=== PATIENT | male | born 1975 | race Caucasian/White ===

== ENCOUNTER 2019-09-24 12:07 | Emergency (ER) | payer SELFPAY ==
--- NOTE | 2019-09-24 12:16 | ED.GENADULT ---
HPI - General Adult General Chief complaint: Wound/Laceration Stated complaint: Burned/infected rt 4 finger Time Seen by Provider: 09/24/19 12:17 Source: patient and RN notes reviewed Mode of arrival: ambulatory Limitations: no limitations History of Present Illness HPI narrative: 44-year-old male presents with complaints of medial-anterior RT 4th finger (ring) swelling, warmth, tenderness, and redness for the past 3 days. Truong says he cleaned finger with alcohol and stuck it with a sterile needle then cleaned it with peroxide without relief. No known injury. Denies numbness or tingling. No weakness of finger. Denies fever or chills. Denies immobility. Exacerbation is movement and palpation of finger. Relieving factor is rest. Denies break in skin or drainage. Denies abdominal pain, decrease appetite, nausea, or vomiting. Truong denies history of MRSA. Dominant hand is the RIGHT HAND. Denies headaches, weakness, fatigue, myalgia, or facial swelling. Denies chest pain or dyspnea. Denies cough, rhinorrhea, congestion, sore throat, and diarrhea. Tolerating po intake well. Denies recent traveling. Denies concerns for COVID-19 or exposures been home since [id number] order except for essential household needs, working, and returned home. Says he has been off work and had a COVID-19 screening today due to nausea and vomiting last week otherwise no other symptoms. Says vomiting was from something he ate but [employer] required screening. Some parts of this dictation were generated by voice recognition software and may contain typographical and/or grammatical inaccuracies. Related Data Home Medications Medication Instructions Recorded Confirmed amlodipine 09/24/19 simvastatin mg 09/24/19 09/24/19 Allergies Allergy/AdvReac Type Severity Reaction Status Date / Time No Known Allergies Allergy Verified 04/15/19 10:47 Review of Systems Review of Systems: Narrative: CONSTITUTIONAL: Denies fever, chills, sweats. EYES: Denies visual changes, redness, discharge. ENT: Denies rhinorrhea, congestion, sore throat, otalgia. CARDIOVASCULAR: Denies chest pain, palpitations, edema. RESPIRATORY: Denies dyspnea, wheezing, cough GASTROINTESTINAL: Denies abdominal pain, nausea, vomiting, diarrhea. GENITOURINARY: Denies dysuria, hematuria, abnormal discharge SKIN: Denies rash or itching. Complains of RT 4th finger (ring) swelling, warmth, tenderness, and redness. MUSCULOSKELETAL: Denies acute back pain or myalgia. Complains of medial-anterior RT 4th finger (ring) warmth, pain, redness, and swelling. NEUROLOGIC: Denies numbness, or focal weakness. PSYCHIATRIC: Denies anxiety or depression. All other systems reviewed are negative, except as documented in HPI and below. [facility] Past Medical History Medical History (Updated 09/24/19 @ 14:17 by MARA Buckley) Hypercholesteremia Hypertension Surgical History Surgical History (Updated 09/24/19 @ 12:30 by MARA Buckley) History of eye surgery Left History of foot surgery Left Family History Family History (Updated 09/24/19 @ 12:33 by MARA Buckley) Father Hypertension Mother Hypertension Social History Social History (Updated 09/24/19 @ 14:18 by MARA Buckley) Smoking packs per day: 1.5 Smoking cigarettes per day: 30.0 Years smoked: 23 Smoking pack-years: 34.50 Smoking status: Current every day smoker Tobacco type: cigarettes Second hand tobacco smoke exposure: Yes Alcohol intake: current Substance use: never Living arrangements: with family Occupation/Education: occupation Gender identity (if verbalized by the patient): Male Spiritual care concerns: No Comments At time of signature, agree with nurse past medical, surgical, social, and family history. There is no relevant family history pertinent to the presenting complaint. Exam Narrative: Exam Narrative: GENERAL: Thi
[2019-09-24 12:20] VITALS: BP 149/93; PULSE 79; RESP 16; TEMP 36.2; O2SAT 100
== END 2019-09-24 12:42 | disposition home or self-care (01) ==
PROVIDERS: Emergency Provider Nurse Practitioner Family
DX: L03.011 Cellulitis of right finger (principal); I10 Essential (primary) hypertension
CPT/HCPCS: 99213; G0463

== ENCOUNTER 2020-03-14 09:52 | Emergency (ER) | payer OTHER, SELFPAY ==
--- NOTE | ~2020-03-14 | CT_ITS ---
EXAMINATION: CT facial bones w con DATE: 03/14/2020 11:28 INDICATION: Tooth 28 pain. Facial edema and erythema. TECHNIQUE: Computed tomography (CT) of the facial bones and maxillofacial region was performed with 7 5 mL Omnipaque 350 intravenous contrast. Automated exposure control and iterative reconstruction tech nique were employed. The dose-length product was 302.32 mGy-cm. COMPARISON: None. FINDINGS: The palatine tonsils are enlarged. There is soft tissue swelling in the right lower face. T here is mild mucosal thickening in the paranasal sinuses. The mastoid air cells are normal. Tooth 2 i s broken. Tooth 3 demonstrates carious lesions. Tooth 7 demonstrates a carious lesion. Tooth 9 demons trates a carious lesion and periapical lucencies with breech of the buccal and lingual cortex of the alveolar process. Tooth 11 demonstrates a carious lesion. Teeth 13 and 14 demonstrate carious lesions . Tooth 18 demonstrates carious lesions. Tooth 19 is absent. Tooth 20 demonstrates a carious lesion a nd periapical lucency. Tooth 28 demonstrates a carious lesion and periapical lucencies with breech of the buccal cortex of the alveolar process with 3 x 1 mm subperiosteal abscess. Tooth 29 demonstrates a carious lesion. IMPRESSION: 1. Extensive dental disease including small subperiosteal abscess at tooth 28. Reviewed, dictated and finalized at location A.
[2020-03-14 10:05] VITALS: BP 158/113; PULSE 81; RESP 18; TEMP 36.3; O2SAT 100
--- NOTE | 2020-03-14 10:40 | ED.DENTAL ---
HPI - Dental/Oral General Chief complaint: Dental/Oral <Nabila Sofia PA-C - Last Filed: 03/14/20 12:08> Stated complaint: TOOTH PAIN <TAB Castelan Last Filed: 03/14/20 12:08> Time Seen by Provider: 03/14/20 10:13 <Nabila Sofia PA-C - Last Filed: 03/14/20 12:08> Source: patient <TAB Castelan Last Filed: 03/14/20 12:08> Mode of arrival: ambulatory <TAB Castelan Last Filed: 03/14/20 12:08> Limitations: no limitations <TAB Castelan Last Filed: 03/14/20 12:08> History of Present Illness HPI Narrative: This is a 45-year-old male that presents the emergency department for toothache since yesterday. Reports he started to have redness and swelling around the tooth and noted swelling of his face which prompted him to be seen. Denies fever, dysphagia, or dyspnea. <Nabila Sofia PA-C - Last Filed: 03/14/20 12:08> MD Complaint: tooth pain <TAB Castelan Last Filed: 03/14/20 12:08> Location: Tooth # (28) <Nabila Sofia PA-C - Last Filed: 03/14/20 12:08> Related Data Allergies/adverse reactions: Allergies Allergy/AdvReac Type Severity Reaction Status Date / Time No Known Allergies Allergy Verified 03/14/20 10:13 <TAB Castelan Last Filed: 03/14/20 12:08> Review of Systems Review of Systems: Narrative: CONSTITUTIONAL: Denies fever ENT: Reports dentalgia <TAB Castelan Last Filed: 03/14/20 12:08> All systems reviewed & are unremarkable except as noted in HPI and below <TAB Castelan Last Filed: 03/14/20 12:08> PMFSH Past Medical History Medical History: Medical History (Updated 03/14/20 @ 12:07 by Nabila Sofia PA-C) Hypercholesteremia Hypertension <Nabila Sofia PA-C - Last Filed: 03/14/20 12:08> Surgical History Surgical History: Surgical History (Updated 09/24/19 @ 12:30 by MARA Buckley) History of eye surgery Left History of foot surgery Left <Nabila Sofia PA-C - Last Filed: 03/14/20 12:08> Family History Family History: Family History (Updated 09/24/19 @ 12:33 by MARA Buckley) Father Hypertension Mother Hypertension <Nabila Sofia PA-C - Last Filed: 03/14/20 12:08> Social History Social History: Social History (Updated 09/24/19 @ 14:18 by MARA Buckley) Smoking packs per day: 1.5 Smoking cigarettes per day: 30.0 Years smoked: 23 Smoking pack-years: 34.50 Smoking status: Current every day smoker Tobacco type: cigarettes Second hand tobacco smoke exposure: Yes Alcohol intake: current Substance use: never Gender identity (if verbalized by the patient): Male Spiritual care concerns: No <Nabila Sofia PA-C - Last Filed: 03/14/20 12:08> Exam Narrative: Exam Narrative: GENERAL: Well-appearing, well-nourished, and in no acute distress. HEAD: Normocephalic, atraumatic. EYES: EOMI. ENT: Mucous membranes moist. Oropharynx without tonsillar hypertrophy exudate or other lesions. Poor dentition. Tooth #28 tender to palpation with surrounding edema and erythema. No obvious fluctuance. Mild right sided facial swelling, without erythema. Floor of mouth is soft. No trismus NECK: Supple. No adenopathy or masses. CHEST: Clear to auscultation. No respiratory distress. No wheezes rales or rhonchi HEART: Regular rate and rhythm. No murmur heard. Normal peripheral pulses. EXTREMITIES: Normal range of motion. No edema. SKIN: Warm, dry, no rash. NEURO: No focal deficits. Alert and oriented x3. PSYCH: Normal mood and affect <Nabila Sofia PA-C - Last Filed: 03/14/20 12:08> Course Vital Signs Vital signs: Vital Signs Temperature 97.4 F L 03/14/20 10:05 Pulse Rate 81 03/14/20 10:05 Respiratory Rate 18 03/14/20 10:05 Blood Pressure 158/113 H 03/14/20 10:05 Pulse Oximetry 100 03/14/20 10:05 Temperature 97.4
[2020-03-14 10:55] LABS: Basophils Percent Auto 0.2 % (0.2-1.2); Eosinophils Absolute Auto 0.2 K/mm3 (0-0.3); Eosinophils Percent Auto 1.7 % (0-4.4); Hematocrit 48.4 % (42.0-52.0); Hemoglobin 16.2 g/dL (14.0-18.0); Immature Granulocyte Absolute 0.09 K/mm3 (0.00-0.031); Immature Granulocyte Percent A 0.7 % (0-0.5); Lymphocytes Absolute Auto 3.17 K/mm3 (0.9-3.2); Lymphocytes Percent Auto 24.8 % (18.3-44.2); Mean Corpuscular HGB Conc 33.5 g/dl (32-36); Mean Corpuscular Hemoglobin 31.7 pg (26-34); Mean Corpuscular Volume 94.7 fl (80-100); Mean Platelet Volume 9.5 fl (7.4-10.4); Monocytes Absolute Auto 1.2 K/mm3 (0.1-0.6); Monocytes Percent Auto 9.1 % (2.6-8.5); Neutrophils Absolute Auto 8.1 K/mm3 (1.3-6.7); Neutrophils Percent Auto 63.5 % (45.5-73.1); Platelet Count Result 302 k/mm3 (150-375); Red Blood Count 5.11 M/mm3 (4.6-6.20); Red Cell Distribution Width 12.4 % (11.5-14.5); White Blood Count 12.8 K/mm3 (4.5-10.0)
[2020-03-14] MEDS: KETOROLAC 30 MG/ML VIAL (*BKC) IV PUSH (10:56)
[2020-03-14 11:11] LABS: Anion Gap 5 mmol/L (8-16); Blood Urea Nitrogen 17 mg/dL (9-20); CRP 0.6 mg/dL (<1.0); Calcium 9.4 mg/dL (8.4-10.2); Carbon Dioxide 30 mmol/L (22-30); Chloride 103 mmol/L (98-107); Estimated CRCL calculation 123 ml/min; Estimated Glomerular Filt Rate > 60; Glucose 105 mg/dL (75-110); Potassium 4.8 mmol/L (3.4-5.0); Sodium 138 mmol/L (137-145)
[2020-03-14] MEDS: AMPICILLIN SULB 3 GM/NS 100 ML 3 GM/100 ML VIAL IVPB (12:12)
== END 2020-03-14 12:56 | disposition home or self-care (01) ==
PROVIDERS: Physician Assistant; Emergency Provider General Practice
DX: K04.7 Periapical abscess without sinus (principal); E78.00 Pure hypercholesterolemia, unspecified; I10 Essential (primary) hypertension; F17.210 Nicotine dependence, cigarettes, uncomplicated
CPT/HCPCS: 36415; 70487; 80048; 85025; 86140; 96365; 96375; 99284; J0295; J1885; Q9967

== ENCOUNTER 2020-11-30 01:50 | Emergency (ER) | payer SELFPAY ==
[2020-11-30 01:52] VITALS: BP 169/98; PULSE 93; RESP 16; TEMP 36.7; O2SAT 98
--- NOTE | 2020-11-30 03:13 | ED.GENADULT ---
HPI - General Adult General Chief complaint: Eye Problems Stated complaint: L eye problem Time Seen by Provider: 11/30/20 02:59 History of Present Illness HPI narrative: Patient is a 45-year-old gentleman who presents the emergency department with chief complaint of left orbit swelling. The patient reports he was out working in the yard wearing his eye protection and reports that he thinks he may have gotten stung by something and then he noticed that he started having some redness on the left side of his face extending down of his left eyelid. 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 Patient states that it feels irritated and is slightly discomfort whenever he touches the area. Patient denies fever denies chills denies shortness of breath denies chest pain. Related Data Allergies Allergy/AdvReac Type Severity Reaction Status Date / Time No Known Allergies Allergy Verified 11/30/20 02:12 Review of Systems Review of Systems: Narrative: A 10 system review of systems was completed on the patient and is negative except for what is stated in the HPI. Nursing and ancillary documentation was reviewed. [facility] Past Medical History Medical History Hypercholesteremia Hypertension Surgical History Surgical History History of eye surgery Left History of foot surgery Left Family History Family History Father Hypertension Mother Hypertension Social History Social History Smoking packs per day: 1.5 Smoking cigarettes per day: 30.0 Years smoked: 23 Smoking pack-years: 34.50 Smoking status: Current every day smoker Tobacco type: cigarettes Second hand tobacco smoke exposure: Yes Alcohol intake: current Substance use: never Gender identity (if verbalized by the patient): Male Spiritual care concerns: No Exam Narrative: Exam Narrative: GENERAL: Well-appearing, well-nourished, and in no acute distress. HEAD: Normocephalic, atraumatic. EYES: PERRLA and EOMI. ENT: Nares clear, no rhinorrhea or epistaxis. Mucous membranes moist. NECK: Supple. CHEST: Clear to auscultation. No respiratory distress. HEART: Regular rate and rhythm. No murmur heard. Normal peripheral pulses. ABDOMEN: Soft, nontender, nondistended, normal active bowel sounds. EXTREMITIES: Normal range of motion. No edema. SKIN: Warm, dry, no rash. NEURO: No focal deficits. Alert and oriented x3. PSYCH: Normal mood and affect. Course Vital Signs Vital signs: Vital Signs Temperature 36.7 C 11/30/20 01:52 Pulse Rate 93 11/30/20 01:52 Respiratory Rate 16 11/30/20 01:52 Blood Pressure 169/98 H 11/30/20 01:52 Pulse Oximetry 98 11/30/20 01:52 Temperature 36.7 C 11/30/20 01:52 Pulse Rate 93 11/30/20 01:52 Respiratory Rate 16 11/30/20 01:52 Blood Pressure 169/98 H 11/30/20 01:52 Pulse Oximetry 98 11/30/20 01:52 Medical Decision Making Vital Signs Vital Signs: Vital Signs Temperature 36.7 C 11/30/20 01:52 Pulse Rate 93 11/30/20 01:52 Respiratory Rate 16 11/30/20 01:52 Blood Pressure 169/98 H 11/30/20 01:52 Pulse Oximetry 98 11/30/20 01:52 Temperature 36.7 C 11/30/20 01:52 Pulse Rate 93 11/30/20 01:52 Respiratory Rate 16 11/30/20 01:52 Blood Pressure 169/98 H 11/30/20 01:52 Pulse Oximetry 98 11/30/20 01:52 Discharge Plan Discharge Clinical Impression: Periorbital cellulitis Qualifiers: Laterality: left Qualified Code(s): L03.213 - Periorbital cellulitis Insect bite Qualifiers: Encounter type: initial encounter Site of insect bite: head Site of insect bite of head: periocular area Laterality: left Qualified Code(s): S00.262A - Insect bite (nonvenomous) of le
[2020-11-30] MEDS: predniSONE 20 MG TABLET 60 MG PO (03:21)
[2020-11-30] MEDS: CLINDAMYCIN HCL 150 MG CAP 300 MG PO (03:21)
[2020-11-30 03:29] VITALS: BP 152/87; PULSE 85; RESP 18; O2SAT 95
== END 2020-11-30 03:28 | disposition home or self-care (01) ==
PROVIDERS: Emergency Provider Emergency Medicine
DX: L03.213 Periorbital cellulitis (principal); S00.262A Insect bite (nonvenomous) of left eyelid and periocular area, initial encounter; E78.00 Pure hypercholesterolemia, unspecified; I10 Essential (primary) hypertension; F17.210 Nicotine dependence, cigarettes, uncomplicated; W57.XXXA Bitten or stung by nonvenomous insect and other nonvenomous arthropods, initial encounter
CPT/HCPCS: 99283; A9270; J7512

== ENCOUNTER 2021-04-15 15:20 | Emergency (ER) | payer OTHER, SELFPAY ==
[2021-04-15 15:40] VITALS: BP 167/106; PULSE 78; RESP 18; TEMP 36.5; O2SAT 99
--- NOTE | 2021-04-15 15:43 | ED.WOUNDLAC ---
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 He states that he jerked his left shoulder and dropped boxes when dog bit him. He states that his tetanus is not up to date. Patient reports pain to his left shoulder with movement, full ROM of left shoulder is present with strong left arm pulses with no tingling or numbness to his left am or hand. Patient works for [employer]. Location: abdomen Context: other (dog bite) Related Data Allergies Allergy/AdvReac Type Severity Reaction Status Date / Time No Known Allergies Allergy Verified 04/18/21 09:06 Review of Systems Review of Systems: CONSTITUTIONAL: Denies fever, chills, or sweats. EYES: Denies visual changes, redness, or discharge. ENT: Denies rhinorrhea, congestion, sore throat, or otalgia. CARDIOVASCULAR: Denies chest pain, palpitations, or edema. RESPIRATORY: Denies cough or dyspnea. GASTROINTESTINAL: Denies abdominal pain, nausea, vomiting, or diarrhea. GENITOURINARY: Denies dysuria or hematuria. SKIN: Denies rash or itching. Positive for dog bite to abdomen, upper and lower canine puncture luis noted along with abrasions from upper teeth MUSCULOSKELETAL: Denies back pain,positive for left shoulder joint pain, or myalgia. NEUROLOGIC: Denies headache, numbness, or weakness. PSYCHIATRIC: Denies anxiety or depression. All systems reviewed & are unremarkable except as noted in HPI and below PMFSH Past Medical History Medical History (Updated 04/18/21 @ 10:20 by Zenia Dodd NP) Closed left arm fracture Hypercholesteremia Hypertension Kidney stone Surgical History Surgical History History of eye surgery Left History of foot surgery Left Family History Family History Father Hypertension Mother Hypertension Social History Social History Smoking packs per day: 1.5 Smoking cigarettes per day: 30.0 Years smoked: 23 Smoking pack-years: 34.50 Smoking status: Current every day smoker Tobacco type: cigarettes Second hand tobacco smoke exposure: Yes Alcohol intake: current Substance use: never Gender identity (if verbalized by the patient): Male Spiritual care concerns: No Comments At time of signature, agree with nursing past medical, surgical, social and family history. There is no relevant family history pertinent to the presenting complaint Exam Narrative: GENERAL: Well-appearing, well-nourished, and in no acute distress. HEAD: Normocephalic, atraumatic. EYES: PERRLA and EOMI. ENT: Nares clear, no rhinorrhea or epistaxis. Mucous membranes moist. NECK: Supple.no lymphadenopathy CHEST: Clear to auscultation. No respiratory distress. HEART: Regular rate and rhythm. No murmur heard. Normal peripheral pulses. ABDOMEN: Soft, nontender, nondistended, normal active bowel sounds. EXTREMITIES: Normal range of motion. No edema. some tenderness to AC joint area of left shoulder, full ROM noted with strong pulses and sensation intact SKIN: Warm, dry, no rash. positive for dog bite to abdomen with puncture areas from top and bottom canines and abrasions from front teeth. NEURO: No focal deficits. Alert and oriented x3. Course Vital Signs Vital signs: Vital Signs Temperature 36.5 C 04/15/21 15:40 Pulse Rate 78 04/15/21 15:40 Respiratory Rate 18 04/15/21 15:40 Blood Pre
[2021-04-15] MEDS: TETANUS,DIPHTHERIA,AC PERTUSSIS ADULT (0.5 ML) BOOSTRIX IM (16:05)
== END 2021-04-15 16:40 | disposition home or self-care (01) ==
PROVIDERS: Emergency Provider Registered Nurse
DX: S31.139A Puncture wound of abdominal wall without foreign body, unspecified quadrant without penetration into peritoneal cavity, initial encounter (principal); W54.0XXA Bitten by dog, initial encounter; M25.512 Pain in left shoulder; Z23 Encounter for immunization; F17.210 Nicotine dependence, cigarettes, uncomplicated; E78.00 Pure hypercholesterolemia, unspecified; I10 Essential (primary) hypertension
CPT/HCPCS: 90471; 90715; 99203; G0463

== ENCOUNTER 2021-05-26 21:42 | Emergency (ER) | payer SELFPAY ==
--- NOTE | 2021-05-26 21:51 | PC.NURSE ---
Pt to desk saying he wants to just go home and try to sleep it off . Pt encouraged to monitor symptoms and return if symptoms worsen. Pt ambulatory with steady gait in no obvious distress.
== END 2021-05-26 21:43 | disposition left against medical advice (07) ==
LOC: ANHED 21:56
DX: Z53.21 Procedure and treatment not carried out due to patient leaving prior to being seen by health care provider (principal)
CPT/HCPCS: 99199

== ENCOUNTER 2021-06-30 16:21 | Emergency (ER) | payer OTHER, SELFPAY ==
[2021-06-30 16:25] VITALS: BP 183/66; PULSE 95; RESP 20; TEMP 36.6; O2SAT 99
--- NOTE | 2021-06-30 16:54 | ED.FEVER ---
HPI - Fever General Chief Complaint: Fever Stated Complaint: fever Time Seen by Provider: 06/30/21 16:35 Source: patient History of Present Illness HPI Narrative: 46-year-old male presents emerged department for evaluation of intermittent fever. Patient had covid near Xmas but felt that he improved. On sunday had worsening symptoms again. Had a negative covid test on Sunday. Patient describes subjective chills and fever. Patient denies any chest pain or shortness of breath. Related Data Allergies Allergy/AdvReac Type Severity Reaction Status Date / Time No Known Allergies Allergy Verified 04/18/21 09:06 Review of Systems Review of Systems: CONSTITUTIONAL: Subjective fever and chills. EYES: Denies visual changes, redness, or discharge. ENT: Denies rhinorrhea, congestion, sore throat, or otalgia. CARDIOVASCULAR: Denies chest pain, palpitations, or edema. RESPIRATORY: Denies cough or dyspnea. GASTROINTESTINAL: Denies abdominal pain, nausea, vomiting, or diarrhea. GENITOURINARY: Denies dysuria or hematuria. SKIN: Denies rash or itching. MUSCULOSKELETAL: Denies back pain, joint pain, or myalgia. NEUROLOGIC: Denies headache, numbness, or weakness. PSYCHIATRIC: Denies anxiety or depression. [facility] Past Medical History Medical History (Updated 06/30/21 @ 18:16 by Adan Salgado MD) Closed left arm fracture Hypercholesteremia Hypertension Kidney stone Surgical History Surgical History History of eye surgery Left History of foot surgery Left Family History Family History Father Hypertension Mother Hypertension Social History Social History Smoking packs per day: 1.5 Smoking cigarettes per day: 30.0 Years smoked: 23 Smoking pack-years: 34.50 Smoking status: Current every day smoker Tobacco type: cigarettes Second hand tobacco smoke exposure: Yes Alcohol intake: current Substance use: never Gender identity (if verbalized by the patient): Male Spiritual care concerns: No Exam Narrative: APPEARANCE: Well appearing, no pain, no distress, well-nourished. HEAD: normocephalic, atraumatic. EYES: PERRLA/EOMI, conjunctivae clear. NOSE: Normal no drainage NECK: Supple. No adenopathy, no masses. RESPIRATORY: Airway patent, respirations nonlabored. Clear to auscultation bilaterally, no rales, rhonchi, wheezing. CARDIOVASCULAR: Regular rate and rhythm without murmurs rubs or gallops. ABDOMINAL: Soft, nontender, nondistended, normal bowel sounds MUSCULOSKELETAL: Moves all extremities. Strength/ROM intact, No edema, No calf tenderness. NEURO: Alert. Cranial nerves II through XII intact. SKIN: Warm, dry. Normal Color PSYCHIATRIC: Normal affect/mood. Course Course Emergency Course: Patient was updated on the results of his labs. Vital Signs Vital signs: Vital Signs Temperature 97.8 F 06/30/21 16:25 Pulse Rate 95 06/30/21 16:25 Respiratory Rate 20 06/30/21 16:25 Blood Pressure 183/66 H 06/30/21 16:25 Pulse Oximetry 99 06/30/21 16:25 Temperature 97.8 F 06/30/21 16:25 Pulse Rate 79 06/30/21 18:29 Respiratory Rate 18 06/30/21 18:29 Blood Pressure 160/82 H 06/30/21 18:29 Pulse Oximetry 100 06/30/21 18:29 MDM - Fever Differential Diagnosis Differential diagnosis: Likely viral infection Lab Data Attestation: I reviewed the patient's lab results. Labs: Lab Results 06/30/21 Range/Units 17:08 Influenza A (RT-PCR) Negative (Negative) Influenza B (RT-PCR) Negative (Negative) SARS-CoV-2 RNA (RT-PCR) Negative Discharge Plan Discharge Clinical Impression: Viral infection Patient Disposition: Home, Self-Care Condition: Stable Instructions: Antibiotic Form, Viral Syndrome (ED) Additional Instructions: Have close follow-up with your primary c
[2021-06-30 17:00] VITALS: O2SAT 98
[2021-06-30 17:57] VITALS: BP 164/100; PULSE 85; RESP 18; O2SAT 96
[2021-06-30 18:04] LABS: Influenza A QL RT-PCR Negative (Negative); Influenza B QL RT-PCR Negative (Negative); SARS-CoV-2 RNA PCR Negative
[2021-06-30 18:29] VITALS: BP 160/82; PULSE 79; RESP 18; O2SAT 100
== END 2021-06-30 18:29 | disposition home or self-care (01) ==
PROVIDERS: Emergency Provider Emergency Medicine
DX: B34.9 Viral infection, unspecified (principal); Z20.822 Contact with and (suspected) exposure to COVID-19; E78.00 Pure hypercholesterolemia, unspecified; I10 Essential (primary) hypertension; Z87.442 Personal history of urinary calculi; F17.210 Nicotine dependence, cigarettes, uncomplicated
CPT/HCPCS: 87502; 99283; C9803; U0003; U0005

== ENCOUNTER 2021-07-29 10:46 | Emergency (ER) | payer OTHER, SELFPAY ==
--- NOTE | ~2021-07-29 | XR_ITS ---
EXAMINATION: XR chest 2V EXAM DATE: 07/29/2021 11:09 INDICATION: Midline chest pain. TECHNIQUE: Frontal and lateral projections of the chest obtained and reviewed. Comparison is made to prior examination from 02/11/2018. FINDINGS: The lungs are clear. There are no pleural effusions. The cardiomediastinal silhouette is within normal limits. There is no pneumothorax suspected. The bones and soft tissues are unremarkab le. IMPRESSION: No acute cardiopulmonary findings. Reviewed, dictated and finalized at location B. TABLE TRIMMER
--- NOTE | 2021-07-29 10:49 | ECG_ITS ---
Measurements Intervals [place] Rate: 78 P: 5 ME: 132 QRS: 53 QRSD: 94 T: 58 QT: 380 QTc: 435 Interpretive Statements SINUS RHYTHM NO PREVIOUS ECG AVAILABLE FOR COMPARISON Electronically Signed On 07-29-2021 15:51:58 [employer] by Harry Robbins M.D.
[2021-07-29 10:55] VITALS: BP 166/93; PULSE 76; RESP 18; TEMP 36.4; O2SAT 100
[2021-07-29 12:08] VITALS: BP 175/95; PULSE 79; RESP 22; O2SAT 100
[2021-07-29 12:10] LABS: Basophils Percent Auto 0.3 % (0.2-1.2); Eosinophils Absolute Auto 0.2 K/mm3 (0-0.3); Eosinophils Percent Auto 1.3 % (0-4.4); Hematocrit 48.3 % (42.0-52.0); Hemoglobin 16.1 g/dL (14.0-18.0); Immature Granulocyte Absolute 0.06 K/mm3 (0.00-0.031); Immature Granulocyte Percent A 0.5 % (0-0.5); Lymphocytes Absolute Auto 2.52 K/mm3 (0.9-3.2); Mean Corpuscular HGB Conc 33.3 g/dl (32-36); Mean Corpuscular Hemoglobin 30.1 pg (26-34); Mean Corpuscular Volume 90.4 fl (80-100); Mean Platelet Volume 9.1 fl (7.4-10.4); Monocytes Absolute Auto 0.6 K/mm3 (0.1-0.6); Monocytes Percent Auto 4.7 % (2.6-8.5); Neutrophils Absolute Auto 8.7 K/mm3 (1.3-6.7); Neutrophils Percent Auto 72.2 % (45.5-73.1); Platelet Count Result 337 k/mm3 (150-375); Red Blood Count 5.34 M/mm3 (4.6-6.20)
[2021-07-29 12:19] LABS: Prothrombin Time 12.6 Seconds (11.1-14.7)
[2021-07-29 12:20] LABS: Partial Thromboplastin Time 28.8 SECONDS (22.3-36.8)
[2021-07-29 12:21] LABS: Alanine Aminotransferase 23 U/L (4-50); Albumin Level 4.6 g/dL (3.5-5.1); Alkaline Phosphatase 84 U/L (38-126); Anion Gap 9 mmol/L (8-16); Aspartate Amino Transferase 26 U/L (17-59); Bilirubin,Total 0.6 mg/dL (0.2-1.3); Blood Urea Nitrogen 14 mg/dL (9-20); Carbon Dioxide 25 mmol/L (22-30); Chloride 105 mmol/L (98-107); Estimated CRCL calculation 137 ml/min; Estimated Glomerular Filt Rate > 60; Glucose 144 mg/dL (65-110); Lipase 375 U/L (23-300); Potassium 4.5 mmol/L (3.4-5.0); Sodium 139 mmol/L (137-145)
[2021-07-29 12:31] LABS: Troponin I < 0.012 ng/mL (0.000-0.034)
--- NOTE | 2021-07-29 12:32 | ED.CHESTPAIN ---
HPI - Chest Pain General Chief Complaint: Chest Pain Stated Complaint: Chest pain Time Seen by Provider: 07/29/21 12:21 Source: patient History of Present Illness HPI narrative: Patient presents with chest pain. Reports has had intermittent chest pain for the past few weeks started a sharp pain no radiation no clear aggravating or alleviating factors. Reports he had Covid appeared to recover well however had persistent intermittent chest pain and cough he was concerned so he came to the ER for evaluation. Denies any abdominal pain nausea vomiting diarrhea or diaphoresis. Related Data Allergies Allergy/AdvReac Type Severity Reaction Status Date / Time No Known Allergies Allergy Verified 04/18/21 09:06 Review of Systems Review of Systems: CONSTITUTIONAL: Denies fever, chills, or sweats. EYES: Denies visual changes, redness, or discharge. ENT: Denies rhinorrhea, congestion, sore throat, or otalgia. CARDIOVASCULAR: Denies palpitations, or edema. RESPIRATORY: Denies dyspnea. GASTROINTESTINAL: Denies abdominal pain, nausea, vomiting, or diarrhea. GENITOURINARY: Denies dysuria or hematuria. SKIN: Denies rash or itching. MUSCULOSKELETAL: Denies back pain, joint pain, or myalgia. NEUROLOGIC: Denies headache, numbness, dizziness, or weakness. PSYCHIATRIC: Denies anxiety or depression. All systems reviewed & are unremarkable except as noted in HPI and below PMFSH Past Medical History Medical History Closed left arm fracture Hypercholesteremia Hypertension Kidney stone Surgical History Surgical History History of eye surgery Left History of foot surgery Left Family History Family History Father Hypertension Mother Hypertension Social History Social History Smoking packs per day: 1.5 Smoking cigarettes per day: 30.0 Years smoked: 23 Smoking pack-years: 34.50 Smoking status: Current every day smoker Tobacco type: cigarettes Second hand tobacco smoke exposure: Yes Alcohol intake: current Substance use: never Gender identity (if verbalized by the patient): Male Spiritual care concerns: No Exam Narrative: GENERAL: Well-appearing, well-nourished, and in no acute distress. HEAD: Normocephalic, atraumatic. EYES: PERRLA and EOMI. ENT: Nares clear, no rhinorrhea or epistaxis. Mucous membranes moist. NECK: Supple. No masses. No JVD CHEST: Clear to auscultation. No respiratory distress. No wheezes rales or rhonchi HEART: Regular rate and rhythm. No murmur heard. Normal peripheral pulses. ABDOMEN: Soft, nontender, nondistended, normal active bowel sounds. EXTREMITIES: Normal range of motion. No edema. SKIN: Warm, dry, no rash. NEURO: No focal deficits. Alert and oriented x3. PSYCH: Normal mood and affect. Course Reevaluation(s) Reevaluation #1: Patient resting comfortably results and plan reviewed with patient. Patient comfortable outpatient plan. Date: 07/29/21 Time: 13:11 Vital Signs Vital signs: Vital Signs Temperature 36.4 C 07/29/21 10:55 Pulse Rate 76 07/29/21 10:55 Respiratory Rate 18 07/29/21 10:55 Blood Pressure 166/93 H 07/29/21 10:55 Pulse Oximetry 100 07/29/21 10:55 Temperature 37.1 C 07/29/21 13:23 Pulse Rate 78 07/29/21 13:23 Respiratory Rate 19 07/29/21 13:23 Blood Pressure 141/81 H 07/29/21 13:23 Pulse Oximetry 100 07/29/21 13:23 MDM - Chest Pain MDM Narrative Medical decision making narrative: H&P as above, vss, pt looks clinically well, exam reassuring, labs unremarkable to include troponin after several days of symptoms and negative dimer, img unremarkable, additional labs/img considered, symptomatic relief available as needed, on reevaluation pt continues to looks clinically well. Suspect kyrie
[2021-07-29 12:47] LABS: D Dimer < 0.27 ug/mL (<0.48)
[2021-07-29 13:23] VITALS: BP 141/81; PULSE 78; RESP 19; TEMP 37.1; O2SAT 100
== END 2021-07-29 13:26 | disposition home or self-care (01) ==
PROVIDERS: General Practice; Emergency Provider Emergency Medicine
DX: R07.89 Other chest pain (principal); Z86.16 Personal history of COVID-19; E78.00 Pure hypercholesterolemia, unspecified; I10 Essential (primary) hypertension; Z87.442 Personal history of urinary calculi; F17.210 Nicotine dependence, cigarettes, uncomplicated
CPT/HCPCS: 36415; 71046; 80053; 83690; 84484; 85025; 85380; 85610; 85730; 93005; 99284

== ENCOUNTER 2021-08-06 20:25 | Emergency (ER) | payer OTHER, SELFPAY ==
[2021-08-06] VITALS (11 sets, daily range): BP systolic 152–188; BP diastolic 99–109; PULSE 69–89; RESP 13–24; TEMP 36.2–36.4; O2SAT 98–100
--- NOTE | ~2021-08-06 | XR_ITS ---
EXAMINATION: XR chest 1V portable DATE: 08/06/2021 21:00 INDICATION: Chest soreness, shortness of breath, pleurisy TECHNIQUE: frontal view of the chest was obtained. COMPARISON: Chest radiograph dated 07/29/2021 FINDINGS: The lungs remain clear with no focal airspace opacities, pulmonary edema, pleural effusion or pneumot horax. The cardiomediastinal silhouette is normal. Visualized bones and soft tissues are unremarkable . IMPRESSION: 1. No acute cardiopulmonary disease. Reviewed, dictated and finalized at location A. FRAMER MACHINE
--- NOTE | 2021-08-06 20:43 | ECG_ITS ---
Measurements Intervals [place] Rate: 77 P: -6 UT: 159 QRS: 28 QRSD: 106 T: 39 QT: 368 QTc: 418 Interpretive Statements SINUS RHYTHM COMPARED TO ECG 07/29/2021 10:52:19 NO SIGNIFICANT CHANGES Electronically Signed On 08-07-2021 16:38:16 CDT by Gris Ferraro M.D.
[2021-08-06] MEDS: ASPIRIN 81 MG CHEWABLE TABLET 324 MG PO (20:56)
[2021-08-06 21:02] LABS: Basophils Percent Auto 0.2 % (0.2-1.2); Eosinophils Absolute Auto 0.3 K/mm3 (0-0.3); Eosinophils Percent Auto 1.9 % (0-4.4); Hematocrit 44.4 % (42.0-52.0); Immature Granulocyte Absolute 0.05 K/mm3 (0.00-0.031); Immature Granulocyte Percent A 0.3 % (0-0.5); Lymphocytes Percent Auto 27.2 % (18.3-44.2); Mean Corpuscular HGB Conc 33.8 g/dl (32-36); Mean Corpuscular Hemoglobin 30.9 pg (26-34); Mean Corpuscular Volume 91.5 fl (80-100); Mean Platelet Volume 9.1 fl (7.4-10.4); Monocytes Absolute Auto 1.3 K/mm3 (0.1-0.6); Monocytes Percent Auto 8.6 % (2.6-8.5); Neutrophils Absolute Auto 9.1 K/mm3 (1.3-6.7); Neutrophils Percent Auto 61.8 % (45.5-73.1); Platelet Count Result 367 k/mm3 (150-375); Red Blood Count 4.85 M/mm3 (4.6-6.20); Red Cell Distribution Width 12.9 % (11.5-14.5); White Blood Count 14.7 K/mm3 (4.5-10.0)
[2021-08-06 21:11] LABS: Prothrombin Time 12.6 Seconds (11.1-14.7)
[2021-08-06 21:12] LABS: Alanine Aminotransferase 22 U/L (4-50); Albumin Level 4.3 g/dL (3.5-5.1); Alkaline Phosphatase 71 U/L (38-126); Anion Gap 6 mmol/L (8-16); Aspartate Amino Transferase 20 U/L (17-59); Bilirubin,Total 0.3 mg/dL (0.2-1.3); Blood Urea Nitrogen 19 mg/dL (9-20); Calcium 8.8 mg/dL (8.4-10.2); Carbon Dioxide 29 mmol/L (22-30); Chloride 103 mmol/L (98-107); Estimated Glomerular Filt Rate > 60; Glucose 109 mg/dL (65-110); Potassium 4.1 mmol/L (3.4-5.0); Sodium 138 mmol/L (137-145)
--- NOTE | 2021-08-06 21:13 | ED.GENADULT ---
HPI - General Adult General Chief complaint: Shortness of Breath/Dyspnea Stated complaint: sob Time Seen by Provider: 08/06/21 20:32 Source: patient and RN notes reviewed Mode of arrival: ambulatory Limitations: no limitations History of Present Illness HPI narrative: Patient drove himself to the emergency room, complaining of intermittent chest pain, shortness since of the beginning of this month and probably a little bit before. Patient had a diagnosis of Covid infection April 2021, and been complaining of lingering effect of the Covid-like foggy brain, coughing, chest soreness, was seen in our emergency room recently with negative cardiac work-up. Patient keep clearing his throat and concern about the possibility of something going on in his body and he is not aware of it. Patient used to take medication for hypertension 2 years ago lasted for 1 week then quit because he does not like to take. Currently patient does not take any medicine at home, actively smoker, drinks occasionally, denies any drug use or abuse. 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 Related Data Allergies Allergy/AdvReac Type Severity Reaction Status Date / Time No Known Allergies Allergy Verified 04/18/21 09:06 Review of Systems Review of Systems: CONSTITUTIONAL: Denies fever, chills, or sweats. EYES: Denies visual changes, redness, or discharge. ENT: Denies rhinorrhea, congestion, sore throat, or otalgia. CARDIOVASCULAR: Denies chest pain, palpitations, or edema. RESPIRATORY: Denies cough or dyspnea. GASTROINTESTINAL: Denies abdominal pain, nausea, vomiting, or diarrhea. GENITOURINARY: Denies dysuria or hematuria. SKIN: Denies rash or itching. MUSCULOSKELETAL: Denies back pain, joint pain, or myalgia. NEUROLOGIC: Denies headache, numbness, or weakness. PSYCHIATRIC: Denies anxiety or depression. [facility] Past Medical History Medical History Closed left arm fracture Hypercholesteremia Hypertension Kidney stone Surgical History Surgical History History of eye surgery Left History of foot surgery Left Family History Family History Father Hypertension Mother Hypertension Social History Social History Smoking packs per day: 1.5 Smoking cigarettes per day: 30.0 Years smoked: 23 Smoking pack-years: 34.50 Smoking status: Current every day smoker Tobacco type: cigarettes Second hand tobacco smoke exposure: Yes Alcohol intake: current Substance use: never Gender identity (if verbalized by the patient): Male Spiritual care concerns: No Exam Narrative: General appearance: Well-developed, well-nourished Skin: Normal color Head: Normocephalic, nontraumatic Eyes: Clear conjunctiva ENT: Oropharynx normal, ears normal, nose normal Neck: Supple, nontender Chest and respiratory: Airway patent, no respiratory distress, no accessory muscle use Heart: Regular rate/rhythm Abdomen: Soft, nontender, no organomegaly, quiet bowel sounds Vascular: Normal peripheral pulses, normal capillary refill. Musculoskeletal: Normal range of motion, nontender back Neurologic: Alert and oriented ?3, STE[employer]PER[employer] is normal as tested, no gross motor deficit Course Course Emergency Course: Patient not been feeling well with different symptoms since Covid infection April 2021. Long COVID was discussed with the patient by his family physician before. Patient also is noncompliance with blood pressure medication. Patient received Lopressor 5 mg every
[2021-08-06 21:24] LABS: NT Pro B Type Natriuretic Pept 38 pg/mL (5-100); Troponin I < 0.012 ng/mL (0.000-0.034)
[2021-08-06] MEDS: METOPROLOL TARTRATE INJ 5 MG/5 ML VIAL IV PUSH ×3 (21:24→21:36)
== END 2021-08-06 22:08 | disposition home or self-care (01) ==
PROVIDERS: Emergency Provider Emergency Medicine; PCP Family Medicine
DX: R07.89 Other chest pain (principal); I10 Essential (primary) hypertension; T46.5X6A Underdosing of other antihypertensive drugs, initial encounter; Z91.128 Patient's intentional underdosing of medication regimen for other reason; E78.00 Pure hypercholesterolemia, unspecified; Z86.16 Personal history of COVID-19; Z87.442 Personal history of urinary calculi; F17.210 Nicotine dependence, cigarettes, uncomplicated
CPT/HCPCS: 36415; 71045; 80053; 83880; 84484; 85025; 85610; 85730; 93005; 96374; 99284; A9270

== ENCOUNTER 2021-08-18 04:36 | Emergency (ER) | payer OTHER, SELFPAY ==
[2021-08-18 04:41] VITALS: BP 148/88; PULSE 80; RESP 20; TEMP 36.6; O2SAT 99
--- NOTE | 2021-08-18 04:46 | ED.GENADULT ---
HPI - General Adult General Chief complaint: Unspecified Stated complaint: lymph node swelling, neck pain Time Seen by Provider: 08/18/21 04:54 Source: patient Mode of arrival: ambulatory Limitations: no limitations History of Present Illness HPI narrative: Patient is a 46-year-old male complaining of cough and throat clearing started 1 week ago the same time he was started on lisinopril for his blood pressure. Patient also complaining of his left lymph node swelling. Patient denies any lip, tongue or throat swelling. Patient denies any chest pain or shortness of breath. Patient denies any fever or chills. Related Data Allergies Allergy/AdvReac Type Severity Reaction Status Date / Time No Known Allergies Allergy Verified 04/18/21 09:06 Review of Systems Review of Systems: All systems reviewed & are unremarkable except as noted in HPI and below PMFSH Past Medical History Medical History Closed left arm fracture Hypercholesteremia Hypertension Kidney stone Surgical History Surgical History History of eye surgery Left History of foot surgery Left Family History Family History Father Hypertension Mother Hypertension Social History Social History Smoking packs per day: 1.5 Smoking cigarettes per day: 30.0 Years smoked: 23 Smoking pack-years: 34.50 Smoking status: Current every day smoker Tobacco type: cigarettes Second hand tobacco smoke exposure: Yes Alcohol intake: current Substance use: never Gender identity (if verbalized by the patient): Male Spiritual care concerns: No Exam Const: General: cooperative, healthy appearing and comfortable Orientation/consciousness: oriented to person, oriented to place, oriented to time, patient oriented x3 and No confusion Limitations: no limitations HENMT: Head: normal to inspection, normocephalic and atraumatic Ears: hearing grossly normal bilaterally, TM normal on the right and TM normal on the left General nose exam: Normal external nose present, Normal nares present and No nasal discharge present Face and sinus: normal facial exam Mouth: Yes Normal oral and palatal mucosa present, Yes lip normal, Yes tongue normal and Yes oropharynx normal Throat: posterior oropharynx normal, tonsils normal, uvula midline, no peritonsillar masses, uvula not displaced and no uvular edema Other: Negative for neck swelling Eyes: General: appearance normal, both eyes and all related structures Pupils: Equal, round and reactive pupils present EOM: EOMs intact bilaterally Neck: Neck: normal visual inspection, full ROM, no lymphadenopathy and no meningeal signs Chest: Chest palpation & inspection: normal inspection of the chest Resp: Effort & Inspection: normal respiratory effort, able to speak in complete sentences, no respiratory distress and not tachypneic Auscultation: clear to auscultation bilaterally, no crackles, no rales, no rhonchi and no wheezes Cardio: Rate: regular rate Rhythm: regular rhythm GI: Inspection: normal to inspection GI Palp: No abdominal tenderness, Yes Soft to palpation, No Tenderness to palpation present (GI), No Guarding due to palpation present (GI), No Rigid due to palpation and No Rebound tenderness present Auscultation: normal bowel sounds : General: Yes no CVA tenderness Back/Spine/Pelvis: Back: no CVA tenderness Skin: General skin exam: normal color, no rashes or lesions noted, elasticity normal and turgor normal Neuro: General: oriented to person, oriented to place, oriented to time, patient oriented x3, tone normal, moves all extremities, Normal light touch and pain sensation, no meningeal signs, no focal motor deficits, CN's II-XI intact bilaterally and No confusion Crania
== END 2021-08-18 05:42 | disposition home or self-care (01) ==
LOC: ANHED 05:02
PROVIDERS: Emergency Provider Emergency Medicine; PCP Family Medicine
DX: I88.9 Nonspecific lymphadenitis, unspecified (principal); T46.4X5A Adverse effect of angiotensin-converting-enzyme inhibitors, initial encounter; I10 Essential (primary) hypertension; E78.00 Pure hypercholesterolemia, unspecified; Z87.442 Personal history of urinary calculi; F17.210 Nicotine dependence, cigarettes, uncomplicated
CPT/HCPCS: 96372; 99283; J1100

== ENCOUNTER 2021-08-18 14:23 | Emergency (ER) | payer OTHER, SELFPAY ==
[2021-08-18 14:34] VITALS: BP 152/100; PULSE 111; RESP 17; TEMP 36.8; O2SAT 100
--- NOTE | 2021-08-18 14:53 | PC.NURSE ---
pt ambulatory to intake desk and states he is going to [place]. pt ambulatory out of ED.
== END 2021-08-18 14:53 | disposition left against medical advice (07) ==
LOC: ANHED 15:01
PROVIDERS: PCP Family Medicine
DX: R20.0 Anesthesia of skin (principal)
CPT/HCPCS: 99199

== ENCOUNTER 2021-08-21 09:52 | Emergency (ER) | payer OTHER, SELFPAY ==
--- NOTE | ~2021-08-21 | XR_ITS ---
EXAMINATION: XR chest 2V DATE: 08/21/2021 11:08 INDICATION: Left-sided chest pain TECHNIQUE: PA and lateral views of the chest were obtained. COMPARISON: Chest radiograph dated 08/06/2021 FINDINGS: The lungs remain clear with no focal airspace opacities, pulmonary edema, pleural effusion or pneumot horax. The cardiomediastinal silhouette is normal. Mild thoracic spondylosis. Mild anterior wedging o f a midthoracic vertebral body. IMPRESSION: 1. No acute cardiopulmonary disease. Reviewed, dictated and finalized at location A.
--- NOTE | ~2021-08-21 | CT_ITS ---
EXAMINATION: CT brain wo con DATE: 08/21/2021 11:17 INDICATION: Left arm weakness TECHNIQUE: Computed tomography (CT) of the head was performed without intravenous contrast. Sagittal and coronal reconstructions were performed. The mA was adjusted according to patient size. Iterative reconstruction technique was employed. The dose-length product was 605.33 mGy-cm. COMPARISON: None FINDINGS: No acute intracranial hemorrhage, acute infarction or abnormal extra axial fluid collection. Ventricl es are normal and symmetric. No mass/mass effect. There is asymmetry to the optic nerves with the lef t optic nerve appearing significantly thinner than the right. The paranasal sinuses and mastoid air c ells are normal. IMPRESSION: 1. No acute intracranial process. 2. Asymmetry to the optic nerves with relative thinning of the left optic nerve which is of indetermi jorge etiology. Correlate with ophthalmic history. Reviewed, dictated and finalized at location A. IMPRESSION: 1. No acute intracranial process. 2. Asymmetry to the optic nerves with relative thinning of the left optic nerve which is of indeterminate etiology. Correlate with ophthalmic history.
--- NOTE | 2021-08-21 09:54 | ECG_ITS ---
Measurements Intervals [place] Rate: 78 P: 14 TN: 145 QRS: 39 QRSD: 97 T: 60 QT: 355 QTc: 406 Interpretive Statements SINUS RHYTHM NORMAL ECG COMPARED TO ECG 08/06/2021 20:48:33 NO SIGNIFICANT CHANGES Electronically Signed On 08-21-2021 20:43:54 CDT by Harry Robbins M.D.
[2021-08-21 10:06] VITALS: BP 162/83; PULSE 77; RESP 14; TEMP 36.8; O2SAT 100
[2021-08-21 10:33] VITALS: O2SAT 98
--- NOTE | 2021-08-21 10:35 | ED.CHESTPAIN ---
HPI - Chest Pain General Chief Complaint: Chest Pain Stated Complaint: weakness in left arm, chest pain Time Seen by Provider: 08/21/21 10:13 History of Present Illness HPI narrative: 46-year-old male history of hypertension presenting to the emergency department for evaluation of intermittent weakness and left-sided chest pain. Patient states yesterday when he took his blood pressure medications he had approximately 10 seconds of left arm weakness. Patient states this morning when he woke up he also had a few seconds of left arm weakness. Patient states he also had an episode 10 seconds of bilateral lower extremity weakness. Patient's primary complaint was the left-sided chest pain that started 1 hour prior to arrival. Patient states he was doing the dishes at home when he had onset of the left-sided chest pain. Patient denies any radiation of the pain. Patient does have history of high blood pressure but denies any prior personal cardiac history. Patient denies ever having a stress test. 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 Patient denies ever having any chest pain or shortness of breath with exertion at work. Patient states he does have history of poor dentition and was concerned that he may have an infection spreading from his teeth to his heart. Related Data Allergies Allergy/AdvReac Type Severity Reaction Status Date / Time No Known Allergies Allergy Verified 08/21/21 10:24 Review of Systems Review of Systems: CONSTITUTIONAL: Denies fever, chills, or sweats. EYES: Denies visual changes, redness, or discharge. ENT: Denies rhinorrhea, congestion, sore throat, or otalgia. CARDIOVASCULAR: Left-sided chest pain RESPIRATORY: Denies cough or dyspnea. GASTROINTESTINAL: Denies abdominal pain, nausea, vomiting, or diarrhea. GENITOURINARY: Denies dysuria or hematuria. SKIN: Denies rash or itching. MUSCULOSKELETAL: Denies back pain, joint pain, or myalgia. NEUROLOGIC: 2 short episodes of left arm weakness. No current weakness PMFSH Past Medical History Medical History Closed left arm fracture Hypercholesteremia Hypertension Kidney stone Surgical History Surgical History History of eye surgery Left History of foot surgery Left Family History Family History Father Hypertension Mother Hypertension Social History Social History Smoking packs per day: 1.5 Smoking cigarettes per day: 30.0 Years smoked: 23 Smoking pack-years: 34.50 Smoking status: Current every day smoker Tobacco type: cigarettes Second hand tobacco smoke exposure: Yes Alcohol intake: current Substance use: never Gender identity (if verbalized by the patient): Male Spiritual care concerns: No Exam Narrative: APPEARANCE: Well appearing, no pain, no distress, well-nourished. HEAD: normocephalic, atraumatic. EYES: PERRLA/EOMI, conjunctivae clear. NOSE: Normal no drainage NECK: Supple. No adenopathy, no masses. RESPIRATORY: Airway patent, respirations nonlabored. Clear to auscultation bilaterally, no rales, rhonchi, wheezing. CARDIOVASCULAR: Regular rate and rhythm without murmurs rubs or gallops. ABDOMINAL: Soft, nontender, nondistended, normal bowel sounds MUSCULOSKELETAL: Moves all extremities. Strength/ROM intact, No edema, No calf tenderness. NEURO: Alert. Cranial nerves II through XII intact. Good strength and reflexes. Neurologically intact. SKIN: Warm, dry. Normal Color Course Course Emergency Course: Patient does feel improved with treatment. Patient was updated on the CT of head and other imaging and labs. Patient had negative serial troponins. EKG was normal sinus rhythm with no acute ST changes. Patient has a low enough of he
[2021-08-21 10:47] LABS: Basophils Percent Auto 0.2 % (0.2-1.2); Eosinophils Absolute Auto 0.1 K/mm3 (0-0.3); Hematocrit 46.2 % (42.0-52.0); Hemoglobin 15.4 g/dL (14.0-18.0); Immature Granulocyte Absolute 0.08 K/mm3 (0.00-0.031); Immature Granulocyte Percent A 0.6 % (0-0.5); Lymphocytes Absolute Auto 2.68 K/mm3 (0.9-3.2); Lymphocytes Percent Auto 20.6 % (18.3-44.2); Mean Corpuscular HGB Conc 33.3 g/dl (32-36); Mean Corpuscular Hemoglobin 30.7 pg (26-34); Mean Corpuscular Volume 92.2 fl (80-100); Mean Platelet Volume 9.2 fl (7.4-10.4); Monocytes Absolute Auto 1.1 K/mm3 (0.1-0.6); Monocytes Percent Auto 8.7 % (2.6-8.5); Neutrophils Percent Auto 68.9 % (45.5-73.1); Platelet Count Result 343 k/mm3 (150-375); Red Blood Count 5.01 M/mm3 (4.6-6.20); Red Cell Distribution Width 12.9 % (11.5-14.5)
[2021-08-21 10:56] LABS: Alanine Aminotransferase 22 U/L (4-50); Albumin Level 4.2 g/dL (3.5-5.1); Alkaline Phosphatase 58 U/L (38-126); Anion Gap 5 mmol/L (8-16); Aspartate Amino Transferase 21 U/L (17-59); Bilirubin,Total 0.4 mg/dL (0.2-1.3); Blood Urea Nitrogen 19 mg/dL (9-20); Calcium 9.3 mg/dL (8.4-10.2); Carbon Dioxide 28 mmol/L (22-30); Chloride 105 mmol/L (98-107); Estimated CRCL calculation 137 ml/min; Estimated Glomerular Filt Rate > 60; Glucose 93 mg/dL (65-110); Potassium 4.5 mmol/L (3.4-5.0); Sodium 138 mmol/L (137-145)
[2021-08-21 11:08] LABS: Troponin I < 0.012 ng/mL (0.000-0.034)
[2021-08-21 14:26] LABS: Troponin I < 0.012 ng/mL (0.000-0.034)
[2021-08-21 15:21] VITALS: BP 141/94; PULSE 68; RESP 18; O2SAT 100
== END 2021-08-21 15:28 | disposition home or self-care (01) ==
PROVIDERS: Emergency Provider Emergency Medicine; PCP Family Medicine
DX: R07.9 Chest pain, unspecified (principal); E78.00 Pure hypercholesterolemia, unspecified; I10 Essential (primary) hypertension; Z87.442 Personal history of urinary calculi; F17.210 Nicotine dependence, cigarettes, uncomplicated; H54.62 Unqualified visual loss, left eye, normal vision right eye
CPT/HCPCS: 36415; 70450; 71046; 80053; 84484; 85025; 93005; 99284

== ENCOUNTER 2021-08-29 10:21 | Outpatient (CLI) | payer OTHER, SELFPAY ==
[2021-08-29 12:17] LABS: Vitamin D 25 Hydroxy 43.1 ng/mL
== END 2021-08-29 10:22 | disposition home or self-care (01) ==
LOC: ANHLAB 10:24
PROVIDERS: PCP Family Medicine; Visit Provider Nurse Practitioner
DX: R53.83 Other fatigue (principal); E53.8 Deficiency of other specified B group vitamins; E55.9 Vitamin D deficiency, unspecified
CPT/HCPCS: 36415; 82306; 82607; 82746; 84443

== ENCOUNTER 2021-09-12 13:49 | Outpatient (CLI) | payer OTHER, SELFPAY ==
--- NOTE | ~2021-09-12 | US_ITS ---
EXAMINATION: US carotid duplex BI DATE: 09/12/2021 14:18 INDICATION: Dizziness and giddiness. TECHNIQUE: Grayscale, color Doppler, and pulsed Doppler images of the cervical carotid arteries were obtained. The degree of vessel stenosis is placed in one of the following categories: normal, <50%, 5 0-69%, >=70% but less than near-occlusion, near-occlusion, or total occlusion. Note that percent sten osis relative to normal distal artery lumen diameter is indirectly measured from velocity measurement s as described by Minesh, et al. Radiology 2003; 229:340-346. COMPARISON: None. FINDINGS: RIGHT: The right common carotid artery (CCA) peak systolic velocity (PSV) is 135 cm/s. The right internal ca rotid artery (ICA) PSV is 83 cm/s. The right ICA end-diastolic velocity (EDV) is 15 cm/s. The right I CA/CCA PSV ratio is 0.6. Grayscale and color Doppler images yield an estimate of 0% diameter reductio n from plaque in the ICA. There is antegrade flow in the right vertebral artery. LEFT: The left CCA PSV is 100 cm/s. The left ICA PSV is 74 cm/s. The left ICA EDV is 25 cm/s. The left ICA/ CCA PSV ratio is 0.7. Grayscale and color Doppler images yield an estimate of 0% diameter reduction f rom plaque in the ICA. There is antegrade flow in the left vertebral artery. IMPRESSION: 1. Normal internal carotid arteries. Reviewed, dictated and finalized at location B.
== END 2021-09-12 13:50 | disposition home or self-care (01) ==
PROVIDERS: PCP Family Medicine; Visit Provider Nurse Practitioner
DX: R55 Syncope and collapse (principal); E78.5 Hyperlipidemia, unspecified; R07.89 Other chest pain
CPT/HCPCS: 93880

== ENCOUNTER 2021-09-19 09:16 | Outpatient (CLI) | payer OTHER, SELFPAY ==
--- NOTE | 2021-09-19 09:20 | EST_ITS ---
Patient Info Name: Truong Castillo Age: 46 years : 1975 Gender: Male Ht: 70 in Wt: 215 lbs BSA: 2.22 m2 HR: 87 bpm BP: 142 / 85 mmHg Heart Rhythm: Sinus Rhythm Exam Date: 09/19/2021 9:31 AM Exam Location: [facility] Stress Patient Status: Outpatient Admit Date: 09/19/2021 Staff Ordering Physician: Alina Almendarez NP Attending Provider: Seda Trujillo MD Exercise Technologist: Roxanna Wheat CT Exercise Physician: Pramod Layton DO Exam Type: CA stress test treadmill Study Info Indications R07.9 - Chest pain, unspecified A treadmill exercise stress test was performed. Summary 1. 1. Negative Jose Roberto exercise stress test for ischemic ST changes by ECG criteria. 2. 2. Good functional capacity, achieving 12 METs of workload. 3. 3. Baseline hypertension with hypertensive response to exercise. 4. 4. Appropriate HR response to exercise. 5. 5. Appropriate HR recovery at 1 minute post exercise. 6. 6. No imaging with stress testing. 7. 7. Patient informed of the above results. Protocol: Jose [facility] Stress ECG Details Stage: REST Duration (min): 2 min : 40 sec Speed (mph): 0.0 Grade (%): 0 HR (bpm): 83 SBP (mmHg): 142 DBP (mmHg): 85 METS: --- Stage: REST Duration (min): 5 min : 47 sec Speed (mph): 0.0 Grade (%): 0 HR (bpm): 83 SBP (mmHg): 142 DBP (mmHg): 85 METS: --- Stage: STAGE 1 Duration (min): 1 min : 0 sec Speed (mph): 1.7 Grade (%): 10 HR (bpm): 99 SBP (mmHg): 142 DBP (mmHg): 85 METS: --- Stage: STAGE 1 Duration (min): 2 min : 0 sec Speed (mph): 1.7 Grade (%): 10 HR (bpm): 105 SBP (mmHg): 142 DBP (mmHg): 85 METS: --- Stage: STAGE 1 Duration (min): 3 min : 0 sec Speed (mph): 1.7 Grade (%): 10 HR (bpm): 106 SBP (mmHg): 182 DBP (mmHg): 98 METS: --- Stage: STAGE 2 Duration (min): 1 min : 0 sec Speed (mph): 2.5 Grade (%): 12 HR (bpm): 112 SBP (mmHg): 182 DBP (mmHg): 98 METS: --- Stage: STAGE 2 Duration (min): 2 min : 0 sec Speed (mph): 2.5 Grade (%): 12 HR (bpm): 115 SBP (mmHg): 194 DBP (mmHg): 96 METS: --- Stage: STAGE 2 Duration (min): 3 min : 0 sec Speed (mph): 2.5 Grade (%): 12 HR (bpm): 119 SBP (mmHg): 194 DBP (mmHg): 96 METS: --- Stage: STAGE 3 Duration (min): 1 min : 0 sec Speed (mph): 3.4 Grade (%): 14 HR (bpm): 123 SBP (mmHg): 202 DBP (mmHg): 97 METS: --- Stage: STAGE 3 Duration (min): 2 min : 0 sec Speed (mph): 3.4 Grade (%): 14 HR (bpm): 127 SBP (mmHg): 202 DBP (mmHg): 97 METS: --- Stage: STAGE 3 Duration (min): 3 min : 0 sec Speed (mph): 3.4 Grade (%): 14 HR (bpm): 130 SBP (mmHg): 213 DBP (mmHg): 91 METS: --- Stage: STAGE 4 Duration (min): 1 min : 0 sec Speed (mph): 4.2 Grade (%): 16 HR (bpm): 132 SBP (mmHg):
== END 2021-09-19 09:17 | disposition home or self-care (01) ==
LOC: ANHCARD 09:18
PROVIDERS: PCP Family Medicine; Visit Provider Family Medicine
DX: R07.9 Chest pain, unspecified (principal)
CPT/HCPCS: 93017

== ENCOUNTER 2021-10-23 12:32 | Outpatient (CLI) | payer OTHER, SELFPAY ==
--- NOTE | ~2021-10-23 | CT_ITS ---
EXAMINATION: CT abdomen pelvis wo con DATE: 10/23/2021 13:01 INDICATION: Abdominal pain TECHNIQUE: Computed tomography (CT) of the abdomen and pelvis was performed without intravenous contr ast. Automated exposure control and iterative reconstruction technique were employed. Exam dose: 382 .15 mGy-cm total exam DLP. COMPARISON: None. FINDINGS: Minimal discoid atelectasis or scarring at the base of the lingula. The lung bases are claudio r of infiltrate or consolidation. Normal heart size. No pericardial or pleural effusion. The liver, gallbladder, bile ducts, spleen, pancreas, pancreatic duct, and adrenal glands are unremar kable. There is focal scarring in the anterolateral aspect of the mid right kidney. 1.3 cm probable hyperdense exophytic cyst at the superior tip of the left kidney. No space-occupying mass lesion of the kidneys is evident otherwise on this limited noncontrast examination. No urinary t ract calculus or hydroureteronephrosis. The urinary bladder, is unremarkable. Prostate calcifications . There is minimal atherosclerotic calcification but normal caliber of the abdominal aorta. No intraper itoneal or retroperitoneal or pelvic mass lesion or adenopathy or ascites. Normal appendix. No bowel obstruction, bowel wall thickening, pneumatosis or intraperitoneal free air . Included skeletal structures are unremarkable. No suspicious osteolytic or osteoblastic lesions. IMPRESSION: Focal anterolateral mid right renal scar Probable hyperdense 1.3 similar exophytic upper pole left renal cyst Prostate calcifications Normal appendix Reviewed, dictated and finalized at Location A. Reviewed, dictated and finalized at location A.
== END 2021-10-23 12:33 | disposition home or self-care (01) ==
PROVIDERS: PCP Family Medicine; Visit Provider Nurse Practitioner
DX: R10.9 Unspecified abdominal pain (principal); R31.9 Hematuria, unspecified
CPT/HCPCS: 74176

== ENCOUNTER 2021-12-05 13:43 | Outpatient (CLI) | payer OTHER, SELFPAY ==
--- NOTE | ~2021-12-05 | MR_ITS ---
EXAMINATION: MR brain/brain stem wo/w con DATE: 12/05/2021 14:48 INDICATION: Facial numbness. TECHNIQUE: Magnetic resonance imaging (MRI) of the brain and brainstem was performed without and with 19 mL MultiHance intravenous contrast. COMPARISON: Head CT 08/21/2021 FINDINGS: There is a small old infarct in right frontal lobe. There are scattered areas of nonspecifi c increased T2-weighted signal intensity in the cerebral white matter. There is no intracranial hemor rhage, acute ischemic infarct, or abnormal mass lesion. The septum pellucidum is absent. The ventricl es are normal in size. Left optic nerve is small. There is mild mucosal thickening in the paranasal s inuses. The mastoid air cells are normal. IMPRESSION: 1. 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 2. Mild nonspecific cerebral white matter disease, which likely represents chronic small vessel ische nikolai disease. 3. 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 Reviewed, dictated and finalized at location A. IMPRESSION: 1. 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 2. Mild nonspecific cerebral white matter disease, which likely represents manager imaging haresh small vessel ischemic disease. 3. Small left optic nerve and absent septum pellucidum, consistent with septo-o ptic dysplasia.
[2021-12-05 14:18] LABS: Estimated Glomerular Filt Rate > 60
== END 2021-12-05 13:44 | disposition home or self-care (01) ==
PROVIDERS: PCP Family Medicine; Visit Provider Psychiatry & Neurology Neurology
DX: R20.0 Anesthesia of skin (principal); I63.89 Other cerebral infarction; R90.82 White matter disease, unspecified
CPT/HCPCS: 70553; A9577

== ENCOUNTER 2021-12-14 13:27 | Outpatient (CLI) | payer OTHER, SELFPAY ==
--- NOTE | ~2021-12-14 | CT_ITS ---
EXAMINATION: CTA brain DATE: 12/14/2021 14:03 INDICATION: Right-sided headache. Left arm numbness and tingling. TECHNIQUE: Computed tomographic angiography (CTA) of the head was performed without and with 100 mL O mnipaque 300 intravenous contrast. Automated exposure control and iterative reconstruction technique were employed. The dose-length product was 1109.17 mGy-cm. Maximum intensity projection 3D reconstru ctions were created. Volume-rendered 3D reconstructions of the intracranial arteries were created by the technologist on a separate workstation. COMPARISON: Head CT 08/21/2021, brain MRI 12/05/2021 FINDINGS: There is a small old infarct in right frontal lobe. There is no intracranial hemorrhage, ac [place] infarction, or abnormal intracranial mass lesion. The ventricles are normal in size. The septum p ellucidum is absent. There is mild mucosal thickening in the ethmoid sinuses. The mastoid air cells a re normal. Left optic nerve is smaller than the right. The vertebral arteries are codominant. There i s no significant stenosis of basilar artery or the posterior cerebral arteries. The posterior communi cating arteries are normal. There is no significant stenosis of the intracranial internal carotid art eries or anterior or middle cerebral arteries. Anterior communicating artery is normal. There is no a neurysm. IMPRESSION: 1. 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 2. 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 Reviewed, dictated and finalized at location A. IMPRESSION: 1. 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 2. Small left optic nerve and absent septum pellucidum, consistent with septo-o ptic dysplasia.
== END 2021-12-14 13:28 | disposition home or self-care (01) ==
PROVIDERS: PCP Family Medicine; Visit Provider Psychiatry & Neurology Neurology
DX: H53.009 Unspecified amblyopia, unspecified eye (principal); R20.0 Anesthesia of skin; Z86.73 Personal history of transient ischemic attack (TIA), and cerebral infarction without residual deficits
CPT/HCPCS: 70496; Q9967

== ENCOUNTER 2021-12-15 08:39 | Outpatient (CLI) | payer OTHER, SELFPAY ==
--- NOTE | 2021-12-15 11:30 | NEURO_ITS ---
Impression: # Complains of left 5th finger numbness. # Mild left ulnar neuropathy across the elbow. # Subtle evolving right Carpal Tunnel Syndrome. # Normal needle/EMG exam. Nerve Conduction Studies Anti Sensory Summary Table Stim Site NR Peak (ms) P-T Amp (?V) Site1 Site2 Delta-P (ms) Dist (cm) Riccardo (m/s) Left Median Anti Sensory (2-3nd Digit) Wrist 3.6 31.1 Wrist 2-3nd Digit 3.6 14.0 39 Wrist 3.4 38.8 Wrist 2-3nd Digit 3.6 14.0 39 Right Median Anti Sensory (2-3nd Digit) Wrist 3.8 21.7 Wrist 2-3nd Digit 3.8 14.0 37 Wrist 4.1 10.3 Wrist 2-3nd Digit 3.8 14.0 37 Left Radial Anti Sensory (Base 1st Digit) Wrist 1.9 14.4 Wrist Base 1st Digit 1.9 0.0 Right Radial Anti Sensory (Base 1st Digit) Wrist 2.3 27.4 Wrist Base 1st Digit 2.3 0.0 Left Ulnar Anti Sensory (5th Digit) Wrist 2.7 17.4 Wrist 5th Digit 2.7 14.0 52 Right Ulnar Anti Sensory (5th Digit) Wrist 2.6 29.5 Wrist 5th Digit 2.6 14.0 54 Motor Summary Table Stim Site NR Onset (ms) O-P Amp (mV) Site1 Site2 Delta-0 (ms) Dist (cm) Riccardo (m/s) Left Median Motor (Abd Poll Brev) Wrist 3.8 3.0 Elbow Wrist 5.3 31.0 58 Elbow 9.1 7.3 Right Median Motor (Abd Poll Brev) Wrist 3.4 3.5 Elbow Wrist 5.3 29.0 55 Elbow 8.7 3.7 Left Ulnar Motor (Abd Dig Minimi) Wrist 2.9 7.1 A Elbow Wrist 6.1 31.0 51 A Elbow 9.0 4.1 B Elbow Wrist 4.2 23.0 55 B Elbow 7.1 2.7 Right Ulnar Motor (Abd Dig Minimi) Wrist 2.6 6.5 A Elbow Wrist 5.5 31.0 56 A Elbow 8.1 4.7 F Wave Studies NR F-Lat (ms) L-R F-Lat (ms) Left Median (Mrkrs) (Abd Poll Brev) 30.60 0.92 Right Median (Mrkrs) (Abd Poll Brev) 29.69 0.92 Left Ulnar (Mrkrs) (Abd Dig Min) 28.85 1.50 Right Ulnar (Mrkrs) (Abd Dig Min) 30.35 1.50 EMG Side Muscle Nerve Root Ins Act Fibs Amp Dur Recrt Comment Right 1stDorInt Ulnar C8-T1 Nml Nml Nml Nml Nml Right Ext Indicis Radial (Post Int) C7-8 Nml Nml Nml Nml Nml Right Ext Digitorum Radial (Post Int) C7-8 Nml Nml Nml Nml Nml Right BrachioRad Radial C5-6 Nml Nml Nml Nml Nml Right PronatorTeres Median C6-7 Nml Nml Nml Nml Nml Right Abd Poll Brev Median C8-T1 Nml Nml Nml Nml Nml Left 1stDorInt Ulnar C8-T1 Nml Nml Nml Nml Nml Left Ext Indicis Radial (Post Int) C7-8 Nml Nml Nml Nml Nml Left Ext Digitorum Radial (Post Int) C7-8 Nml Nml Nml Nml Nml Left BrachioRad Radial C5-6 Nml Nml Nml Nml Nml Left PronatorTeres Median C6-7 Nml Nml Nml Nml Nml Left Abd Poll Brev Median C8-T1 Nml Nml Nml Nml Nml Right Biceps Musculocut C5-6 Nml Nml Nml Nml Nml Right Triceps Radial C6-7-8 Nml Nml Nml Nml Nml Right Deltoid Axillary C5-6 Nml Nml Nml Nml Nml Left Biceps Musculocut C5-6 Nml Nml Nml Nml Nml Left Triceps Radial C6-7-8 Nml Nml Nml Nml Nml Left Deltoid Axillary C5-6 Nml Nml Nml Nml Nml MTDD
== END 2021-12-15 08:40 | disposition home or self-care (01) ==
LOC: ANHNEURO 08:42
PROVIDERS: PCP Family Medicine; Visit Provider Psychiatry & Neurology Neurology
DX: G56.22 Lesion of ulnar nerve, left upper limb (principal)
CPT/HCPCS: 95886; 95911

== ENCOUNTER 2022-02-08 20:45 | Emergency (ER) | payer OTHER, SELFPAY ==
--- NOTE | ~2022-02-08 | XR_ITS ---
EXAMINATION: XR chest 2V Exam Date/Time: 02/08/2022 21:05 CDT HISTORY: chest pressure/back tingling Comparison: 08/21/2021. RESULT: Lines, tubes, and devices: None. Lungs and pleura: Clear. Cardiomediastinal silhouette: Stable. Other: No acute osseous or upper abdominal finding. IMPRESSION: No acute cardiopulmonary process. Reviewed, dictated and finalized at location K.
[2022-02-08 20:49] VITALS: BP 140/77; PULSE 96; RESP 20; TEMP 36.4; O2SAT 98
--- NOTE | 2022-02-08 20:49 | ECG_ITS ---
Measurements Intervals [place] Rate: 94 P: 4 VA: 149 QRS: 30 QRSD: 101 T: 66 QT: 319 QTc: 400 Interpretive Statements SINUS RHYTHM NORMAL ECG COMPARED TO ECG 08/21/2021 09:59:49 NO SIGNIFICANT CHANGES Electronically Signed On 02-08-2022 21:37:05 CDT by Pramod Layton D.O.
[2022-02-08 21:04] LABS: Basophils Absolute Auto 0.1 K/mm3 (0.0-0.1); Basophils Percent Auto 0.3 % (0.2-1.2); Eosinophils Absolute Auto 0.4 K/mm3 (0-0.3); Eosinophils Percent Auto 2.6 % (0-4.4); Hematocrit 48.4 % (42.0-52.0); Hemoglobin 16.4 g/dL (14.0-18.0); Immature Granulocyte Absolute 0.14 K/mm3 (0.00-0.031); Immature Granulocyte Percent A 0.9 % (0-0.5); Lymphocytes Percent Auto 29.3 % (18.3-44.2); Mean Corpuscular HGB Conc 33.9 g/dl (32-36); Mean Corpuscular Hemoglobin 31.1 pg (26-34); Mean Corpuscular Volume 91.8 fl (80-100); Monocytes Absolute Auto 1.5 K/mm3 (0.1-0.6); Monocytes Percent Auto 9.8 % (2.6-8.5); Neutrophils Absolute Auto 8.6 K/mm3 (1.3-6.7); Neutrophils Percent Auto 57.1 % (45.5-73.1); Platelet Count Result 328 k/mm3 (150-375); Red Blood Count 5.27 M/mm3 (4.6-6.20); Red Cell Distribution Width 13.3 % (11.5-14.5)
[2022-02-08 21:15] LABS: Prothrombin Time 12.4 Seconds (11.1-14.7)
[2022-02-08 21:16] LABS: Alanine Aminotransferase 27 U/L (6-50); Albumin Level 4.5 g/dL (3.5-5.1); Alkaline Phosphatase 75 U/L (38-126); Anion Gap 18 mmol/L (8-16); Aspartate Amino Transferase 21 U/L (17-59); Bilirubin,Total 0.3 mg/dL (0.2-1.3); Blood Urea Nitrogen 14 mg/dL (9-20); Calcium 9.1 mg/dL (8.4-10.2); Carbon Dioxide 22 mmol/L (22-30); Chloride 102 mmol/L (98-107); Estimated CRCL calculation 107 ml/min; Estimated Glomerular Filt Rate > 60; Glucose 114 mg/dL (65-110); Lipase 254 U/L (23-300); Partial Thromboplastin Time 25.8 SECONDS (22.3-36.8); Potassium 3.4 mmol/L (3.4-5.0); Sodium 142 mmol/L (137-145)
[2022-02-08 21:28] LABS: Troponin I 0.013 ng/mL (0.000-0.034)
--- NOTE | 2022-02-08 21:59 | PC.NURSE ---
Pt walked up to intake desk and stated I am not waiting here all night. Its already 10pm and I have to work in the morning.
== END 2022-02-08 21:59 | disposition left against medical advice (07) ==
LOC: ANHED 22:03
PROVIDERS: Emergency Provider Emergency Medicine; PCP Family Medicine
DX: R07.89 Other chest pain (principal)
CPT/HCPCS: 36415; 71046; 80053; 83690; 84484; 85025; 85610; 85730; 93005; 99199

== ENCOUNTER 2022-02-18 15:58 | Emergency (ER) | payer OTHER, SELFPAY ==
[2022-02-18 16:07] VITALS: BP 169/92; PULSE 90; RESP 16; TEMP 36.7; O2SAT 99
--- NOTE | 2022-02-18 16:17 | ECG_ITS ---
Measurements Intervals [place] Rate: 91 P: 7 NM: 154 QRS: 45 QRSD: 100 T: 59 QT: 351 QTc: 432 Interpretive Statements SINUS RHYTHM BASELINE ARTIFACT- I, II, III, AVR, AVF, V5 NORMAL ECG COMPARED TO ECG 02/08/2022 20:51:14 NO SIGNIFICANT CHANGES Electronically Signed On 02-19-2022 8:12:37 CDT by Pramod Layton D.O.
--- NOTE | 2022-02-18 16:25 | ED.GENADULT ---
HPI - General Adult General Chief complaint: Unspecified Stated complaint: Tight chest, shortness of breath, face numbness Time Seen by Provider: 02/18/22 16:25 History of Present Illness HPI narrative: Truong Castillo is a 47-year-old male with a PMH of hypertension and has been worked up for strokelike symptoms who comes to express care complaining of numbness in very part of his neck and back and some tingling in his chest and hands this has been going on for months and he has been seen in the ER and by a neurologist as well as his primary care physician Related Data Allergies Allergy/AdvReac Type Severity Reaction Status Date / Time No Known Allergies Allergy Verified 02/18/22 16:20 Review of Systems Review of Systems: CONSTITUTIONAL: Denies fever, chills, sweats. EYES: Denies visual changes, redness, discharge. ENT: Denies rhinorrhea, congestion, sore throat, otalgia. CARDIOVASCULAR: Denies chest pain, palpitations, edema. RESPIRATORY: Denies dyspnea, wheezing, cough GASTROINTESTINAL: Denies abdominal pain, nausea, vomiting, diarrhea. GENITOURINARY: Denies dysuria, hematuria, abnormal discharge SKIN: Denies rash or itching. NEUROLOGIC: Denies numbness, or focal weakness. PSYCHIATRIC: Denies anxiety or depression. Numbness and tingling in arms and parts of the chest and back PMFSH Past Medical History Medical History Allergies Chest pain, unspecified Closed left arm fracture Hypercholesteremia Hypertension Kidney stone Nicotine dependence Surgical History Surgical History History of eye surgery Left History of foot surgery Left Family History Family History Father Hypertension Alcoholism Heart disease Mother Hypertension Social History Social History Smoking packs per day: 1.5 Smoking cigarettes per day: 30.0 Years smoked: 23 Smoking pack-years: 34.50 Smoking status: Current every day smoker Tobacco type: cigarettes Second hand tobacco smoke exposure: Yes Alcohol intake: current Substance use: never Gender identity (if verbalized by the patient): Male Spiritual care concerns: No Exam Narrative: GENERAL: This is a well-nourished, well-developed patient, in mild distress. HEAD: normocephalic, atraumatic. EYES: Sclera clear/white. Vision is grossly intact. EARS: External ears normal, Hearing grossly intact. NOSE: External nose normal without nasal discharge, nares without redness, no rhinorrhea. THROAT: Mucous membranes moist, NECK: Neck supple, non-tender CARDIOVASCULAR: Regular rate and rhythm without murmurs, gallops, or rubs. RESPIRATORY: Clear to auscultation. Breath sounds equal bilaterally. No wheezes, rales, or rhonchi. GASTROINTESTINAL: Not done SKIN: warm, intact with no suspicious lesions or rash, good texture and turgor. NEURO: awake, alert, and oriented to person, place and time. There were no obvious focal neurologic abnormalities. Steady gait EXTREMITIES: Normal range of motion. Has spasming of his shoulders and complaining of neck pain left and right although states his extremities feel weak is able to lift and have normal range of motion's with his arms BACK: Nontender without deformity Course Course Emergency Course: Patient here for symptoms of numbness on his chest and back EKG done rhythm is normal with a nonspecific T wave abnormality rate was 91 he has no QT prolongation no axis deviation no premature P waves He has appoint with neurology in 7 to 10 days and he was encouraged to keep that up Patient is started on some baclofen to see if it helps with his shoulders and chest symptoms Level of Care: Express Care Visit Vital Signs Vital signs: Vital Signs Temperature 98.0 F 02/18/22 16:07 Pulse Ra
== END 2022-02-18 16:52 | disposition home or self-care (01) ==
PROVIDERS: Emergency Provider Nurse Practitioner; PCP Family Medicine
DX: M25.512 Pain in left shoulder (principal); I10 Essential (primary) hypertension; E78.00 Pure hypercholesterolemia, unspecified; F17.210 Nicotine dependence, cigarettes, uncomplicated
CPT/HCPCS: 93005; 99213; G0463

== ENCOUNTER 2022-02-20 16:35 | Emergency (ER) | payer OTHER, SELFPAY ==
[2022-02-20] VITALS (16 sets, daily range): BP systolic 148–171; BP diastolic 95–117; PULSE 79–95; RESP 13–33; TEMP 36.7; O2SAT 95–100
--- NOTE | ~2022-02-20 | XR_ITS ---
EXAMINATION: XR chest 2V DATE: 02/20/2022 17:16 INDICATION: Chest pain TECHNIQUE: Frontal and lateral views of the chest were obtained. COMPARISON: Chest radiograph dated 02/08/2022 FINDINGS: The lungs remain clear with no focal airspace opacities, pulmonary edema, pleural effusion or pneumot horax. The cardiomediastinal silhouette is normal. Mild to moderate thoracic spondylosis with unchang ed minimal anterior wedging of a couple mid thoracic vertebral bodies. IMPRESSION: 1. No acute cardiopulmonary disease. Reviewed, dictated and finalized at location A.
--- NOTE | 2022-02-20 16:41 | ECG_ITS ---
Measurements Intervals [place] Rate: 89 P: 9 PA: 160 QRS: 47 QRSD: 88 T: 68 QT: 341 QTc: 416 Interpretive Statements SINUS RHYTHM NORMAL ECG COMPARED TO ECG 02/18/2022 16:19:22 NO SIGNIFICANT CHANGES Electronically Signed On 02-20-2022 16:51:39 CDT by Pramod Layton D.O.
[2022-02-20 17:01] LABS: Basophils Percent Auto 0.3 % (0.2-1.2); Eosinophils Absolute Auto 0.2 K/mm3 (0-0.3); Hematocrit 47.2 % (42.0-52.0); Hemoglobin 15.5 g/dL (14.0-18.0); Immature Granulocyte Absolute 0.09 K/mm3 (0.00-0.031); Immature Granulocyte Percent A 0.6 % (0-0.5); Lymphocytes Absolute Auto 2.93 K/mm3 (0.9-3.2); Lymphocytes Percent Auto 18.9 % (18.3-44.2); Mean Corpuscular HGB Conc 32.8 g/dl (32-36); Mean Corpuscular Hemoglobin 30.9 pg (26-34); Mean Corpuscular Volume 94.2 fl (80-100); Mean Platelet Volume 9.1 fl (7.4-10.4); Monocytes Absolute Auto 1.3 K/mm3 (0.1-0.6); Monocytes Percent Auto 8.5 % (2.6-8.5); Neutrophils Percent Auto 70.7 % (45.5-73.1); Platelet Count Result 330 k/mm3 (150-375); Red Blood Count 5.01 M/mm3 (4.6-6.20); Red Cell Distribution Width 13.1 % (11.5-14.5); White Blood Count 15.5 K/mm3 (4.5-10.0)
[2022-02-20 17:10] LABS: Alanine Aminotransferase 32 U/L (6-50); Albumin Level 4.5 g/dL (3.5-5.1); Alkaline Phosphatase 96 U/L (38-126); Anion Gap 9 mmol/L (8-16); Aspartate Amino Transferase 26 U/L (17-59); Bilirubin,Total 0.3 mg/dL (0.2-1.3); Blood Urea Nitrogen 18 mg/dL (9-20); Calcium 9.3 mg/dL (8.4-10.2); Carbon Dioxide 26 mmol/L (22-30); Chloride 107 mmol/L (98-107); Estimated CRCL calculation 110 ml/min; Estimated Glomerular Filt Rate > 60; Glucose 99 mg/dL (65-110); Lipase 288 U/L (23-300); Potassium 4.3 mmol/L (3.4-5.0); Sodium 142 mmol/L (137-145)
[2022-02-20 17:13] LABS: Partial Thromboplastin Time 25.6 SECONDS (22.3-36.8); Prothrombin Time 12.3 Seconds (11.1-14.7)
[2022-02-20 17:22] LABS: Troponin I < 0.012 ng/mL (0.000-0.034)
--- NOTE | 2022-02-20 19:05 | ED.GENADULT ---
HPI - General Adult General Chief complaint: Chest Pain Stated complaint: Chest Heavy/Tight x4 weeks Time Seen by Provider: 02/20/22 18:51 History of Present Illness HPI narrative: 47-year-old male history of hypertension and prior CVA presenting to the emergency department for evaluation of some intermittent chest pain. Patient states over the last few weeks he has had short lasting intermittent chest pain. Patient states this morning after he took his losartan he felt increased chest tightness. Patient states since this morning the symptoms have begun to resolve. Patient denies any new focal numbness or weakness. Patient denies any current chest pain or shortness of breath. Patient states he has also had tingling in his back that feels like a fluttering of the muscles. Patient did have follow-up with neurology for a prior CVA and had negative CT and MRI. Patient also had a stress test approximately 1 month ago. Patient has no prior history of NM and has no current stents. Related Data Allergies Allergy/AdvReac Type Severity Reaction Status Date / Time No Known Allergies Allergy Verified 02/20/22 19:24 Review of Systems Review of Systems: CONSTITUTIONAL: Denies fever, chills, or sweats. EYES: Denies visual changes, redness, or discharge. ENT: Denies rhinorrhea, congestion, sore throat, or otalgia. CARDIOVASCULAR: See HPI RESPIRATORY: Denies cough or dyspnea. GASTROINTESTINAL: Denies abdominal pain, nausea, vomiting, or diarrhea. GENITOURINARY: Denies dysuria or hematuria. SKIN: Denies rash or itching. MUSCULOSKELETAL: Denies back pain, joint pain, or myalgia. NEUROLOGIC: Denies headache, numbness, or weakness. [facility] Past Medical History Medical History Allergies Chest pain, unspecified Closed left arm fracture Hypercholesteremia Hypertension Kidney stone Nicotine dependence Surgical History Surgical History History of eye surgery Left History of foot surgery Left Family History Family History Father Hypertension Alcoholism Heart disease Mother Hypertension Social History Social History Smoking packs per day: 1.5 Smoking cigarettes per day: 30.0 Years smoked: 23 Smoking pack-years: 34.50 Smoking status: Current every day smoker Tobacco type: cigarettes Second hand tobacco smoke exposure: Yes Alcohol intake: current Substance use: never Gender identity (if verbalized by the patient): Male Spiritual care concerns: No Exam Narrative: APPEARANCE: Well appearing, no pain, no distress, well-nourished. HEAD: normocephalic, atraumatic. EYES: PERRLA/EOMI, conjunctivae clear. NOSE: Normal no drainage EARS:TMS clear with good light reflex. THROAT: Pharynx clear, no exudate. NECK: Supple. No adenopathy, no masses. RESPIRATORY: Airway patent, respirations nonlabored. Clear to auscultation bilaterally, no rales, rhonchi, wheezing. CARDIOVASCULAR: Regular rate and rhythm without murmurs rubs or gallops. ABDOMINAL: Soft, nontender, nondistended, normal bowel sounds MUSCULOSKELETAL: Moves all extremities. Strength/ROM intact, No edema, No calf tenderness. NEURO: Alert. Cranial nerves II through XII intact. Grossly intact SKIN: Warm, dry. Normal Color Course Course Emergency Course: Patient had negative serial troponins. Chest x-ray showed no acute cardiopulmonary normality. EKG showed normal sinus rhythm. Patient was symptom-free at time of discharge. All questions and concerns were addressed. Patient was encouraged to have close follow-up with his primary care physician. Vital Signs Vital signs: Vital Signs Temperature 98.0 F 02/20/22 16:53 Pulse Rate 89 02/20/22 16:53 Respiratory Rate 16 02/20/22 16:53 Blood Pressure 171/95
[2022-02-20] MEDS: ASPIRIN 81 MG CHEWABLE TABLET 324 MG PO (19:49)
[2022-02-20] MEDS: NITROGLYCERIN SL 0.4 MG TABLET SUBLINGUAL (19:50)
[2022-02-20 20:16] LABS: Troponin I < 0.012 ng/mL (0.000-0.034)
== END 2022-02-20 20:45 | disposition home or self-care (01) ==
PROVIDERS: Emergency Medicine; Emergency Provider Emergency Medicine; PCP Family Medicine
DX: R07.89 Other chest pain (principal); I10 Essential (primary) hypertension; E78.00 Pure hypercholesterolemia, unspecified; Z87.442 Personal history of urinary calculi; Z86.73 Personal history of transient ischemic attack (TIA), and cerebral infarction without residual deficits; F17.210 Nicotine dependence, cigarettes, uncomplicated
CPT/HCPCS: 36415; 71046; 80053; 83690; 84484; 85025; 85610; 85730; 93005; 99284; A9270

== ENCOUNTER 2022-05-26 09:24 | Outpatient (CLI) | payer OTHER, SELFPAY ==
--- NOTE | ~2022-05-26 | XR_ITS ---
EXAMINATION:XR cervical spine min 6V DATE: 05/26/2022 09:58 INDICATION: Neck pain TECHNIQUE: AP, lateral in neutral, flexion, extension, bilateral oblique, lateral swimmers and odonto id views of the cervical spine are provided. COMPARISON: None FINDINGS: There is straightening of the cervical spine which can be positional or due to muscular spa sm. Alignment is normal. There is no hypermobility with flexion or extension. The odontoid is intact. No fracture is identified. Vertebral body heights and disk spaces are normal. Prevertebral soft tiss ues are normal. There is mild multilevel facet and uncovertebral joint osteoarthritis. IMPRESSION: 1. Mild cervical spondylosis without acute findings. Reviewed, dictated and finalized at location B. NESS CHANGE MANAGER
[2022-05-26 10:01] LABS: Basophils Percent Auto 0.3 % (0.2-1.2); Eosinophils Absolute Auto 0.2 K/mm3 (0-0.3); Eosinophils Percent Auto 1.9 % (0-4.4); Hematocrit 46.3 % (42.0-52.0); Hemoglobin 15.6 g/dL (14.0-18.0); Immature Granulocyte Absolute 0.06 K/mm3 (0.00-0.031); Immature Granulocyte Percent A 0.5 % (0-0.5); Lymphocytes Absolute Auto 2.52 K/mm3 (0.9-3.2); Lymphocytes Percent Auto 20.4 % (18.3-44.2); Mean Corpuscular HGB Conc 33.7 g/dl (32-36); Mean Corpuscular Hemoglobin 30.6 pg (26-34); Mean Corpuscular Volume 90.8 fl (80-100); Mean Platelet Volume 8.9 fl (7.4-10.4); Monocytes Percent Auto 8.4 % (2.6-8.5); Neutrophils Absolute Auto 8.5 K/mm3 (1.3-6.7); Neutrophils Percent Auto 68.5 % (45.5-73.1); Platelet Count Result 380 k/mm3 (150-375); Red Cell Distribution Width 12.5 % (11.5-14.5); White Blood Count 12.4 K/mm3 (4.5-10.0)
[2022-05-26 10:14] LABS: Alanine Aminotransferase 29 U/L (6-50); Albumin Level 4.3 g/dL (3.5-5.1); Alkaline Phosphatase 75 U/L (38-126); Anion Gap 7 mmol/L (8-16); Aspartate Amino Transferase 25 U/L (17-59); Bilirubin,Total 0.5 mg/dL (0.2-1.3); Blood Urea Nitrogen 15 mg/dL (9-20); Calcium 8.9 mg/dL (8.4-10.2); Carbon Dioxide 26 mmol/L (22-30); Chloride 105 mmol/L (98-107); Cholesterol 223 mg/dL (0-200); Estimated Glomerular Filt Rate > 60; Glucose 99 mg/dL (65-110); HDL Direct 37 mg/dL; Potassium 4.4 mmol/L (3.4-5.0); Sodium 138 mmol/L (137-145); Triglycerides 60 mg/dL (<150)
[2022-05-26 10:24] LABS: LDL Cholesterol Direct 153 mg/dL
== END 2022-05-26 09:25 | disposition home or self-care (01) ==
PROVIDERS: PCP Family Medicine; Visit Provider Nurse Practitioner
DX: M47.812 Spondylosis without myelopathy or radiculopathy, cervical region (principal); I10 Essential (primary) hypertension
CPT/HCPCS: 36415; 72052; 80053; 80061; 85025

== ENCOUNTER 2022-07-21 11:00 | Outpatient (RCR) | payer OTHER, SELFPAY ==
--- NOTE | 2022-06-13 11:05 | PTOPEVAL1 ---
Assessment and note entered by Cammie Salmon, PT, DPT Evaluation Information Assessment Status Evaluation Diagnosis neck pain Onset 8 months Subjective Information Pt states his neck is really stiff, mainly in the lower half of his neck. He states he works for [employer] and does a lot of heavy lifting. He states he can remember an exact moment when his pain started about 8 months ago. He states he was driving when he states he could feel the stiffness spreading out throughout the back and R side of his neck, he states that same night he had a sore through only on the R side, he reports numbness in his throat and jaw that spread down into his chest. He reports when his head starts to feel weird, his neck will get stiff, his eyes will get blurry, and his chest gets tight. He states his thinks these issues along with his high BP are related to has Covid vaccine, he states the vaccine helps to decrease his high BP. He states in the last 8 months he has also had intermittent heart palpitation and nausea, he states these and the rest of the symptoms are related to having Covid last year. Reported Pain Level Pain Score 2: Self Report Assessment PT Clinical Summary Truong presents to therapy today for his initial evaluation with a diagnosis of cervicalgia. Today her reports a variety of symptoms, with a variety of trigger, intensities, and frequencies, none of his symptoms other than neck stiffness were reproduced today. He demonstrates minor decreased active and passive cervical ROM in all directions. He demonstrates poor posture and sits with extreme kyphosis unless cued. He demonstrates shoulder ROM and strength that is WNL. Skilled physical therapy services are indicated to improve cervical ROM, body mechanics, postural awareness, and to decrease functional limitations. Plan of Care Interventions Electrical Stimulation,Hot Pack/Cold Pack,Manual Therapy,Neuro Re-education,Patient/Caregiver Educati,Therapeutic Activities,Therapeutic Exercise PT Services Indicated Yes Treatment Frequency and 1x/wk for 5 wks Duration These treatments will address the objective and functional deficits as defined above. The patient will be advanced safely and appropriately in order for the patient to progress towards his/her prior level of function. Additional exer
--- NOTE | 2022-07-21 11:18 | PTOPDC ---
Assessment and note entered by Cammie Salmon, PT, DPT Evaluation Information Assessment Status Discharge Diagnosis neck pain Onset 8 months Subjective Information Pt states he is feeling off today, he states he ate a burrito today and now his head hurts. He states his neck is doing a little bit better, its still but better. Pt reports no neck pain in the last week. He states he no longer has numbness or tingleing in his jaw, neck, and throat. Reported Pain Level Pain Score 0: Self Report Assessment PT Clinical Summary Truong presents to therapy today for his progress report following 5 visits of skilled therapy to treat his neck pain. Today he reports denies pain and any other symptoms. He has improved his cervical ROM and shoulder strength and no longer requires skilled therapy services. He will be discharged with instructions to continue his HEP. Plan of Care PT Services Indicated No Treatment Frequency and to be discharged Duration
== END 2022-07-21 12:52 | disposition home or self-care (01) ==
LOC: ANHGOSHPT 11:00
PROVIDERS: PCP Family Medicine; Visit Provider Nurse Practitioner
DX: M54.2 Cervicalgia (principal)
CPT/HCPCS: 97110; 97140; 97161; 97530

== ENCOUNTER 2022-09-22 20:11 | Emergency (ER) | payer OTHER, SELFPAY | END 2022-09-22 20:23 | disposition left against medical advice (07) | LOC: ANHED 20:21 | PROVIDERS: PCP Family Medicine | DX: Z53.21 Procedure and treatment not carried out due to patient leaving prior to being seen by health care provider (principal) | CPT/HCPCS: 99199 ==

== ENCOUNTER 2022-11-11 21:28 | Emergency (ER) | payer OTHER, SELFPAY ==
[2022-11-11 21:30] VITALS: BP 160/89; PULSE 109; RESP 19; TEMP 36.4; O2SAT 98
--- NOTE | 2022-11-11 22:40 | ED.GENADULT ---
HPI - General Adult General Chief complaint: Dental/Oral Stated complaint: tooth infection Time Seen by Provider: 11/11/22 22:33 Source: patient Mode of arrival: ambulatory Limitations: no limitations History of Present Illness HPI narrative: This is a 47-year-old male who presents to the ED with chief complaint of left-sided dental pain onset today. Patient states he thinks a tooth on the left lower mouth broke because he found it on his bed when he woke up. He started to have pain in that area and some swelling in the jaw. Denies any further site of pain. Denies any fevers, chills, nausea, vomiting, trismus, drooling, sore throat, dysphagia. Related Data Allergies Allergy/AdvReac Type Severity Reaction Status Date / Time No Known Allergies Allergy Verified 11/11/22 21:29 Review of Systems Review of Systems: CONSTITUTIONAL: Denies fever, chills, or sweats. EYES: Denies visual changes, redness, or discharge. ENT: see HPI CARDIOVASCULAR: Denies chest pain, palpitations, or edema. RESPIRATORY: Denies cough or dyspnea. GASTROINTESTINAL: Denies abdominal pain, nausea, vomiting, or diarrhea. GENITOURINARY: Denies dysuria or hematuria. SKIN: Denies rash or itching. MUSCULOSKELETAL: Denies back pain, joint pain, or myalgia. NEUROLOGIC: Denies headache, numbness, dizziness, or weakness. PSYCHIATRIC: Denies anxiety or depression. [facility] Past Medical History Medical History Allergies Amblyopia of eye Chest pain, unspecified Closed left arm fracture Essential (primary) hypertension Hypercholesteremia Hypertension Kidney stone Nicotine dependence Surgical History Surgical History History of eye surgery Left History of foot surgery Left Family History Family History Father Hypertension Alcoholism Heart disease Mother Hypertension Social History Social History Smoking packs per day: 1.5 Smoking cigarettes per day: 30.0 Years smoked: 23 Smoking pack-years: 34.50 Smoking status: Current every day smoker Tobacco type: cigarettes Second hand tobacco smoke exposure: Yes Alcohol intake: current Substance use: never Lack of Transportation: No Lack of Food: Never True Current Housing: I Have Housing Concerned About Future Housing: No Difficulty Paying Gas/Electric Bills: No Difficulty Paying for Meds: No Currently Unemployed: No Education: Trade/Vocational Certificate Difficulty w/ Childcare or Family Care: No Living arrangements: with family Occupation/Education: occupation Gender identity (if verbalized by the patient): Male Spiritual care concerns: No Exam Narrative: GENERAL: Well-appearing, well-nourished, and in no acute distress. HEAD: Normocephalic, atraumatic. EYES: PERRLA and EOMI. ENT: Nares clear, no rhinorrhea or epistaxis. Mucous membranes moist. Oropharynx without tonsillar hypertrophy exudate or other lesions. Poor dentition throughout. No identifiable abscess. Cracked left lower premolar tooth. Floor the mouth intact. No trismus or drooling. NECK: Supple. No adenopathy or masses. CHEST: No respiratory distress. Clear to auscultation. No wheezes rales or rhonchi HEART: Regular rate and rhythm. No murmur heard. Normal peripheral pulses. ABDOMEN: Soft, nontender, nondistended, normal active bowel sounds. MSK: Normal range of motion. No edema. SKIN: Warm, dry, no rash. NEURO: Alert and oriented x3. No focal deficits. PSYCH: Normal mood and affect. Course Vital Signs Vital signs: Vital Signs Temperature 97.6 F 11/11/22 21:30 Pulse Rate 109 H 11/11/22 21:30 Respiratory Rate 19 11/11/22 21:30 Blood Pressure 160/89 H 11/11/22 21:30 Pulse Oximetry 98 11/11/22 21:30 Oxygen D
[2022-11-11] MEDS: AMOXICILLIN/CLAVULANATE K 875-125 MG TAB 1 TABLET PO (22:50)
== END 2022-11-11 23:09 | disposition home or self-care (01) ==
LOC: ANHED 22:47
PROVIDERS: Emergency Provider Physician Assistant; PCP Family Medicine
DX: K04.7 Periapical abscess without sinus (principal); K03.81 Cracked tooth; I10 Essential (primary) hypertension; E78.00 Pure hypercholesterolemia, unspecified; F17.210 Nicotine dependence, cigarettes, uncomplicated; Z87.442 Personal history of urinary calculi
CPT/HCPCS: 99283; A9270

== ENCOUNTER 2022-12-11 11:49 | Emergency (ER) | payer OTHER, SELFPAY ==
[2022-12-11 12:05] VITALS: BP 152/94; PULSE 80; RESP 12; TEMP 36.8; O2SAT 100
--- NOTE | 2022-12-11 12:35 | ED.WOUNDLAC ---
HPI - Wound/Laceration General Chief Complaint: Wound/Laceration Stated Complaint: cut left thumb Time Seen by Provider: 12/11/22 12:26 Source: patient and RN notes reviewed Mode of arrival: ambulatory Limitations: no limitations History of Present Illness HPI narrative: Patient presents today complaining of a laceration to his left thumb that was sustained yesterday at 5:30 p.m. as he was cutting pulled pork at home. He immediately cleaned the cut and dressed it with antibiotic ointment and a Band-Aid. Denies numbness or tingling in the finger. He is up-to-date on his tetanus vaccine. Related Data Allergies Allergy/AdvReac Type Severity Reaction Status Date / Time No Known Allergies Allergy Verified 11/24/22 09:03 Review of Systems Review of Systems: CONSTITUTIONAL: Denies body aches, fever, chills, or sweats. EYES: Denies visual changes, redness, or discharge. ENT: Denies rhinorrhea, congestion, sore throat, or otalgia. CARDIOVASCULAR: Denies chest pain, palpitations, or edema. RESPIRATORY: Denies cough or dyspnea. GASTROINTESTINAL: Denies abdominal pain, nausea, vomiting, or diarrhea. GENITOURINARY: Denies dysuria or hematuria. SKIN: Denies rash, itching. + finger laceration MUSCULOSKELETAL: Denies back pain, joint pain, or myalgia. NEUROLOGIC: Denies headache, numbness, tingling, or weakness. PSYCH: Denies depression or anxiety. [facility] Past Medical History Medical History Allergies Amblyopia of eye Chest pain, unspecified Closed left arm fracture Essential (primary) hypertension Hypercholesteremia Hypertension Kidney stone Nicotine dependence Surgical History Surgical History History of eye surgery Left History of foot surgery Left Family History Family History Father Hypertension Alcoholism Heart disease Mother Hypertension Social History Social History Smoking packs per day: 1.5 Smoking cigarettes per day: 30.0 Years smoked: 23 Smoking pack-years: 34.50 Smoking status: Current every day smoker Tobacco type: cigarettes Second hand tobacco smoke exposure: Yes Alcohol intake: current Substance use: never Lack of Transportation: No Lack of Food: Never True Current Housing: I Have Housing Concerned About Future Housing: No Difficulty Paying Gas/Electric Bills: No Difficulty Paying for Meds: No Currently Unemployed: No Education: Trade/Vocational Certificate Difficulty w/ Childcare or Family Care: No Living arrangements: with family Occupation/Education: occupation Gender identity (if verbalized by the patient): Male Spiritual care concerns: No Comments At time of signature, I have reviewed and agree with nursing past medical, surgical, social and family history unless otherwise noted. Please see nursing chart for further information. There is no relevant family history pertinent to the presenting complaint Exam Narrative: GENERAL: Well-appearing, well-nourished, and in no acute distress. HEAD: Normocephalic, atraumatic. EYES: EOMI. No redness or drainage. Conjunctivae normal. ENT: Mucous membranes pink and moist. NECK: Normal AROM. CHEST: No respiratory distress. EXTREMITIES: Normal range of motion. No edema. SKIN: Warm, dry, no rash. Capillary refill normal. Normal skin turgor. 1 cm laceration to the lateral portion of the thumb, adjacent to the fingernail, partial thickness. No active bleeding. Finger nail is not involved. Distal sensation intact. Capillary refill normal. Full range of motion of the finger. NEURO: No focal deficits. Alert and oriented x3. Gait steady. PSYCH: Normal affect. No signs of depression or anxiety. Course Course Level of Care:
== END 2022-12-11 12:42 | disposition home or self-care (01) ==
PROVIDERS: Emergency Provider Nurse Practitioner; PCP Family Medicine
DX: S61.012A Laceration without foreign body of left thumb without damage to nail, initial encounter (principal); W45.8XXA Other foreign body or object entering through skin, initial encounter; F17.210 Nicotine dependence, cigarettes, uncomplicated; I10 Essential (primary) hypertension; E78.00 Pure hypercholesterolemia, unspecified
CPT/HCPCS: 99212; G0463

== ENCOUNTER 2022-12-16 19:18 | Observation (INO) | payer OTHER, SELFPAY ==
[2022-12-16] VITALS (15 sets, daily range): BP systolic 147–159; BP diastolic 81–103; PULSE 20–99; RESP 16–25; TEMP 36.8; O2SAT 93–98
--- NOTE | ~2022-12-16 | CT_ITS ---
EXAMINATION: CTA chest PE protocol DATE: 12/17/2022 08:47 CDT INDICATION: Right-sided chest pain for 2 days. TECHNIQUE: Computed tomographic angiography (CTA) of the chest was performed with 100 mL Omnipaque-35 0 intravenous contrast. The dose-length product was 892.09 mGy-cm. Maximum intensity projection 3D-re constructions of the aorta and other arteries were constructed by the technologist on a separate work station. COMPARISON: None. FINDINGS: Small right pleural effusion. Study technically adequate without evidence for pulmonary emb olism involving right middle and lower lobe segmental and subsegmental pulmonary arteries. Patchy fransisco undglass opacities of the right middle and lower lobe which may represent atelectasis, pulmonary infa rction and/or pneumonia. Small hiatal hernia. Thickening of the abdomen esophagus which may be due to reflux esophagitis. Subcutaneous low-density mass of the back at the cervical level measuring 2.7 cm , likely sebaceous cysts. No endobronchial lesions. Moderate thoracic spondylosis. IMPRESSION: 1. Pulmonary embolism involving right middle and lower lobe segmental and subsegmental pulmonary [place]. Groundglass opacities of the right middle and lower lobe may represent atelectasis, pulmonary i nfarction and/or pneumonia. Reviewed, dictated and finalized at location A. IMPRESSION: 1. Pulmonary embolism involving right middle and lower lobe segmental and subse gmental pulmonary arteries. Groundglass opacities of the right middle and lower lobe may represent atelectasis, pulmonary infarction and/or pneumonia.
--- NOTE | ~2022-12-16 | XR_ITS ---
EXAMINATION: XR chest 2V Exam Date/Time: 12/16/2022 19:42 CDT HISTORY: chest pain Comparison: 02/20/2022. RESULT: Lines, tubes, and devices: None. Lungs and pleura: Moderate diffuse reticular nodular opacities and cuffing. Cardiomediastinal silhouette: Stable. Other: No acute osseous or upper abdominal finding. IMPRESSION: Pulmonary opacities may represent bronchiolitis, as can be seen with atypical infection, asthma, aspi ration, and small airways disease. Reviewed, dictated and finalized at location K. IMPRESSION: Pulmonary opacities may represent bronchiolitis, as can be seen with atypical i nfection, asthma, aspiration, and small airways disease.
--- NOTE | 2022-12-16 19:20 | ECG_ITS ---
Measurements Intervals [place] Rate: 99 P: 7 [place]: 154 QRS: 22 QRSD: 94 T: 55 QT: 331 QTc: 425 Interpretive Statements SINUS RHYTHM NONSPECIFIC T-WAVE ABNORMALITY- INF/HIGH LAT LEADS BASELINE ARTIFACT- I, II, III, AVR BORDERLINE ECG COMPARED TO ECG 02/20/2022 16:44:00 T-WAVE ABNORMALITY NOW PRESENT Electronically Signed On 12-16-2022 22:00:27 CDT by Pramod Layton D.O.
[2022-12-16 19:38] LABS: Basophils Absolute Auto 0.1 K/mm3 (0.0-0.1); Basophils Percent Auto 0.3 % (0.2-1.2); Eosinophils Absolute Auto 0.3 K/mm3 (0-0.3); Hematocrit 48.3 % (42.0-52.0); Hemoglobin 16.2 g/dL (14.0-18.0); Immature Granulocyte Percent A 0.7 % (0-0.5); Lymphocytes Percent Auto 18.4 % (18.3-44.2); Mean Corpuscular HGB Conc 33.5 g/dl (32-36); Mean Corpuscular Hemoglobin 31.2 pg (26-34); Mean Corpuscular Volume 93.1 fl (80-100); Monocytes Absolute Auto 1.3 K/mm3 (0.1-0.6); Monocytes Percent Auto 8.3 % (2.6-8.5); Neutrophils Absolute Auto 10.7 K/mm3 (1.3-6.7); Neutrophils Percent Auto 70.3 % (45.5-73.1); Platelet Count Result 321 k/mm3 (150-375); Red Blood Count 5.19 M/mm3 (4.6-6.20); Red Cell Distribution Width 12.5 % (11.5-14.5); White Blood Count 15.2 K/mm3 (4.5-10.0)
--- NOTE | 2022-12-16 19:50 | ED.GENADULT ---
HPI - General Adult General Chief complaint: Chest Pain Stated complaint: right sided chest pain Time Seen by Provider: 12/16/22 19:49 History of Present Illness HPI narrative: 47 year old male history of HTN presented with chest pain. Per patient, for the past several days he has been having right sided chest pain, located below his right nipple, focal area. Pain is made worse with deep inspirations, tenderness to palpation, after certain meals. Denied shortness of breath, fevers/chills, cough, nausea/vomiting, abdominal pain, dysuria, diarrhea. Related Data Allergies Allergy/AdvReac Type Severity Reaction Status Date / Time No Known Allergies Allergy Verified 12/16/22 19:19 Review of Systems Review of Systems: See HPI [facility] Past Medical History Medical History Allergies Amblyopia of eye Chest pain, unspecified Closed left arm fracture Essential (primary) hypertension Hypercholesteremia Hypertension Kidney stone Nicotine dependence Surgical History Surgical History History of eye surgery Left History of foot surgery Left Family History Family History Father Hypertension Alcoholism Heart disease Mother Hypertension Social History Social History Smoking packs per day: 1.5 Smoking cigarettes per day: 30.0 Years smoked: 23 Smoking pack-years: 34.50 Smoking status: Current every day smoker Tobacco type: cigarettes Second hand tobacco smoke exposure: Yes Alcohol intake: current Substance use: never Lack of Transportation: No Lack of Food: Never True Current Housing: I Have Housing Concerned About Future Housing: No Difficulty Paying Gas/Electric Bills: No Difficulty Paying for Meds: No Currently Unemployed: No Education: Trade/Vocational Certificate Difficulty w/ Childcare or Family Care: No Living arrangements: with family Occupation/Education: occupation Gender identity (if verbalized by the patient): Male Spiritual care concerns: No Exam Narrative: General: Alert, calm and cooperative, no acute distress, phonating, sitting comfortably during visit HEENT: Pupils equal round and reactive to light, extra ocular movements intact, no conjunctival injection, head atraumatic, neck supple without meningismus Cardiovascular: Tenderness to palpation to area right below right nipple, no masses, no crepitus, no fluctuance, no erythema, Regular rate and rhythm, no visible jugular venous distension Respiratory: Lungs clear to auscultation bilaterally, no wheezing/rales/rhonchi Abdominal: soft, non-tender, non-distended, no guarding, no rebound/peritoneal signs, no costovertebral tenderness to palpation Back: no midline tenderness to palpation, no step offs Extremities: No edema, palpable peripheral pulses, warm, well perfused, no tenderness to bilateral calves Neurological: Alert, moving all extremities symmetrically, ambulating without deficit Course Vital Signs Vital signs: Vital Signs Temperature 98.2 F 12/16/22 19:26 Pulse Rate 20 L 12/16/22 19:26 Respiratory Rate 18 12/16/22 19:26 Blood Pressure 159/81 H 12/16/22 19:26 Pulse Oximetry 97 12/16/22 19:26 Oxygen Delivery Room Air 12/16/22 19:26 Temperature 98.2 F 12/16/22 19:26 Pulse Rate 20 L 12/16/22 19:26 Respiratory Rate 18 12/16/22 19:26 Blood Pressure 159/81 H 12/16/22 19:26 Pulse Oximetry 97 12/16/22 19:26 Oxygen Delivery Room Air 12/16/22 19:26 Medical Decision Making MDM Narrative Medical decision making narrative: 47 year old male history of HTN presented with several days of focal right sided chest pain. Physical exam benign, sitting comfortably in bed, no masses, no fluctuance, no erythema, vitals stable. Differentia
[2022-12-16 19:55] LABS: INR 0.9; Prothrombin Time 12.5 Seconds (11.1-14.7)
[2022-12-16 19:56] LABS: Partial Thromboplastin Time 27.3 SECONDS (22.3-36.8)
[2022-12-16 19:58] LABS: Alanine Aminotransferase 42 U/L (6-50); Albumin Level 4.6 g/dL (3.5-5.1); Alkaline Phosphatase 90 U/L (38-126); Anion Gap 10 mmol/L (8-16); Aspartate Amino Transferase 26 U/L (17-59); Bilirubin,Total 0.5 mg/dL (0.2-1.3); Blood Urea Nitrogen 21 mg/dL (9-20); Calcium 10.1 mg/dL (8.4-10.2); Carbon Dioxide 26 mmol/L (22-30); Chloride 105 mmol/L (98-107); Estimated CRCL calculation 92 ml/min; Estimated Glomerular Filt Rate > 60; Glucose 109 mg/dL (65-110); Lipase 188 U/L (23-300); Potassium 3.8 mmol/L (3.4-5.0); Sodium 141 mmol/L (137-145)
[2022-12-16 20:10] LABS: Troponin I < 0.012 ng/mL (0.000-0.034)
[2022-12-16] MEDS: ASPIRIN 81 MG CHEWABLE TABLET 324 MG PO (20:49)
[2022-12-16] MEDS: MAG HYDROX/AL HYDROX/SIMETH 30 ML UDC PO (20:50)
[2022-12-16 23:41] LABS: Troponin I 0.056 ng/mL (0.000-0.034)
[2022-12-16 23:46] LABS: D Dimer 0.83 ug/mL (<0.48)
[2022-12-17] VITALS (11 sets, daily range): BP systolic 147–162; BP diastolic 96–102; PULSE 73–89; RESP 18–26; TEMP 36.3–36.9; O2SAT 90–97
--- NOTE | 2022-12-17 00:01 | PC.NURSE ---
Patient care report called to AWAIS Mares. All questions answered at this time.
[2022-12-17] MEDS: ENOXAPARIN 120 MG/0.8 ML SYRINGE 105 MG SUB-Q ×2 (00:07→12:03)
[2022-12-17] MEDS: IBUPROFEN 400 MG TABLET 800 MG PO (00:07)
[2022-12-17] MEDS: LACTATED RINGERS 1,000 ML 125 ML IV CONT ×2 (00:07→08:08)
--- NOTE | 2022-12-17 00:59 | ADMGEN ---
This patient, Truong Castillo, was admitted to Medical Room 344-01. Patient/family oriented to hospital policies and general routines including ID bracelet, bed and alarms, visiting hours, pain management, procedures, bathroom and other care routines, personal items, smoking policy, room service/diet, and visiting hours. Information on how to activate the Rapid Response Team has been discussed. Patient/Family are encouraged to report perceived risks to care and to ask questions if they do not understand what they are told or what they should do.
[2022-12-17 01:57] LABS: Troponin I < 0.012 ng/mL (0.000-0.034)
--- NOTE | 2022-12-17 08:02 | PM.IMHP ---
H&P: HPI History of Present Illness Date/Time: 12/17/22 06:00 Chief Complaint: Right chest pain with breathing. Narrative: 47-year-old male with a past medical history of essentia hypertension, prior CVA, chronic tobacco abuse and heavy alcohol use who presented to the ER with right-sided pleuritic chest pain. 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 The pain is worse with deep breathing. It is associated with some mild shortness of breath. He denies any recent calf pain, pain behind his knees, leg swelling or history of blood clots. He does not know his biological mother or father's past medical history. He does smoke 2 packs of cigarettes per day and snores quite loudly. He has never been tested for sleep apnea. He had his CTA performed in the ER which demonstrated a small subsegmental pulmonary embolism in the right lower lobe. He had associated findings of circumferential esophageal thickening. The patient does admit that he has had intermittent GERD symptoms. But he states that these symptoms have only been occurring for a few weeks and have only happened on occasion. He reports he feels a burning sensation up into his neck and posterior oropharynx. He denies any frequent emesis. He denies difficulty swallowing different consistencies of food or liquids. He denies a history of chest pain like this in the past. He does report chronic sinus issues infrequently is clearing his throat at the time of my evaluation. He denies known history of lung disease. Review of Systems Review of Systems: 12 systems were reviewed with pertinent positives and negatives per HPI. Except as documented in the HPI, all other systems were reviewed and are negative.He does report some sensation of paresthesias on his face at various times and of his neck. He also reports intermittent stiffness of his neck. He states that his primary care provider's trying to get him in to see a neurologist for these symptoms. The symptoms are episodic with and seemed all occur at the same time. They are not directly related to his symptoms today he also reports intermittent blurry vision of his right eye that occurs at the same time is his neck symptoms and paresthesias. He is not currently having any of his neurologic symptoms. His paresthesias occur in various areas of his face and neck. 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 He reports he has a large lump on his back that occasionally will express some material. This is been there for years. Is not a acute complaint. [facility] Past Medical History Medical History (Updated 12/17/22 @ 08:35 by Dee Dee Torres DO) Allergic rhinitis Amblyopia of eye Chest pain, unspecified Closed left arm fracture Essential (primary) hypertension Hypercholesteremia Hypertension Kidney stone Nicotine dependence Ulnar neuropathy at elbow of left upper extremity Surgical History Surgical History History of eye surgery Left History of foot surgery Left Family History Family History (Updated 12/17/22 @ 08:20 by Dee Dee Torres DO) Father , Who is the patient's great aunt or distant cousin Hypertension Alcoholism Heart disease Mother Hypertension Mother Unknown family medical history Father Unknown family medical history Sibling Healthy adult Social History Social History (Updated 12/17/22 @ 08:23 by Dee Dee Torres DO) Social History: The patient lives in an apartment. He has a 65-year-old roommate has had a stroke that he helps provide care for. He has 2 large dogs. 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 He is single and has never been . He does not have any children. He has smoked 2 packs per day since he was 18 years old. He drinks alcohol quite heavily. He was d
--- NOTE | 2022-12-17 08:14 | PM.IMPN ---
Progress Note: A&P Assessment and Plan (1) Single subsegmental pulmonary embolism without acute cor pulmonale: Code(s): I26.93 - Single subsegmental pulmonary embolism without acute cor pulmonale Status: Acute (2) Snoring: Code(s): R06.83 - Snoring Status: Acute (3) Obesity (BMI 30.0-34.9): Code(s): E66.9 - Obesity, unspecified Status: Acute (4) Essential (primary) hypertension: Code(s): I10 - Essential (primary) hypertension Status: Acute (5) Nicotine dependence: Qualifiers: Nicotine product type: cigarettes Substance use status: other nicotine-induced disorder Qualified Code(s): F17.218 - Nicotine dependence, cigarettes, with other nicotine-induced disorders Code(s): F17.200 - Nicotine dependence, unspecified, uncomplicated Status: Acute (6) Heavy alcohol use: Code(s): F10.90 - Alcohol use, unspecified, uncomplicated Status: Acute Plan Acute pulmonary embolism Patient has right chest pain, worse with the cough and deep breath CT of chest shows acute PE. Pulmonary embolism involving right middle and lower lobe segmental and subsegmental pulmonary arteries.?Receive Lovenox therapeutic dose No obvious heart strain was reported on CT scan Will switch to Eliquis or Xarelto at discharge, personal care attendant is working on the insurance issue CT scan reveals thickening of the abdomen esophagus which may be due to reflux esophagitis.? GI physician has consulted, plans EGD to evaluate the thickening of the esophagus and risk of bleeding on blood thinner therapy Appreciate gI consultation Nicotine patch has been ordered for patient's tobacco use. Greater than 10 minutes spent in tobacco cessation education. History of alcohol abuse drinking his current amount of alcohol 3-7 beers 2 or 3 times a week for the past 2 months. No signs of alcohol withdrawal will monitor CIWA scores. Patient has essential hypertension. Blood pressures are currently controlled. Will continue home antihypertensives. Obesity and snore in the night benefit from outpatient sleep study. Patient may stay more than 2 midnights in the hospital Subjective Date/time seen: 12/17/22 08:14 Interval history: I saw exam patient today. Patient denied shortness of breath, med has breath chest pain, worse with deep breath and cough. Patient denies dysphagia, choking, palpitation, abdomen pain, nausea vomiting diarrhea dysuria fever chills Exam Narrative: GENERAL: Pleasant, in no acute distress. Well-nourished. Obesity - EYES: EOMI. Anicteric. - HENT: Moist mucous membranes. - LUNGS: Clear to auscultation bilaterally, no wheezing, rhonchi, or rales. - CARDIOVASCULAR: Regular rate and rhythm. No murmur. No JVD. - ABDOMEN: Soft, non-tender and non-distended. No palpable masses. - EXTREMITIES: No edema. Peripheral pulses 2+. Non-tender. - NEUROLOGIC: No focal neurological deficits. CN II-XII grossly intact. - PSYCHIATRIC: Awake, Alert and oriented x 3. Appropriate mood and affect. - SKIN: No rashes or lesions. Warm. - LYMPH: No cervical lymphadenopathy. Objective Data Vital Signs Vital Signs: Vital Signs - 24 hr 12/16/22 19:26 12/16/22 19:52 12/16/22 20:01 Temperature 98.2 F Pulse Rate 20 L 96 99 Respiratory Rate 18 22 H 18 Blood Pressure 159/81 H 151/100 H Pulse Oximetry 97 97 96 Oxygen Delivery Room Air 12/16/22 20:32 12/16/22 20:45 12/16/22 20:46 Temperature Pulse Rate 92 94 90 Respiratory Rate 25 H 18 18 Blood Pressure 148/103 H Pulse Oximetry 95 95 96 Oxygen Delivery 12/16/22 21:00 12/16/22 21:01 12/16/22 21:15 Temperature Pulse Rate 92 92 89 Respiratory Rate 25 H 25 H 20 Blood Pressure 147/101 H Pulse Oximetry 95 95 95 Oxygen Delivery 12/16/22 21:30 12/16/22 21:50 12/16/22 23:24 Temperature Pulse Rate 92 91 82 Respiratory Rate 24 H 20 Blood Pressure Pulse Oximetry 94 98 Oxygen Delivery
[2022-12-17] MEDS: THIAMINE HCL 100 MG TABLET PO (09:29)
[2022-12-17] MEDS: FOLIC ACID 1 MG TABLET PO (09:29)
[2022-12-17] MEDS: hydroCHLOROthiazide 25 MG TABLET PO (09:29)
[2022-12-17] MEDS: VALSARTAN 160 MG TABLET PO (09:29)
[2022-12-17] MEDS: NICOTINE (*PBKC) 21 MG PATCH 1 PATCH TRANSDERM (09:32)
--- NOTE | 2022-12-17 11:42 | WPDGICN ---
Assessment and Plan Assessment and plan (1) Abnormal CT scan, gastrointestinal tract: Code(s): R93.3 - Abnormal findings on diagnostic imaging of other parts of digestive tract Status: Acute Assessment and Plan: FINDINGS: Small right pleural effusion. Study technically adequate without evidence for pulmonary embolism involving right middle and lower lobe segmental and subsegmental pulmonary arteries. Patchy groundglass opacities of the right middle and lower lobe which may represent atelectasis, pulmonary infarction and/or pneumonia. Small hiatal hernia. Thickening of the abdomen esophagus which may be due to reflux esophagitis. Subcutaneous low-density mass of the back at the cervical level measuring 2.7 cm, likely sebaceous cysts. No endobronchial lesions. Moderate thoracic spondylosis. He was concerned about the possibility of him having esophageal cancer as that was apparently brought up to him. I told that I doubt that he has cancer because I would have expected him to have weight loss and have progressive, increasing dysphagia but we will not know for certain until after we perform endoscopy. (2) Single subsegmental pulmonary embolism without acute cor pulmonale: Code(s): I26.93 - Single subsegmental pulmonary embolism without acute cor pulmonale Status: Acute Assessment and Plan: he has received Lovenox will be eventually started on oral anticoagulants. Apparently he will need to get preauthorization for that because he will not be able to pay for [id number]. We need to ensure that he does not have an esophageal lesion or other process that would potentially bleed when he begins taking anticoagulation. (3) Dyspepsia: Code(s): R10.13 - Epigastric pain Status: Acute Assessment and Plan: He states that he often has indigestion after meal pointing to his epigastric area. He has not lost weight. (4) Colon cancer screening: Code(s): Z12.11 - Encounter for screening for malignant neoplasm of colon Status: Acute Assessment and Plan: He is a 47 years old and in need of colon cancer screening. Also, because he will be on an anticoagulant, it is important to ensure that he does not have a possible lesion, polyp etc. that could bleed while he is anticoagulated. Plan EGD and colonoscopy tomorrow. GI Consult Note Consult date/time: 12/17/22 11:42 HPI: Truong Castillo is a 47 year old male with a past medical history of essentia hypertension, prior CVA, chronic tobacco abuse and heavy alcohol use who presented to the ER with right-sided pleuritic chest pain.? 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 The pain is worse with deep breathing.? It is associated with some mild shortness of breath.? He denies any recent calf pain, pain behind his knees, leg swelling or history of blood clots.? He does not know his biological mother or father's past medical history.? ? He had his CTA performed in the ER which demonstrated a small subsegmental pulmonary embolism in the right lower lobe.? He had associated findings of circumferential esophageal thickening.? The patient does admit that he has had intermittent GERD symptoms.? But he states that these symptoms have only been occurring for a few weeks and have only happened on occasion.? He reports he feels a burning sensation up into his neck and posterior oropharynx.? He denies any frequent emesis.? He denies difficulty swallowing different consistencies of food or liquids.? He denies a history of chest pain like this in the past. he denies having had to stop eating because food is caught. He does have heartburn for which he uses famotidine from time to time. He actually has been gaining weight over the past year. His main gastrointestinal complaint is that he has frequent indigestion, meaning a sour stomach after ea
[2022-12-17] MEDS: BISACODYL 5 MG TABLET EC 15 MG PO (12:38)
[2022-12-17] MEDS: polyethylene glycoL 3350 238 GM BOTTLE PO (17:15)
[2022-12-18] VITALS (13 sets, daily range): BP systolic 130–153; BP diastolic 59–95; PULSE 71–90; RESP 16–20; TEMP 36.4–36.6; O2SAT 93–98
[2022-12-18] MEDS: MAGNESIUM CITRATE 300 ML BTL 180 ML PO (05:11)
--- NOTE | 2022-12-18 08:57 | PM.IMPN ---
Progress Note: A&P Assessment and Plan (1) Single subsegmental pulmonary embolism without acute cor pulmonale: Code(s): I26.93 - Single subsegmental pulmonary embolism without acute cor pulmonale Status: Acute (2) Snoring: Code(s): R06.83 - Snoring Status: Acute (3) Obesity (BMI 30.0-34.9): Code(s): E66.9 - Obesity, unspecified Status: Acute (4) Essential (primary) hypertension: Code(s): I10 - Essential (primary) hypertension Status: Acute (5) Nicotine dependence: Qualifiers: Nicotine product type: cigarettes Substance use status: other nicotine-induced disorder Qualified Code(s): F17.218 - Nicotine dependence, cigarettes, with other nicotine-induced disorders Code(s): F17.200 - Nicotine dependence, unspecified, uncomplicated Status: Acute (6) Heavy alcohol use: Code(s): F10.90 - Alcohol use, unspecified, uncomplicated Status: Acute Plan Acute pulmonary embolism Patient has right chest pain, worse with the cough and deep breath CT of chest shows acute PE. Pulmonary embolism involving right middle and lower lobe segmental and subsegmental pulmonary arteries.?Receive Lovenox therapeutic dose No obvious heart strain was reported on CT scan Will switch to Eliquis or Xarelto at discharge, healthcare prof is working on the insurance issue Follow echocardiogram for possible right heart strain CT scan reveals thickening of the abdomen esophagus which may be due to reflux esophagitis.? GI physician has consulted, plans EGD to evaluate the thickening of the esophagus and risk of bleeding on blood thinner therapy Appreciate gI consultation Nicotine patch has been ordered for patient's tobacco use. Greater than 10 minutes spent in tobacco cessation education. History of alcohol abuse drinking his current amount of alcohol 3-7 beers 2 or 3 times a week for the past 2 months. No signs of alcohol withdrawal will monitor CIWA scores. Patient has essential hypertension. Blood pressures are currently controlled. Will continue home antihypertensives. Obesity and snore in the night benefit from outpatient sleep study. Patient may stay more than 2 midnights in the hospital Subjective Date/time seen: 12/18/22 08:57 Interval history: I saw exam patient today. Patient denied shortness of breath, med has breath chest pain, worse with deep breath and cough. Patient denies dysphagia, choking, palpitation, abdomen pain, nausea vomiting diarrhea dysuria fever chills Exam Narrative: GENERAL: Pleasant, in no acute distress. Well-nourished. Obesity - EYES: EOMI. Anicteric. - HENT: Moist mucous membranes. - LUNGS: Clear to auscultation bilaterally, no wheezing, rhonchi, or rales. - CARDIOVASCULAR: Regular rate and rhythm. No murmur. No JVD. - ABDOMEN: Soft, non-tender and non-distended. No palpable masses. - EXTREMITIES: No edema. Peripheral pulses 2+. Non-tender. - NEUROLOGIC: No focal neurological deficits. CN II-XII grossly intact. - PSYCHIATRIC: Awake, Alert and oriented x 3. Appropriate mood and affect. - SKIN: No rashes or lesions. Warm. - LYMPH: No cervical lymphadenopathy. Objective Data Vital Signs Vital Signs: Vital Signs - 24 hr 12/17/22 14:10 12/17/22 15:13 12/17/22 12:00 Temperature 98.4 F Pulse Rate 80 89 Respiratory Rate 18 Blood Pressure 154/98 H Pulse Oximetry 90 95 Oxygen Delivery Room Air 12/17/22 16:00 12/17/22 19:24 12/17/22 20:00 Temperature 97.8 F Pulse Rate 81 86 88 Respiratory Rate 20 Blood Pressure 154/99 H Pulse Oximetry 97 Oxygen Delivery 12/18/22 05:12 12/18/22 00:00 12/18/22 04:00 Temperature 97.5 F L Pulse Rate 71 80 73 Respiratory Rate 20 Blood Pressure 147/89 H Pulse Oximetry 97 Oxygen Delivery 12/18/22 08:30 12/18/22 08:30 Temperature Pulse Rate 72 Respiratory Rate Blood Pressure Pulse Oximetry Oxygen Delivery Room Air
--- NOTE | 2022-12-18 08:58 | ECHO_ITS ---
Patient Info Name: Truong Castillo Age: 47 years : 1975 Gender: Male Ht: 70 in Wt: 234 lbs BSA: 2.32 m2 HR: 95 bpm BP: 147 / 89 mmHg Heart Rhythm: Sinus Rhythm Technical Quality: Fair Exam Date: 12/18/2022 9:37 AM [facility] Room: 344 Patient Status: Outpatient Admit Date: 12/16/2022 Staff Ordering Physician: Sanya Meza MD [employer]: Gely Minaya RDCS Attending Provider: Dee Dee Torres DO Exam Type: CA echo dop color flow w con Study Info Indications - DIZZINESS Complete two-dimensional, color flow and Doppler transthoracic echocardiogram is performed with contrast to opacify the left ventricle and to improve the deliniation of the left ventricle endocardial borders. Contrast/Agitated Saline Contrast/Ag. Saline: Definity Amount: 2.00 ml Administered By: Gely Minaya [facility] Existing IV Access: Yes IV Access Condition: patent with no signs of infiltration Summary 1. Normal left and right ventricular size thickness and systolic contractility. 2. Trivial amount of tricuspid regurgitation, within physiologic normal limits. 3. Essentially unremarkable echocardiogram. Left Ventricle Left ventricular chamber dimension is normal. Left ventricular systolic function is normal, estimated at 60-65%. The left ventricular diastolic function is normal. Right Ventricle Right ventricular chamber dimension is normal. Left Atria Left atrial chamber dimension is normal. Right Atria Right atrial chamber dimension is normal. Aortic Valve The aortic valve is normal. Pulmonic Valve The pulmonic valve is normal. Mitral Valve The mitral valve has normal leaflets. Tricuspid Valve The tricuspid valve leaflets are normal. There is trace tricuspid valve regurgitation. Pericardium/Pleural The pericardium appears normal. Aorta The aortic root size at the sinus of Valsalva is normal. Left Ventricular Outflow Tract Name Value Normal LVOT 2D LVOT Diameter 2.14 cm LVOT Doppler LVOT Peak Gradient 3 mmHg LVOT Mean Gradient 2 mmHg LVOT VTI 18.21 cm LVOT VTI/AV VTI Ratio 0.97 LVOT Stroke Volume 65.50 ml LVOT CO 13.68 l/min LVOT CI 5.88 L/min/m2 Pulmonic Valve Name Value Normal RVOT Doppler RVOT Peak Gradient 1 mmHg PV Doppler PV Peak Gradient 3 mmHg Mitral Valve Name Value Normal MV Doppler
[2022-12-18] MEDS: PERFLUTREN LIPID MICROSPHERES 1.5 ML VIAL DILUTED TO 10 ML TOTAL VOLUME IV PUSH (10:00)
[2022-12-18] MEDS: LACTATED RINGERS 1,000 ML 150 ML IV CONT (10:54)
--- NOTE | 2022-12-18 10:54 | PC.NURSE ---
Patient off of unit to GI lab
--- NOTE | 2022-12-18 11:33 | P.PNAN_ITS ---
Anes - Eval Final PreProcedure Day of Procedure 12/18/22 11:33 Patient weight: obese Heart: regular rate and rhythm Lungs: decreased breath sounds Airway: Mallampati scale class II Neurological: alert and oriented Last oral intake: >/= 8 hours ASA classification: III Emergent: no Anesthetic plan: proceed Anesthesia type and monitoring: general GIVS and standard monitoring Results Review: All pre-operative results and documents have been reviewed as part of the pre- operative evaluation. Informed Consent: The patient's anesthetic plan and its attendant risks and benefits were discussed with the patient/family/POA. Questions were solicited and answers provided to the satisfaction of the patient/family/POA.
--- NOTE | 2022-12-18 12:19 | SUR.OPER ---
EGD started at 1212 and ended at 1215. Colonoscopy began at 1221.
[2022-12-18] MEDS: SIMETHICONE ORAL SUSPENSION 20 MG/0.3 ML 30 ML BOTTLE 0.6 ML PO (12:24)
--- NOTE | 2022-12-18 13:30 | PC.NURSE ---
Patient returned from GI lab
--- NOTE | 2022-12-18 15:40 | PC.NURSE ---
Patient anxious wanting to leave. General Partner called Dr. Meza and updated him on patient concerns and explained the risks to the patient if he were to leave AMA. Patient agreed to stay overnight.
[2022-12-18] MEDS: NICOTINE (*PBKC) 21 MG PATCH 1 PATCH TRANSDERM (16:48)
[2022-12-18] MEDS: PANTOPRAZOLE 40 MG TABLET PO (20:51)
[2022-12-19] VITALS: PULSE 74
[2022-12-19] MEDS: ENOXAPARIN 120 MG/0.8 ML SYRINGE 105 MG SUB-Q (00:02)
[2022-12-19 04:00] VITALS: BP 152/81; PULSE 80
[2022-12-19 04:45] VITALS: BP 152/81; PULSE 87; RESP 18; TEMP 36.7; O2SAT 96
--- NOTE | 2022-12-19 07:26 | WPDGIPROGNO ---
Progress Note: A&P Assessment and Plan (1) Abnormal CT scan, gastrointestinal tract: Code(s): R93.3 - Abnormal findings on diagnostic imaging of other parts of digestive tract Status: Acute Assessment and Plan: FINDINGS: Small right pleural effusion. Study technically adequate without evidence for pulmonary embolism involving right middle and lower lobe segmental and subsegmental pulmonary arteries. Patchy groundglass opacities of the right middle and lower lobe which may represent atelectasis, pulmonary infarction and/or pneumonia. Small hiatal hernia. Thickening of the abdomen esophagus which may be due to reflux esophagitis. Subcutaneous low-density mass of the back at the cervical level measuring 2.7 cm, likely sebaceous cysts. No endobronchial lesions. Moderate thoracic spondylosis. He was concerned about the possibility of him having esophageal cancer as that was apparently brought up to him. I told that I doubt that he has cancer because I would have expected him to have weight loss and have progressive, increasing dysphagia but we will not know for certain until after we perform endoscopy. I discussed with him results of EGD. 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 He has not yet had any significant dysphagia that he is aware of. He was relieved to find that he did not have cancer as was suggested on the CT scan. (2) Single subsegmental pulmonary embolism without acute cor pulmonale: Code(s): I26.93 - Single subsegmental pulmonary embolism without acute cor pulmonale Status: Acute Assessment and Plan: he has received Lovenox will be eventually started on oral anticoagulants. Apparently he will need to get preauthorization for that because he will not be able to pay for [id number]. We need to ensure that he does not have an esophageal lesion or other process that would potentially bleed when he begins taking anticoagulation. Lovenox has been started now that he endoscopy has been completed. (3) Dyspepsia: Code(s): R10.13 - Epigastric pain Status: Acute Assessment and Plan: He states that he often has indigestion after meal pointing to his epigastric area. He has not lost weight. (4) Colon cancer screening: Code(s): Z12.11 - Encounter for screening for malignant neoplasm of colon Status: Acute Assessment and Plan: He is a 47 years old and in need of colon cancer screening. Also, because he will be on an anticoagulant, it is important to ensure that he does not have a possible lesion, polyp etc. that could bleed while he is anticoagulated. (5) Colitis: Code(s): K52.9 - Noninfective gastroenteritis and colitis, unspecified Status: Acute Assessment and Plan: there were focal areas of inflammation and erosions in the colon randomly. Biopsies were obtained. The suspicion is that this may be NSAID colitis. He also has symptoms discussed today that sound like irritable bowel syndrome with diarrhea, sometimes very urgent. I told that drinking beer and coffee can cause such symptoms and he admits that he drinks a lot of beer in the evening. He is committed to quitting. Plan Awaiting results of biopsies. Subjective Date/time seen: 12/19/22 07:26 he has no new complaints. We discussed results and findings of his endoscopies. He had an esophageal web that was dilated by Dr. Stacy. he has esophagitis and he understands that he will need to be on a proton pump inhibitor for couple of weeks. I reassured him that there was no cancer. Explain his colonoscopy showed some erosions which were biopsied. This could be NSAID colitis. The patient then described how he will at times have severe cramping then rectal pain and extreme urgency to have a bowel movement Which is frankl diarrhea. Exam Const: General: cooperative and healthy appearing Orientation/consciousness: patient oriented x3 HENMT:
--- NOTE | 2022-12-19 08:06 | PM.IMPN ---
Progress Note: A&P Assessment and Plan (1) Single subsegmental pulmonary embolism without acute cor pulmonale: Code(s): I26.93 - Single subsegmental pulmonary embolism without acute cor pulmonale Status: Acute (2) Snoring: Code(s): R06.83 - Snoring Status: Acute (3) Obesity (BMI 30.0-34.9): Code(s): E66.9 - Obesity, unspecified Status: Acute (4) Essential (primary) hypertension: Code(s): I10 - Essential (primary) hypertension Status: Acute (5) Nicotine dependence: Qualifiers: Nicotine product type: cigarettes Substance use status: other nicotine-induced disorder Qualified Code(s): F17.218 - Nicotine dependence, cigarettes, with other nicotine-induced disorders Code(s): F17.200 - Nicotine dependence, unspecified, uncomplicated Status: Acute (6) Heavy alcohol use: Code(s): F10.90 - Alcohol use, unspecified, uncomplicated Status: Acute Plan Acute pulmonary embolism Patient has right chest pain, worse with the cough and deep breath CT of chest shows acute PE. 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 GI physician has consulted, plans EGD to evaluate the thickening of the esophagus and risk of bleeding on blood thinner therapy Appreciate gI consultation per GI, pt has an esophageal web in some esophagitis which can be easily treated.? He has not yet had any significant dysphagia that he is aware of.? He was relieved to find that he did not have cancer as was suggested on the CT scan. Nicotine patch has been ordered for patient's tobacco use. Greater than 10 minutes spent in tobacco cessation education. History of alcohol abuse drinking his current amount of alcohol 3-7 beers 2 or 3 times a week for the past 2 months. No signs of alcohol withdrawal will monitor CIWA scores. c/w folic acid and thiamine p.o. Patient has essential hypertension. Blood pressures are currently controlled. Will continue home antihypertensives. Obesity and snore in the night benefit from outpatient sleep study. Patient may stay more than 2 midnights in the hospital Subjective Date/time seen: 12/19/22 08:06 Interval history: I saw exam patient today. Patient denied shortness of breath, chest pain, dysphagia, choking, palpitation, abdomen pain, nausea vomiting diarrhea dysuria fever chills Exam Narrative: GENERAL: Pleasant, in no acute distress. Well-nourished. Obesity - EYES: EOMI. Anicteric. - HENT: Moist mucous membranes. - LUNGS: Clear to auscultation bilaterally, no wheezing, rhonchi, or rales. - CARDIOVASCULAR: Regular rate and rhythm. No murmur. No JVD. - ABDOMEN: Soft, non-tender and non-distended. No palpable masses. - EXTREMITIES: No edema. Peripheral pulses 2+. Non-tender. - NEUROLOGIC: No focal neurological deficits. CN II-XII grossly intact. - PSYCHIATRIC: Awake, Alert and oriented x 3. Appropriate mood and affect. - SKIN: No rashes or lesions. Warm. - LYMPH: No cervical lymphadenopathy. Objective Data Vital Signs Vital Signs: Vital Signs - 24 hr 12/18/22 08:30 12/18/22 08:30 12/18/22 10:51 Temperature 97.8 F Pulse Rate 72 77 Respiratory Rate 20 Blood Pressure 144/84 H Pulse Oximetry 97 Oxygen Delivery Room Air Room Air 12/18/22 12:44 12/18/22 12:54 12/18/22 13:04 Temperature Pulse Rate 86 81 81 Respiratory Rate 16 20 20 Blood Pressure 144/95 H 130/92 H 144/93 H Pulse Oximetry 98 98 98 Oxygen Delivery Room Air Room Air Room Air 12/18/22 14:20 12/18/22 14:00 12/18/22 16:00 Temperature 97.9 F Pulse Rate 72 90 Respiratory Rate
--- NOTE | 2022-12-19 08:10 | PM.DS ---
DS: Admitting Diagnosis Discharge Date Today Admitting diagnosis (1) Single subsegmental pulmonary embolism without acute cor pulmonale: ?Code(s): I26.93 - Single subsegmental pulmonary embolism without acute cor pulmonale ?Status:?Acute (2) Snoring: ?Code(s): R06.83 - Snoring ?Status:?Acute (3) Obesity (BMI 30.0-34.9): ?Code(s): E66.9 - Obesity, unspecified ?Status:?Acute (4) Essential (primary) hypertension: ?Code(s): I10 - Essential (primary) hypertension ?Status:?Acute (5) Nicotine dependence: (1) Single subsegmental pulmonary embolism without acute cor pulmonale: ?Code(s): I26.93 - Single subsegmental pulmonary embolism without acute cor pulmonale ?Status:?Acute (2) Snoring: ?Code(s): R06.83 - Snoring ?Status:?Acute (3) Obesity (BMI 30.0-34.9): ?Code(s): E66.9 - Obesity, unspecified ?Status:?Acute (4) Essential (primary) hypertension: ?Code(s): I10 - Essential (primary) hypertension ?Status:?Acute (5) Nicotine dependence: Admitting Diagnosis (1) Single subsegmental pulmonary embolism without acute cor pulmonale: ?Code(s): I26.93 - Single subsegmental pulmonary embolism without acute cor pulmonale ?Status:?Acute (2) Snoring: ?Code(s): R06.83 - Snoring ?Status:?Acute (3) Obesity (BMI 30.0-34.9): ?Code(s): E66.9 - Obesity, unspecified ?Status:?Acute (4) Essential (primary) hypertension: ?Code(s): I10 - Essential (primary) hypertension ?Status:?Acute (5) Nicotine dependence: ?Qualifiers: ?Nicotine product type:?cigarettes??Substance use status:?other nicotine-induced disorder? Qualified Code(s):?F17.218 - Nicotine dependence, cigarettes, with other nicotine-induced disorders ?Code(s): F17.200 - Nicotine dependence, unspecified, uncomplicated ?Status:?Acute (6) Heavy alcohol use: ?Code(s): F10.90 - Alcohol use, unspecified, uncomplicated ?Status:?Acute DS: Discharge Diagnosis Discharge Diagnosis (1) Single subsegmental pulmonary embolism without acute cor pulmonale: Code(s): I26.93 - Single subsegmental pulmonary embolism without acute cor pulmonale Status: Acute (2) Snoring: Code(s): R06.83 - Snoring Status: Acute (3) Obesity (BMI 30.0-34.9): Code(s): E66.9 - Obesity, unspecified Status: Acute (4) Essential (primary) hypertension: Code(s): I10 - Essential (primary) hypertension Status: Acute (5) Nicotine dependence: Qualifiers: Nicotine product type: cigarettes Substance use status: other nicotine-induced disorder Qualified Code(s): F17.218 - Nicotine dependence, cigarettes, with other nicotine-induced disorders Code(s): F17.200 - Nicotine dependence, unspecified, uncomplicated Status: Acute (6) Heavy alcohol use: Code(s): F10.90 - Alcohol use, unspecified, uncomplicated Status: Acute DS: Summary Hospital Course Reason for hospitalization: Chest pain Hospital Course: Per [id number] male with a past medical history of essentia hypertension, prior CVA, chronic tobacco abuse and heavy alcohol use who presented to the ER with right-sided pleuritic chest pain.? 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 The pain is worse with deep breathing.? It is associated with some mild shortness of breath.? He denies any recent calf pain, pain behind his knees, leg swelling or history of blood clots.? He does not know his biological mother or father's past medical history.? He does smoke 2 packs of cigarettes per day and snores quite loudly.? He has never been tested for sleep apnea.? He had his CTA performed in the ER which demonstrated a small subsegmental pulmonary embolism in the right lower lobe.? He had associated findings of circumferential esophageal thickeni
--- NOTE | 2022-12-19 08:36 | WPDANESPN ---
Anes - Prog Note Post-Op Date/Time: 12/19/22 08:36 Cardiovascular status: normal Respiratory status: normal Airway patency: baseline Mental status: baseline Post-Op hydration status: normal Vital Signs: Last Vital Signs Temp 36.7 C 12/19/22 04:45 Pulse 87 12/19/22 04:45 Resp 18 12/19/22 04:45 BP 152/81 H 12/19/22 04:45 Pulse Ox 96 12/19/22 04:45 O2 Del Method Room Air 12/19/22 08:01 Pain Score (VAS): 0 I/O: Intake & Output 12/18/22 12/19/22 12/19/22 23:59 07:59 15:59 Intake Total 740 800 Balance 740 800 Laboratory Tests 12/16/22 19:32 12/16/22 19:32 Post-procedural complaints: none Patient Feedback: Patient satisfied with anesthetic care.
== END 2022-12-19 11:51 | disposition home or self-care (01) ==
LOC: ANHED 20:42 → ANH3MED 12-17 04:58
PROVIDERS: Emergency Medicine; Internal Medicine Gastroenterology; Admitting Provider Internal Medicine; Emergency Provider Emergency Medicine; PCP Family Medicine; Visit Provider Hospitalist
PROC: 0DJ08ZZ Inspection of Upper Intestinal Tract, Via Natural or Artificial Opening Endoscopic (ICD-10-PCS; CPT 43235; principal; 2022-12-18 13:00)
DX: Q39.4 Esophageal web (principal); D12.2 Benign neoplasm of ascending colon; K63.3 Ulcer of intestine; K52.9 Noninfective gastroenteritis and colitis, unspecified; K64.8 Other hemorrhoids; K21.00 Gastro-esophageal reflux disease with esophagitis, without bleeding; I26.93 Single subsegmental thrombotic pulmonary embolism without acute cor pulmonale; R42 Dizziness and giddiness; J18.9 Pneumonia, unspecified organism; J98.11 Atelectasis; J90 Pleural effusion, not elsewhere classified; I10 Essential (primary) hypertension; R06.83 Snoring; E78.00 Pure hypercholesterolemia, unspecified; E66.9 Obesity, unspecified; Z68.33 Body mass index [BMI] 33.0-33.9, adult; F17.218 Nicotine dependence, cigarettes, with other nicotine-induced disorders; F10.90 Alcohol use, unspecified, uncomplicated; Z79.01 Long term (current) use of anticoagulants; Z79.899 Other long term (current) drug therapy; Z86.73 Personal history of transient ischemic attack (TIA), and cerebral infarction without residual deficits; Z82.49 Family history of ischemic heart disease and other diseases of the circulatory system
CPT/HCPCS: 43450; 45380; 45385; 36415; 71046; 71275; 80053; 83690; 84484; 85025; 85380; 85610; 85730; 86850; 86900; 86901; 88305; 93005; 96361; 96372; 96374; 99285; A9270; C8929; G0378; G0379; J1650; J2704; J7120; Q9957; Q9967

== ENCOUNTER 2022-12-19 23:02 | Emergency (ER) | payer OTHER, SELFPAY ==
[2022-12-19 23:08] VITALS: BP 156/97; PULSE 92; RESP 20; TEMP 37; O2SAT 99
[2022-12-20 00:11] VITALS: BP 160/96; PULSE 84; RESP 17; TEMP 36.7; O2SAT 97
[2022-12-20 00:21] VITALS: BP 144/91; PULSE 78
[2022-12-20 00:22] VITALS: BP 141/95; PULSE 84
[2022-12-20 00:23] VITALS: BP 150/104; PULSE 90
[2022-12-20 00:23] LABS: Basophils Percent Auto 0.2 % (0.2-1.2); Eosinophils Absolute Auto 0.2 K/mm3 (0-0.3); Eosinophils Percent Auto 1.9 % (0-4.4); Hematocrit 44.8 % (42.0-52.0); Hemoglobin 15.1 g/dL (14.0-18.0); Immature Granulocyte Absolute 0.07 K/mm3 (0.00-0.031); Immature Granulocyte Percent A 0.5 % (0-0.5); Lymphocytes Absolute Auto 2.87 K/mm3 (0.9-3.2); Lymphocytes Percent Auto 22.5 % (18.3-44.2); Mean Corpuscular HGB Conc 33.7 g/dl (32-36); Monocytes Percent Auto 7.7 % (2.6-8.5); Neutrophils Absolute Auto 8.6 K/mm3 (1.3-6.7); Neutrophils Percent Auto 67.2 % (45.5-73.1); Platelet Count Result 344 k/mm3 (150-375); Red Blood Count 4.87 M/mm3 (4.6-6.20); Red Cell Distribution Width 12.3 % (11.5-14.5); White Blood Count 12.8 K/mm3 (4.5-10.0)
[2022-12-20 00:34] LABS: INR 1.1; Partial Thromboplastin Time 30.6 SECONDS (22.3-36.8); Prothrombin Time 14.6 Seconds (11.1-14.7)
[2022-12-20 00:40] LABS: Alanine Aminotransferase 39 U/L (6-50); Albumin Level 4.3 g/dL (3.5-5.1); Alkaline Phosphatase 77 U/L (38-126); Anion Gap 10 mmol/L (8-16); Aspartate Amino Transferase 31 U/L (17-59); Bilirubin,Total 0.6 mg/dL (0.2-1.3); Blood Urea Nitrogen 20 mg/dL (9-20); Carbon Dioxide 24 mmol/L (22-30); Chloride 107 mmol/L (98-107); Estimated CRCL calculation 88 ml/min; Estimated Glomerular Filt Rate > 60; Glucose 105 mg/dL (65-110); Potassium 3.8 mmol/L (3.4-5.0); Sodium 141 mmol/L (137-145)
--- NOTE | 2022-12-20 01:49 | ED.GENADULT ---
HPI - General Adult General Chief complaint: GI Bleed Stated complaint: gi bleed Time Seen by Provider: 12/20/22 01:40 History of Present Illness HPI narrative: 47M recent PE on eliquis, had colonoscopy yesterday presented with episode of bloody stool. Per patient, he had a BM today, noted some blood in his stool, so presented to the ED for further evaluation and to see if he should continue his eliquis. He denied fevers/cihlls, abdominal pain, nausea/vomiting, chest pain, shortness of breath. Past Medical History: PE Past Surgical History: Colonoscopy yesterday Medications: eliquis Allergies: no known drug allergies Related Data Allergies Allergy/AdvReac Type Severity Reaction Status Date / Time No Known Allergies Allergy Verified 12/18/22 10:50 Review of Systems Review of Systems: See HPI Constitutional: Comments: See HPI PMFSH Past Medical History Medical History Allergic rhinitis Amblyopia of eye Chest pain, unspecified Closed left arm fracture Essential (primary) hypertension Hypercholesteremia Hypertension Kidney stone Nicotine dependence Ulnar neuropathy at elbow of left upper extremity Surgical History Surgical History History of eye surgery Left History of foot surgery Left Family History Family History Father , Who is the patient's great aunt or distant cousin Hypertension Alcoholism Heart disease Mother Hypertension Mother Unknown family medical history Father Unknown family medical history Sibling Healthy adult Social History Social History Social History: The patient lives in an apartment. He has a 65-year-old roommate has had a stroke that he helps provide care for. He has 2 large dogs. 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 He is single and has never been . He does not have any children. He has smoked 2 packs per day since he was 18 years old. He drinks alcohol quite heavily. He was drinking up to a 12 pack of beer per day. He reports that in September of 2022 he cut back to drinking 3-7 beers every couple of days. He denies illicit substance use. Code status: Full code Surrogate decision maker: Deena Hester (sister) Smoking packs per day: 2 Smoking cigarettes per day: 40.0 Years smoked: 29 Smoking pack-years: 58.00 Smoking status: Current every day smoker Tobacco type: cigarettes Second hand tobacco smoke exposure: Yes Alcohol intake: current Drinks per week: 25 Substance use: never Lack of Transportation: No Lack of Food: Never True Current Housing: I Have Housing Concerned About Future Housing: No Difficulty Paying Gas/Electric Bills: No Difficulty Paying for Meds: No Currently Unemployed: No Education: Trade/Vocational Certificate Difficulty w/ Childcare or Family Care: No Living arrangements: with family Occupation/Education: occupation Gender identity (if verbalized by the patient): Male Spiritual care concerns: No Exam Narrative: General: Alert, calm and cooperative, no acute distress, phonating, sitting comfortably during visit HEENT: Pupils equal round and reactive to light, extra ocular movements intact, no conjunctival injection, head atraumatic, neck supple without meningismus Cardiovascular: Regular rate and rhythm, no visible jugular venous distension Respiratory: Lungs clear to auscultation bilaterally, no wheezing/rales/rhonchi Abdominal: soft, non-tender, non-distended, no guarding, no rebound/peritoneal signs, no costovertebral tenderness to palpation Back: no midline tenderness to palpation, no step offs Extremities: No edema, palpable peripheral pulses, warm, well perfused, no tenderness to bilateral calves Neurological: Alert, mov
[2022-12-20 02:02] VITALS: BP 140/82; PULSE 71; RESP 21; O2SAT 98
[2022-12-20 02:10] VITALS: BP 140/82; PULSE 73; RESP 19; TEMP 36.7; O2SAT 94
== END 2022-12-20 02:11 | disposition home or self-care (01) ==
PROVIDERS: Emergency Provider Emergency Medicine; PCP Family Medicine
DX: K62.5 Hemorrhage of anus and rectum (principal); F17.210 Nicotine dependence, cigarettes, uncomplicated; I10 Essential (primary) hypertension; Z87.442 Personal history of urinary calculi
CPT/HCPCS: 36415; 80053; 85025; 85610; 85730; 86850; 86900; 86901; 99283

== ENCOUNTER 2022-12-23 19:44 | Emergency (ER) | payer OTHER, SELFPAY ==
[2022-12-23 19:59] VITALS: BP 167/79; PULSE 87; RESP 18; TEMP 36.5; O2SAT 100
--- NOTE | 2022-12-23 23:04 | PC.NURSE ---
Patient's name called twice in triage with no answer.
== END 2022-12-23 23:04 | disposition left against medical advice (07) ==
LOC: ANHED 23:15
PROVIDERS: PCP Family Medicine
DX: R42 Dizziness and giddiness (principal)
CPT/HCPCS: 99199

== ENCOUNTER 2022-12-25 08:58 | Outpatient (CLI) | payer OTHER, SELFPAY ==
[2022-12-25 10:15] LABS: Basophils Percent Auto 0.4 % (0.2-1.2); Eosinophils Absolute Auto 0.2 K/mm3 (0-0.3); Eosinophils Percent Auto 1.9 % (0-4.4); Hematocrit 46.2 % (42.0-52.0); Hemoglobin 15.3 g/dL (14.0-18.0); Immature Granulocyte Absolute 0.03 K/mm3 (0.00-0.031); Immature Granulocyte Percent A 0.3 % (0-0.5); Lymphocytes Absolute Auto 2.69 K/mm3 (0.9-3.2); Lymphocytes Percent Auto 23.8 % (18.3-44.2); Mean Corpuscular HGB Conc 33.1 g/dl (32-36); Mean Corpuscular Volume 93.5 fl (80-100); Mean Platelet Volume 9.3 fl (7.4-10.4); Monocytes Absolute Auto 1.1 K/mm3 (0.1-0.6); Monocytes Percent Auto 9.4 % (2.6-8.5); Neutrophils Absolute Auto 7.3 K/mm3 (1.3-6.7); Neutrophils Percent Auto 64.2 % (45.5-73.1); Platelet Count Result 384 k/mm3 (150-375); Red Blood Count 4.94 M/mm3 (4.6-6.20); Red Cell Distribution Width 12.1 % (11.5-14.5); White Blood Count 11.3 K/mm3 (4.5-10.0)
[2022-12-25 10:27] LABS: Alanine Aminotransferase 35 U/L (6-50); Alanine Aminotransferase 37 U/L (6-50); Albumin Level 4.3 g/dL (3.5-5.1); Albumin Level 4.5 g/dL (3.5-5.1); Alkaline Phosphatase 73 U/L (38-126); Alkaline Phosphatase 78 U/L (38-126); Anion Gap 4 mmol/L (8-16); Anion Gap 6 mmol/L (8-16); Aspartate Amino Transferase 28 U/L (17-59); Aspartate Amino Transferase 30 U/L (17-59); Bilirubin,Total 0.5 mg/dL (0.2-1.3); Blood Urea Nitrogen 22 mg/dL (9-20); Blood Urea Nitrogen 23 mg/dL (9-20); Calcium 9.8 mg/dL (8.4-10.2); Calcium 9.9 mg/dL (8.4-10.2); Carbon Dioxide 29 mmol/L (22-30); Carbon Dioxide 30 mmol/L (22-30); Chloride 103 mmol/L (98-107); Chloride 104 mmol/L (98-107); Cholesterol 205 mg/dL (0-200); Estimated Glomerular Filt Rate > 60; Glucose 96 mg/dL (65-110); Glucose 97 mg/dL (65-110); HDL Direct 27 mg/dL; INR 0.9; Potassium 4.3 mmol/L (3.4-5.0); Potassium 4.4 mmol/L (3.4-5.0); Prothrombin Time 12.8 Seconds (11.1-14.7); Sodium 136 mmol/L (137-145); Sodium 140 mmol/L (137-145); Triglycerides 105 mg/dL (<150)
[2022-12-25 10:37] LABS: Hemoglobin A1C 5.5 % (<5.7)
[2022-12-25 10:39] LABS: LDL Cholesterol Direct 145 mg/dL
== END 2022-12-25 08:59 | disposition home or self-care (01) ==
LOC: ANHGOSHLAB 09:00
PROVIDERS: PCP Family Medicine; Visit Provider Nurse Practitioner Family
DX: R42 Dizziness and giddiness (principal); I10 Essential (primary) hypertension; E53.8 Deficiency of other specified B group vitamins; Z13.29 Encounter for screening for other suspected endocrine disorder; Z13.1 Encounter for screening for diabetes mellitus
CPT/HCPCS: 36415; 80053; 80061; 82607; 83036; 84443; 85025; 85610

== ENCOUNTER 2023-01-07 10:54 | Outpatient (CLI) | payer OTHER, SELFPAY ==
--- NOTE | ~2023-01-07 | CT_ITS ---
EXAMINATION: CT brain wo con INDICATION: Dizziness, headache COMPARISON: 12/14/2021, 12/05/2021 TECHNIQUE: Standard unenhanced head CT. The dose-length product (DLP) was 605.33 mGy-cm. The mA was a djusted according to patient size. Iterative reconstruction technique was employed. FINDINGS: There is no intracranial hemorrhage, acute infarction, or abnormal mass lesion. An old smal l infarct is again noted in the right frontal lobe. The ventricles are normal. There is no abnormal m ass effect or midline shift. The banegas-white matter differentiation is normal. The basal cisterns are patent. Again noted are an absence of the septum pellucidum and a small left optic nerve, consistent with septo-optic dysplasia. The paranasal sinuses, mastoids and calvarium are normal. IMPRESSION: 1. No acute intracranial abnormality. 2. Small left optic nerve and absent septum pellucidum, consistent with septo-optic dysplasia as prev iously described. Reviewed, dictated and finalized at location A. IMPRESSION: 1. No acute intracranial abnormality. 2. Small left optic nerve and absent septum pellucidum, consistent with septo-o ptic dysplasia as previously described.
== END 2023-01-07 10:55 | disposition home or self-care (01) ==
PROVIDERS: PCP Family Medicine; Visit Provider Nurse Practitioner Family
DX: R42 Dizziness and giddiness (principal); R51.9 Headache, unspecified
CPT/HCPCS: 70450

== ENCOUNTER 2023-02-17 08:55 | Observation (INO) | payer OTHER, SELFPAY ==
[2023-02-17] VITALS (11 sets, daily range): BP systolic 130–164; BP diastolic 81–95; PULSE 60–85; RESP 16–18; TEMP 36.4–36.7; O2SAT 97–100; BMI 34.8; BMI 31.9
--- NOTE | ~2023-02-17 | CT_ITS ---
EXAMINATION: CTA brain carotid DATE: 02/17/2023 10:57 CDT INDICATION: Neuro symptoms. Weakness. TECHNIQUE: Computed tomographic angiography (CTA) of the head was performed without and with 100 mL O mnipaque-350 intravenous contrast. CTA of the neck was performed with intravenous contrast. The dose- length product was 1827.84 mGy-cm. Maximum intensity projection and volume rendered 3D-reconstruction s were created by the technologist on a separate workstation. COMPARISON: CT brain dated 01/07/2023 and CTA brain dated 12/14/2021. FINDINGS: HEAD CTA: Brain parenchymal volume is normal for age. No acute intracranial hemorrhage, infarction, m ass or mass effect. No ventriculomegaly or midline shift. The septum pellucidum is absent. Small block setter gypsum haresh right frontal lobe infarction. Small left optic nerve. There is mild mucosal thickening of the ma xillary and the ethmoid sinuses. No ventriculomegaly or midline shift. Basilar cisterns are patent. T he vertebral arteries are codominant. No significant stenosis of the basilar posterior cerebral arter ies. No significant stenosis of the internal carotid arteries, anterior or middle posterior cerebral arteries. No acute infarction, hemorrhage, mass or mass effect. NECK CTA: There is no significant atherosclerosis of the carotid arteries. No significant luminal katy rowing. No cervical lymphadenopathy. There is 0% stenosis of the proximal right internal carotid artery relative to normal distal artery l umen diameter (NASCET criteria). There is 0% stenosis of the proximal left internal carotid artery re lative to normal distal artery lumen diameter. Vertebral arteries are unremarkable. IMPRESSION: 1: No acute intracranial abnormality. 2: Chronic focal right frontal lobe infarction. 2: No significant vascular abnormality of the head or neck. Reviewed, dictated and finalized at location A.
--- NOTE | ~2023-02-17 | MR_ITS ---
EXAMINATION: MR brain/brain stem wo con DATE: 02/17/2023 14:41 INDICATION: TIA right deficits TECHNIQUE: Magnetic resonance imaging (MRI) of the brain and brainstem was performed without intraven ous contrast. Sequences included sagittal and axial T1-weighted SE, axial diffusion-weighted FS EPI A SSET, axial T2*-weighted GRE, axial T2-weighted FLAIR Propeller, and axial T2-weighted Propeller. Pos tcontrast axial and coronal T1-weighted SE was obtained. Apparent diffusion coefficient (ADC) maps we re created. COMPARISON: CT brain 01/07/2023; CTA brain carotid 02/17/2023. FINDINGS: No abnormal restricted diffusion to suggest acute ischemic infarct. No MRI evidence of hemorrhage or extra-axial collection. No suspicious foci of susceptibility to suggest prior intraparenchymal hemorr harley. Tiny foci of T2 and FLAIR hyperintensity in the white matter. Small cortical and subcortical ar eas of FLAIR hyperintensity in the posterior right frontal lobe, with less pronounced corresponding T 2 signal and the suggestion of minimal associated volume loss the T2 sequence. No evidence of advance d or lobar predominant parenchymal volume loss. Absent septum pellucidum. The basilar cisterns are pa tent. Flow voids are preserved. Mucosal thickening in the maxillary sinuses. Small left optic nerve. Globes and orbital contents are otherwise within normal limits. IMPRESSION: No diffusion restriction to suggest the presence of acute infarct. Small cortical and subcortical areas of FLAIR signal abnormality with possible minimal volume loss in the right posterior frontal lobe, may represent late subacute or chronic infarct. Sequela of remote encephalomyelitis with minimal cortical gliosis and demyelinating disease could also be considered in the differential. Chronic changes of septo-optic dysplasia. Reviewed, dictated and finalized at location K. IMPRESSION: No diffusion restriction to suggest the presence of acute infarct. Small cortical and subcortical areas of FLAIR signal abnormality with possible minimal volume loss in the right posterior frontal lobe, may represent late sub acute or chronic infarct. Sequela of remote encephalomyelitis with minimal jesús ical gliosis and demyelinating disease could also be considered in the differen tial. Chronic changes of septo-optic dysplasia.
--- NOTE | ~2023-02-17 | XR_ITS ---
XR chest 1V portable 02/17/2023 10:22 Indication: Cough. Heart monitor. Procedure: AP portable chest Comparison: 12/16/2022 Findings: Heart size normal. There is a radiopaque battery device overlying the cardiac contour. No f ocal air space disease, pulmonary edema, pleural effusion or suspected pneumothorax. Impression: 1: No acute cardiopulmonary disease. Reviewed, dictated and finalized at location A. Impression: 1: No acute cardiopulmonary disease.
--- NOTE | 2023-02-17 09:07 | ECG_ITS ---
Measurements Intervals [place] Rate: 79 P: 0 DE: 163 QRS: 27 QRSD: 105 T: 85 QT: 369 QTc: 423 Interpretive Statements SINUS RHYTHM MINIMAL Q WAVES- INFERIOR LEADS ST ELEVATION IN ANTERIOR LEADS- PROBABLY EARLY REPOLARIZATION ABNORMALITY BORDERLINE T WAVE ABNORMALITY- HIGH LATERAL LEADS BORDERLINE ECG COMPARED TO ECG 12/16/2022 19:23:38 NO SIGNIFICANT CHANGES Electronically Signed On 02-17-2023 10:47:48 CDT by Pramod Layton D.O.
--- NOTE | 2023-02-17 09:20 | ED.GENADULT ---
HPI - General Adult General Chief complaint: Neuro Symptoms/Deficit Stated complaint: I had a Stroke Right Side Hot/Numb Time Seen by Provider: 02/17/23 09:06 History of Present Illness HPI narrative: Truong Castillo is a 48 y/o male with PMHx of PE he is on Eliquis, htn who presents with concern for an episode at 0758 this morning of feeling heat/numbness to the right side of his face, right side of his tongue and right arm. He states he was standing up sipping coffee at the time and it lasted about 15-20 seconds. He presents with concern that he might of had a stroke. Denies recent fever/cough/illness/ denies chest pain/ shortness of breath- sating 100% on RA. Denies symptoms at present. Related Data Allergies Allergy/AdvReac Type Severity Reaction Status Date / Time No Known Allergies Allergy Verified 02/17/23 09:02 Review of Systems Review of Systems: CONSTITUTIONAL: Denies fever, chills, or sweats. EYES: Denies visual changes, redness, or discharge. ENT: Denies rhinorrhea, congestion, sore throat, or otalgia. CARDIOVASCULAR: Denies chest pain, palpitations, or edema. RESPIRATORY: Denies cough or dyspnea. GASTROINTESTINAL: Denies abdominal pain, nausea, vomiting, or diarrhea. GENITOURINARY: Denies dysuria or hematuria. SKIN: Denies rash or itching. MUSCULOSKELETAL: Denies back pain, joint pain, or myalgia. NEUROLOGIC: Denies headache,reports of this extreme heat feeling and numbness to the right side of his face/ tongue and right arm that lasted about 15-20 seconds at 0758 today. denies dizziness, or weakness. PSYCHIATRIC: Denies anxiety or depression. [facility] Past Medical History Medical History Allergic rhinitis Amblyopia of eye Chest pain, unspecified Closed left arm fracture Essential (primary) hypertension GERD (gastroesophageal reflux disease) Hypercholesteremia Hypertension Kidney stone Nicotine dependence Ulnar neuropathy at elbow of left upper extremity Surgical History Surgical History History of eye surgery Left History of foot surgery Left Family History Family History Father , Who is the patient's great aunt or distant cousin Hypertension Alcoholism Heart disease Mother Hypertension Mother Unknown family medical history Father Unknown family medical history Sibling Healthy adult Social History Social History Social History: The patient lives in an apartment. He has a 65-year-old roommate has had a stroke that he helps provide care for. He has 2 large dogs. 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 He is single and has never been . He does not have any children. He has smoked 2 packs per day since he was 18 years old. He drinks alcohol quite heavily. He was drinking up to a 12 pack of beer per day. He reports that in September of 2022 he cut back to drinking 3-7 beers every couple of days. He denies illicit substance use. Code status: Full code Surrogate decision maker: Deena Hester (sister) Smoking packs per day: 2 Smoking cigarettes per day: 40.0 Years smoked: 29 Smoking pack-years: 58.00 Smoking status: Current every day smoker Tobacco type: cigarettes Second hand tobacco smoke exposure: Yes Alcohol intake: current Drinks per week: 25 Substance use: never Lack of Transportation: No Lack of Food: Never True Current Housing: I Have Housing Concerned About Future Housing: No Difficulty Paying Gas/Electric Bills: No Difficulty Paying for Meds: No Currently Unemployed: No Education: Trade/Vocational Certificate Difficulty w/ Childcare or Family Care: No Living arrangements: with family Occupation/Education: occupation Gender identity (if verbalized by the patient): Male Spir
[2023-02-17 09:30] LABS: Glucose Point of Care 104 mg/dl (65-105)
[2023-02-17 09:35] LABS: Basophils Percent Auto 0.3 % (0.2-1.2); Eosinophils Absolute Auto 0.3 K/mm3 (0-0.3); Eosinophils Percent Auto 2.2 % (0-4.4); Hematocrit 46.1 % (42.0-52.0); Hemoglobin 15.3 g/dL (14.0-18.0); Immature Granulocyte Absolute 0.09 K/mm3 (0.00-0.031); Immature Granulocyte Percent A 0.8 % (0-0.5); Lymphocytes Absolute Auto 2.69 K/mm3 (0.9-3.2); Lymphocytes Percent Auto 23.2 % (18.3-44.2); Mean Corpuscular HGB Conc 33.2 g/dl (32-36); Mean Corpuscular Hemoglobin 30.5 pg (26-34); Mean Platelet Volume 9.5 fl (7.4-10.4); Neutrophils Absolute Auto 7.5 K/mm3 (1.3-6.7); Neutrophils Percent Auto 64.5 % (45.5-73.1); Platelet Count Result 313 k/mm3 (150-375); Red Blood Count 5.01 M/mm3 (4.6-6.20); Red Cell Distribution Width 12.5 % (11.5-14.5); White Blood Count 11.6 K/mm3 (4.5-10.0)
[2023-02-17 09:45] LABS: Ethanol < 10 mg/dL (<10)
[2023-02-17 09:46] LABS: Prothrombin Time 13.5 Seconds (11.1-14.7)
[2023-02-17 09:48] LABS: Alanine Aminotransferase 34 U/L (6-50); Albumin Level 4.4 g/dL (3.5-5.1); Alkaline Phosphatase 67 U/L (38-126); Anion Gap 9 mmol/L (8-16); Aspartate Amino Transferase 24 U/L (17-59); Bilirubin,Total 0.7 mg/dL (0.2-1.3); Blood Urea Nitrogen 20 mg/dL (9-20); Calcium 9.5 mg/dL (8.4-10.2); Carbon Dioxide 26 mmol/L (22-30); Chloride 104 mmol/L (98-107); Estimated CRCL calculation 113 ml/min; Estimated Glomerular Filt Rate > 60; Glucose 104 mg/dL (65-110); Potassium 3.9 mmol/L (3.4-5.0); Sodium 139 mmol/L (137-145)
[2023-02-17 09:50] LABS: Appearance Urine Clear (Clear); Bacteria Urine None Seen /hpf; Bilirubin Urine Negative (Negative); Blood Urine 1+ (Negative); Color Urine Yellow (Yellow); Glucose Urine UA Negative (Negative); Ketones Urine Negative (Negative); Leukocyte Esterase Ur Negative LEU/UL (Negative); Nitrate Urine Negative (Negative); Non Pathogenic Casts 0-2; Protein Urine Negative (Negative); RBC Urine 0-2 /hpf (0-2); Specific Grav Ur 1.015 (1.001-1.035); Squamous Epithelial Cell Urine None seen /hpf (Few); Urobilinogen Urine 0.2 mg/dL (<2.0); WBC Urine 0-5 /hpf; pH Urine 5.5 (5.0-9.0)
[2023-02-17 09:57] LABS: Add Urine Microscopic? YES
[2023-02-17 09:59] LABS: Troponin I < 0.012 ng/mL (0.000-0.034)
[2023-02-17 10:02] LABS: Amphetamine Screen Urine Negative (Negative); Barbiturate Screen Urine Negative (Negative); Benzodiazepines Screen Urine Negative (Negative); Cannabinoid Screen Urine Negative (Negative); Cocaine Screen Urine Negative (Negative); Methadone Screen Urine Negative (Negative); Opiate Screen Urine Negative (Negative); Phencyclidine Screen Urine Negative (Negative)
--- NOTE | 2023-02-17 13:57 | PM.IMHP ---
H&P: HPI History of Present Illness Date/Time: 02/17/23 13:57 Chief Complaint: right sided numbness for 20 seconds Narrative: This is a 48 year old male patient who comes in with right Sided facial numbness, right side of tongue numbness and right arm numbness also included description of hot flashes to the same areas that lasts about 20 seconds then resolved without return of symptoms. Patient recently been diagnosed with ventricular tachycardia and is wearing an event monitor. Patient has a history of hypertension, pulmonary embolism, high cholesterol and nicotine dependence. Patient unaware of prior Stroke/TIA. CT brain showed area of chronic infarct in right frontal lobe. Patient is on Eliquis due to prior PE. no trauma noted. Symptoms have completely resolved this time. Patient denies any current symptoms or complaints. Review of Systems Review of Systems: All systems reviewed & are unremarkable except as noted in HPI and below PMFSH Past Medical History Medical History Allergic rhinitis Amblyopia of eye Chest pain, unspecified Closed left arm fracture Essential (primary) hypertension GERD (gastroesophageal reflux disease) Hypercholesteremia Hypertension Kidney stone Nicotine dependence Ulnar neuropathy at elbow of left upper extremity Surgical History Surgical History History of eye surgery Left History of foot surgery Left Family History Family History Father , Who is the patient's great aunt or distant cousin Hypertension Alcoholism Heart disease Mother Hypertension Mother Unknown family medical history Father Unknown family medical history Sibling Healthy adult Social History Social History Social History: The patient lives in an apartment. He has a 65-year-old roommate has had a stroke that he helps provide care for. He has 2 large dogs. 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 He is single and has never been . He does not have any children. He has smoked 2 packs per day since he was 18 years old. He drinks alcohol quite heavily. He was drinking up to a 12 pack of beer per day. He reports that in September of 2022 he cut back to drinking 3-7 beers every couple of days. He denies illicit substance use. Code status: Full code Surrogate decision maker: Deena Hester (sister) Smoking packs per day: 2 Smoking cigarettes per day: 40.0 Years smoked: 29 Smoking pack-years: 58.00 Smoking status: Current every day smoker Second hand tobacco smoke exposure: Yes Alcohol intake: current Drinks per week: 25 Substance use: never Lack of Transportation: No Lack of Food: Never True Current Housing: I Have Housing Concerned About Future Housing: No Difficulty Paying Gas/Electric Bills: No Difficulty Paying for Meds: No Currently Unemployed: No Education: Trade/Vocational Certificate Difficulty w/ Childcare or Family Care: No Living arrangements: with family Occupation/Education: occupation Gender identity (if verbalized by the patient): Male Spiritual care concerns: No Meds Home Medications and Allergies Home Medications Medication Instructions Recorded Confirmed Type valsartan 160 1 tablet PO DAILY #90 tabs 11/20/22 02/17/23 Rx mg-hydrochlorothiazide 25 mg tablet apixaban 5 mg tablet (Eliquis) 5 mg PO BID #60 tabs 01/04/23 02/17/23 Rx pantoprazole 40 mg tablet,delayed 40 mg PO Q12HR #90 tabs 02/05/23 02/17/23 Rx release metoprolol succinate 25 mg 25 mg PO DAILY #90 tabs 02/07/23 02/17/23 Rx tablet,extended release 24 hr Allergies Allergy/AdvReac Type Severity Reaction Status Date / Time No Known Allergies Allergy Verified 02/17/23 09:02 Vital S
--- NOTE | 2023-02-17 15:52 | PC.NURSE ---
Patient came to unit from ER wearing Holter Monitor. Patient informed senior grant writer that Dr. Layton is who ordered for patient to wear Holter Monitor.
[2023-02-17] MEDS: PANTOPRAZOLE 40 MG TABLET PO (19:58)
[2023-02-17] MEDS: APIXABAN 5 MG TABLET PO (19:58)
[2023-02-17] MEDS: NICOTINE (*PBKC) 21 MG PATCH 1 PATCH TRANSDERM (20:56)
[2023-02-18] VITALS: PULSE 78
[2023-02-18 04:00] VITALS: PULSE 67
[2023-02-18 05:07] VITALS: BP 142/85; PULSE 64; RESP 18; TEMP 36.6; O2SAT 99
[2023-02-18 06:24] LABS: Cholesterol 224 mg/dL (0-200); HDL Direct 25 mg/dL; Triglycerides 135 mg/dL (<150)
[2023-02-18 06:35] LABS: LDL Cholesterol Direct 149 mg/dL
[2023-02-18 08:00] VITALS: BP 147/94
[2023-02-18 08:01] VITALS: PULSE 78
[2023-02-18] MEDS: APIXABAN 5 MG TABLET PO (08:01)
[2023-02-18] MEDS: hydroCHLOROthiazide 25 MG TABLET PO (08:02)
[2023-02-18 08:03] VITALS: PULSE 72
[2023-02-18] MEDS: PANTOPRAZOLE 40 MG TABLET PO (08:03)
[2023-02-18] MEDS: NICOTINE (*PBKC) 21 MG PATCH 1 PATCH TRANSDERM (08:03)
[2023-02-18] MEDS: METOPROLOL SUCCINATE EXT REL 25 MG TABCR PO (08:03)
[2023-02-18] MEDS: VALSARTAN 160 MG TABLET PO (08:04)
--- NOTE | 2023-02-18 12:16 | PM.IMPN ---
Progress Note: A&P Assessment and Plan (1) Numbness: Code(s): R20.0 - Anesthesia of skin Status: Acute Assessment and Plan: Transient numbness right side of the face right side of the tongue right arm lasted about 20 seconds and was associated with self-described flash in the same location. Patient admitted for TIA workup. Neurology consulted by the emergency department appreciate recommendations. Neuroimaging does not yield evidence stroke as cause of symptoms TIA at best. Patient is on Eliquis. evidence of prior CVA right frontal lobe noted. (2) Essential (primary) hypertension: Code(s): I10 - Essential (primary) hypertension Status: Acute Assessment and Plan: Blood pressure reviewed and stable. Continue home medications (3) Hypercholesteremia: Code(s): E78.00 - Pure hypercholesterolemia, unspecified Status: Acute Assessment and Plan: Will add lipid panel with a.m. labs (4) Nicotine dependence: Qualifiers: Nicotine product type: cigarettes Substance use status: other nicotine-induced disorder Qualified Code(s): F17.218 - Nicotine dependence, cigarettes, with other nicotine-induced disorders Code(s): F17.200 - Nicotine dependence, unspecified, uncomplicated Status: Acute Assessment and Plan: Nicotine patch and gum ordered (5) Heavy alcohol use: Code(s): F10.90 - Alcohol use, unspecified, uncomplicated Status: Acute Assessment and Plan: Patient reports decreased use but still drinks most days. Plan Admit to Med/Tele MRI/CTA no evidence of acute pathology Neurology consult--appreciate recommendations Lipid panel ordered with AM labs Home medications resumed Subjective Date/time seen: 02/18/23 12:16 Interval history: No complaints Exam Narrative: GENERAL: Generally well appearing, alert and oriented, in no apparent distress. He is pleasant and conversant in full sentences. HEENT: Pupils are equally round and briskly reactive to light. Extraocular muscles are intact. Oral mucous membranes are moist without lesions. NECK: The patient has no noted JVD. No adenopathy is appreciated. CHEST/LUNGS: Lungs are clear bilaterally without rhonchi, rales, or wheezes. There is no subcutaneous air appreciated. There is no tenderness to the chest wall. HEART: The patient has a regular rate and rhythm. No murmurs, rubs, or gallops are appreciated. Distal pulses are 2+. No carotid bruits appreciated. ABDOMEN: The patient's abdomen is soft, nontender, and nondistended. Bowel sounds are positive. No organomegaly is appreciated. No masses are appreciated. There are no peritoneal signs. There is no Jaimes's sign. EXTREMITIES: The patient has no peripheral edema. There is no focal long bone tenderness or deformity. SKIN: The patient's skin is warm and dry, without rashes or lesions. PSYCHIATRIC: The patient has normal mental status and has an appropriate affect. NEUROLOGIC: There are no gross deficits to the cranial nerves. Patient ambulates with steady gait. No motor or sensation deficits. Objective Data Vital Signs Vital Signs: Vital Signs - 24 hr 02/17/23 13:28 02/17/23 13:56 02/17/23 15:15 Temperature 97.6 F Pulse Rate 80 68 Respiratory Rate 18 16 Blood Pressure 154/95 H 149/83 H Pulse Oximetry 100 99 Oxygen Delivery Room Air 02/17/23 14:40 02/17/23 16:00 02/17/23 19:58 Temperature 98.1 F Pulse Rate 69 85 85 Respiratory Rate 18 18 Blood Pressure 149/81 H Pulse Oximetry 99 99 Oxygen Delivery Room Air 02/17/23 20:07 02/17/23 20:00 02/18/23 00:00 Temperature 97.9 F Pulse Rate 60 79 78 Respiratory Rate 18 Blood Pressure 132/84 Pulse Oximetry 97 Oxygen Delivery 02/18/23 04:00 02/18/23 05:07 02/18/23 08:03 Temperature 97.8 F Pulse Rate 67 64 72 Respiratory Rate 18 Blood Pressure 142/85 H Pulse Oximetry 99 Oxygen Delivery 02/18/23 08:00 02/18/23
--- NOTE | 2023-02-18 12:29 | WPDNEURCNPN ---
Assessment and Plan Assessment and plan (1) TIA (transient ischemic attack): Code(s): G45.9 - Transient cerebral ischemic attack, unspecified Status: Acute Plan 1. 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 Obvious left upper extremity mild atrophy compared to the right upper extremity. 3. Chronic focal right frontal lobe infarction documented by the CTA 4. Ongoing treatment with apixaban 5 mg b.i.d. will be continued as such in addition to all his other medications. And will need the follow-up in the office in 6 months with instruction at this stage to the patient and assurance. Consult date: 02/18/23 HPI: Truong Castillo is a 48 year old male mAdmitted to the hospital through the emergency room with the complaints of heat and numbness to the right side of his face right side of his tongue and right upper extremity while he was standing and sipping his coffee whole episode lasted for about 15 to 20 seconds. considering the possibility of stroke he came to the hospital. He is not allergic to any medication he does have ongoing history of 1. Amblyopia of left eye 2. Close left upper extremity fracture 3. Hypertension 4. Hypercholesteremia and 5. Nicotine dependent 6. Ulnar neuropathy at the elbow of left upper extremity. He has history of smoking with smoking pack years of 58 and currently smoking as well as her drinking, initial exam in the emergency room revealed no acute findings vital signs were stable except the blood pressure 164/89 routine lab studies were normal with drug screen being negative chest x-ray negative CTA of head and neck was negative EKG was normal with no atrial fibrillation he was admitted to the hospital for further observation. Review of Systems Review of Systems: All systems reviewed & are unremarkable except as noted in HPI and below [facility] Past Medical History Medical History Allergic rhinitis Amblyopia of eye Chest pain, unspecified Closed left arm fracture Essential (primary) hypertension GERD (gastroesophageal reflux disease) Hypercholesteremia Hypertension Kidney stone Nicotine dependence Ulnar neuropathy at elbow of left upper extremity Surgical History Surgical History History of eye surgery Left History of foot surgery Left Family History Family History Father , Who is the patient's great aunt or distant cousin Hypertension Alcoholism Heart disease Mother Hypertension Mother Unknown family medical history Father Unknown family medical history Sibling Healthy adult Social History Social History Social History: The patient lives in an apartment. He has a 65-year-old roommate has had a stroke that he helps provide care for. He has 2 large dogs. 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 He is single and has never been . He does not have any children. He has smoked 2 packs per day since he was 18 years old. He drinks alcohol quite heavily. He was drinking up to a 12 pack of beer per day. He reports that in September of 2022 he cut back to drinking 3-7 beers every couple of days. He denies illicit substance use. Code status: Full code Surrogate decision maker: Deena Hester (sister) Smoking packs per day: 2 Smoking cigarettes per day: 40.0 Years smoked: 29 Smoking pack-years: 58.00 Smoking status: Current every day smoker Second hand tobacco smoke exposure: Yes Alcohol intake: current Drinks per week: 25 Substance use: never Lack of Transportation: No Lack of Food: Never True Current Housing: I Have Housing Concerned About Future Housing: No Difficulty
--- NOTE | 2023-02-18 13:19 | PM.DS ---
DS: Admitting Diagnosis Discharge Date 02/18/23 Admitting Diagnosis tia DS: Discharge Diagnosis Discharge Diagnosis (1) Numbness: Code(s): R20.0 - Anesthesia of skin Status: Acute Assessment and Plan: Transient numbness right side of the face right side of the tongue right arm lasted about 20 seconds and was associated with self-described flash in the same location. Patient admitted for TIA workup. Neurology consulted by the emergency department appreciate recommendations. Neuroimaging does not yield evidence stroke as cause of symptoms TIA at best. Patient is on Eliquis. evidence of prior CVA right frontal lobe noted. (2) Essential (primary) hypertension: Code(s): I10 - Essential (primary) hypertension Status: Acute Assessment and Plan: Blood pressure reviewed and stable. Continue home medications (3) Hypercholesteremia: Code(s): E78.00 - Pure hypercholesterolemia, unspecified Status: Acute Assessment and Plan: Will add lipid panel with a.m. labs (4) Nicotine dependence: Qualifiers: Nicotine product type: cigarettes Substance use status: other nicotine-induced disorder Qualified Code(s): F17.218 - Nicotine dependence, cigarettes, with other nicotine-induced disorders Code(s): F17.200 - Nicotine dependence, unspecified, uncomplicated Status: Acute Assessment and Plan: Nicotine patch and gum ordered (5) Heavy alcohol use: Code(s): F10.90 - Alcohol use, unspecified, uncomplicated Status: Acute Assessment and Plan: Patient reports decreased use but still drinks most days. Plan Admit to Med/Tele MRI/CTA no evidence of acute pathology Neurology consult--appreciate recommendations Lipid panel ordered with AM labs Home medications resumed DS: Summary Hospital Course Hospital Course: admitted for tia like symptoms - ct/mri revealed old chronic stroke, neuro consult - recommended he continue eliquis which will be continued on dc fu neuro Time Spent with Patient Time attestation: Total time spent providing and/or coordinating discharge services: Exam Narrative: GENERAL: Generally well appearing, alert and oriented, in no apparent distress. He is pleasant and conversant in full sentences. HEENT: Pupils are equally round and briskly reactive to light. Extraocular muscles are intact. Oral mucous membranes are moist without lesions. NECK: The patient has no noted JVD. No adenopathy is appreciated. CHEST/LUNGS: Lungs are clear bilaterally without rhonchi, rales, or wheezes. There is no subcutaneous air appreciated. There is no tenderness to the chest wall. HEART: The patient has a regular rate and rhythm. No murmurs, rubs, or gallops are appreciated. Distal pulses are 2+. No carotid bruits appreciated. ABDOMEN: The patient's abdomen is soft, nontender, and nondistended. Bowel sounds are positive. No organomegaly is appreciated. No masses are appreciated. There are no peritoneal signs. There is no Jaimes's sign. EXTREMITIES: The patient has no peripheral edema. There is no focal long bone tenderness or deformity. SKIN: The patient's skin is warm and dry, without rashes or lesions. PSYCHIATRIC: The patient has normal mental status and has an appropriate affect. NEUROLOGIC: There are no gross deficits to the cranial nerves. Patient ambulates with steady gait. No motor or sensation deficits. DS: Data Data Completed and Pending Labs on day of discharge: Labs from last 24 hours 02/18/23 05:53 Triglycerides 135 Cholesterol 224 H LDL Cholesterol Direct 149 HDL Direct 25 Discharge Plan Discharge Attending physician on discharge: Harry Badillo Consulting providers: Eris Barnes Discharging Clinician: Harry Badillo Patient Disposition: Home, Self-Care Activity: as tolerated Diet: as tolerated Patient Instructions: Antibiotic Form, Apixaban (By mouth), Safe Use of Anticoa
== END 2023-02-18 12:25 | disposition home or self-care (01) ==
LOC: ANHED 12:34 → ANH3MEDSUR 12:56 → ANH3MED 13:27
PROVIDERS: Nurse Practitioner; Admitting Provider Chiropractor; Emergency Provider Nurse Practitioner Family; PCP Family Medicine; Visit Provider Chiropractor
DX: G45.9 Transient cerebral ischemic attack, unspecified (principal); R20.0 Anesthesia of skin; I47.20 Ventricular tachycardia, unspecified; I10 Essential (primary) hypertension; E78.00 Pure hypercholesterolemia, unspecified; K21.9 Gastro-esophageal reflux disease without esophagitis; F10.90 Alcohol use, unspecified, uncomplicated; F17.210 Nicotine dependence, cigarettes, uncomplicated; Z79.01 Long term (current) use of anticoagulants; Z86.711 Personal history of pulmonary embolism; R29.700 NIHSS score 0
CPT/HCPCS: 36415; 70496; 70498; 70551; 71045; 80053; 80061; 80307; 81001; 82948; 84484; 85025; 85610; 85730; 93005; 99285; A9270; G0378; G0379; Q9967

== ENCOUNTER 2023-03-19 08:22 | Outpatient (CLI) | payer OTHER, SELFPAY ==
--- NOTE | 2023-04-08 05:25 | WPDHOMESLEEP ---
Sleep Study - Home Unattended Date of Study: 03/19/23 Ordering Provider: Pramod Layton DO Interpreting Provider: Annie Gupta MD Home Sleep Study Type: Watch PAT Height: 1.78 m Weight: 105.687 kg Body Mass Index: 33.4 Neck Circumference (inches): 18 [place]: 6 Reason for Sleep Study Hypersomnolence Sleep History Truong Castillo is a 48-year-old male with history of hypertension, dyslipidemia, tobacco use, pulmonary embolism November 2022 who underwent a home sleep test for evaluation of daytime hypersomnia. He has had chest pains, And his chief clerk referred him. His cardiac issues include hypertension, hyperlipidemia, tobacco smoking and pulmonary embolus. He never awakens from sleep short of breath. He never awakens at night with heartburn, belching or cough. He occasionally snores. He rarely has trouble sleeping when he has a cold. He never wakes up gasping for breath during the night. He never has breathing problems at night. He never sweats excessively at night. He rarely falls asleep during the day. He does not fall asleep involuntarily and never falls asleep while driving. He occasionally notices his heart pounding or beating irregularly during the night. He never experiences loss of muscle tone with strong emotion. He never feels paralyzed on waking or falling asleep. He frequently experiences vivid dreams upon waking or falling asleep. He never feels afraid of going to sleep. He never has nightmares. He constantly recalls his dreams. He occasionally has thoughts racing through his mind. He never feels sad or depressed. He occasionally feels anxiety or worry about things. He rarely notices parts of his body jerk. He rarely kicks during the night. He occasionally feels crawling or aching feelings in his legs. He occasionally feels leg pain at night. He does not grind his teeth during sleep and never has morning jaw pain. He rarely feels bothered by pain during the day and is never awakened by pain during the night. He rarely wakes up feeling stiff in the morning and rarely wakes up feeling sore and achy in the morning. He frequently wakes up with pain in his neck, spine, or joints. Normal bedtime varies, usually falling asleep in under 10 minutes. He typically gets about 7 to 8 hours of sleep per night. His wake-up time is around 5am to 6am on the weekdays and 6am on the weekends. He does not typically wake up during the night. He sometimes takes naps in the afternoon or evening. He takes naps in the afternoon or evening. A short nap lasting 10-15 minutes may be refreshing. He frequently has difficulties with memory concentration. He frequently awakens feeling refreshed. He rarely has excessive daytime sleepiness. Habits: Current tobacco smoker. Drinks caffeine during the day. Uses alcohol. No recreational substances. [facility] Past Medical History Medical History Allergic rhinitis Amblyopia of eye Chest pain, unspecified Closed left arm fracture Essential (primary) hypertension GERD (gastroesophageal reflux disease) Hypercholesteremia Hypertension Kidney stone Nicotine dependence Rib pain on left side Tinnitus Ulnar neuropathy at elbow of left upper extremity Surgical History Surgical History History of eye surgery Left History of foot surgery Left Family History Family History Father , Who is the patient's great aunt or distant cousin Hypertension Alcoholism Heart disease Mother Hypertension Mother Unknown family medical history Father Unknown family medical history Sibling Healthy adult Social History Social History Social History: The patient lives in an apartment. He has a 65-year-old roommate has had a stroke that he helps provide care for. He has 2 lar
[2023-04-09 08:40] VITALS: BMI 33.4
== END 2023-03-20 11:54 | disposition home or self-care (01) ==
LOC: ANHCSM 08:23
PROVIDERS: PCP Family Medicine; Visit Provider Internal Medicine Cardiovascular Disease
DX: G47.10 Hypersomnia, unspecified (principal)
CPT/HCPCS: 95800

== ENCOUNTER 2023-04-04 13:49 | Outpatient (CLI) | payer OTHER, SELFPAY ==
--- NOTE | 2023-04-10 16:17 | WPDHOLTEREM ---
Holter/Event Monitor Holter/Event Monitor Date of procedure: 04/04/23 Holter/Event Procedure: 48 Hr Holter Monitor Indications: Palpitations Conclusion: 1. 48 hour holter monitor on 04/04/23. 2. Underlying rhythm is sinus rhythm. HR range 51-113 bpm; average HR 73 bpm. 3. There are 20 premature supraventricular complexes and 3 supraventricular couplets. No supraventricular tachycardia. 4. There are 47 premature ventricular complexes. No ventricular tachycardia. 5. No sinoatrial or atrioventricular blocks. No significant pauses greater than 2 seconds. 6. Patient reports symptoms of fast heart rate which demonstrate sinus rhythm, HR range 67-81 bpm.
== END 2023-04-04 13:50 | disposition home or self-care (01) ==
LOC: ANHCARD 13:50
PROVIDERS: PCP Family Medicine; Visit Provider Internal Medicine Cardiovascular Disease
DX: R00.2 Palpitations (principal)
CPT/HCPCS: 93225; 93226

== ENCOUNTER 2023-05-21 12:34 | Emergency (ER) | payer OTHER, SELFPAY ==
[2023-05-21 12:42] VITALS: BP 151/78; PULSE 77; RESP 18; TEMP 36.6; O2SAT 98
--- NOTE | 2023-05-21 13:40 | ED.GENADULT ---
HPI - General Adult General Chief complaint: Unspecified Stated complaint: vision problems/wants checked for lyme disease Time Seen by Provider: 05/21/23 12:56 History of Present Illness HPI narrative: Patient is a 48-year-old male who presents ER with concerns of visual changes and headache and neck pain. Ongoing for 1 and half years. He has had an MRI in the last 3 months that showed old infarct and chronic changes the brain from . Additionally he has been to [facility] been evaluated where he has degenerative disc disease in his neck. He is scheduled to follow-up with an police service technician for this floating items ago across his visual field in his right eye. Furthermore he has had some chronic tinnitus that she has seen ENT for and is supposed also have an audiology evaluation. There has been no acute change in his symptoms. He has no fevers or chills or sweats. he does have some mild sinus congestion but no sore throat or cough. Patient has been compliant with home medications. 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) ENT: Denies dizziness, Reports hoarseness ( chronic), Reports nasal congestion and Reports tinnitus Cardiovascular: Cardiovascular: Reports no additional cardiovascular complaints Respiratory: Respiratory: Reports no additional respiratory complaints Neurologic: Denies Abnormal speech present, Denies confusion, Reports headache(s) and Denies focal weakness [facility] Past Medical History Medical History Allergic rhinitis Amblyopia of eye Chest pain, unspecified Closed left arm fracture Essential (primary) hypertension GERD (gastroesophageal reflux disease) Hypercholesteremia Hypertension Kidney stone Nicotine dependence Rib pain on left side Tinnitus Ulnar neuropathy at elbow of left upper extremity Surgical History Surgical History History of eye surgery Left History of foot surgery Left Family History Family History Father , Who is the patient's great aunt or distant cousin Hypertension Alcoholism Heart disease Mother Hypertension Mother Unknown family medical history Father Unknown family medical history Sibling Healthy adult Social History Social History Social History: The patient lives in an apartment. He has a 65-year-old roommate has had a stroke that he helps provide care for. He has 2 large dogs. 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 He is single and has never been . He does not have any children. He has smoked 2 packs per day since he was 18 years old. He drinks alcohol quite heavily. He was drinking up to a 12 pack of beer per day. He reports that in September of 2022 he cut back to drinking 3-7 beers every couple of days. He denies illicit substance use. Code status: Full code Surrogate decision maker: Deena Hester (sister) Caffeine-coffee Smoking packs per day: 1 Smoking cigarettes per day: 20.0 Years smoked: 29 Smoking pack-years: 29.00 Smoking status: Current every day smoker Second hand tobacco smoke exposure: Yes Alcohol intake: current Drinks per week: 3 Substance use: never Substance use type: does not use Lack of Transportation: No Lack of Food: Never True Current Housing: I Have Housing Concerned About Future Housing: No Difficulty Paying Gas/Electric Bills: No Difficulty Paying for Me
[2023-05-21 14:04] LABS: Influenza A QL RT-PCR Negative (Negative); Influenza B QL RT-PCR Negative (Negative); RSV RNA, RT-PCR Negative (Negative); SARS-CoV-2 RNA PCR Negative (Negative)
== END 2023-05-21 14:25 | disposition home or self-care (01) ==
PROVIDERS: Emergency Provider Emergency Medicine; PCP Family Medicine
DX: H43.391 Other vitreous opacities, right eye (principal); I10 Essential (primary) hypertension; F17.210 Nicotine dependence, cigarettes, uncomplicated; Z20.822 Contact with and (suspected) exposure to COVID-19
CPT/HCPCS: 87637; 99283

== ENCOUNTER 2023-05-24 15:44 | Outpatient (CLI) | payer OTHER, SELFPAY ==
[2023-05-24 19:11] LABS: Basophils Absolute Auto 0.1 K/mm3 (0.0-0.1); Basophils Percent Auto 0.5 % (0.2-1.2); Eosinophils Absolute Auto 0.4 K/mm3 (0-0.3); Eosinophils Percent Auto 3.2 % (0-4.4); Hematocrit 49.7 % (42.0-52.0); Hemoglobin 15.8 g/dL (14.0-18.0); Immature Granulocyte Absolute 0.04 K/mm3 (0.00-0.031); Immature Granulocyte Percent A 0.3 % (0-0.5); Mean Corpuscular HGB Conc 31.8 g/dl (32-36); Mean Corpuscular Hemoglobin 29.3 pg (26-34); Mean Platelet Volume 9.3 fl (7.4-10.4); Monocytes Absolute Auto 1.2 K/mm3 (0.1-0.6); Monocytes Percent Auto 9.7 % (2.6-8.5); Neutrophils Percent Auto 55.3 % (45.5-73.1); Platelet Count Result 349 k/mm3 (150-375); White Blood Count 12.6 K/mm3 (4.5-10.0)
[2023-05-24 19:39] LABS: Free T4 Free Thyroxine 1.13 ng/mL (0.78-2.19); Vitamin D 25 Hydroxy 38.3 ng/mL
[2023-05-24 19:47] LABS: Erythrocyte Sedimentation Rate 3 mm/hr (0-20)
[2023-05-24 20:25] LABS: Alanine Aminotransferase 39 U/L (6-50); Albumin Level 4.3 g/dL (3.5-5.1); Alkaline Phosphatase 73 U/L (38-126); Anion Gap 7 mmol/L (8-16); Aspartate Amino Transferase 33 U/L (17-59); Bilirubin,Total 0.6 mg/dL (0.2-1.3); Blood Urea Nitrogen 21 mg/dL (9-20); Calcium 9.7 mg/dL (8.4-10.2); Carbon Dioxide 29 mmol/L (22-30); Chloride 104 mmol/L (98-107); Cholesterol 211 mg/dL (0-200); Estimated Glomerular Filt Rate > 60; Glucose 90 mg/dL (65-110); HDL Direct 25 mg/dL; Potassium 4.1 mmol/L (3.4-5.0); Sodium 140 mmol/L (137-145); Triglycerides 157 mg/dL (<150)
[2023-05-24 20:40] LABS: LDL Cholesterol Direct 146 mg/dL
[2023-05-24 22:43] LABS: Hemoglobin A1C 5.9 % (<5.7)
[2023-05-26 19:12] LABS: Lyme Disease Ab (IgM), Blot Negative (Negative); Lyme Disease Ab(IgG), Blot Negative (Negative)
== END 2023-05-24 15:45 | disposition home or self-care (01) ==
LOC: ANHGOSHLAB 15:45
PROVIDERS: PCP Family Medicine; Visit Provider Nurse Practitioner Family
DX: R73.03 Prediabetes (principal); E78.5 Hyperlipidemia, unspecified; R06.02 Shortness of breath; R00.2 Palpitations; R20.2 Paresthesia of skin; R06.09 Other forms of dyspnea; E53.8 Deficiency of other specified B group vitamins; E55.9 Vitamin D deficiency, unspecified; M25.50 Pain in unspecified joint; Z13.29 Encounter for screening for other suspected endocrine disorder; Z00.00 Encounter for general adult medical examination without abnormal findings
CPT/HCPCS: 36415; 80053; 80061; 82306; 82607; 83036; 84439; 84443; 85025; 85652; 86038; 86039; 86617

== ENCOUNTER 2023-06-04 15:17 | Outpatient (CLI) | payer OTHER, SELFPAY ==
[2023-06-04 15:38] LABS: Basophils Percent Auto 0.2 % (0.2-1.2); Eosinophils Absolute Auto 0.3 K/mm3 (0-0.3); Eosinophils Percent Auto 2.6 % (0-4.4); Hemoglobin 15.7 g/dL (14.0-18.0); Immature Granulocyte Absolute 0.06 K/mm3 (0.00-0.031); Immature Granulocyte Percent A 0.5 % (0-0.5); Lymphocytes Absolute Auto 3.48 K/mm3 (0.9-3.2); Lymphocytes Percent Auto 28.4 % (18.3-44.2); Mean Corpuscular HGB Conc 33.4 g/dl (32-36); Mean Corpuscular Volume 89.9 fl (80-100); Mean Platelet Volume 9.2 fl (7.4-10.4); Monocytes Absolute Auto 0.9 K/mm3 (0.1-0.6); Monocytes Percent Auto 7.3 % (2.6-8.5); Neutrophils Absolute Auto 7.5 K/mm3 (1.3-6.7); Platelet Count Result 353 k/mm3 (150-375); Red Blood Count 5.23 M/mm3 (4.6-6.20); Red Cell Distribution Width 12.5 % (11.5-14.5); White Blood Count 12.3 K/mm3 (4.5-10.0)
[2023-06-04 15:43] LABS: Blood Urea Nitrogen 23 mg/dL (8-26); Carbon Dioxide 28 mmol/L (22-30); Chloride 101 mmol/L (98-109); Estimated Glomerular Filt Rate > 60; Glucose 110 mg/dL (70-105); Ionized Calcium (POC) 1.16 mmol/L (1.11-1.31); Potassium 4.2 mmol/L (3.5-4.9); Sodium 142 mmol/L (138-146)
[2023-06-04 19:45] LABS: Alanine Aminotransferase 32 U/L (6-50); Albumin Level 4.2 g/dL (3.5-5.1); Alkaline Phosphatase 64 U/L (38-126); Anion Gap 10 mmol/L (8-16); Aspartate Amino Transferase 21 U/L (17-59); Bilirubin,Total 0.5 mg/dL (0.2-1.3); Blood Urea Nitrogen 22 mg/dL (9-20); Carbon Dioxide 28 mmol/L (22-30); Chloride 102 mmol/L (98-107); Cholesterol 194 mg/dL (0-200); Estimated Glomerular Filt Rate > 60; Glucose 108 mg/dL (65-110); HDL Direct 26 mg/dL; Potassium 4.2 mmol/L (3.4-5.0); Sodium 140 mmol/L (137-145); Triglycerides 175 mg/dL (<150)
[2023-06-04 19:56] LABS: LDL Cholesterol Direct 150 mg/dL
== END 2023-06-04 15:18 | disposition home or self-care (01) ==
PROVIDERS: Family Medicine; Internal Medicine; PCP Family Medicine; Visit Provider Internal Medicine Hematology & Oncology
DX: I27.82 Chronic pulmonary embolism (principal)
CPT/HCPCS: 36415; 80047; 80053; 80061; 85025

== ENCOUNTER 2023-06-05 07:01 | Outpatient (CLI) | payer OTHER, SELFPAY ==
--- NOTE | ~2023-06-05 | CT_ITS ---
Clinical Indication: Chronic pulmonary embolus CT Scan of the Chest with Contrast: Technique: Contiguous sections were acquired throughout the chest after intravenous administration of 100 cc of Omnipaque 350. Dose reduction technique was used on this scan by utilizing automated expos ure control and iterative reconstruction technique. The dose-length product (DLP) was 799.33 mGy-cm. COMPARISON: 12/16/2022 Findings: There is no evidence of any significant mediastinal, hilar or axillary lymphadenopathy. There is no f illing defect in the pulmonary arterial tree to suggest pulmonary embolus. There is no evidence of ao rtic dissection or aneurysm. There is no evidence of pleural or pericardial effusion. Stable 3 mm right upper lobe pulmonary nodule. There is focal scarring or atelectatic change at the l ingula. Images through the upper abdomen reveal no abnormalities. Stable probable sebaceous cyst at the upper back. Impression: No evidence of pulmonary embolus, aortic dissection, or aortic aneurysm. Stable 3 mm right upper lobe pulmonary nodule, most likely benign. Reviewed, dictated and finalized at [facility]. E HOST Impression: No evidence of pulmonary embolus, aortic dissection, or aortic aneurysm. Stable 3 mm right upper lobe pulmonary nodule, most likely benign.
== END 2023-06-05 07:02 | disposition home or self-care (01) ==
PROVIDERS: PCP Family Medicine; Visit Provider Internal Medicine Hematology & Oncology
DX: R91.1 Solitary pulmonary nodule (principal); I27.82 Chronic pulmonary embolism
CPT/HCPCS: 71275; Q9967

== ENCOUNTER 2023-06-20 08:42 | Outpatient (CLI) | payer OTHER, SELFPAY ==
--- NOTE | ~2023-06-20 | NM_ITS ---
EXAMINATION: NM annita stress w perfusion DATE: 06/20/2023 10:18 INDICATION: Chest pain TECHNIQUE: Rest images were obtained following intravenous administration of 10.6 mCi Tc99m tetrofosm in (Myoview). The patient was infused intravenously with Lexiscan (Regadenoson). Then, 34.4 mCi Tc99m tetrofosmin (Myoview) was administered intravenously, and stress images were obtained. Data was gelacio nstructed into short axis and horizontal and vertical long axis SPECT images. Gated SPECT images were also obtained. COMPARISON: None. FINDINGS: There is no definite reversible or fixed perfusion abnormality to suggest ischemia or infar ction. There is normal left ventricular chamber size, wall motion and ejection fraction. Left ventr icular ejection fraction measures 62%. IMPRESSION: 1. Normal myocardial perfusion at rest and during stress. 2. Left ventricular ejection fraction measuring 62%. Reviewed, dictated and finalized at location A. E GRINDER
--- NOTE | 2023-06-20 08:50 | EST_ITS ---
Patient Info Name: Truong Castillo Age: 48 years : 1975 Gender: Male Ht: 70 in Wt: 244 lbs BSA: 2.38 m2 HR: 63 bpm BP: 133 / 84 mmHg Heart Rhythm: Sinus Rhythm Exam Date: 06/20/2023 9:29 AM Exam Location: Echo Lab Patient Status: Outpatient Admit Date: 06/20/2023 Staff Ordering Physician: Pramod Layton DO Attending Provider: Pramod Layton DO Exercise Technologist: Renu Anna RDCS Exercise Physician: Pramod Layton DO Exam Type: CA stress annita w NM Study Info A regadenoson stress test was performed. Summary 1. 1. Negative lexiscan stress test for ischemic ST changes by ECG criteria. 2. 2. Stable hemodynamics throughout the test. 3. 3. Nuclear scan to follow and will be reported separately. Please correlate with it. 4. 4. Patient informed of the above results. Protocol: Lexiscan Stress ECG Details Stage: REST Duration (min): 0 min : 55 sec HR (bpm): 63 SBP (mmHg): 133 DBP (mmHg): 84 Stage: REST Duration (min): 5 min : 14 sec HR (bpm): 69 SBP (mmHg): 133 DBP (mmHg): 84 Stage: STAGE 1 Duration (min): 1 min : 0 sec HR (bpm): 88 SBP (mmHg): 139 DBP (mmHg): 83 Stage: RECOVERY Duration (min): 1 min : 0 sec HR (bpm): 91 SBP (mmHg): 139 DBP (mmHg): 83 Stage: RECOVERY Duration (min): 2 min : 0 sec HR (bpm): 85 SBP (mmHg): 139 DBP (mmHg): 83 Stage: RECOVERY Duration (min): 3 min : 0 sec HR (bpm): 83 SBP (mmHg): 135 DBP (mmHg): 81 Stage: RECOVERY Duration (min): 4 min : 0 sec HR (bpm): 86 SBP (mmHg): 135 DBP (mmHg): 81 Stage: RECOVERY Duration (min): 5 min : 0 sec HR (bpm): 86 SBP (mmHg): 143 DBP (mmHg): 87 Stage: RECOVERY Duration (min): 5 min : 13 sec HR (bpm): 83 SBP (mmHg): 143 DBP (mmHg): 87 Rest HR: 69 bpm Peak HR: 92 bpm Rest Sys BP: 133 mmHg Peak Sys BP: 143 mmHg Max Pred HR: 174 bpm % Max Pred HR: 53 % Target HR: 148 bpm Max RPP: 13,156 bpm*mmHg Termination Reason: Completed protocol Cardiac Symptoms: Shortness of breath, Dizziness Total Time: 1 min : 0 sec Rest Talbert BP: 84 mmHg Peak Talbert BP: 87 mmHg Total Dose: 0.4 mg Resting ECG Sinus rhythm. Stress ECG No ST changes. Arrhythmias None. Report Signatures
== END 2023-06-20 08:43 | disposition home or self-care (01) ==
LOC: ANHCARD 08:43
PROVIDERS: PCP Family Medicine; Visit Provider Internal Medicine Cardiovascular Disease
DX: R07.9 Chest pain, unspecified (principal)
CPT/HCPCS: 78452; 93017; A9502; J2785

== ENCOUNTER 2023-06-26 07:45 | Outpatient (CLI) | payer OTHER, SELFPAY | END 2023-06-26 07:46 | disposition home or self-care (01) | LOC: ANHAUDIO 07:48 | PROVIDERS: PCP Family Medicine; Visit Provider Otolaryngology | DX: H93.13 Tinnitus, bilateral (principal); H90.3 Sensorineural hearing loss, bilateral; J38.2 Nodules of vocal cords; K21.9 Gastro-esophageal reflux disease without esophagitis | CPT/HCPCS: 92557; 92567 ==

== ENCOUNTER 2023-06-29 12:12 | Emergency (ER) | payer OTHER, SELFPAY ==
--- NOTE | 2023-06-29 12:19 | PC.NURSE ---
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 This RN encouraged pt to stay and see a provider due to symptoms, pt declines, states I have an MRI scheduled here today at 400. I will wait until then. Pt ambulatory to exit in NAD. Steady gait.
== END 2023-06-29 12:19 | disposition left against medical advice (07) ==
LOC: ANHED 12:21
PROVIDERS: PCP Family Medicine
DX: Z53.21 Procedure and treatment not carried out due to patient leaving prior to being seen by health care provider (principal)
CPT/HCPCS: 99199

== ENCOUNTER 2023-06-29 15:38 | Outpatient (CLI) | payer OTHER, SELFPAY ==
--- NOTE | ~2023-06-29 | MR_ITS ---
EXAMINATION: MR brain/brain stem wo con DATE: 06/29/2023 16:41 INDICATION: Anesthesia of skin TECHNIQUE: Magnetic resonance imaging (MRI) of the brain and brainstem was performed without intraven ous contrast. Sequences included sagittal and axial T1-weighted SE, axial diffusion-weighted FS SE, a xial 3D SWAN, axial T2-weighted FLAIR, and axial T2-weighted FSE. Apparent diffusion coefficient (ADC ) maps were created. COMPARISON: 02/17/2023 FINDINGS: There are no areas of restricted diffusion to suggest acute infarction. Stable appearance of increase d T2 signal associated with a small old infarct in the right frontal lobe. No intracranial hemorrhage or abnormal intracranial mass lesion. No significant interval change in a few scattered small foci o f nonspecific increased T2-weighted signal intensity in the cerebral white matter, predominantly invo lving the deep and periventricular white matter. There are no intraparenchymal signal abnormalities s een on the other pulse sequences. The ventricles are symmetric and normal in size with absent septum pellucidum. There are no abnormal extra-axial fluid collections. Flow voids are seen in the cerebral arteries on the T2-weighted sequences consistent with their expected patency. Again seen is and asymm etric, small left optic nerve. Mucosal thickening the paranasal sinuses. Prominent periapical fluid c ollection associated with the left maxillary lateral incisor. IMPRESSION: 1. Unchanged small old infarct in the right frontal lobe. No acute intracranial process. 2. 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 3. A few small foci of scattered nonspecific cerebral white matter T2 hyperintensity, likely sequela of chronic small vessel ischemic disease. Reviewed, dictated and finalized at location A. HES DESIGNER IMPRESSION: 1. Unchanged small old infarct in the right frontal lobe. No acute intracranial process. 2. Small left optic nerve and absent septum pellucidum consistent with septal o ptic dysplasia. 3. A few small foci of scattered nonspecific cerebral white matter T2 hyperinte nsity, likely sequela of chronic small vessel ischemic disease.
== END 2023-06-29 15:39 | disposition home or self-care (01) ==
LOC: ANHIMG 15:39
PROVIDERS: PCP Family Medicine; Visit Provider Nurse Practitioner Family
DX: R20.0 Anesthesia of skin (principal); Z86.73 Personal history of transient ischemic attack (TIA), and cerebral infarction without residual deficits
CPT/HCPCS: 70551

== ENCOUNTER 2023-07-01 22:15 | Emergency (ER) | payer OTHER, SELFPAY ==
--- NOTE | ~2023-07-01 | CT_ITS ---
EXAMINATION: CT brain wo con DATE: 07/02/2023 01:54 INDICATION: Increasing numbness. TECHNIQUE: Computed tomography (CT) of the head was performed without intravenous contrast. The mA wa s adjusted according to patient size. Iterative reconstruction technique was employed. The dose-lengt h product was 681.00 mGy-cm. COMPARISON: Head CT 02/17/2023, brain MRI 06/29/2023 FINDINGS: There is a small old infarct in right frontal lobe. There is no intracranial hemorrhage, ac ekwok infarction, or abnormal intracranial mass lesion. The ventricles are normal in size. The septum p ellucidum is absent. Left optic nerve is small. There is mild mucosal thickening in the paranasal sin uses. The mastoid air cells are normal. IMPRESSION: 1. 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 2. 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 Reviewed, dictated and finalized at location E. DESTRUCTIVE TESTER IMPRESSION: 1. 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 2. Small left optic nerve and absent septum pellucidum, consistent with septo-o ptic dysplasia.
[2023-07-01 22:18] VITALS: BP 157/92; PULSE 58; RESP 18; TEMP 36.1; O2SAT 100
[2023-07-02] VITALS (13 sets, daily range): BP systolic 126–132; BP diastolic 74–75; PULSE 52–64; RESP 14–23; O2SAT 95–99
--- NOTE | 2023-07-02 01:25 | ECG_ITS ---
Measurements Intervals [place] Rate: 53 P: 4 OK: 153 QRS: 28 QRSD: 105 T: 78 QT: 449 QTc: 422 Interpretive Statements SINUS BRADYCARDIA NONSPECIFIC ST & T-WAVE ABNORMALITY BORDERLINE ECG COMPARED TO ECG 02/17/2023 09:20:33 HEART RATE REDUCED NO OTHER DIFFERENCE t Electronically Signed On 07-02-2023 7:44:31 MANAGER OF HOSPITAL by Harry Robbins M.D.
[2023-07-02 01:50] LABS: Basophils Percent Auto 0.2 % (0.2-1.2); Eosinophils Percent Auto 0.3 % (0-4.4); Hematocrit 46.9 % (42.0-52.0); Immature Granulocyte Absolute 0.07 K/mm3 (0.00-0.031); Immature Granulocyte Percent A 0.5 % (0-0.5); Lymphocytes Absolute Auto 5.43 K/mm3 (0.9-3.2); Lymphocytes Percent Auto 36.4 % (18.3-44.2); Mean Corpuscular Hemoglobin 29.2 pg (26-34); Mean Corpuscular Volume 91.4 fl (80-100); Mean Platelet Volume 9.5 fl (7.4-10.4); Monocytes Absolute Auto 1.3 K/mm3 (0.1-0.6); Monocytes Percent Auto 8.8 % (2.6-8.5); Neutrophils Percent Auto 53.8 % (45.5-73.1); Platelet Count Result 340 k/mm3 (150-375); Red Blood Count 5.13 M/mm3 (4.6-6.20); Red Cell Distribution Width 12.7 % (11.5-14.5); White Blood Count 14.9 K/mm3 (4.5-10.0)
[2023-07-02 02:00] LABS: INR 0.9; Partial Thromboplastin Time 24.9 SECONDS (22.3-36.8); Prothrombin Time 12.7 Seconds (11.1-14.7)
[2023-07-02 02:03] LABS: Magnesium 2.2 mg/dL (1.6-2.3)
[2023-07-02 02:04] LABS: Lactic Acid Reflex 0.9 mmol/L (0.7-2.0)
[2023-07-02 02:05] LABS: Alanine Aminotransferase 27 U/L (6-50); Albumin Level 4.2 g/dL (3.5-5.1); Alkaline Phosphatase 54 U/L (38-126); Anion Gap 5 mmol/L (8-16); Aspartate Amino Transferase 20 U/L (17-59); Bilirubin,Total 0.5 mg/dL (0.2-1.3); Blood Urea Nitrogen 23 mg/dL (9-20); Calcium 9.4 mg/dL (8.4-10.2); Carbon Dioxide 28 mmol/L (22-30); Chloride 106 mmol/L (98-107); Estimated CRCL calculation 112 ml/min; Estimated Glomerular Filt Rate > 60; Glucose 98 mg/dL (65-110); Potassium 3.6 mmol/L (3.4-5.0); Sodium 139 mmol/L (137-145)
[2023-07-02 02:14] LABS: Appearance Urine Clear (Clear); Bacteria Urine None Seen /hpf; Bilirubin Urine Negative (Negative); Blood Urine 2+ (Negative); Color Urine Yellow (Yellow); Glucose Urine UA 1+ mg/dL (Negative); Ketones Urine Negative (Negative); Leukocyte Esterase Ur Negative LEU/UL (Negative); Nitrate Urine Negative (Negative); Non Pathogenic Casts 0-2; Protein Urine Negative (Negative); RBC Urine 0-2 /hpf (0-2); Specific Grav Ur 1.023 (1.001-1.035); Squamous Epithelial Cell Urine None seen /hpf (Few); Urobilinogen Urine 0.2 mg/dL (<2.0); WBC Urine 0-5 /hpf; pH Urine 5.5 (5.0-9.0)
[2023-07-02 02:16] LABS: Troponin I < 0.012 ng/mL (0.000-0.034)
[2023-07-02 02:18] LABS: Add Urine Microscopic? YES
--- NOTE | 2023-07-02 02:42 | ED.GENADULT ---
HPI - General Adult General Chief complaint: Unspecified Stated complaint: head and face numbness Time Seen by Provider: 07/02/23 01:05 History of Present Illness HPI narrative: Patient is a 48-year-old gentleman who presents to emergency department with chief complaint of numbness. The patient reports the last 8 months he has been having episodes of numbness over his head and upper torso and extremities. The patient states that he had an MRI done on Sunday and over the last several days has noticed that he feels as though he has a little bit more prevalent on the numbness sensation the patient states he has episodes of hot sensation on his extremities of the patient states that he is concerned that he may have MS or concerned that he may have a abscess in his brain patient denies fever denies any possible exposure to forearm a fresh water torsten the patient was seen in another emergency department in the last 24 hours for similar symptoms and was given a dose of steroids and also a dose of Toradol the patient was also given a Medrol Dosepak patient reports that he is very concerned as he is not scheduled to see Neurology until August Related Data Home Medications Medication Instructions Recorded Confirmed aspirin 81 mg tablet,delayed 81 mg PO DAILY 06/28/23 06/28/23 release (Adult Low Dose Aspirin) Allergies Allergy/AdvReac Type Severity Reaction Status Date / Time Beta-Blockers AdvReac Intermediate Numbness Verified 06/28/23 14:07 (Beta-Adrenergic Bloc Review of Systems Review of Systems: A 10 system review of systems was completed on the patient and is negative except for what is stated in the HPI. Nursing and ancillary documentation was reviewed. [facility] Past Medical History Medical History Allergic rhinitis Amblyopia of eye Chest pain, unspecified Closed left arm fracture Elevated antinuclear antibody (MATILDA) level Essential (primary) hypertension GERD (gastroesophageal reflux disease) History of stroke Hypercholesteremia Hypertension Joint pain Kidney stone Left facial numbness Nicotine dependence Otitis media Rib pain on left side Septo-optic dysplasia of brain SOB (shortness of breath) on exertion Tinnitus Ulnar neuropathy at elbow of left upper extremity Vision abnormalities Surgical History Surgical History History of eye surgery Left History of foot surgery Left Family History Family History Father , Who is the patient's great aunt or distant cousin Hypertension Alcoholism Heart disease Mother Hypertension Mother Unknown family medical history Father Unknown family medical history Sibling Healthy adult Social History Social History Social History: The patient lives in an apartment. He has a 65-year-old roommate has had a stroke that he helps provide care for. He has 2 large dogs. 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 He is single and has never been . He does not have any children. He has smoked 2 packs per day since he was 18 years old. He drinks alcohol quite heavily. He was drinking up to a 12 pack of beer per day. He reports that in September of 2022 he cut back to drinking 3-7 beers every couple of days. He denies illicit substance use. Code status: Full code Surrogate decision maker: Deena Hester (sister) Caffeine-coffee Smoking packs per day: 0.5 Smoking cigarettes per day: 10.0 Years smoked: 29 Smoking pack-years: 14.50 Smoking status: Current every day smoker Tobacco type: cigarettes Second hand tobacco smoke exposure: Yes Alcohol intake: current Drinks per week: 3 Substance use: never Substance use type: does not use Do You Feel Safe in
== END 2023-07-02 04:01 | disposition home or self-care (01) ==
PROVIDERS: Emergency Provider Emergency Medicine; PCP Nurse Practitioner Family
DX: R20.2 Paresthesia of skin (principal); I10 Essential (primary) hypertension; F17.210 Nicotine dependence, cigarettes, uncomplicated; Z79.82 Long term (current) use of aspirin; Z86.73 Personal history of transient ischemic attack (TIA), and cerebral infarction without residual deficits
CPT/HCPCS: 36415; 70450; 80053; 81001; 83605; 83735; 84484; 85025; 85610; 85730; 93005; 99284

== ENCOUNTER 2023-07-09 08:36 | Emergency (ER) | payer OTHER, SELFPAY ==
[2023-07-09] VITALS (19 sets, daily range): BP systolic 118–139; BP diastolic 54–91; PULSE 48–64; RESP 12–22; TEMP 36.4–36.8; O2SAT 97–100
--- NOTE | ~2023-07-09 | CT_ITS ---
EXAMINATION: CT brain wo con DATE: 07/09/2023 10:00 INDICATION: Facial, head, chest numbness TECHNIQUE: Computed tomography (CT) of the head was performed without intravenous contrast. The mA wa s adjusted according to patient size. Iterative reconstruction technique was employed. Exam dose: 68 1.00 mGy-cm total exam DLP. COMPARISON: July 02, 2023 CT brain FINDINGS: Examination is mildly limited by motion artifact. 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 There is supraclinoid left internal carotid artery calcification. There is nonspecific diminished att enuation of the cerebral white matter, likely due to chronic small vessel ischemic change. Small chronic right frontal lobe old infarct. No recent cerebrovascular accident is noted. No midline shift or mass effect. No subdural or epidural hematoma is detected. No fracture or bone destruction of the cranial vault. IMPRESSION: No acute intracranial finding or significant change since July 02, 2023 Reviewed, dictated and finalized at [facility]. Reviewed, dictated and finalized at location B. S TOUGHENING OPERATOR
--- NOTE | ~2023-07-09 | XR_ITS ---
EXAMINATION: XR chest 2V DATE: 07/09/2023 10:01 INDICATION: Chest tightness. Numbness. TECHNIQUE: Frontal and lateral views of the chest were obtained. COMPARISON: Chest view 02/17/2023, chest CT 06/05/2023 FINDINGS: There is no pneumonia, pleural effusion, or pneumothorax. The heart size is normal. IMPRESSION: 1. No acute cardiopulmonary disease. Reviewed, dictated and finalized at location A. IDE TOOL MAKER
--- NOTE | 2023-07-09 08:41 | ECG_ITS ---
Measurements Intervals [place] Rate: 56 P: -6 CA: 135 QRS: 25 QRSD: 104 T: 56 QT: 387 QTc: 375 Interpretive Statements SINUS BRADYCARDIA NONSPECIFIC ST and T-WAVE ABNORMALITY ABNORMAL ECG COMPARED TO ECG 07/02/2023 01:39:28 NO SIGNIFICANT CHANGES Electronically Signed On 07-09-2023 10:12:55 LOSS CONTROL ENGINEER by Michael Oleary M.D.
--- NOTE | 2023-07-09 09:11 | ED.GENADULT ---
HPI - General Adult General Chief complaint: Unspecified Stated complaint: numbness to chest Time Seen by Provider: 07/09/23 09:01 Source: patient and old records reviewed Mode of arrival: ambulatory Limitations: no limitations History of Present Illness HPI narrative: Patient is a 48-year-old male who presents the ED with report of numbness. Patient reports having intermittent numbness to his chest, radiating up his neck into his face/jaw/head. States symptoms have been ongoing and intermittent over the last several months, but seemed to have been worsening over the last 1 week. Patient reported symptoms began around 7:00 a.m. this morning after taking his morning medications. Have since improved on their own. He also reported having chest tightness and became concerned he was having a heart attack. Reported very mild shortness of breath with chest tightness, resolved currently. Denies lower extremity pain or swelling. Denies previous history of heart disease. Patient was seen in our ED on 07/02 for similar symptoms/facial paresthesias. Repeat CT brain at that time did not show any new or acute abnormalities. MRI from 06/29 reviewed and also without acute abnormalities. No evidence of demyelinating condition or MS. Does show old infarct and small vessel disease. Patient is scheduled to f/u with Neurology in July. Related Data Home Medications Medication Instructions Recorded Confirmed aspirin 81 mg tablet,delayed 81 mg PO DAILY 06/28/23 06/28/23 release (Adult Low Dose Aspirin) Allergies Allergy/AdvReac Type Severity Reaction Status Date / Time Beta-Blockers AdvReac Intermediate Numbness Verified 06/28/23 14:07 (Beta-Adrenergic Bloc Review of Systems Review of Systems: CONSTITUTIONAL: Denies fever, chills, or sweats. CARDIOVASCULAR: See HPI. RESPIRATORY: See HPI. GASTROINTESTINAL: Denies abdominal pain, nausea, vomiting. MUSCULOSKELETAL: Denies back pain, extremity pain, myalgia. NEUROLOGIC: See HPI. All systems reviewed & are unremarkable except as noted in HPI and below PMFSH Past Medical History Medical History Allergic rhinitis Amblyopia of eye Chest pain, unspecified Closed left arm fracture Elevated antinuclear antibody (MATILDA) level Essential (primary) hypertension GERD (gastroesophageal reflux disease) History of stroke Hypercholesteremia Hypertension Joint pain Kidney stone Left facial numbness Nicotine dependence Otitis media Rib pain on left side Septo-optic dysplasia of brain SOB (shortness of breath) on exertion Tinnitus Ulnar neuropathy at elbow of left upper extremity Vision abnormalities Surgical History Surgical History History of eye surgery Left History of foot surgery Left Family History Family History Father , Who is the patient's great aunt or distant cousin Hypertension Alcoholism Heart disease Mother Hypertension Mother Unknown family medical history Father Unknown family medical history Sibling Healthy adult Social History Social History Social History: The patient lives in an apartment. He has a 65-year-old roommate has had a stroke that he helps provide care for. He has 2 large dogs. 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 He is single and has never been . He does not have any children. He has smoked 2 packs per day since he was 18 years old. He drinks alcohol quite heavily. He was drinking up to a 12 pack of beer per day. He reports that in September of 2022 he cut back to drinking 3-7 beers every couple of days. He denies illicit substance use. Code status: Full code Surrogate decision maker: Deena Hester (sister) Caffeine-coffee Smoking pac
[2023-07-09 10:34] LABS: Basophils Percent Auto 0.2 % (0.2-1.2); Eosinophils Absolute Auto 0.2 K/mm3 (0-0.3); Eosinophils Percent Auto 1.3 % (0-4.4); Hematocrit 46.5 % (42.0-52.0); Immature Granulocyte Absolute 0.05 K/mm3 (0.00-0.031); Immature Granulocyte Percent A 0.4 % (0-0.5); Lymphocytes Absolute Auto 3.17 K/mm3 (0.9-3.2); Mean Corpuscular HGB Conc 32.3 g/dl (32-36); Mean Corpuscular Hemoglobin 29.1 pg (26-34); Mean Corpuscular Volume 90.3 fl (80-100); Mean Platelet Volume 9.3 fl (7.4-10.4); Monocytes Percent Auto 8.1 % (2.6-8.5); Neutrophils Absolute Auto 7.8 K/mm3 (1.3-6.7); Platelet Count Result 361 k/mm3 (150-375); Red Blood Count 5.15 M/mm3 (4.6-6.20); Red Cell Distribution Width 12.7 % (11.5-14.5); White Blood Count 12.2 K/mm3 (4.5-10.0)
[2023-07-09 10:45] LABS: Alanine Aminotransferase 31 U/L (6-50); Albumin Level 4.3 g/dL (3.5-5.1); Alkaline Phosphatase 64 U/L (38-126); Anion Gap 5 mmol/L (8-16); Aspartate Amino Transferase 22 U/L (17-59); Bilirubin,Total 0.6 mg/dL (0.2-1.3); Blood Urea Nitrogen 21 mg/dL (9-20); Calcium 9.9 mg/dL (8.4-10.2); Carbon Dioxide 28 mmol/L (22-30); Chloride 104 mmol/L (98-107); Estimated CRCL calculation 114 ml/min; Estimated Glomerular Filt Rate > 60; Glucose 101 mg/dL (65-110); Potassium 4.1 mmol/L (3.4-5.0); Sodium 137 mmol/L (137-145)
[2023-07-09 10:46] LABS: Ethanol < 10 mg/dL (<10)
[2023-07-09 10:47] LABS: Prothrombin Time 13.2 Seconds (11.1-14.7)
[2023-07-09 10:49] LABS: Partial Thromboplastin Time 26.2 SECONDS (22.3-36.8)
[2023-07-09 10:57] LABS: Troponin I < 0.012 ng/mL (0.000-0.034)
[2023-07-09 11:08] LABS: Appearance Urine Clear (Clear); Bacteria Urine None Seen /hpf; Bilirubin Urine Negative (Negative); Blood Urine 1+ (Negative); Color Urine Yellow (Yellow); Glucose Urine UA Negative (Negative); Ketones Urine Negative (Negative); Leukocyte Esterase Ur Negative LEU/UL (Negative); Nitrate Urine Negative (Negative); Non Pathogenic Casts 0-2; Protein Urine Negative (Negative); Specific Grav Ur 1.015 (1.001-1.035); Squamous Epithelial Cell Urine None seen /hpf (Few); Urobilinogen Urine 0.2 mg/dL (<2.0); WBC Urine 0-5 /hpf
[2023-07-09 11:11] LABS: Add Urine Microscopic? YES
[2023-07-09 11:27] LABS: Amphetamine Screen Urine Negative (Negative); Barbiturate Screen Urine Negative (Negative); Benzodiazepines Screen Urine Negative (Negative); Cannabinoid Screen Urine Negative (Negative); Cocaine Screen Urine Negative (Negative); Methadone Screen Urine Negative (Negative); Opiate Screen Urine Negative (Negative); Phencyclidine Screen Urine Negative (Negative)
--- NOTE | 2023-07-09 12:45 | PC.NURSE ---
Pt remains anxious his entire stay in ER. Continually asking if he is having a heart attack, if he is going to . States numbness to his face is now pressure. RN reassured pt he is stable and POC of 3 hour Trop. Pt voices understanding
--- NOTE | 2023-07-09 13:22 | ECG_ITS ---
Measurements Intervals [place] Rate: 51 P: -11 [place]: 144 QRS: 26 QRSD: 110 T: 34 QT: 418 QTc: 385 Interpretive Statements SINUS BRADYCARDIA NONSPECIFIC ST & T-WAVE ABNORMALITY ABNORMAL ECG COMPARED TO ECG 07/09/2023 08:47:02 NO SIGNIFICANT CHANGES Electronically Signed On 07-09-2023 15:14:25 RESOURCE ECONOMIST by Harry Robbins M.D.
[2023-07-09 14:05] LABS: Troponin I < 0.012 ng/mL (0.000-0.034)
== END 2023-07-09 15:22 | disposition home or self-care (01) ==
PROVIDERS: Emergency Provider Physician Assistant; PCP Nurse Practitioner Family
DX: R07.89 Other chest pain (principal); R20.2 Paresthesia of skin; I10 Essential (primary) hypertension; E78.00 Pure hypercholesterolemia, unspecified; K21.9 Gastro-esophageal reflux disease without esophagitis; Z87.442 Personal history of urinary calculi; F17.210 Nicotine dependence, cigarettes, uncomplicated; Z79.82 Long term (current) use of aspirin; R94.31 Abnormal electrocardiogram [ECG] [EKG]; R00.1 Bradycardia, unspecified
CPT/HCPCS: 36415; 70450; 71046; 80053; 80307; 81001; 83735; 84484; 85025; 85610; 85730; 93005; 99284

== ENCOUNTER 2023-07-27 07:58 | Outpatient (CLI) | payer OTHER, SELFPAY ==
--- NOTE | ~2023-07-27 | XR_ITS ---
EXAMINATION: XR UGIAC w barium swallow DATE: 07/27/2023 08:46 INDICATION: Chest pain. Gastroesophageal reflux disease. TECHNIQUE: The patient drank thick barium, gas-producing crystals, and thin barium. Fluoroscopy of th e esophagus, stomach, and proximal small bowel was performed. Fluoroscopy exposure time was 0.6 minut es. The total number of images was 277. Total dose-area product was 2.56 Gy-cm^2. COMPARISON: Chest CT 06/05/2023 FINDINGS: There is no mass or stricture of the esophagus. Esophageal motility is normal. There is no hiatal hernia. There was no gastroesophageal reflux with provocative maneuvers. The stomach and proxi mal small bowel show normal folding patterns. IMPRESSION: 1. Normal upper gastrointestinal series and esophagram. Reviewed, dictated and finalized at location A. AL MANAGEMENT REPRESENTATIVE
== END 2023-07-27 07:59 | disposition home or self-care (01) ==
LOC: ANHIMG 07:59
PROVIDERS: PCP Nurse Practitioner Family; Visit Provider Nurse Practitioner Family
DX: K21.9 Gastro-esophageal reflux disease without esophagitis (principal); R07.9 Chest pain, unspecified; R13.19 Other dysphagia; R14.0 Abdominal distension (gaseous)
CPT/HCPCS: 74246

== ENCOUNTER 2023-11-14 08:26 | Outpatient (CLI) | payer OTHER, SELFPAY ==
--- NOTE | ~2023-11-14 | CT_ITS ---
CT cervical spine wo con Ordering provider: Geri Barber DO History: . M54.2 - Cervicalgia . Comparison: None. Technique: CT of the cervical spine was performed without contrast. Sagittal and coronal reformatted images were also obtained and reviewed. Radiation reduction technique utilized. DLP is 588.12 mGy. FINDINGS: VERTEBRAE: No subluxation or acute fracture. The occipital condyles are intact. DISC SPACES: Normal. PARASPINOUS SOFT TISSUES: Normal. IMPRESSION: No acute osseous abnormality cervical spine. Reviewed, dictated and finalized at location A.
== END 2023-11-14 08:27 | disposition home or self-care (01) ==
LOC: ANHIMG 08:29
PROVIDERS: PCP Family Medicine; Visit Provider Family Medicine
DX: M54.2 Cervicalgia (principal)
CPT/HCPCS: 72125

== ENCOUNTER 2023-11-16 10:46 | Outpatient (CLI) | payer OTHER, SELFPAY ==
[2023-11-22 23:03] LABS: Calprotectin, Stool 131 mcg/g
== END 2023-11-16 10:47 | disposition home or self-care (01) ==
LOC: ANHLAB 10:47
PROVIDERS: PCP Family Medicine; Visit Provider Nurse Practitioner Family
DX: R19.8 Other specified symptoms and signs involving the digestive system and abdomen (principal)
CPT/HCPCS: 83993

== ENCOUNTER 2023-12-18 11:38 | Emergency (ER) | payer OTHER, SELFPAY ==
--- NOTE | 2023-12-18 11:50 | ED.GENADULT ---
HPI - General Adult General Chief complaint: Ear Stated complaint: FB R EAR Time Seen by Provider: 12/18/23 11:50 Source: patient, RN notes reviewed and old records reviewed Mode of arrival: ambulatory Limitations: no limitations History of Present Illness HPI narrative: 48-year-old male [facility] stating he believes there is a flea in his right ear. Patient states that his dog currently has a severe flea infestation that he is attempting to treat at home. Patient reports sensation of foreign body in right ear for 3 days, states it feels like something is moving inside of his ear. Patient has attempted to remove foreign object at home with Q-tips without relief. Patient denies recent illness, cough, fever, pertinent medical history, allergies. Patient able to tolerate fluids by mouth. Respirations even and nonlabored. Patient in no acute distress. Related Data Home Medications Medication Instructions Recorded Confirmed aspirin 81 mg tablet,delayed 81 mg PO DAILY 06/28/23 12/18/23 release (Adult Low Dose Aspirin) Allergies Allergy/AdvReac Type Severity Reaction Status Date / Time Beta-Blockers AdvReac Intermediate Numbness Verified 12/18/23 12:13 (Beta-Adrenergic Bloc Review of Systems Review of Systems: All systems reviewed & are unremarkable except as noted in HPI and below Constitutional: Constitutional: Reports no additional constitutional complaints Eyes: Eyes: Reports no additional eye complaints ENT: Reports as per HPI, Reports otalgia ( Right; patient reports sensation of foreign body) and Denies sore throat Cardiovascular: Cardiovascular: Reports no additional cardiovascular complaints, Denies chest pain and Denies dyspnea Respiratory: Respiratory: Reports no additional respiratory complaints, Denies cough and Denies dyspnea Musculoskeletal: Musculoskeletal: Reports no additional musculoskeletal complaints Neurologic: Reports system reviewed and no additional complaints, except as documented Psychiatric: Psychiatric: Reports no additional psychiatric complaints [facility] Past Medical History Medical History Allergic rhinitis Alternating constipation and diarrhea Amblyopia of eye MATILDA positive Chest pain, unspecified Closed left arm fracture Elevated antinuclear antibody (MATILDA) level Essential (primary) hypertension GERD (gastroesophageal reflux disease) History of stroke Hypercholesteremia Hypertension Intertrigo Joint pain Kidney stone Left facial numbness Nicotine dependence Numbness and tingling in both hands Numbness and tingling of both lower extremities Otitis media Rib pain on left side Septo-optic dysplasia of brain SOB (shortness of breath) on exertion Subcutaneous cyst Tinnitus Ulnar neuropathy at elbow of left upper extremity Vision abnormalities Surgical History Surgical History History of eye surgery Left History of foot surgery Left Family History Family History Father , Who is the patient's great aunt or distant cousin Hypertension Alcoholism Heart disease Mother Hypertension Mother Unknown family medical history Father Unknown family medical history Sibling Healthy adult Social History Social History Social History: The patient lives in an apartment. He has a 65-year-old roommate has had a stroke that he helps provide care for. He has 2 large dogs. 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 He is single and has never been . He does not have any children. He has smoked 2 packs per day since he was 18 years old. He drinks alcohol quite heavily. He was drinking up to a 12 pack of beer per day. He reports that in September of 2022 he cut back to drinking 3-7 beers
[2023-12-18 11:56] VITALS: BP 154/93; PULSE 76; RESP 16; TEMP 36.1; O2SAT 98
== END 2023-12-18 12:14 | disposition home or self-care (01) ==
PROVIDERS: Emergency Provider Nurse Practitioner Family; PCP Family Medicine
DX: H61.21 Impacted cerumen, right ear (principal); H66.91 Otitis media, unspecified, right ear; F17.210 Nicotine dependence, cigarettes, uncomplicated; I10 Essential (primary) hypertension; K21.9 Gastro-esophageal reflux disease without esophagitis; E78.00 Pure hypercholesterolemia, unspecified; Z86.73 Personal history of transient ischemic attack (TIA), and cerebral infarction without residual deficits; Z79.82 Long term (current) use of aspirin
CPT/HCPCS: 69210; 99213; G0463

== ENCOUNTER 2023-12-19 11:45 | Outpatient (CLI) | payer OTHER, SELFPAY ==
--- NOTE | 2023-12-24 10:53 | WPDSLEEPSTUD ---
Sleep Study Date of Study: 12/19/23 Ordering Provider: Pramod Layton DO Interpreting Physician: Annie Gupta MD Sleep Study Type: Polysomnogram Height: 1.78 m Weight: 116.12 kg Body Mass Index: 36.7 Neck Circumference (inches): 19 [place]: 6 Reason for Sleep Study * 03/19/24 Home sleep test with [facility] did not show sleep disordered breathing, AHI 3.4, central AHI 0, REM AHI 8.6, lowest saturation 89% Sleep History Truong Castillo is a 48-year-old male who had a prior home sleep test 03/20/2024 without abnormal findings, now returns for in-lab study ordered by his metallic yarn slitting machine operator due to persistent hypersomnia and hypertension. His medical history also includes dyslipidemia, tobacco use, and a pulmonary embolism in November 2022. This sleep history is from his Feb 2023 study. He never awakens from sleep short of breath. He never awakens at night with heartburn, belching or cough. He occasionally snores. He rarely has trouble sleeping when he has a cold. He never wakes up gasping for breath during the night. He never has breathing problems at night. He never sweats excessively at night. He rarely falls asleep during the day. He does not fall asleep involuntarily and never falls asleep while driving. He occasionally notices his heart pounding or beating irregularly during the night. He never experiences loss of muscle tone with strong emotion. He never feels paralyzed on waking or falling asleep. He frequently experiences vivid dreams upon waking or falling asleep. He never feels afraid of going to sleep. He never has nightmares. He constantly recalls his dreams. He occasionally has thoughts racing through his mind. He never feels sad or depressed. He occasionally feels anxiety or worry about things. He rarely notices parts of his body jerk. He rarely kicks during the night. He occasionally feels crawling or aching feelings in his legs. He occasionally feels leg pain at night. He does not grind his teeth during sleep and never has morning jaw pain. He rarely feels bothered by pain during the day and is never awakened by pain during the night. He rarely wakes up feeling stiff in the morning and rarely wakes up feeling sore and achy in the morning. He frequently wakes up with pain in his neck, spine, or joints. Normal bedtime varies, usually falling asleep in under 10 minutes. He typically gets about 7 to 8 hours of sleep per night. His wake-up time is around 5am to 6am on the weekdays and 6am on the weekends. He does not typically wake up during the night. He sometimes takes naps in the afternoon or evening. He takes naps in the afternoon or evening. A short nap lasting 10-15 minutes may be refreshing. He frequently has difficulties with memory concentration. He frequently awakens feeling refreshed. He rarely has excessive daytime sleepiness. Habits: Current tobacco smoker. Drinks caffeine during the day. Uses alcohol. No recreational substances. [facility] Past Medical History Medical History Allergic rhinitis Alternating constipation and diarrhea Amblyopia of eye MATILDA positive Chest pain, unspecified Closed left arm fracture Elevated antinuclear antibody (MATILDA) level Essential (primary) hypertension GERD (gastroesophageal reflux disease) History of stroke Hypercholesteremia Hypertension Intertrigo Joint pain Kidney stone Left facial numbness Nicotine dependence Numbness and tingling in both hands Numbness and tingling of both lower extremities Otitis media Rib pain on left side Septo-optic dysplasia of brain SOB (shortness of breath) on exertion Subcutaneous cyst Tinnitus Ulnar neuropathy at elbow of left upper extremity Vision abnormalities Surgical History Surgical History History of eye surgery Left History of foot surgery Left Family History Family History Fat
[2024-01-10 20:14] VITALS: BMI 36.7
== END 2023-12-20 04:20 | disposition home or self-care (01) ==
PROVIDERS: PCP Family Medicine; Visit Provider Internal Medicine Cardiovascular Disease
DX: G47.33 Obstructive sleep apnea (adult) (pediatric) (principal); G47.10 Hypersomnia, unspecified; I10 Essential (primary) hypertension
CPT/HCPCS: 95811

== ENCOUNTER 2024-01-14 10:49 | Outpatient (CLI) | payer OTHER, SELFPAY ==
[2024-01-14 14:35] LABS: Basophils Percent Auto 0.3 % (0.2-1.2); Eosinophils Absolute Auto 0.4 K/mm3 (0-0.3); Eosinophils Percent Auto 3.4 % (0-4.4); Hematocrit 49.1 % (42.0-52.0); Hemoglobin 16.1 g/dL (14.0-18.0); Immature Granulocyte Absolute 0.07 K/mm3 (0.00-0.031); Immature Granulocyte Percent A 0.6 % (0-0.5); Lymphocytes Absolute Auto 2.96 K/mm3 (0.9-3.2); Lymphocytes Percent Auto 23.9 % (18.3-44.2); Mean Corpuscular HGB Conc 32.8 g/dl (32-36); Mean Corpuscular Hemoglobin 30.6 pg (26-34); Mean Corpuscular Volume 93.3 fl (80-100); Mean Platelet Volume 9.8 fl (7.4-10.4); Monocytes Absolute Auto 0.7 K/mm3 (0.1-0.6); Monocytes Percent Auto 5.3 % (2.6-8.5); Neutrophils Absolute Auto 8.2 K/mm3 (1.3-6.7); Neutrophils Percent Auto 66.5 % (45.5-73.1); Platelet Count Result 376 k/mm3 (150-375); Red Blood Count 5.26 M/mm3 (4.6-6.20); Red Cell Distribution Width 13.2 % (11.5-14.5); White Blood Count 12.4 K/mm3 (4.5-10.0)
[2024-01-14 16:49] LABS: Alanine Aminotransferase 38 U/L (6-50); Albumin Level 4.1 g/dL (3.5-5.1); Alkaline Phosphatase 76 U/L (38-126); Anion Gap 7 mmol/L (4-12); Aspartate Amino Transferase 37 U/L (17-59); Bilirubin,Total 0.3 mg/dL (0.2-1.3); Blood Urea Nitrogen 19 mg/dL (9-20); Calcium 9.2 mg/dL (8.4-10.2); Carbon Dioxide 27 mmol/L (22-30); Chloride 104 mmol/L (98-107); Cholesterol 215 mg/dL (0-200); Estimated Glomerular Filt Rate > 60; Glucose 124 mg/dL (65-110); HDL Direct 28 mg/dL; Sodium 138 mmol/L (137-145); Triglycerides 251 mg/dL (<150)
[2024-01-14 17:00] LABS: LDL Cholesterol Direct 150 mg/dL
[2024-01-14 17:43] LABS: Prostate Specific Antigen 1.1 ng/mL (< OR = 4.0)
== END 2024-01-14 10:50 | disposition home or self-care (01) ==
LOC: ANHGOSHLAB 10:51
PROVIDERS: PCP Family Medicine; Visit Provider Nurse Practitioner Family
DX: E78.5 Hyperlipidemia, unspecified (principal); I10 Essential (primary) hypertension; Z12.5 Encounter for screening for malignant neoplasm of prostate; E03.9 Hypothyroidism, unspecified
CPT/HCPCS: 36415; 80053; 80061; 84153; 84443; 85025; G0103

== ENCOUNTER 2024-02-02 15:19 | Emergency (ER) | payer OTHER, SELFPAY ==
--- NOTE | 2024-02-02 15:23 | ED.EYEPROB ---
HPI - Eye Problem General Chief complaint: Eye Problems Stated complaint: EYE REDNESS Time Seen by Provider: 02/02/24 15:37 Source: patient, RN notes reviewed and old records reviewed Mode of arrival: ambulatory Limitations: no limitations History of Present Illness HPI Narrative: 49-year-old male presents to the [facility] with left eye redness with drainage. 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 Symptoms started when he woke up today. Onset (ago): hour(s) Related Data Home Medications Medication Instructions Recorded Confirmed aspirin 81 mg tablet,delayed 81 mg PO DAILY 06/28/23 01/14/24 release (Adult Low Dose Aspirin) Allergies Allergy/AdvReac Type Severity Reaction Status Date / Time Beta-Blockers AdvReac Intermediate Numbness Verified 01/14/24 10:23 (Beta-Adrenergic Bloc Review of Systems Review of Systems: All systems reviewed & are unremarkable except as noted in HPI and below Constitutional: Constitutional: Reports no additional constitutional complaints Eyes: Eyes: Reports as per HPI, Reports irritation and Reports itchy eyes ENT: Reports system reviewed and no additional complaints, except as documented Cardiovascular: Cardiovascular: Reports no additional cardiovascular complaints, Denies chest pain and Denies dyspnea Respiratory: Respiratory: Reports no additional respiratory complaints, Denies chest congestion, Denies cough and Denies dyspnea Musculoskeletal: Musculoskeletal: Reports no additional musculoskeletal complaints Integumentary/Breasts: Skin/Breast: Reports system reviewed and no additional complaints, except as docu Neurologic: Reports system reviewed and no additional complaints, except as documented Psychiatric: Psychiatric: Reports no additional psychiatric complaints Allergic/Immunologic: Allergic/Immunologic: Reports no additional allergic/immunologic complaints [facility] Past Medical History Medical History (Updated 02/02/24 @ 20:46 by Deidra Rae APRN) Allergic rhinitis Alternating constipation and diarrhea Amblyopia of eye MATILDA positive Chest pain, unspecified Closed left arm fracture Elevated antinuclear antibody (MATILDA) level Essential (primary) hypertension GERD (gastroesophageal reflux disease) History of stroke Hypercholesteremia Hypertension Intertrigo Joint pain Kidney stone Left facial numbness Nicotine dependence Numbness and tingling in both hands Numbness and tingling of both lower extremities Otitis media Rib pain on left side Septo-optic dysplasia of brain SOB (shortness of breath) on exertion Subcutaneous cyst Tinnitus Ulnar neuropathy at elbow of left upper extremity Vision abnormalities Surgical History Surgical History History of eye surgery Left History of foot surgery Left Family History Family History Father , Who is the patient's great aunt or distant cousin Hypertension Alcoholism Heart disease Mother Hypertension Mother Unknown family medical history Father Unknown family medical history Sibling Healthy adult Social History Social History Social History: The patient lives in an apartment. He has a 65-year-old roommate has had a stroke that he helps provide care for. He has 2 large dogs. 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 He is single and has never been . He does not have any children. He has smoked 2 packs per day since he was 18 years old. He drinks alcohol quite heavily. He was drinking up to a 12 pack of beer per day. He reports that in September of 2022 he cut back to drinking 3-7 beers every couple of days. He denies illicit substance use. Code status: Full code Surrogate decision maker: Deena Hester (sister) Caffeine-coffee Smoking packs per day: 1 Smok
[2024-02-02 15:32] VITALS: BP 139/98; PULSE 70; RESP 16; TEMP 36.6; O2SAT 99
== END 2024-02-02 15:52 | disposition home or self-care (01) ==
PROVIDERS: Emergency Provider Nurse Practitioner; PCP Family Medicine
DX: H10.9 Unspecified conjunctivitis (principal); F17.210 Nicotine dependence, cigarettes, uncomplicated; I10 Essential (primary) hypertension; K21.9 Gastro-esophageal reflux disease without esophagitis; E78.00 Pure hypercholesterolemia, unspecified; Z86.73 Personal history of transient ischemic attack (TIA), and cerebral infarction without residual deficits; Z79.82 Long term (current) use of aspirin
CPT/HCPCS: 99213; G0463

== ENCOUNTER 2024-03-20 18:24 | Emergency (ER) | payer OTHER, SELFPAY ==
[2024-03-20] VITALS (7 sets, daily range): BP systolic 116–145; BP diastolic 64–90; PULSE 74–84; RESP 12–20; TEMP 36.6; O2SAT 95–99
--- NOTE | ~2024-03-20 | XR_ITS ---
CHEST RADIOGRAPH, PA AND LATERAL CLINICAL HISTORY: cp . COMPARISON: 07/09/2023 TECHNIQUE: PA and lateral views of the chest. FINDINGS The cardiomediastinal silhouette is unremarkable. The lungs are clear. Visualized osseous structures and soft tissues are unremarkable. IMPRESSION: No focal infiltrate or effusion. Reviewed, dictated and finalized at location A.
--- NOTE | 2024-03-20 18:26 | ECG_ITS ---
Test Date: 2024-03-20 18:31:42 Measurements Intervals [place] Rate: 81 P: -1 [place]: 144 QRS: 33 QRSD: 92 T: 85 QT: 351 QTc: 408 Interpretive Statements SINUS RHYTHM NONSPECIFIC ST & T-WAVE ABNORMALITY No previous ECG available for comparison Electronically Signed On 03-21-2024 15:26:11 CDT by Hamilton Lanier M.D.
[2024-03-20 18:56] LABS: Basophils Percent Auto 0.2 % (0.2-1.2); Eosinophils Absolute Auto 0.2 K/mm3 (0-0.3); Hematocrit 46.9 % (42.0-52.0); Hemoglobin 15.9 g/dL (14.0-18.0); Immature Granulocyte Absolute 0.04 K/mm3 (0.00-0.031); Immature Granulocyte Percent A 0.3 % (0-0.5); Lymphocytes Absolute Auto 3.13 K/mm3 (0.9-3.2); Lymphocytes Percent Auto 26.7 % (18.3-44.2); Mean Corpuscular HGB Conc 33.9 g/dl (32-36); Mean Corpuscular Volume 91.4 fl (80-100); Mean Platelet Volume 9.4 fl (7.4-10.4); Monocytes Absolute Auto 0.6 K/mm3 (0.1-0.6); Monocytes Percent Auto 5.4 % (2.6-8.5); Neutrophils Absolute Auto 7.7 K/mm3 (1.3-6.7); Neutrophils Percent Auto 65.4 % (45.5-73.1); Platelet Count Result 340 k/mm3 (150-375); Red Blood Count 5.13 M/mm3 (4.6-6.20); Red Cell Distribution Width 12.9 % (11.5-14.5); White Blood Count 11.7 K/mm3 (4.5-10.0)
[2024-03-20 19:07] LABS: Alanine Aminotransferase 33 U/L (6-50); Albumin Level 4.2 g/dL (3.5-5.1); Alkaline Phosphatase 70 U/L (38-126); Anion Gap 9 mmol/L (4-12); Aspartate Amino Transferase 26 U/L (17-59); Bilirubin,Total 0.4 mg/dL (0.2-1.3); Blood Urea Nitrogen 15 mg/dL (9-20); Calcium 9.9 mg/dL (8.4-10.2); Carbon Dioxide 26 mmol/L (22-30); Chloride 103 mmol/L (98-107); Estimated CRCL calculation 94 ml/min; Estimated Glomerular Filt Rate > 60; Glucose 114 mg/dL (65-110); Lipase 244 U/L (23-300); Potassium 3.6 mmol/L (3.4-5.0); Sodium 138 mmol/L (137-145)
[2024-03-20 19:17] LABS: INR 0.9; Prothrombin Time 12.4 Seconds (11.1-14.7)
[2024-03-20 19:18] LABS: Troponin I < 0.012 ng/mL (0.000-0.034)
[2024-03-20 19:40] LABS: Influenza A QL RT-PCR Negative (Negative); Influenza B QL RT-PCR Negative (Negative); RSV RNA, RT-PCR Negative (Negative); SARS-CoV-2 RNA PCR Negative (Negative)
--- NOTE | 2024-03-20 20:29 | ED.CHESTPAIN ---
HPI - Chest Pain General Chief Complaint: Chest Pain Stated Complaint: cp, immune sys heating up tingling in lips Time Seen by Provider: 03/20/24 19:32 Source: patient Mode of arrival: ambulatory Limitations: no limitations History of Present Illness HPI narrative: This is a 49-year-old male, with history of GERD, hypertension and stroke, who presents emergency department complaining of mild chest tightness lip tingling and a sensation his neck and right arm and hand ?heating up?. The patient states he was smoking cheese at the time. He states he took his albuterol inhaler with improvement. He has no other complaints at this time. Related Data Home Medications Medication Instructions Recorded Confirmed aspirin 81 mg tablet,delayed 81 mg PO DAILY 06/28/23 03/13/24 release (Adult Low Dose Aspirin) nebivolol 10 mg tablet (Bystolic) 10 mg PO DAILY 03/13/24 03/13/24 pantoprazole 40 mg tablet,delayed mg PO 03/13/24 03/13/24 release Allergies Allergy/AdvReac Type Severity Reaction Status Date / Time Beta-Blockers AdvReac Intermediate Numbness Verified 03/20/24 18:25 (Beta-Adrenergic Bloc Review of Systems Review of Systems: All systems reviewed & are unremarkable except as noted in HPI and below PMFSH Past Medical History Medical History Allergic rhinitis Alternating constipation and diarrhea Amblyopia of eye MATILDA positive Chest pain, unspecified Closed left arm fracture Elevated antinuclear antibody (MATILDA) level Essential (primary) hypertension GERD (gastroesophageal reflux disease) History of stroke Hypercholesteremia Hypertension Intertrigo Joint pain Kidney stone Left facial numbness Nicotine dependence Numbness and tingling in both hands Numbness and tingling of both lower extremities Otitis media Rib pain on left side Septo-optic dysplasia of brain SOB (shortness of breath) on exertion Subcutaneous cyst Tinnitus Ulnar neuropathy at elbow of left upper extremity Vision abnormalities Surgical History Surgical History History of eye surgery Left History of foot surgery Left Family History Family History Father , Who is the patient's great aunt or distant cousin Hypertension Alcoholism Heart disease Mother Hypertension Mother Unknown family medical history Father Unknown family medical history Sibling Healthy adult Social History Social History Social History: The patient lives in an apartment. He has a 65-year-old roommate has had a stroke that he helps provide care for. He has 2 large dogs. 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 He is single and has never been . He does not have any children. He has smoked 2 packs per day since he was 18 years old. He drinks alcohol quite heavily. He was drinking up to a 12 pack of beer per day. He reports that in September of 2022 he cut back to drinking 3-7 beers every couple of days. He denies illicit substance use. Code status: Full code Surrogate decision maker: Deena Hester (sister) Caffeine-coffee Smoking packs per day: 1 Smoking cigarettes per day: 20.0 Years smoked: 29 Smoking pack-years: 29.00 Smoking status: Current every day smoker Tobacco type: cigarettes Second hand tobacco smoke exposure: Yes Alcohol intake: current Drinks per week: 3 Substance use: never Substance use type: does not use Do You Feel Safe in your Home?: Yes Lack of Transportation: No Lack of Food: Never True Current Housing: I Have Housing Concerned About Future Housing: No Difficulty Paying Gas/Electric Bills: No Difficulty Paying for Meds: No Currently Unemployed: No Education: Trade/Vocational Certificate Difficulty w/ Childcare or Family Care: No Living arrangements: with roommate(s) Occupation/Education: occupation Additional occupation/education comments: [employer]. Gender identity (if verbalized by the patient): Male Spiritual care concerns: No Exam Narrative: GENERAL: Well-developed, well-nourished, and in no acute distress. HEAD: Normocephalic, atraumatic. EYES: PERRLA and EOMI. CHEST: Clear to auscultation. No respiratory distress. No wheezes rales or rhonchi HEART: Regular rate and rhythm. No murmur heard. Normal peripheral pulses. ABDOMEN: Soft, nontender, nondistended, normal active bowel sounds. EXTREMITIES: Normal range of motion. No edema. SKIN: Warm, dry, no rash. NEURO: Alert and oriented x3. No focal deficit. Moving all 4 limbs spontaneously PSYCH: Normal mood and affect. Course Course Emergency Course: 20:44 - CBC demonstrates elevated white blood cell count of 11.7 but is otherwise unremarkable. Chemistries unremarkable with an initial negative troponin. The patient tested negative for influenza, COVID and RSV. Chest x-ray unremarkable. EKG not concerning for ischemia. Chart review shows the patient has had 2- stress test, the most recent one in May of this year. Heart score 3. Considering his previous negative stress tests my suspicion for ACS is decreased. The patient smells of wood smoke. He states he has been present near by a smoker throughout the day today. I suspect some of his and may be related to carbon monoxide exposure. I had a shared decision-making conversation with the patient regarding observation verses repeat troponin and carbon monoxide testing. The patient opts for the latter. 21:46 - I was informed by nursing staff that the patient which to leave against medical advice. This was shortly after the patient refused an ABG due to fear of needles. 22:00 - Repeat troponin negative. Vital Signs Vital signs: Vital Signs Temperature 98 F 03/20/24 18:26 Pulse Rate 84 03/20/24 18:26 Respiratory Rate 16 03/20/24 18:26 Blood Pressure 145/80 H 03/20/24 18:26 Pulse Oximetry 98 03/20/24 18:26 Temperature 98 F 03/20/24 18:26 Pulse Rate 83 03/20/24 21:01 Respiratory Rate 20 03/20/24 21:01 Blood Pressure 133/90 03/20/24 21:01 Pulse Oximetry 95 03/20/24 21:01 Oxygen Delivery Room Air 03/20/24 19:36 MDM - Chest Pain MDM Narrative Medical decision making narrative: Plan: Labs, EKG, troponin, reassess Differential Diagnosis Differential diagnosis: Likely other (ACS, costochondritis, COPD, asthma, carbon monoxide exposure, metabolic abnormality, other) Lab Data 03/20/24 18:44 03/20/24 18:44 Labs: Lab Results 03/20/24 03/20/24 03/20/24 Range/Units 18:44 19:01 21:26 WBC 11.7 H (4.5-10.0) K/mm3 RBC 5.13 (4.6-6.20) M/mm3 Hgb 15.9 (14.0-18.0) g/dL Hct 46.9 (42.0-52.0) % MCV 91.4 (80-100) fl MCH 31.0 (26-34) pg MCHC 33.9 (32-36) g/dl RDW 12.9 (11.5-14.5) % Plt Count 340 (150-375) k/mm3 MPV 9.4 (7.4-10.4) fl Immature Gran % (Auto) 0.3 (0-0.5) % Neut % (Auto) 65.4 (45.5-73.1) % Lymph % (Auto) 26.7 (18.3-44.2) % [place] % (Auto) 5.4 (2.6-8.5) % Eos % (Auto) 2.0 (0-4.4) % Baso % (Auto) 0.2 (0.2-1.2) % Lymph # (Auto) 3.13 (0.9-3.2) K/mm3 [place] # (Auto) 0.6 (0.1-0.6) K/mm3 Eos # (Auto) 0.2 (0-0.3) K/mm3 Baso # (Auto) 0.0 (0.0-0.1) K/mm3 Abs Immat Gran (auto) 0.04 H (0.00-0.031) K/mm3 Absolute Neuts (auto) 7.7 H (1.3-6.7) K/mm3 Absolute Nucleated RBC 0.000 (0.0-0.012) K/mm3 Nucleated RBC % 0.0 (0.0-0.2) % PT 12.4 (11.1-14.7) Seconds INR 0.9 APTT 26.0 (22.3-36.8) Seconds Sodium 138 (137-145) mmol/L Potassium 3.6 (3.4-5.0) mmol/L Chloride 103 (98-107) mmol/L Carbon Dioxide 26 (22-30) mmol/L Anion Gap 9 (4-12) mmol/L BUN 15 (9-20) mg/dL Creatinine 1.10 (0.7-1.3) mg/dL Estim Creat Clear Calc 94 ml/min Estimated GFR > 60 (59 - ) Glucose 114 H (65-110) mg/dL Calcium 9.9 (8.4-10.2) mg/dL Total Bilirubin 0.4 (0.2-1.3) mg/dL AST 26 (17-59) U/L ALT 33 (6-50) U/L Alkaline Phosphatase 70 (38-126) U/L Troponin I < 0.012 < 0.012 (0.000-0.034) ng/mL Total Protein 8.0 (6.3-8.2) g/dL Albumin 4.2 (3.5-5.1) g/dL Lipase 244 (23-300) U/L Influenza A (RT-PCR) Negative (Negative) Influenza B (RT-PCR) Negative (Negative) RSV (RT-PCR) Negative (Negative) SARS-CoV-2 RNA (RT-PCR) Negative (Negative) Discharge Plan Discharge Clinical Impression: Chest pain, unspecified Qualifiers: Chest pain type: unspecified Qualified Code(s): R07.9 - Chest pain, unspecified Patient Disposition: Left Against Medical Advice Condition: Stable Instructions: Chest Pain (ED) Additional Instructions: You were seen in the emergency department. Your labs are not concerning for injury to the heart. A chest x-ray was not concerning infection. You tested negative for COVID and influenza. If you develop new or worsening chest pain, loss of consciousness, shortness of breath, or if you have other emergent concerns for life, limb, or eyesight, return to the emergency department. Patient Language: Belarusian Prescriptions: No Action aspirin [Adult Low Dose Aspirin] 81 mg tablet,delayed release (DR/EC) 81 mg PO DAILY nebivolol [Bystolic] 10 mg tablet 10 mg PO DAILY pantoprazole 40 mg tablet,delayed release (DR/EC) PO albuterol sulfate 90 mcg/actuation HFA aerosol inhaler 2 puff inhalation Q4H PRN (Reason: shortness of breath or wheezing) Qty: 8.5 0RF valsartan-hydrochlorothiazide 160-25 mg tablet See Rx Instructions .ROUTE .COMPLEX Qty: 90 1RF Dose Instruction: TAKE 1 TABLET BY MOUTH DAILY Rx Instructions: TAKE 1 TABLET BY MOUTH DAILY Follow-up/Referrals: José Pena DO [Primary Care Provider] - 2 Weeks Time of Disposition: 21:46
--- NOTE | 2024-03-20 21:21 | ECG_ITS ---
Test Date: 2024-03-20 21:28:41 Measurements Intervals [place] Rate: 78 P: 5 DE: 172 QRS: 19 QRSD: 93 T: 87 QT: 347 QTc: 395 Interpretive Statements SINUS RHYTHM NONSPECIFIC ST & T-WAVE ABNORMALITY Compared to ECG 03/20/2024 18:31:42 NO SIGNIFICANT CHANGES Electronically Signed On 03-21-2024 15:31:00 CDT by Hamilton Lanier M.D.
--- NOTE | 2024-03-20 21:48 | PCRCNOTE ---
Patient refused Arterial blood Gas stick. Patient was very nervous of needles and refused to have ABG completed. Dr. Torrez and nurse aware.
[2024-03-20 21:53] LABS: Troponin I < 0.012 ng/mL (0.000-0.034)
== END 2024-03-20 21:43 | disposition left against medical advice (07) ==
PROVIDERS: Family Medicine; Emergency Provider Preventive Medicine Aerospace Medicine; PCP Internal Medicine
DX: R07.89 Other chest pain (principal); Z20.822 Contact with and (suspected) exposure to COVID-19; I10 Essential (primary) hypertension; E78.00 Pure hypercholesterolemia, unspecified; K21.9 Gastro-esophageal reflux disease without esophagitis; F17.210 Nicotine dependence, cigarettes, uncomplicated; Z86.73 Personal history of transient ischemic attack (TIA), and cerebral infarction without residual deficits; Z87.442 Personal history of urinary calculi; Z79.82 Long term (current) use of aspirin; R94.31 Abnormal electrocardiogram [ECG] [EKG]
CPT/HCPCS: 36415; 71046; 80053; 83690; 84484; 85025; 85610; 85730; 87637; 93005; 99284

== ENCOUNTER 2024-04-07 12:31 | Outpatient (CLI) | payer OTHER, SELFPAY | END 2024-04-07 12:32 | disposition home or self-care (01) | LOC: ANHPFT 12:34 | PROVIDERS: PCP Internal Medicine; Visit Provider Nurse Practitioner Family | DX: R06.09 Other forms of dyspnea (principal) | CPT/HCPCS: 94060; 94726; 94729 ==

== ENCOUNTER 2024-05-05 01:06 | Day surgery (SDC) | payer OTHER, SELFPAY ==
[2024-04-14 13:00] VITALS: BMI 37.3
[2024-05-05 06:52] VITALS: BP 143/87; PULSE 72; TEMP 35.9; O2SAT 98
[2024-05-05] MEDS: LACTATED RINGERS 1,000 ML 150 ML IV CONT (07:07)
--- NOTE | 2024-05-05 07:45 | WPDANESEPPF ---
Anes - Initial Pre Proc Eval Procedure: Operation Date: 05/05/24 08:00 Proposed Procedures p Esophagogastroduodenoscopy & Colonoscopy - Davin Calvert MD Date/Time: 05/05/24 07:45 Surgeon: Davin Calvert MD Pre Op Diagnosis: Colitis/GERD Patient Data Age: 49 Gender: M Height: 1.78 m Weight: 114.8 kg Last Vital Signs Temp 96.7 F L 05/05/24 06:52 Pulse 72 05/05/24 06:52 BP 143/87 H 05/05/24 06:52 Pulse Ox 98 05/05/24 06:52 O2 Del Method Room Air 05/05/24 06:52 Allergies Allergy/AdvReac Type Severity Reaction Status Date / Time Beta-Blockers AdvReac Intermediate Numbness Verified 05/05/24 06:50 (Beta-Adrenergic Bloc Home Medications Medication Instructions Recorded Confirmed Type aspirin 81 mg tablet,delayed 81 mg PO DAILY 06/28/23 05/05/24 History release (Adult Low Dose Aspirin) valsartan 160 See Rx Instructions .Route 11/19/23 05/05/24 Rx mg-hydrochlorothiazide 25 mg tablet .COMPLEX #90 tabs pantoprazole 40 mg tablet,delayed 40 mg PO DAILY 03/13/24 05/05/24 History release nebivolol 10 mg tablet See Rx Instructions .Route 03/24/24 05/05/24 Rx .COMPLEX #90 tabs albuterol sulfate 90 mcg/actuation 2 puff inhalation Q4H PRN 04/18/24 05/05/24 Rx aerosol inhaler shortness of breath or wheezing #8.5 grams Patient hx anesthesia problems: none Family hx anesthesia problems: none Results Review: All pre-operative results and documents have been reviewed as part of the pre-operative evaluation. [facility] Past Medical History Medical History (Updated 03/31/24 @ 07:38 by Zayra Ferris APN-C) Allergic rhinitis Alternating constipation and diarrhea Amblyopia of eye MATILDA positive Chest pain, unspecified Closed left arm fracture Elevated antinuclear antibody (MATILDA) level Essential (primary) hypertension GERD (gastroesophageal reflux disease) History of stroke Hoarseness of voice Hypercholesteremia Hypertension Intertrigo Joint pain Kidney stone Left facial numbness Loose stools Nicotine dependence Numbness and tingling in both hands Numbness and tingling of both lower extremities Otitis media Rectal pain Rib pain on left side Septo-optic dysplasia of brain SOB (shortness of breath) on exertion Subcutaneous cyst Tinnitus Ulnar neuropathy at elbow of left upper extremity Vision abnormalities Surgical History Surgical History History of eye surgery Left History of foot surgery Left Family History Family History Father , Who is the patient's great aunt or distant cousin Hypertension Alcoholism Heart disease Mother Hypertension Mother Unknown family medical history Father Unknown family medical history Sibling Healthy adult Social History Social History Social History: The patient lives in an apartment. He has a 65-year-old roommate has had a stroke that he helps provide care for. He has 2 large dogs. 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 He is single and has never been . He does not have any children. He has smoked 2 packs per day since he was 18 years old. He drinks alcohol quite heavily. He was drinking up to a 12 pack of beer per day. He reports that in September of 2022 he cut back to drinking 3-7 beers every couple of days. He denies illicit substance use. Code status: Full code Surrogate decision maker: Deena Hester (sister) Caffeine-coffee Smoking packs per day: 1.5 Smoking cigarettes per day: 30.0 Years smoked: 29 Smoking pack-years: 43.50 Smoking status: Current every day smoker Tobacco type: cigarettes Second hand tobacco smoke exposure: Yes Alcohol intake: current Drinks per week: 6 Substance use: never Substance use type: does not use Do You Feel Safe in your Home?: Yes Lack of Transportation: No Lack of Food: Never True Current Housing: I Have Housing Concerned About Future Housing: No Difficulty Paying Gas/Electric Bills: No Difficulty Paying for Meds: No Currently Unemployed: No Education: Trade/Vocational Certificate Difficulty w/ Childcare or Family Care: No Living arrangements: alone Occupation/Education: occupation Additional occupation/education comments: [employer]. Gender identity (if verbalized by the patient): Male Spiritual care concerns: No Anes - Eval Final PreProcedure Day of Procedure 05/05/24 07:45 Patient weight: obese Heart: regular rate and rhythm Lungs: clear to auscultation Airway: Mallampati scale class III Neurological: alert and oriented Last oral intake: >/= 8 hours ASA classification: III Emergent: no Anesthetic plan: proceed Anesthesia type and monitoring: general GIVS and standard monitoring Results Review: All pre-operative results and documents have been reviewed as part of the pre-operative evaluation. Informed Consent: The patient's anesthetic plan and its attendant risks and benefits were discussed with the patient/family/POA. Questions were solicited and answers provided to the satisfaction of the patient/family/POA.
--- NOTE | 2024-05-05 07:57 | PM.IMHP ---
H&P: HPI History of Present Illness Date/Time: 05/05/24 07:57 Chief Complaint: GERD/ dysphagia- history of colonic erosions Narrative: the patient has been experiencing intermittent dysphagia to solids. 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 He continues to take pantoprazole but complains of intermittent dysphagia and a constant need for belching. In addition, he has irregular bowel movements with a tendency to have diarrhea, and was found to have a slightly elevated calprotectin (131) . Of note, his colonoscopy performed in November 2022 showed scattered erosions throughout the colon that were thought to be caused by NSAID ingestion. Review of Systems Review of Systems: All systems reviewed & are unremarkable except as noted in HPI and below PMFSH Past Medical History Medical History (Updated 05/05/24 @ 08:00 by Davin Calvert MD) Allergic rhinitis Alternating constipation and diarrhea Amblyopia of eye MATILDA positive Chest pain, unspecified Closed left arm fracture Elevated antinuclear antibody (MATILDA) level Essential (primary) hypertension GERD (gastroesophageal reflux disease) History of stroke Hoarseness of voice Hypercholesteremia Hypertension Intertrigo Joint pain Kidney stone Left facial numbness Loose stools Nicotine dependence Numbness and tingling in both hands Numbness and tingling of both lower extremities Otitis media Rectal pain Rib pain on left side Septo-optic dysplasia of brain SOB (shortness of breath) on exertion Subcutaneous cyst Tinnitus Ulnar neuropathy at elbow of left upper extremity Vision abnormalities Surgical History Surgical History History of eye surgery Left History of foot surgery Left Family History Family History Father , Who is the patient's great aunt or distant cousin Hypertension Alcoholism Heart disease Mother Hypertension Mother Unknown family medical history Father Unknown family medical history Sibling Healthy adult Social History Social History Social History: The patient lives in an apartment. He has a 65-year-old roommate has had a stroke that he helps provide care for. He has 2 large dogs. 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 He is single and has never been . He does not have any children. He has smoked 2 packs per day since he was 18 years old. He drinks alcohol quite heavily. He was drinking up to a 12 pack of beer per day. He reports that in September of 2022 he cut back to drinking 3-7 beers every couple of days. He denies illicit substance use. Code status: Full code Surrogate decision maker: Deena Hester (sister) Caffeine-coffee Smoking packs per day: 1.5 Smoking cigarettes per day: 30.0 Years smoked: 29 Smoking pack-years: 43.50 Smoking status: Current every day smoker Tobacco type: cigarettes Second hand tobacco smoke exposure: Yes Alcohol intake: current Drinks per week: 6 Substance use: never Substance use type: does not use Do You Feel Safe in your Home?: Yes Lack of Transportation: No Lack of Food: Never True Current Housing: I Have Housing Concerned About Future Housing: No Difficulty Paying Gas/Electric Bills: No Difficulty Paying for Meds: No Currently Unemployed: No Education: Trade/Vocational Certificate Difficulty w/ Childcare or Family Care: No Living arrangements: alone Occupation/Education: occupation Additional occupation/education comments: [employer]. Gender identity (if verbalized by the patient): Male Spiritual care concerns: No Meds Home Medications and Allergies Home Medications Medication Instructions Recorded Confirmed Type aspirin 81 mg tablet,delayed 81 mg PO DAILY 06/28/23 05/05/24 History release (Adult Low Dose Aspirin) valsartan 160 See Rx Instructions .Route 11/19/23 05/05/24 Rx mg-hydrochlorothiazide 25 mg tablet .COMPLEX #90 tabs pantoprazole 40 mg tablet,delayed 40 mg PO DAILY 03/13/24 05/05/24 History release nebivolol 10 mg tablet See Rx Instructions .Route 03/24/24 05/05/24 Rx .COMPLEX #90 tabs albuterol sulfate 90 mcg/actuation 2 puff inhalation Q4H PRN 04/18/24 05/05/24 Rx aerosol inhaler shortness of breath or wheezing #8.5 grams Allergies Allergy/AdvReac Type Severity Reaction Status Date / Time Beta-Blockers AdvReac Intermediate Numbness Verified 05/05/24 06:50 (Beta-Adrenergic Bloc Vital Signs Vital Signs - 24 hr 05/05/24 06:52 Temperature 96.7 F L Pulse Rate 72 Blood Pressure 143/87 H Pulse Oximetry 98 Oxygen Delivery Room Air Exam Const: General: cooperative and healthy appearing Resp: Effort & Inspection: normal respiratory effort and able to speak in complete sentences Auscultation: clear to auscultation bilaterally Cardio: Rate: regular rate Rhythm: regular rhythm GI: Inspection: normal to inspection GI Palp: No No hepatosplenomegaly present Auscultation: normal bowel sounds Rectal Exam: deferred Skin: General skin exam: normal color Psych: Appearance: grossly normal Mental Status: mental status grossly normal Assessment and Plan Assessment and plan (1) Loose stools: Code(s): R19.5 - Other fecal abnormalities Status: Acute (2) GERD (gastroesophageal reflux disease): Qualifiers: Esophagitis presence: esophagitis presence not specified Qualified Code(s): K21.9 - Gastro-esophageal reflux disease without esophagitis Code(s): K21.9 - Gastro-esophageal reflux disease without esophagitis Status: Acute Assessment and Plan: The patient is deemed a good candidate for EGD and colonoscopy. Consents signed. Will proceed. (3) Dysphagia: Code(s): R13.10 - Dysphagia, unspecified Status: Acute
--- NOTE | 2024-05-05 08:30 | SUR.OPER ---
EGD ended 821 and colonoscopy started 828
[2024-05-05] MEDS: SIMETHICONE ORAL SUSPENSION 20 MG/0.3 ML 30 ML BOTTLE 0.6 ML IRRIGATION (08:35)
[2024-05-05 08:51] VITALS: BP 128/84; PULSE 76; RESP 20; O2SAT 96
[2024-05-05 09:01] VITALS: BP 139/85; PULSE 71; RESP 15; O2SAT 98
[2024-05-05 09:11] VITALS: BP 145/104; PULSE 66; RESP 23; O2SAT 100
== END 2024-05-05 09:25 | disposition home or self-care (01) ==
PROVIDERS: PCP Internal Medicine; Referring Provider Nurse Practitioner Family; Visit Provider Internal Medicine Gastroenterology
PROC: 0DJ08ZZ Inspection of Upper Intestinal Tract, Via Natural or Artificial Opening Endoscopic (ICD-10-PCS; CPT 43235; principal; 2024-05-05 08:00)
DX: K21.9 Gastro-esophageal reflux disease without esophagitis (principal); K29.51 Unspecified chronic gastritis with bleeding; K52.9 Noninfective gastroenteritis and colitis, unspecified; I10 Essential (primary) hypertension; E78.00 Pure hypercholesterolemia, unspecified; Q04.4 Septo-optic dysplasia of brain; F17.210 Nicotine dependence, cigarettes, uncomplicated; E66.9 Obesity, unspecified; Z68.36 Body mass index [BMI] 36.0-36.9, adult; Z79.82 Long term (current) use of aspirin; Z79.51 Long term (current) use of inhaled steroids; Z98.890 Other specified postprocedural states; Z87.442 Personal history of urinary calculi; Z87.19 Personal history of other diseases of the digestive system; Z86.73 Personal history of transient ischemic attack (TIA), and cerebral infarction without residual deficits; Z82.49 Family history of ischemic heart disease and other diseases of the circulatory system
CPT/HCPCS: 45380; 43239; 88305; J2003; J2704; J7120

== ENCOUNTER 2024-05-09 12:27 | Outpatient (CLI) | payer OTHER, SELFPAY ==
--- OUTSIDE RECORDS SUMMARY | 2024-05-09 13:05 | XMS_ITS | CONTINUITY OF CARE DOCUMENT ---
Author Name bandar portillo Address Unknown Organization [facility] Address [address] [place] [address] Phone [phone] Care Team Providers Care Lehr Cutter Name Role Phone Nathanael Johnson MD Unavailable [phone] SERENA ARTEAGA DO Unavailable [phone] SERENA ARTEAGA DO Unavailable [phone] INSURANCE PROVIDERS Payer name Policy type / Coverage type [place] [employer] green party ID [employer] Medicaid [id number]
[2024-05-09 13:37] LABS: Hepatitis B Surface Antigen Negative (Negative)
[2024-05-09 13:55] LABS: Hepatitis B Surface Anti Res Negative
[2024-05-12 14:19] LABS: Hepatitis B Core Ab Total NON-REACTIVE (NON-REACTIVE)
[2024-05-13 14:04] LABS: NIL 0.06 IU/mL; Quantiferon TB Plus, 1T NEGATIVE (NEGATIVE); TB1-NIL 0.01 IU/mL; TB2-NIL 0.01 IU/mL
[2024-05-14 20:13] LABS: Varicella IgG Antibody 7.11 S/CO
[2024-05-14 20:52] LABS: Varicella IgM Antibody 0.19
[2024-05-16 17:58] LABS: TPMT Activity 19
== END 2024-05-09 12:28 | disposition home or self-care (01) ==
LOC: ANHLAB 12:29
PROVIDERS: PCP Internal Medicine; Visit Provider Nurse Practitioner Family
DX: K50.90 Crohn's disease, unspecified, without complications (principal); Z79.899 Other long term (current) drug therapy; Z11.59 Encounter for screening for other viral diseases; Z12.11 Encounter for screening for malignant neoplasm of colon
CPT/HCPCS: 36415; 82657; 86480; 86704; 86706; 86787; 87340

== ENCOUNTER 2024-05-27 12:59 | Outpatient (CLI) | payer OTHER, SELFPAY ==
--- NOTE | ~2024-05-27 | MR_ITS ---
MRI of the brain Clinical History: Septo-optic dysplasia Technique: Axial and sagittal T1-weighted images were acquired. These were followed by axial T2-weigh josemanuel, diffusion weighted, gradient, and FLAIR images. Following intravenous administration of 20 cc Mu ltiHance gadolinium, T1-weighted fat-sat imaging was performed in the axial and coronal planes. COMPARISON: 06/29/2023 Findings: There is no acute infarct, intracranial hemorrhage, or mass lesion. Stable focal subcortica l white matter lesions on FLAIR imaging, predominantly in the right frontal lobe. Ventricles and subarachnoid spaces are unchanged. Absent septum pellucidum again noted. Suggestion of small left optic nerve, unchanged. Paranasal sinuses and mastoid air cells are clear. Major intracra nial flow voids are intact. Sagittal midline structures are otherwise intact. No abnormal postcontrast enhancement identified. IMPRESSION: Stable findings compatible with septo-optic dysplasia. Reviewed, dictated and finalized at [facility]. ARYNGOLOGY PHYSICIAN
== END 2024-05-27 13:00 | disposition home or self-care (01) ==
PROVIDERS: PCP Internal Medicine; Visit Provider Internal Medicine
DX: Q04.4 Septo-optic dysplasia of brain (principal); R51.9 Headache, unspecified
CPT/HCPCS: 70553; A9577

== ENCOUNTER 2024-06-09 17:42 | Emergency (ER) | payer OTHER, SELFPAY ==
--- NOTE | ~2024-06-09 | XR_ITS ---
CHEST RADIOGRAPH, PA AND LATERAL CLINICAL HISTORY: cough, congestion . COMPARISON: 03/20/2024 TECHNIQUE: PA and lateral views of the chest. FINDINGS The cardiomediastinal silhouette is unremarkable. The lungs are clear. Visualized osseous structures and soft tissues are unremarkable. IMPRESSION: No focal infiltrate or effusion. Reviewed, dictated and finalized at location A. TOR SUPERVISOR
[2024-06-09 18:05] VITALS: BP 140/84; PULSE 77; RESP 18; TEMP 36.9; O2SAT 100
--- NOTE | 2024-06-09 18:25 | ED_ITS ---
HPI - URI/Sore Throat General Chief Complaint: Upper Respiratory Infection <Deena Elena PA-C - Last Filed: 06/09/24 18:33> Stated Complaint: I just want tested for COVID <Deena Elena PA-C - Last Filed: 06/09/24 18:33> Time Seen by Provider: 06/09/24 18:25 <Deena Elena PA-C - Last Filed: 06/09/24 18:33> Focused HPI: Patient is a 49-year-old male who presents the ED with URI symptoms. Patient reports having cough, congestion, sinus pressure/drainage, chills over the last few days. Is concerned he may have COVID. Wanting to be tested for COVID. Reported to triage nurse that he lost his sense of smell today. Denies known fevers. Denies chest pain or shortness of breath. Denies nausea, vomiting. GENERAL: Well-appearing, obese with BMI of 35.4, and in no acute distress. HEAD: Normocephalic, atraumatic. CHEST: Clear to auscultation. ?No respiratory distress. No focal lung sounds. HEART: Regular rate and rhythm.? NEURO: ?Alert and oriented x3. Patient screened in triage and initial orders placed.? ?Additional care and disposition to be based upon?diagnostic testing and treatment. <Deena Elena PA-C - Last Filed: 06/09/24 18:33> Focused HPI: Patient is a 49-year-old male who presents the ED with URI symptoms. Patient reports having cough, congestion, sinus pressure/drainage, chills over the last few days. Is concerned he may have COVID. Wanting to be tested for COVID. Reported to triage nurse that he lost his sense of smell today. Denies known fevers. Denies chest pain or shortness of breath. Denies nausea, vomiting. GENERAL: Well-appearing, obese with BMI of 35.4, and in no acute distress. HEAD: Normocephalic, atraumatic. CHEST: Clear to auscultation. ?No respiratory distress. No focal lung sounds. HEART: Regular rate and rhythm.? NEURO: ?Alert and oriented x3. Patient screened in triage and initial orders placed.? ?Additional care and disposition to be based upon?diagnostic testing and treatment. Agree with triage assessment. Patient states that symptoms started approximately 48 hours ago. <Irina Kiser MD - Last Filed: 06/09/24 19:56> Source: patient <Deena Elena PA-C - Last Filed: 06/09/24 18:33> Mode of arrival: ambulatory <Deena Elena PA-C - Last Filed: 06/09/24 18:33> Limitations: no limitations <TAB Nava Last Filed: 06/09/24 18:33> Related Data Home Medications: Home Medications ?Medication ?Instructions ?Recorded ?Confirmed ?Last Taken ?Type aspirin 81 mg tablet,delayed 81 mg PO DAILY 06/28/23 05/14/24 05/04/24 07:30 History release (Adult Low Dose Aspirin) pantoprazole 40 mg tablet,delayed 40 mg PO DAILY 03/13/24 05/14/24 05/04/24 07:30 History release <Deena Elena PA-C - Last Filed: 06/09/24 18:33> Allergies/Adverse Reactions: Allergies Allergy/AdvReac Type Severity Reaction Status Date / Time Beta-Blockers AdvReac Intermediate Numbness Verified 06/09/24 18:08 (Beta-Adrenergic Bloc <Deena Elena PA-C - Last Filed: 06/09/24 18:33> Review of Systems Review of Systems: All systems are reviewed and are negative unless stated otherwise in the HPI. <Irina Kiser MD - Last Filed: 06/09/24 19:56> PMFSH Past Medical History Medical History: Medical History High risk medication use Need for hepatitis B screening test Crohn's disease Hoarseness of voice Loose stools Rectal pain Alternating constipation and diarrhea Intertrigo MATILDA positive Subcutaneous cyst Numbness and tingling of both lower extremities Numbness and tingling in both hands Otitis media History of stroke Left facial numbness Septo-optic dysplasia of brain Elevated antinuclear antibody (MATILDA) level Vision abnormalities Joint pain SOB (shortness of breath) on exertion Rib pain on left side Tinnitus GERD (gastroesophageal reflux disease) Allergic rhinitis Essential (primary) hypertension Amblyopia of eye Ulnar neuropathy at elbow of left upper extremity Nicotine dependence Chest pain, unspecified Closed left arm fracture Kidney stone Hypercholesteremia Hypertension <Deena Elena PA-C - Last Filed: 06/09/24 18:33> Surgical History Surgical History: Surgical History History of eye surgery Left History of foot surgery Left <Deena Elena PA-C - Last Filed: 06/09/24 18:33> Family History Family History: Family History Father , Who is the patient's great aunt or distant cousin Hypertension Alcoholism Heart disease Mother Hypertension Mother Unknown family medical history Father Unknown family medical history Sibling Healthy adult <Deena Elena PA-C - Last Filed: 06/09/24 18:33> Social History Social History: Social History Social History: The patient lives in an apartment. He has a 65-year-old roommate has had a stroke that he helps provide care for. He has 2 large dogs. 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 He is single and has never been . He does not have any children. He has smoked 2 packs per day since he was 18 years old. He drinks alcohol quite heavily. He was drinking up to a 12 pack of beer per day. He reports that in September of 2022 he cut back to drinking 3-7 beers every couple of days. He denies illicit substance use. Code status: Full code Surrogate decision maker: Deena Hester (sister) Caffeine-coffee Smoking packs per day: 2 Smoking cigarettes per day: 40.0 Years smoked: 29 Smoking pack-years: 58.00 Smoking status: Current every day smoker Tobacco type: cigarettes Second hand tobacco smoke exposure: Yes Alcohol intake: current Drinks per week: 6 Substance use: never Substance use type: does not use Do You Feel Safe in your Home?: Yes Lack of Transportation: No Lack of Food: Never True Current Housing: I Have Housing Concerned About Future Housing: No Difficulty Paying Gas/Electric Bills: No Difficulty Paying for Meds: No Currently Unemployed: No Education: Trade/Vocational Certificate Difficulty w/ Childcare or Family Care: Decline to Answer Living arrangements: alone Occupation/Education: occupation Additional occupation/education comments: [employer]. Gender identity (if verbalized by the patient): Male Spiritual care concerns: No <Deena Elena PA-C - Last Filed: 06/09/24 18:33> Exam Narrative: General: Alert, awake, afebrile, in no acute distress. HEENT: PERRL, no rhinorrhea, no post nasal drip, oropharynx clear. Neck: Trachea midline, no JVD, no lymphadenopathy. Cardiovascular: Regular rate and rhythm, no murmurs, rubs or gallops, no peripheral edema. Respiratory: Clear to auscultation bilaterally, no tachypnea, no wheezing, no rhonchi, no rubs, no respiratory distress. Abdomen: Soft, nontender, nondistended, no rebound, no guarding, no peritoneal signs. Musculoskeletal: No joint swelling or deformity, normal muscle tone. Skin: No rashes or petechia, no signs of infection. Psychiatric: Alert and oriented, normal behavior and judgment for situation. Neurological: Alert and oriented to person, place, and time. Follows all commands. No focal deficits, speech is clear and fluent. <Irina Kiser MD - Last Filed: 06/09/24 19:56> Course Vital Signs Vital signs: Vital Signs Temperature 98.5 F 06/09/24 18:05 Pulse Rate 77 06/09/24 18:05 Respiratory Rate 18 06/09/24 18:05 Blood Pressure 140/84 06/09/24 18:05 Pulse Oximetry 100 06/09/24 18:05 Oxygen Delivery Room Air 06/09/24 18:05 Temperature 98.2 F 06/09/24 19:24 Pulse Rate 77 06/09/24 19:24 Respiratory Rate 18 06/09/24 19:24 Blood Pressure 143/102 H 06/09/24 19:24 Pulse Oximetry 100 06/09/24 19:27 Oxygen Delivery Room Air 06/09/24 19:27 <Deena Elena PA-C - Last Filed: 06/09/24 18:33> Vital Signs Temperature 98.5 F 06/09/24 18:05 Pulse Rate 77 06/09/24 18:05 Respiratory Rate 18 06/09/24 18:05 Blood Pressure 140/84 06/09/24 18:05 Pulse Oximetry 100 06/09/24 18:05 Oxygen Delivery Room Air 06/09/24 18:05 Temperature 98.2 F 06/09/24 19:24 Pulse Rate 77 06/09/24 19:24 Respiratory Rate 18 06/09/24 19:24 Blood Pressure 143/102 H 06/09/24 19:24 Pulse Oximetry 100 06/09/24 19:27 Oxygen Delivery Room Air 06/09/24 19:27 <Irina Kiser MD - Last Filed: 06/09/24 19:56> MDM - URI/Sore Throat MDM Narrative Medical decision making narrative: MSE by SONIYA in triage. <Deena Elena PA-C - Last Filed: 06/09/24 18:33> MSE by SONIYA in triage. The patient was evaluated by myself in the emergency department. History is obtained from patient who is an independent historian and physical exam was performed. External medical records were reviewed at this time. Viral swabs were obtained and did return back positive for COVID. Imaging studies obtained included CXR which was independently interpreted by me revealing no acute cardiopulmonary process, which is pending final radiology interpretation. Differential diagnosis considerations include acute viral syndrome, pneumonia, dehydration, electrolyte derangements, pharyngitis. Comorbidities impacting this visit include none. I have evaluated and discussed social determinants of health with the patient that could potentially impact subsequent diagnosis and treatment plans. On repeat assessment of the patient, reevaluation revealed that the patient is doing well and is in no acute distress. Patient symptoms have remained stable since he arrived to our emergency department. Repeat vital signs were all reviewed and noted to be stable. Differential diagnosis and treatment plan were discussed with the patient at bedside. Patient agrees with discussion and after shared medical decision making agrees with discharge. All questions were answered to the patient's satisfaction. Patient will follow up with his PCP in 3-5 days. He was provided with a script for Paxil and per his request. Patient was provided with strict return precautions and instructed to return to the emergency department if any new or worsening symptoms develop. The patient was discharged in stable condition. <Irina Kiser MD - Last Filed: 06/09/24 19:56> Lab Data Labs: Lab Results 06/09/24 Range/Units 18:10 Influenza A (RT-PCR) Negative (Negative) Influenza B (RT-PCR) Negative (Negative) RSV (RT-PCR) Negative (Negative) SARS-CoV-2 RNA (RT-PCR) Positive A (Negative) <Deena Elena PA-C - Last Filed: 06/09/24 18:33> Lab Results 06/09/24 Range/Units 18:10 Influenza A (RT-PCR) Negative (Negative) Influenza B (RT-PCR) Negative (Negative) RSV (RT-PCR) Negative (Negative) SARS-CoV-2 RNA (RT-PCR) Positive A (Negative) <Irina Kiser MD - Last Filed: 06/09/24 19:56> Discharge Plan Discharge Clinical Impression: COVID, Upper respiratory infection <Deena Elena PA-C - Last Filed: 06/09/24 18:33> Patient Disposition: Home, Self-Care <Deena Elena PA-C - Last Filed: 06/09/24 18:33> Condition: Improved <TAB Nava Last Filed: 06/09/24 18:33> Instructions: Antibiotic Form, Viral Syndrome (ED), COVID-19 (Coronavirus Disease 2019) (ED) <TAB Nava Last Filed: 06/09/24 18:33> Additional Instructions: Please follow-up with your family doctor within the next 3-5 days. Return to the emergency department for new or worsening symptoms develop. <TAB Nava Last Filed: 06/09/24 18:33> Patient Language: Pashto <TAB Nava Last Filed: 06/09/24 18:33> Prescriptions: New Paxlovid 300 mg (150 mg x 2)-100 mg tablets,dose pack See Rx Instructions .ROUTE .COMPLEX Qty: 30 0RF Rx Instructions: take TWO 150 mg tablets of nirmatrelvir with ONE 100 mg tablet of ritonavir twice daily for 5 days No Action aspirin [Adult Low Dose Aspirin] 81 mg tablet,delayed release (DR/EC) 81 mg PO DAILY pantoprazole 40 mg tablet,delayed release (DR/EC) 40 mg PO DAILY nebivolol 10 mg tablet See Rx Instructions .ROUTE .COMPLEX Qty: 90 2RF Dose Instruction: TAKE 1 TABLET BY MOUTH DAILY Rx Instructions: TAKE 1 TABLET BY MOUTH DAILY albuterol sulfate 90 mcg/actuation HFA aerosol inhaler 2 puff inhalation Q4H PRN (Reason: shortness of breath or wheezing) Qty: 8.5 3RF valsartan-hydrochlorothiazide 160-25 mg tablet See Rx Instructions .ROUTE .COMPLEX Qty: 90 1RF Dose Instruction: TAKE 1 TABLET BY MOUTH DAILY Rx Instructions: TAKE 1 TABLET BY MOUTH DAILY <Deena Elena PA-C - Last Filed: 06/09/24 18:33> Follow-up/Referrals: José Pena, [Primary Care Provider] - 3 Days <Deena Elena PA-C - Last Filed: 06/09/24 18:33> Time of Disposition: 19:50 <Deena Elena PA-C - Last Filed: 06/09/24 18:33> 19:50 <Irina Kiser MD - Last Filed: 06/09/24 19:56>
[2024-06-09 18:52] LABS: Influenza A QL RT-PCR Negative (Negative); Influenza B QL RT-PCR Negative (Negative); RSV RNA, RT-PCR Negative (Negative); SARS-CoV-2 RNA PCR Positive (Negative)
[2024-06-09 19:24] VITALS: BP 143/102; PULSE 77; RESP 18; TEMP 36.8; O2SAT 100
[2024-06-09 19:27] VITALS: O2SAT 100
[2024-06-09 20:03] VITALS: BP 137/84; PULSE 75; RESP 16; O2SAT 100
== END 2024-06-09 20:04 | disposition home or self-care (01) ==
LOC: ANHED 19:51
PROVIDERS: Physician Assistant; Emergency Provider Emergency Medicine; PCP Internal Medicine
DX: U07.1 COVID-19 (principal); J06.9 Acute upper respiratory infection, unspecified; K50.90 Crohn's disease, unspecified, without complications; K21.9 Gastro-esophageal reflux disease without esophagitis; I10 Essential (primary) hypertension; E78.00 Pure hypercholesterolemia, unspecified; F17.210 Nicotine dependence, cigarettes, uncomplicated
CPT/HCPCS: 71046; 87637; 99283

== ENCOUNTER 2024-06-24 07:04 | Outpatient (CLI) | payer OTHER, SELFPAY ==
--- OUTSIDE RECORDS SUMMARY | 2024-06-24 07:06 | XMS_ITS | Encounter Summary ---
Author Organization [facility] Address [address] [place] [address] Care Team Providers Care Repair Clerk Name Role Phone Unknown, Provider Primary Care Provider Unavaila ble Reason for Referral * Consultation (Routine) - Closed Specialty Diagnoses / Procedures Referred By Contac t Referred To Contact Neurology Diagnoses Headache Septo-optic dysplasia of brain (HCC) José Pena DO [address] [address] [place] [facility] [address] [place] [address] Referral ID Status Reason Start Date Expiration Date V isits Requested Visits Authorized [id number] Closed Specialty Services Required 04/03/2024 04/03/2025 1 1 IT UNDERWRITER Encounter Details Date Type Department Care Team (Latest Contact Info) Description 04/03/2024 Transcribe Orders [facility] - Centralized Scheduling [address] [place] [address] José Pena DO [address] [address] Nonintractable headache, unspecified chronicity pattern, unspecified headache type ; Septo-optic dysplasia of brain (HCC) Social History Tobacco Use Types Packs/Day Years Used Date Smoking Tobacco: Never Assessed Sex and Gender Information Value Date Recorded Sex Assigned at Not on file Gender Identity Not on file Sexual Orientation Not on file documented as of this encounter Plan of Treatment Upcoming Encounters Date Type Department Care Team (Late st Contact Info) Description 08/18/2024 11:30 AM CDT Office Visit [facility] - Neurology [address] [facility] [place] [address] Evan Lanier, DESKTOP SUPPORT CONSULTANT-RETAIL LEADER [address] [place] [address] [place] [address] Scheduled Referrals Name Type Priority Associated Diagnoses Orde r Schedule AMB REFERRAL TO NEUROLOGY Outpatient Referral Routine Nonintractable headache, unspecified chronicity pattern, unspecified headache type Septo-optic dysplasia of brain (HCC) 1 Occurrences starting 04/03/2024 until 04/03/2025 documented as of this encounter Visit Diagnoses Diagnosis Nonintractable headache, unspecified chronicity pattern, unspecified headache type- Primary 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
--- OUTSIDE RECORDS SUMMARY | 2024-06-24 07:06 | XMS_ITS | Clinical Summary ---
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 Gender Identity Not on file Sexual Orientation Not on file Plan of Treatment Health Maintenance Due Date Last Done Comments Hepatitis C Virus (HCV) Screening 1977 Hepatitis B Immunization (1 of 3 - 19+ 3-dose series) 01/28/1996 Colonoscopy 2022 Colorectal Cancer Screening 2022 Influenza Immunization (#1) 2024 SARS-COV-2 Immunization ( season) 2024 Respiratory Syncytial Virus (RSV) Immunization (Adult) (1 - 1-dose 75+ series) 01/28/2052 DTaP/Tdap/Td Immunization Discontinued 04/15/2021 TdaP Immunization Completed 04/15/2021 Meningococcal Immunization (ACWY) Aged Out No longer eligible based on patient's age to complete this topic Pneumococcal Immunization Combined Aged Out No longer eligible b ased on patient's age to complete this topic Rotavirus Immunization Aged Out No lo nger eligible based on patient's age to complete this topic
--- OUTSIDE RECORDS SUMMARY | 2024-06-24 07:06 | XMS_ITS | Clinical Summary ---
Author Organization [facility] Address [address] [place] [address] Care Team Providers Care Handle Assembler Name Role Phone Trupti Crow CAMP NURSE Unavailable [phone] Jacki Trujillo MD Primary Care Provider Allergies Active Allergy Reactions Criticality Noted Date Comments Other Other (See comments) Low 09/03/2023 States is allergic to calcium blockers-numbness in tongue and numbness in throat and inflammation points all over body. [facility] was [facility] breath Medications valsartan-hydro chlorothiazide (DIOVAN-HCT) 160-25 mg per tablet Take 1 tablet by mouth daily [address] (PROTONIX) 40 mg EC tablet Take 1 tablet (40 mg total) by mouth every 12 (twelve) hours 3 Active albuterol HFA (PROVENTIL HFA,VENTOLIN HFA,PROAIR HFA) 90 mcg/actuation inhaler INHALE 2 PUFFS BY MOUTH EVERY 4 HOURS NEEDED FOR SHORTNESS OF BREATH OR WHEEZING 4 Active aspirin 81 mg enteric coated tablet Take 1 tablet (81 mg total) by mouth daily Active nebivoloL (BYSTOLIC) 10 mg tablet Take 1 tablet (10 mg total) by mouth daily 4 Active amitriptyline (ELAVIL) 10 mg tabletIndicatio ns:Migraine Prevention,Neur opathic Pain Take 1 tablet (10 mg total) by mouth nightly 30 tablet 5 4 Active Active Problems Problem Noted Date Diagnosed Date 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 He has chronic neuropathy consistent of headaches, hotness and numbness in his arms/face/tongue, tinnitus, neck pain, and blurry vision OD. His symptoms aside from blurry vision are thought to be cervical radiculopathy. His most recent MRI (06/2023) showed stable small old infarct in the right frontal lobe, small optic nerve, and chronic small vessel ischemia. He describes his visual symptoms as a constant ghosting, finding it difficult to focus on objects due to a foggy background. He reports that his symptoms have worsened over the past 4-5 days. According to the patient, it is not halo-like, nor is it causing diplopia or static in appearance. His glasses do not provide relief, although he admits to not wearing them frequently. His ocular examination in the right eye is overall unremarkable. He has good visual acuity and normal fundus exam. His macular OCT and visual field was unrevealing for anything significant. He was advised to increase the wear time of his glasses, considering his hyperopia/presbyopia. There is no clear etiology to explain his symptoms; visual snow could be a possibility. Surgical History Surgery Date Site/Laterality Comments EYE SURGERY Eye Surgery - (Added by TW Conv) ORAL SURGERY Oral Surgery - (Added by TW Conv) FOOT SURGERY Foot Surgery - (Added by TW Conv) Medical History Medical History Date Comments Allergy status to unspecifie d drugs, medicaments and biological substances status History of seasonal allergie s - (Added by TW Conv) Personal history of healed t raumatic fracture History of fracture - (Added by TW Conv) Personal history of other me ntal and behavioral disorders History of depression - (Add ed by TW Conv) Personal history of other di seases of the circulatory system History of hypertension - (A dded by AMADOU Conv) Family History Medical History Relation Name Comments Cancer Mother Family history of malignant neoplasm - (Added by AMADOU Conv) Relation Name Status Comments Mother Social History Tobacco Use Types Packs/Day Years Used Date Smoking Tobacco: Every Day Cigarettes Smokeless Tobacco: Never Tobacco Cessation:Ready to Q uit: No; Counseling Given: Yes AUDIT-C Answer Date Recorded Q1: How often do you have a drink containing alc ohol? 2-4 times a month 09/03/2023 Average Number of Drinks Not on file 024 Frequency of Binge Drinking Not on file 12/2023 Hunger Vital Sign Answer Date Recorded Within the past 12 months, y ou worried that your food would run out before you got the money to buy more. Never true 09/03/19 24 Within the past 12 months, t he food you bought just didn't last and you didn't have money to get more. Never true 09/03/2023 Personal Safety Answer Date Recorded Getting School Help Needed Not on file 02/22 Sex and Gender Information Value Date Recorded Sex Assigned at Not on file Legal Sex Male 9:12 AM CDT Gender Identity Not on file Sexual Orientation Not on file Obstetrics History Last Filed Vital Signs Vital Sign Reading Time Taken Comments Blood Pressure 127/72 09/03/2023 9:01 AM CDT Pulse 73 09/03/2023 9:01 AM CDT Temperature 36.7 ??C (98 ??F) 09/03/2023 9:01 AM CDT Respiratory Rate 16 09/03/2023 9:01 AM CDT Oxygen Saturation 99% 02/21/2023 1:35 PM CDT Inhaled Oxygen Concentration - - Weight 112.5 kg (248 lb) 09/03/2023 9:01 AM CDT Height 179.1 cm (5' 10.5 ) 09/03/2023 9:01 AM CD T Body Mass Index 35.08 09/03/2023 9:01 AM CDT Plan of Treatment Health Maintenance Due Date Last Done Comments Colon Cancer Screening-Colonoscopy 1977 Depression Screening 1977 Hepatitis C Screening 1977 Pneumococcal vaccine <65 (1 of 2 - PCV) 1983 Hepatitis B Screening 1995 Regular Well Visit/Exam 18-64 1995 Influenza Vaccine (#1) 2024 DTaP/Tdap/Td Vaccine (2 - Td or Tdap) 04/15/2031 Insurance [facility] Care Teams Handle Assembler Relationship Specialty Start Date End Date Jacki Trujillo MD [address] [facility] [address] [place] [address] PCP - General Family Practice 09/28/22 Trupti Crow NP Nurse Practitioner Orthopedic Surgery 09/28/22
--- OUTSIDE RECORDS SUMMARY | 2024-06-24 07:06 | XMS_ITS | Referral Summary ---
Author Organization [facility] Address [address] [place] [address] Care Team Providers Care Shell Trim Operator Name Role Phone Trupti Crow CONTACT LENS EDGE BUFFER Unavailable [phone] Jacki Trujillo MD Primary Care Provider Allergies Active Allergy Reactions Criticality Noted Date Comments Other Other (See comments) Low 09/03/2023 States is allergic to calcium blockers-numbness in tongue and numbness in throat and inflammation points all over body. [facility] was able to breath Medications valsartan-hydro chlorothiazide [...] 07/04/2023 Assessment & Plan (07/04/2023 3:22 PM INFORMATION SYSTEMS OPERATOR): Congenital (NLP with sensory XT since ) Confirmed with outside MRI (06/2023) records Monocular precautions Subjective visual disturbances 07/04/2023 Assessment & Plan (07/04/2023 4:32 PM INFORMATION SYSTEMS OPERATOR): Truong Castillo is a 48 yo male [...] symptoms; visual snow could be a possibility. Social History Tobacco Use Types Packs/Day Years [...] on file Sexual Orientation Not on file Last Filed Vital Signs Vital Sign Reading [...] 09/03/2023 9:01 AM CDT Plan of Treatment Not on file Insurance [facility] Care Teams Shell Trim Operator Relationship Specialty Start Date End Date Jacki Trujillo MD [address] [facility] [address] [place], [place] [id number] PCP - General Family Practice 09/28/22 Trupti Crow NP Nurse Practitioner Orthopedic Surgery 09/28/22
--- OUTSIDE RECORDS SUMMARY | 2024-06-24 07:06 | XMS_ITS | CONTINUITY OF CARE DOCUMENT ---
Author Name bandar portillo Address Unknown Organization [facility] Address [address] [facility] [address] [place] [address] Phone [phone] Care Team Providers Care Pile Driving Technician Name Role Phone Nathanael Johnson MD Unavailable [phone] SERENA ARTEAGA DO Unavailable SERENA ARTEAGA DO Unavailable [phone] INSURANCE PROVIDERS Payer name Policy type / Coverage type [place] red green party ID [employer] Medicaid [id number]
--- OUTSIDE RECORDS SUMMARY | 2024-06-24 07:06 | XMS_ITS | Referral Summary ---
Author Organization [facility] Address [address] [facility] [place] [address] Care Team Providers Care Wine Fermenter Name Role Phone Unknown, Provider Primary Care Provider Unavaila ble Source Comments [facility],non-owned Affiliates and Associated Physician Practices is amultiple site organization consisting of ambulatory clinics and hospital sitesin [place], [place], [place] and [place]. This disclosure is being madepursuant to the Care Everywhere program and may not contain all information available regarding this patient. Last updated 18.[facility] Encounters Date Type Department Care Team Description 04/21/2024 Telephone [facility] - Neurology [address] [place] [phone] Evan Lanier, PAYROLL MASTER-WHEEL CLEANER Medication Prior Auth Request (Emgality) 04/21/2024 Travel 04/21/2024 11:00 AM HOSPITAL ACCOUNT LIAISON Office Visit [facility] - Neurology [address] [place] [phone] Evan Lanier, PAYROLL MASTER-WHEEL CLEANER Migraine without aura and without status migrainosus, not intractable (Primary Dx); LEILA (obstructive sleep apnea) 04/04/2024 Travel 04/03/2024 Transcribe Orders [facility] - Centralized Scheduling [address] [place] [address] José Pena, Nonintractable headache, unspecified chronicity pattern, unspecified headache type ; Septo-optic dysplasia of brain (HCC) from Last 3 Months Allergies No known active allergies Medications * Be aware that medications may not be up to date on this document. Alwaysverify current medications with the patient. Medication Sig Dispensed Refills Start Date End Date Status albuterol HFA (Proventil; Ventolin; Proair) 108 (90 Base) MCG/ACT inhaler 1 (one) puff 04/18/2024 Active valsartan-hydroCHLO ROthiazide (Diovan HCT) 160-25 MG tablet Take by mouth once daily Active nebivolol (Bystolic) 10 MG tablet Take 1 (one) tablet by mouth once daily Active pantoprazole EC (Protonix) 40 MG tablet Take 1 (one) tablet by mouth once daily Active aspirin (Aspirin) 81 MG chew tablet Take 1 (one) tablet by mouth once daily Active Galcanezumab-gnlm (Emgality) 120 MG/ML auto-injector penIndications:Migr elsi without aura and without status migrainosus, not intractable Inject 1 mL subcutaneously every 30 days 1 mL 5 04/21/2024 Active Social History Tobacco Use Types Packs/Day Years Used Date Smoking Tobacco: Every Day Cigarettes Tobacco Cessation:Ready to Q uit: Not Asked; Counseling Given: Not Answered Alcohol Use Standard Drinks/Week Comments Yes 2 (1 standard drink = 0.6 oz pur e alcohol) Sex and Gender Information Value Date Recorded Sex Assigned at Not on file Gender Identity Not on file Sexual Orientation Not on file Last Filed Vital Signs Vital Sign Reading Time Taken Comments Blood Pressure 119/79 04/21/2024 10:52 AM HOSPITAL ACCOUNT LIAISON Pulse 75 04/21/2024 10:52 AM HOSPITAL ACCOUNT LIAISON Temperature - - Respiratory Rate - - Oxygen Saturation - - Inhaled Oxygen Concentration - - Weight 103.9 kg (229 lb) 04/21/2024 10:52 AM HOSPITAL ACCOUNT LIAISON Height - - Body Mass Index - - Plan of Treatment Upcoming Encounters Date Type Department Care Team (Late st Contact Info) Description 08/18/2024 11:30 AM CDT Office Visit [facility] - Neurology [address] [place] [address], [place] [address] Evan Lanier, PAYROLL MASTER-WHEEL CLEANER [address] [place] [address] [place] [address] Care Teams Wine Fermenter Relationship Specialty Start Date End Date Unknown, Provider PCP - General 04/21/24
--- OUTSIDE RECORDS SUMMARY | 2024-06-24 07:06 | XMS_ITS | Patient Health Summary ---
Author Organization [facility] Address [address] [place] [address] Care Team Providers Care Commercial Driver'S License Driver Name Role Phone Unknown, Provider Primary Care Provider Unavaila ble Note from [facility],non-owned Affiliates and Associated Physician Practices is amultiple site organization consisting of ambulatory clinics and hospital sitesin [place], [place], [place] and [place]. This disclosure is being madepursuant to the Care Everywhere program and may not contain all information available regarding this patient. Last updated 18.[facility] Allergies No known active allergies Medications * Be aware that medications may not be up to date on this document. Alwaysverify current medications with the patient. * albuterol HFA (Proventil; Ventolin; Proair) 108 (90 Base) MCG/ACT inhaler (Started 04/18/2024) 1 (one) puff * valsartan-hydroCHLOROthiazide (Diovan HCT) 160-25 MG tablet Take by mouth once daily * nebivolol (Bystolic) 10 MG tablet Take 1 (one) tablet by mouth once daily * pantoprazole EC (Protonix) 40 MG tablet Take 1 (one) tablet by mouth once daily * aspirin (Aspirin) 81 MG chew tablet Take 1 (one) tablet by mouth once daily * Galcanezumab-gnlm (Emgality) 120 MG/ML auto-injector pen(Started 04/21/2024) Inject 1 mL subcutaneously every 30 days 5 refills by 04/21/2025 Social History Tobacco Use Types Packs/Day Years [...] Comments Blood Pressure 119/79 04/21/2024 10:52 AM LEATHER FINISHER Pulse 75 04/21/2024 10:52 AM LEATHER FINISHER Temperature - - Respiratory Rate - - Oxygen Saturation - - Inhaled Oxygen Concentration - - Weight 103.9 kg (229 lb) 04/21/2024 10:52 AM LEATHER FINISHER Height - - Body Mass Index - - Care Teams Commercial Driver'S License Driver Relationship Specialty Start Date End Date Unknown, Provider PCP - General 04/21/24
--- OUTSIDE RECORDS SUMMARY | 2024-06-24 07:06 | XMS_ITS | Clinical Summary ---
Author Organization [facility] Address [address] [place] [address] Care Team Providers Care Ceramic Restorer Name Role Phone Unknown, Provider Primary Care Provider Unavaila ble Source Comments [facility],non-owned Affiliates and Associated Physician Practices is amultiple site organization consisting of ambulatory clinics and hospital sitesin [place], [place], [place] and [place]. This disclosure is being madepursuant to the Care Everywhere program and may not contain all information available regarding this patient. Last updated 18.[facility] Allergies No known active allergies Medications * [...] 30 days 1 mL 5 04/21/2024 Active Encounters Date Type Department Care Team Description 04/21/2024 11:00 AM DEVELOPMENTAL SPECIALIST Office Visit [facility] - Neurology [address] [place] [address] [place] [phone] Evan Lanier, COORDINATOR OF HEALTH SERVICES-STABLE CLEANER Migraine without aura and without status migrainosus, not intractable (Primary Dx); LEILA (obstructive sleep apnea) 04/21/2024 Telephone [facility] - Neurology [address] [place] [phone] Evan Lanier APRN-CNP Medication Prior Auth Request (Emgality) 04/21/2024 Travel 04/04/2024 Travel 04/03/2024 Transcribe Orders [facility] - Centralized Scheduling [address] [place] [address] José Pena DO Nonintractable headache, unspecified chronicity pattern, unspecified headache type ; Septo-optic dysplasia of brain (HCC) from Last 3 Months Social History Tobacco Use Types Packs/Day Years [...] Comments Blood Pressure 119/79 04/21/2024 10:52 AM DEVELOPMENTAL SPECIALIST Pulse 75 04/21/2024 10:52 AM DEVELOPMENTAL SPECIALIST Temperature - - Respiratory Rate - - Oxygen Saturation - - Inhaled Oxygen Concentration - - Weight 103.9 kg (229 lb) 04/21/2024 10:52 AM DEVELOPMENTAL SPECIALIST Height - - Body Mass Index - - Plan of Treatment Upcoming Encounters Date Type Department Care Team (Late st Contact Info) Description 08/18/2024 11:30 AM CDT Office Visit [facility] - Neurology [address] [place] [phone] Evan Lanier APRN-STABLE CLEANER [address] [place] [address] [place] [address] Health Maintenance Due Date Last Done Comments COLOGUARD (AGES 45-75) - COL ON CA SCREENING 1977 COLON MONITORING 1977 COLONOSCOPY - COLON CA SCREENING 1977 CT COLONOGRAPHY - COLON CA SCREENING 1977 Colorectal Cancer Screening 1977 FIT - COLON CA SCREENING 1977 FLEX SIG - COLON CA SCREENING 1977 LIPID TESTING 1977 HIV SCREENING 01/28/1992 HEPATITIS C SCREENING 01/23/1995 DTAP/TDAP/TD VACCINES (1 - Tdap) 01/28/1996 HEPATITIS B VACCINE (1 of 3 - 19+ 3-dose series) 01/28/1996 PNEUMOCOCCAL VACCINE (1 of 2 - PCV) 01/28/1996 COVID-19 VACCINE (1 - 2023-2 5 season) 2024 INFLUENZA VACCINE (#1) 2024 DEPRESSION SCREENING 05/28/2024 ZOSTER VACCINE (1 of 2) 2027 HIB VACCINE Aged Out No longer eligi ble based on patient's age to complete this topic HPV VACCINE Aged Out No longer eligi ble based on patient's age to complete this topic MENINGOCOCCAL (Group B) VACCINE Aged Out No longer eligible based on patient's age to complete this topic MENINGOCOCCAL VACCINE Aged Out No bam rancho eligible based on patient's age to complete this topic Care Teams Ceramic Restorer Relationship Specialty Start Date End Date Unknown, Provider PCP - General 04/21/24
[2024-06-24 08:03] LABS: Alanine Aminotransferase 27 U/L (6-50); Alkaline Phosphatase 67 U/L (38-126); Anion Gap 6 mmol/L (4-12); Aspartate Amino Transferase 19 U/L (17-59); Bilirubin,Total 0.7 mg/dL (0.2-1.3); Blood Urea Nitrogen 21 mg/dL (9-20); Calcium 9.5 mg/dL (8.4-10.2); Carbon Dioxide 27 mmol/L (22-30); Chloride 105 mmol/L (98-107); Cholesterol 203 mg/dL (0-200); Estimated Glomerular Filt Rate > 60; Glucose 108 mg/dL (65-110); HDL Direct 31 mg/dL; Potassium 4.2 mmol/L (3.4-5.0); Sodium 138 mmol/L (137-145); Triglycerides 142 mg/dL (<150)
[2024-06-24 08:15] LABS: LDL Cholesterol Direct 144 mg/dL
== END 2024-06-24 07:05 | disposition home or self-care (01) ==
PROVIDERS: PCP Internal Medicine; Visit Provider Internal Medicine Cardiovascular Disease
DX: E78.00 Pure hypercholesterolemia, unspecified (principal)
CPT/HCPCS: 36415; 80053; 80061

== ENCOUNTER 2024-07-20 11:32 | Emergency (ER) | payer OTHER, SELFPAY ==
--- NOTE | ~2024-07-20 | XR_ITS ---
CHEST RADIOGRAPH CLINICAL HISTORY: cough . COMPARISON: 06/09/2024 TECHNIQUE: Single portable view of the chest. FINDINGS The cardiomediastinal silhouette is unremarkable. The lungs are clear. Visualized osseous structures and soft tissues are unremarkable. IMPRESSION: No focal infiltrate or effusion. Reviewed, dictated and finalized at location A. RNAL COMBUSTION ENGINE ASSEMBLER
--- OUTSIDE RECORDS SUMMARY | 2024-07-20 11:33 | XMS_ITS | Clinical Summary ---
Author Organization [facility] Address [address] [place] [address] Care Team Providers Care Lab Aide Name Role Phone Trupti Crow GAME AND FISH PROTECTOR Unavailable [phone] Jacki Trujillo MD Primary Care Provider Allergies Active Allergy Reactions Criticality Noted Date Comments Other Other (See comments) Low 09/03/2023 States is allergic to calcium blockers-numbness in tongue and numbness in throat and inflammation points all over body. [facility] was able to breath Medications valsartan-hydro chlorothiazide [...] 07/04/2023 Assessment & Plan (07/04/2023 3:22 PM PELT INSPECTOR): Congenital (NLP with sensory XT since ) Confirmed with outside MRI (06/2023) records Monocular precautions Subjective visual disturbances 07/04/2023 Assessment & Plan (07/04/2023 4:32 PM PELT INSPECTOR): Truong Castillo is a 48 yo male [...] 73 09/03/2023 9:01 AM CDT Temperature 36.7 C (98 F) 09/03/2023 9:01 AM CDT Respiratory Rate 16 [...] Depression Screening 1977 Hepatitis C Screening 1977 Hepatitis B Screening 1995 Regular Well Visit/Exam 18-64 1995 Pneumococcal vaccine <65 (1 of 2 - PCV) 01/28/1996 Influenza Vaccine (#1) 2024 DTaP/Tdap/Td Vaccine (2 - Td or Tdap) 04/15/2031 Insurance [facility] Member Subscriber Plan / Payer (Ef fective 2020-Present) Name:Truong Castillo Relation to Subscriber:Self Name:Truong Castillo Payer ID:[id number] (NAIC) Group ID:Not on file Type:MEDICAID RISK OTHER Address: ATTN: CLAIMS DEPT [address] [place] [id number] [facility] Care Teams Lab Aide Relationship Specialty Start Date End Date Jacki Trujillo MD [address] [place] [address] PCP - General Family Practice 09/28/22 Trupti Crow NP Nurse Practitioner Orthopedic Surgery 09/28/22
--- OUTSIDE RECORDS SUMMARY | 2024-07-20 11:33 | XMS_ITS | Clinical Summary ---
Author Organization [facility] Address [address] [place] [address] Care Team Providers Care Electrical Systems Drafter Name Role Phone Jacki Trujillo MD Primary Care Provider Allergies No known active allergies Medications valsartan-hydroC HLOROthiazide (DIOVAN HCT) 160-25 mg tablet Take 1 Tablet by mouth daily. 08/18/2022 Active rivaroxaban (Xarelto) 20 mg Tablet Take 1 Tablet (20 mg) by mouth daily. 30 Tablet 4 06/04/2023 Active Active Problems No known active problems Encounters Date Type Department Care Team Description 06/24/2024 External Device Data [facility] ABSTRACTION Provider, Abstract 06/24/2024 External Device Data [facility] ABSTRACTION Provider, Abstract 06/18/2024 External Device Data [facility] ABSTRACTION Provider, Abstract 06/10/2024 External Device Data [facility] ABSTRACTION Provider, Abstract 05/13/2024 External Device Data [facility] ABSTRACTION Provider, Abstract 04/29/2024 External Device Data [facility] ABSTRACTION Provider, Abstract from Last 3 Months Family History Medical History Relation Name Comments Unknown Father Unknown Mother Relation Name Status Comments Father Mother Alive Sister Alive Social History Tobacco Use Types Packs/Day Years Used Date Smoking Tobacco: Every Day Cigarettes Tobacco Cessation:Ready to Q uit: Not Asked; Counseling Given: Not Answered Alcohol Use Standard Drinks/Week Comments Yes 0 (1 standard drink = 0.6 oz pur e alcohol) Socially Feeling Safe Answer Date Recorded Are you in a relationship wi th someone who hurts you emotionally and/or physically? No 11/28/2023 Sex and Gender Information Value Date Recorded Sex Assigned at Not on file Legal Sex Male 12:13 PM CDT Gender Identity Not on file Sexual Orientation Not on file Last Filed Vital Signs Vital Sign Reading Time Taken Comments Blood Pressure 133/88 11/28/2023 2:00 PM CDT Pulse 58 11/28/2023 2:00 PM CDT Temperature 36.7 C (98.1 F) 11/28/2023 11:59 AM CDT Respiratory Rate 20 11/28/2023 2:00 PM CDT Oxygen Saturation 96% 11/28/2023 2:00 PM CDT Inhaled Oxygen Concentration - - Weight 104.3 kg (230 lb) 11/28/2023 10:17 AM CDT Height 177.8 cm (5' 10 ) 11/28/2023 10:17 AM CDT Body Mass Index 33 11/28/2023 10:17 AM CDT Plan of Treatment Health Maintenance Due Date Last Done Comments Pre-Diabetes and Diabetes Screening 1977 PNEUMOCOCCAL VACCINE 0-64 YEARS (1 of 2 - PCV) 983 DTAP/TDAP/TD VACCINES (1 - Tdap) 01/28/1996 HEPATITIS B VACCINES (1 of 3 - 19+ 3-dose series) 06/1995 COLORECTAL SCREENING 2022 Colorectal Cancer Screening 2022 FIT-DNA Q 3 years 2022 FIT/FOBT Q 1 year 2022 Flex Sig/CT Colonography Q 5 years 2022 INFLUENZA VACCINE (#1) 2023 Insurance [facility] PLAN MEDICAID Care Teams Electrical Systems Drafter Relationship Specialty Start Date End Date Jacki Trujillo MD [address] [place] [address] PCP - General Family Practice 12/29/22
--- OUTSIDE RECORDS SUMMARY | 2024-07-20 11:33 | XMS_ITS | CONTINUITY OF CARE DOCUMENT ---
Author Name bandar portillo Address Unknown Organization [facility] Address [address] [facility] [address] [place] [address] Phone [phone] Care Team Providers Care Drafter Heating And Ventilating Name Role Phone Nathanael Johnson MD Unavailable [phone] SERENA ARTEAGA DO Unavailable SERENA ARTEAGA DO Unavailable [phone] INSURANCE PROVIDERS Payer name Policy type / Coverage type [place] red constitution party ID [employer] Medicaid [id number]
--- OUTSIDE RECORDS SUMMARY | 2024-07-20 11:33 | XMS_ITS | Clinical Summary ---
Author Organization [facility] Care Team Providers Care Acid Tank Cleaner Name Role Phone Unavailable Primary Care Provider Unavailabl e Social History Tobacco Use Types Packs/Day Years Used Date Smoking Tobacco: Never Assessed Sex and Gender Information Value Date Recorded Sex Assigned at Not on file Legal Sex Male 11:32 AM GROUNDS MAINTENANCE WORKER Gender Identity Not on file Sexual Orientation [...]
--- OUTSIDE RECORDS SUMMARY | 2024-07-20 11:34 | XMS_ITS | Encounter Summary ---
Author Organization [facility] Address [address] [facility] [place] [address] Care Team Providers Care Strategic Development Manager Name Role Phone Unknown, Provider Primary Care Provider Unavaila ble Reason for Referral * Consultation (Routine) - Closed Specialty Diagnoses / Procedures Referred By Contac t Referred To Contact Neurology Diagnoses Headache Septo-optic dysplasia of brain (HCC) José Pena DO [address] [address] [facility] [address] [place] [address] Referral ID Status Reason Start Date Expiration Date V isits Requested Visits Authorized [id number] Closed Specialty Services Required 04/03/2024 04/03/2025 1 1 Y LEVEL WEB DEVELOPER Encounter Details Date Type Department Care Team (Latest Contact Info) Description 04/03/2024 Transcribe Orders [facility] - Centralized Scheduling [address] [place] [address] José Pena DO [address] [address] Nonintractable headache, unspecified chronicity pattern, unspecified headache [...] Visit [facility] - Neurology [address] [facility], [place] [address] Evan Lanier, AIRWAYS CONTROL SPECIALIST-MARKING MACHINE OPERATOR [address] [place] [address] [place] [address] Scheduled Referrals Name Type Priority Associated Diagnoses [...] brain documented in this encounter Care Teams Strategic Development Manager Relationship Specialty Start Date End Date Unknown, Provider PCP - General 04/21/24 documented as of this encounter
--- OUTSIDE RECORDS SUMMARY | 2024-07-20 11:34 | XMS_ITS | Referral Summary ---
Author Organization [facility] Address [address] [facility] [place] [address] Care Team Providers Care Director Metabolism Name Role Phone Unknown, Provider Primary Care Provider Unavaila ble Source Comments [facility],non-owned Affiliates and Associated Physician Practices is amultiple site organization consisting of ambulatory clinics and hospital sitesin [place], [place], [place] and [place]. This disclosure is being madepursuant to the Care Everywhere program and may not contain all information available regarding this patient. Last updated 18.[facility] Encounters Date Type Department Care Team Description 07/08/2024 Telephone [facility] - Neurology [address] [place] [phone] Evan Lanier, NUISANCE WILDLIFE SPECIALIST-CREDIT ADJUSTER Medication Prior Auth Request (Emgality renewal) 04/21/2024 Telephone [facility] - Neurology [address] [place] [phone] Evan Lanier NUISANCE WILDLIFE SPECIALIST-CREDIT ADJUSTER Medication Prior Auth Request (Emgality) 04/21/2024 Travel 04/21/2024 11:[address] Office Visit [facility] - Neurology [address] [place] [phone] Evan Lanier, NUISANCE WILDLIFE SPECIALIST-CREDIT ADJUSTER Migraine without aura and without status migrainosus, not intractable (Primary Dx); LEILA (obstructive sleep apnea) from Last 3 Months Allergies No known [...] Comments Blood Pressure 119/79 04/21/2024 10:[address] Pulse 75 04/21/2024 10:[address]GE Temperature - - Respiratory Rate - - Oxygen Saturation - - Inhaled Oxygen Concentration - - Weight 103.9 kg (229 lb) 04/21/2024 10:[address] JUDGE Height - - Body Mass Index - - Plan of Treatment Upcoming Encounters Date Type Department Care Team (Late st Contact Info) Description 08/18/2024 11:30 AM CDT Office Visit [facility] - Neurology [address] [place] [address], [facility] [place] [address] Evan Lanier, NUISANCE WILDLIFE SPECIALIST-CREDIT ADJUSTER [address] [place] [address] [place] [address] Care Teams Director Metabolism Relationship Specialty Start Date End Date Unknown, Provider PCP - General 04/21/24
--- OUTSIDE RECORDS SUMMARY | 2024-07-20 11:34 | XMS_ITS | Clinical Summary ---
Author Organization [facility] Address [address] [facility] [place] [address] Care Team Providers Care Senior Electronics Design Engineer Name Role Phone Unknown, Provider Primary Care Provider Unavaila ble Source Comments [facility],non-owned Affiliates and Associated Physician Practices is amultiple site organization consisting of ambulatory clinics and hospital sitesin [place], [place], [place] and [place]. This disclosure is being madepursuant to the Care Everywhere program and may not contain all information available regarding this patient. Last updated 18.[facility]listen Allergies No known active allergies Medications * [...] 07/08/2024 Telephone [facility] - Neurology [address] [place] [address], [place] [phone] Evan Lanier, TRAVEL SALES CONSULTANT-BED AND BREAKFAST OPERATOR Medication Prior Auth Request (Emgality renewal) 04/21/2024 11:00 AM LINE SERVICE ATTENDANT [facility] [address] [place] [phone] Evan Lanier APRN-CNP Migraine without aura and without status migrainosus, not intractable (Primary Dx); LEILA (obstructive sleep apnea) 04/21/2024 Telephone [facility] - Neurology [address] [place] [phone] Evan Lanier APRN-CNP Medication Prior Auth Request (Emgality) 04/21/2024 Travel from Last 3 Months Social History Tobacco [...] Comments Blood Pressure 119/79 04/21/2024 10:52 AM LINE SERVICE ATTENDANT Pulse 75 04/21/2024 10:52 AM LINE SERVICE ATTENDANT Temperature - - Respiratory Rate - - Oxygen Saturation - - Inhaled Oxygen Concentration - - Weight 103.9 kg (229 lb) 04/21/2024 10:52 AM LINE SERVICE ATTENDANT Height - - Body Mass Index - - Plan of Treatment Upcoming Encounters Date Type Department Care Team (Late st Contact Info) Description 08/18/2024 11:30 AM CDT Office Visit [facility] - Neurology [address] [place] [phone] Evan Lanier APRN-CNP [address] [place] [address] [place] [address] Health Maintenance Due Date Last [...] age to complete this topic Care Teams Senior Electronics Design Engineer Relationship Specialty Start Date End Date Unknown, Provider PCP - General 04/21/24
--- OUTSIDE RECORDS SUMMARY | 2024-07-20 11:34 | XMS_ITS | Referral Summary ---
Author Organization [facility] Address [address] [place] [address] Care Team Providers Care Operator Supply Name Role Phone Trupti Crow HOUSEHOLD PERSONAL ASSISTANT Unavailable [phone] Jacki Trujillo MD Primary Care Provider Allergies Active Allergy Reactions Criticality Noted Date Comments Other Other (See comments) Low 09/03/2023 States is allergic to calcium blockers-numbness in tongue and numbness in throat and inflammation points all over body. [facility] was able to breath Medications [...] 07/04/2023 Assessment & Plan (07/04/2023 3:22 PM OPTICAL LABORATORY TECHNICIAN): Congenital (NLP with sensory XT since ) Confirmed with outside MRI (06/2023) records Monocular precautions Subjective visual disturbances 07/04/2023 Assessment & Plan (07/04/2023 4:32 PM OPTICAL LABORATORY TECHNICIAN): Truong Castillo is a 48 yo male [...] Plan of Treatment Not on file Insurance [facility] Care Teams Operator Supply Relationship Specialty Start Date End Date Jacki Trujillo MD [address] [facility] [address] [place] [address] PCP - General Family Practice 09/28/22 Trupti Crow NP Nurse Practitioner Orthopedic Surgery 09/28/22
--- OUTSIDE RECORDS SUMMARY | 2024-07-20 11:34 | XMS_ITS | Patient Health Summary ---
Author Organization [facility] Address [address] [place] [address] Care Team Providers Care Engineering Faculty Member Name Role Phone Unknown, Provider Primary Care Provider Unavaila ble Note from [facility],non-owned Affiliates and Associated Physician Practices is amultiple site organization consisting of ambulatory clinics and hospital sitesin [place], [place], [place] and [place]. This disclosure is being madepursuant to the Care Everywhere program and may not contain all information available regarding this patient. Last updated 18.[facility] Allergies No known active allergies Medications * [...] Comments Blood Pressure 119/79 04/21/2024 10:52 AM MACHINE CUTTER Pulse 75 04/21/2024 10:52 AM MACHINE CUTTER Temperature - - Respiratory Rate - - Oxygen Saturation - - Inhaled Oxygen Concentration - - Weight 103.9 kg (229 lb) 04/21/2024 10:52 AM MACHINE CUTTER Height - - Body Mass Index - - Care Teams Engineering Faculty Member Relationship Specialty Start Date End Date Unknown, Provider PCP - General 04/21/24
[2024-07-20 12:04] VITALS: BP 147/91; PULSE 75; RESP 20; TEMP 36.6; O2SAT 96
--- OUTSIDE RECORDS SUMMARY | 2024-07-20 12:39 | XMS_ITS | Clinical Summary ---
Author Organization [facility] Care Team Providers Care Conveyor Mechanic Name Role Phone Unavailable Primary Care Provider Unavailabl e Social History Tobacco Use Types Packs/Day Years Used Date Smoking Tobacco: Never Assessed Sex and Gender Information Value Date Recorded Sex Assigned at Not on file Legal Sex Male 11:32 AM DIRECTOR TRANSPORTATION Gender Identity Not on file Sexual Orientation [...]
--- OUTSIDE RECORDS SUMMARY | 2024-07-20 12:39 | XMS_ITS | Encounter Summary ---
Author Organization [facility] Address [address] [place] [address] Care Team Providers Care Graphic User Interface Designer Name Role Phone Unknown, Provider Primary Care Provider Unavaila ble Reason for Referral * Consultation (Routine) - Closed Specialty Diagnoses / Procedures Referred By Contac t Referred To Contact Neurology Diagnoses Headache Septo-optic dysplasia of brain (HCC) José Pena DO [address] [address] [place] [facility] [address] [place] [address] Referral ID Status Reason Start Date Expiration Date V isits Requested Visits Authorized [id number] Closed Specialty Services Required 04/03/2024 04/03/2025 1 1 TITATIVE ANALYST MARKETING Encounter Details Date Type Department Care Team (Latest Contact Info) Description 04/03/2024 Transcribe Orders [facility] - Centralized Scheduling [address] [place] [address] José Pena DO [address] [address] Nonintractable headache, unspecified chronicity pattern, unspecified headache [...] Visit [facility] - Neurology [address] [facility], [place] [address] Evan Lanier, COMMERCIAL PEST CONTROL REPRESENTATIVE-GLOVE WRAPPER [address] [place] [address] [place] [address] Scheduled Referrals Name Type Priority Associated Diagnoses [...] brain documented in this encounter Care Teams Graphic User Interface Designer Relationship Specialty Start Date End Date Unknown, Provider PCP - General 04/21/24 documented as of this encounter
--- OUTSIDE RECORDS SUMMARY | 2024-07-20 12:39 | XMS_ITS | Referral Summary ---
Author Organization [facility] Address [address] [facility] [place] [address] Care Team Providers Care Seed Cleaner Name Role Phone Unknown, Provider Primary Care Provider Unavaila ble Source Comments [facility],non-owned Affiliates and Associated Physician Practices is amultiple site organization consisting of ambulatory clinics and hospital sitesin [place], [place], [place] and [place]. This disclosure is being madepursuant to the Care Everywhere program and may not contain all information available regarding this patient. Last updated 18.[facility] Encounters Date Type Department Care Team Description 07/08/2024 Telephone [facility] - Neurology [address] [place] [phone] Evan Lanier, STEWARD/STEWARDESS SECOND-FORENSIC PSYCHIATRIST Medication Prior Auth Request (Emgality renewal) 04/21/2024 Telephone [facility] - Neurology [address] [place] [phone] Evan Lanier STEWARD/STEWARDESS SECOND-FORENSIC PSYCHIATRIST Medication Prior Auth Request (Emgality) 04/21/2024 Travel 04/21/2024 11:00 AM STERILE PROCESSING TECHNICIAN Office Visit [facility] - Neurology [address] [place] [phone] Evan Lanier, STEWARD/STEWARDESS SECOND-FORENSIC PSYCHIATRIST Migraine without aura and without status migrainosus, [...] Comments Blood Pressure 119/79 04/21/2024 10:52 AM STERILE PROCESSING TECHNICIAN Pulse 75 04/21/2024 10:52 AM STERILE PROCESSING TECHNICIAN Temperature - - Respiratory Rate - - Oxygen Saturation - - Inhaled Oxygen Concentration - - Weight 103.9 kg (229 lb) 04/21/2024 10:52 AM STERILE PROCESSING TECHNICIAN Height - - Body Mass Index - - Plan of Treatment Upcoming Encounters Date Type Department Care Team (Late st Contact Info) Description 08/18/2024 11:30 AM CDT Office Visit [facility] - Neurology [address] [place] [address], [facility] [address] Evan Lanier, STEWARD/STEWARDESS SECOND-FORENSIC PSYCHIATRIST [address] [place] [address] [place] [address] Care Teams Seed Cleaner Relationship Specialty Start Date End Date Unknown, Provider PCP - General 04/21/24
--- OUTSIDE RECORDS SUMMARY | 2024-07-20 12:39 | XMS_ITS | Clinical Summary ---
Author Organization [facility] Address [address] [facility] [place] [address] Care Team Providers Care Burglar Alarm Installer Name Role Phone Unknown, Provider Primary Care Provider Unavaila ble Source Comments [facility],non-owned Affiliates and Associated Physician Practices is amultiple site organization consisting of ambulatory clinics and hospital sitesin [place], [place], [place] and [place]. This disclosure is being madepursuant to the Care Everywhere program and may not contain all information available regarding this patient. Last updated 18.[facility]ara Allergies No known active allergies Medications * [...] 07/08/2024 Telephone [facility] - Neurology [address] [place] [address], [place] [phone] Evan Lanier, CUSTOM FURRIER-TIE SAWYER Medication Prior Auth Request (Emgality renewal) 04/21/2024 11:00 AM SERVER SECURITY ADMINISTRATOR [facility] [address] [place] [phone] Evan Lanier APRN-CNP Migraine without aura and without status migrainosus, not intractable (Primary Dx); LEILA (obstructive sleep apnea) 04/21/2024 Telephone [facility] - Neurology [address] [place] [phone] Evan Lanier APRN-CNP Medication Prior Auth Request [...] Comments Blood Pressure 119/79 04/21/2024 10:52 AM SERVER SECURITY ADMINISTRATOR Pulse 75 04/21/2024 10:52 AM SERVER SECURITY ADMINISTRATOR Temperature - - Respiratory Rate - - Oxygen Saturation - - Inhaled Oxygen Concentration - - Weight 103.9 kg (229 lb) 04/21/2024 10:52 AM SERVER SECURITY ADMINISTRATOR Height - - Body Mass Index - - Plan of Treatment Upcoming Encounters Date Type Department Care Team (Late st Contact Info) Description 08/18/2024 11:30 AM CDT Office Visit [facility] - Neurology [address] [place] [phone] Evan Lanier APRN-CNP [address] [place] [address] [place] [address] Health Maintenance Due Date Last [...] age to complete this topic Care Teams Burglar Alarm Installer Relationship Specialty Start Date End Date Unknown, Provider PCP - General 04/21/24
--- OUTSIDE RECORDS SUMMARY | 2024-07-20 12:39 | XMS_ITS | Patient Health Summary ---
Author Organization [facility] Address [address] [place] [address] Care Team Providers Care Industrial Training Specialist Name Role Phone Unknown, Provider Primary Care Provider Unavaila ble Note from [facility],non-owned Affiliates and Associated Physician Practices is amultiple site organization consisting of ambulatory clinics and hospital sitesin [place], [place], [place] and [place]. This disclosure is being madepursuant to the Care Everywhere program and may not contain all information available regarding this patient. Last updated 18.[facility] Allergies No known active allergies Medications * [...] Comments Blood Pressure 119/79 04/21/2024 10:52 AM CASE PICKER Pulse 75 04/21/2024 10:52 AM CASE PICKER Temperature - - Respiratory Rate - - Oxygen Saturation - - Inhaled Oxygen Concentration - - Weight 103.9 kg (229 lb) 04/21/2024 10:52 AM CASE PICKER Height - - Body Mass Index - - Care Teams Industrial Training Specialist Relationship Specialty Start Date End Date Unknown, Provider PCP - General 04/21/24
--- OUTSIDE RECORDS SUMMARY | 2024-07-20 12:39 | XMS_ITS | Clinical Summary ---
Author Organization [facility] Address [address] [place] [address] Care Team Providers Care Draw Hand Name Role Phone Jacki Trujillo MD Primary [...] years 2022 INFLUENZA VACCINE (#1) 2023 Insurance [facility] MEDICAID Care Teams Draw Hand Relationship Specialty Start Date End Date Jacki Trujillo MD [address] [place] [address] PCP - General Family Practice 12/29/22
--- OUTSIDE RECORDS SUMMARY | 2024-07-20 12:39 | XMS_ITS | Clinical Summary ---
Author Organization [facility] Address [address] [place] [address] Care Team Providers Care Surfacer Name Role Phone Trupti Crow REMEDIAL READING TEACHER Unavailable [phone] Jacki Trujillo MD Primary Care Provider Allergies Active Allergy Reactions Criticality Noted Date Comments Other Other (See comments) Low 09/03/2023 States is allergic to calcium blockers-numbness in tongue and numbness in throat and inflammation points all over body. [facility] was able to breath Medications valsartan-hydro [...] 07/04/2023 Assessment & Plan (07/04/2023 3:22 PM FILENET P8 DEVELOPER): Congenital (NLP with sensory XT since ) Confirmed with outside MRI (06/2023) records Monocular precautions Subjective visual disturbances 07/04/2023 Assessment & Plan (07/04/2023 4:32 PM FILENET P8 DEVELOPER): Truong Castillo is a 48 yo male [...] (2 - Td or Tdap) 04/15/2031 Insurance [facility] Member Subscriber Plan / Payer (Ef fective 2020-Present) Name:Truong Castillo Relation to Subscriber:Self Name:Truong Castillo Payer ID:[id number] (NAIC) Group ID:Not on file Type:MEDICAID RISK OTHER Address: ATTN: CLAIMS DEPT [address] [place] [phone] [facility] Care Teams Surfacer Relationship Specialty Start Date End Date Jacki Trujillo MD [address] [facility] [address] [place] [address] PCP - General Family Practice 09/28/22 Trupti Crow NP Nurse Practitioner Orthopedic Surgery 09/28/22
--- OUTSIDE RECORDS SUMMARY | 2024-07-20 12:39 | XMS_ITS | Referral Summary ---
Author Organization [facility] Address [address] [place] [address] Care Team Providers Care Mail Order Biller Name Role Phone rTupti Crow QA AUTOMATION ARCHITECT Unavailable [phone] Jacki Trujillo MD Primary Care Provider Allergies Active Allergy Reactions Criticality Noted Date Comments Other Other (See comments) Low 09/03/2023 States is allergic to calcium blockers-numbness in tongue and numbness in throat and inflammation points all over body. [facility] was able to breath Medications valsartan-hydro [...] 07/04/2023 Assessment & Plan (07/04/2023 3:22 PM CARPENTER SHIP): Congenital (NLP with sensory XT since ) Confirmed with outside MRI (06/2023) records Monocular precautions Subjective visual disturbances 07/04/2023 Assessment & Plan (07/04/2023 4:32 PM CARPENTER SHIP): Truong Castillo is a 48 yo male [...] Plan of Treatment Not on file Insurance [facility] Care Teams Mail Order Biller Relationship Specialty Start Date End Date Jacki Trujillo MD [address] [facility] [place] [address] [place] [address] PCP - General Family Practice 09/28/22 Trupti Crow NP Nurse Practitioner Orthopedic Surgery 09/28/22
--- OUTSIDE RECORDS SUMMARY | 2024-07-20 12:39 | XMS_ITS | CONTINUITY OF CARE DOCUMENT ---
Author Name bandar portillo Address Unknown Organization [facility] Address [address] [place] [address] Phone [phone] Care Team Providers Care Client Leader Name Role Phone Nathanael Johnson MD Unavailable [phone] SERENA ARTEAGA DO Unavailable [phone] SERENA ARTEAGA DO Unavailable [phone] INSURANCE PROVIDERS Payer name Policy type / Coverage type [place] red democrat ID [employer] Medicaid [id number]
[2024-07-20 12:59] LABS: Influenza A QL RT-PCR Negative (Negative); Influenza B QL RT-PCR Negative (Negative); RSV RNA, RT-PCR Negative (Negative); SARS-CoV-2 RNA PCR Negative (Negative)
[2024-07-20 13:53] VITALS: BP 132/76; PULSE 70; RESP 20; O2SAT 96
--- NOTE | 2024-07-20 15:59 | ED_ITS ---
HPI - General Adult General Chief complaint: Upper Respiratory Infection Stated complaint: i'm sick again Time Seen by Provider: 07/20/24 12:24 History of Present Illness HPI narrative: 49-year-old male presents emergency department for evaluation for nasal congestion and sinus pressure. Patient did have COVID approximately 1 month ago and reports he had 3 weeks of feeling improved. Patient reports approximately 2 days ago he had onset of nasal congestion. Patient denies any current cough or shortness of breath. Related Data Home Medications ?Medication ?Instructions ?Recorded ?Confirmed ?Last Taken ?Type aspirin 81 mg tablet,delayed 81 mg PO DAILY 06/28/23 07/20/24 05/04/24 07:30 History release (Adult Low Dose Aspirin) pantoprazole 40 mg tablet,delayed 40 mg PO DAILY 03/13/24 07/17/24 05/04/24 07:30 History release Allergies Allergy/AdvReac Type Severity Reaction Status Date / Time Beta-Blockers AdvReac Intermediate Numbness Verified 07/20/24 12:08 (Beta-Adrenergic Bloc Review of Systems Review of Systems: All systems reviewed & are unremarkable except as noted in HPI and below PMFSH Past Medical History Medical History High risk medication use Need for hepatitis B screening test Crohn's disease Hoarseness of voice Loose stools Rectal pain Alternating constipation and diarrhea Intertrigo MATILDA positive Subcutaneous cyst Numbness and tingling of both lower extremities Numbness and tingling in both hands Otitis media History of stroke Left facial numbness Septo-optic dysplasia of brain Elevated antinuclear antibody (MATILDA) level Vision abnormalities Joint pain SOB (shortness of breath) on exertion Rib pain on left side Tinnitus GERD (gastroesophageal reflux disease) Allergic rhinitis Essential (primary) hypertension Amblyopia of eye Ulnar neuropathy at elbow of left upper extremity Nicotine dependence Chest pain, unspecified Closed left arm fracture Kidney stone Hypercholesteremia Hypertension Surgical History Surgical History History of eye surgery Left History of foot surgery Left Family History Family History Father , Who is the patient's great aunt or distant cousin Hypertension Alcoholism Heart disease Mother Hypertension Mother Unknown family medical history Father Unknown family medical history Sibling Healthy adult Social History Social History Social History: The patient lives in an apartment. He has a 65-year-old roommate has had a stroke that he helps provide care for. He has 2 large dogs. 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 He is single and has never been . He does not have any children. He has smoked 2 packs per day since he was 18 years old. He drinks alcohol quite heavily. He was drinking up to a 12 pack of beer per day. He reports that in September of 2022 he cut back to drinking 3-7 beers every couple of days. He denies illicit substance use. Code status: Full code Surrogate decision maker: Deena Hester (sister) Caffeine-coffee Smoking packs per day: 2 Smoking cigarettes per day: 40.0 Years smoked: 29 Smoking pack-years: 58.00 Smoking status: Current every day smoker Tobacco type: cigarettes Second hand tobacco smoke exposure: Yes Alcohol intake: current Drinks per week: 6 Substance use: never Substance use type: does not use Do You Feel Safe in your Home?: Yes Lack of Transportation: No Lack of Food: Never True Current Housing: I Have Housing Concerned About Future Housing: No Difficulty Paying Gas/Electric Bills: No Difficulty Paying for Meds: No Currently Unemployed: No Education: Trade/Vocational Certificate Difficulty w/ Childcare or Family Care: Decline to Answer Living arrangements: alone Occupation/Education: occupation Additional occupation/education comments: [employer], [employer]. Gender identity (if verbalized by the patient): Male Spiritual care concerns: No Exam Narrative: APPEARANCE: Well appearing, no pain, no distress, well-nourished. HEAD: normocephalic, atraumatic. EYES: PERRLA/EOMI, conjunctivae clear. NOSE: Normal no drainage EARS:TMS clear with good light reflex. THROAT: Pharynx clear, no exudate. NECK: Supple. No adenopathy, no masses. RESPIRATORY: Airway patent, respirations nonlabored. Clear to auscultation bilaterally, no rales, rhonchi, wheezing. CARDIOVASCULAR: Regular rate and rhythm without murmurs rubs or gallops. ABDOMINAL: Soft, nontender, nondistended, normal bowel sounds MUSCULOSKELETAL: Moves all extremities. Strength/ROM intact, No edema, No calf tenderness. NEURO: Alert. Cranial nerves II through XII intact. Good gait. Good coordination SKIN: Warm, dry. Normal Color Course Vital Signs Vital signs: Vital Signs Temperature 97.9 F 07/20/24 12:04 Pulse Rate 75 07/20/24 12:04 Respiratory Rate 20 07/20/24 12:04 Blood Pressure 147/91 H 07/20/24 12:04 Pulse Oximetry 96 07/20/24 12:04 Oxygen Delivery Room Air 07/20/24 12:04 Temperature 98.3 F 07/20/24 16:49 Pulse Rate 85 07/20/24 16:49 Respiratory Rate 20 07/20/24 16:49 Blood Pressure 140/76 07/20/24 16:49 Pulse Oximetry 97 07/20/24 16:49 Oxygen Delivery Room Air 07/20/24 12:16 Medical Decision Making MDM Narrative Medical decision making narrative: 49-year-old male presents to the emergency department for evaluation for sinus congestion. Patient's x-ray was negative for acute pneumonia. Patient does have an albuterol inhaler at home Differential Diagnosis Differential Diagnosis: COVID, RSV, influenza, pneumonia Vital Signs Vital Signs: Vital Signs Temperature 97.9 F 07/20/24 12:04 Pulse Rate 75 07/20/24 12:04 Respiratory Rate 20 07/20/24 12:04 Blood Pressure 147/91 H 07/20/24 12:04 Pulse Oximetry 96 07/20/24 12:04 Oxygen Delivery Room Air 07/20/24 12:04 Temperature 98.3 F 07/20/24 16:49 Pulse Rate 85 07/20/24 16:49 Respiratory Rate 20 07/20/24 16:49 Blood Pressure 140/76 07/20/24 16:49 Pulse Oximetry 97 07/20/24 16:49 Oxygen Delivery Room Air 07/20/24 12:16 Lab Data Labs: Lab Results 07/20/24 Range/Units 12:14 Influenza A (RT-PCR) Negative (Negative) Influenza B (RT-PCR) Negative (Negative) RSV (RT-PCR) Negative (Negative) SARS-CoV-2 RNA (RT-PCR) Negative (Negative) Imaging Data Radiologist's impression: Impressions Chest X-Ray 07/20/24 16:24 IMPRESSION: No focal infiltrate or effusion. Discharge Plan Discharge Clinical Impression: URI (upper respiratory infection) Patient Disposition: Home, Self-Care Condition: Stable Instructions: Antibiotic Form, Upper Respiratory Infection (ED) Additional Instructions: Albuterol inhaler for cough or shortness of breath. [id number] medications for symptom control. Have close follow-up with your primary care physician. Patient Language: Georgian Prescriptions: No Action aspirin [Adult Low Dose Aspirin] 81 mg tablet,delayed release (DR/EC) 81 mg PO DAILY pantoprazole 40 mg tablet,delayed release (DR/EC) 40 mg PO DAILY nebivolol 10 mg tablet See Rx Instructions .ROUTE .COMPLEX Qty: 90 2RF Dose Instruction: TAKE 1 TABLET BY MOUTH DAILY Rx Instructions: TAKE 1 TABLET BY MOUTH DAILY albuterol sulfate 90 mcg/actuation HFA aerosol inhaler 2 puff inhalation Q4H PRN (Reason: shortness of breath or wheezing) Qty: 8.5 3RF valsartan-hydrochlorothiazide 160-25 mg tablet See Rx Instructions .ROUTE .COMPLEX Qty: 90 1RF Dose Instruction: TAKE 1 TABLET BY MOUTH DAILY Rx Instructions: TAKE 1 TABLET BY MOUTH DAILY Follow-up/Referrals: oJsé Pena DO [Primary Care Provider] -
[2024-07-20 16:49] VITALS: BP 140/76; PULSE 85; RESP 20; TEMP 36.8; O2SAT 97
== END 2024-07-20 16:51 | disposition home or self-care (01) ==
PROVIDERS: Emergency Provider Emergency Medicine; PCP Internal Medicine
DX: J06.9 Acute upper respiratory infection, unspecified (principal); Z79.82 Long term (current) use of aspirin; K50.90 Crohn's disease, unspecified, without complications; K21.9 Gastro-esophageal reflux disease without esophagitis; I10 Essential (primary) hypertension; E78.00 Pure hypercholesterolemia, unspecified; F17.210 Nicotine dependence, cigarettes, uncomplicated; Z20.822 Contact with and (suspected) exposure to COVID-19
CPT/HCPCS: 71045; 87637; 99283

== ENCOUNTER 2024-09-25 11:02 | Outpatient (CLI) | payer OTHER, SELFPAY ==
[2024-09-25 11:34] LABS: Basophils Percent Auto 0.2 % (0.2-1.2); Eosinophils Absolute Auto 0.1 K/mm3 (0-0.3); Eosinophils Percent Auto 0.7 % (0-4.4); Hematocrit 49.1 % (42.0-52.0); Hemoglobin 15.7 g/dL (14.0-18.0); Immature Granulocyte Absolute 0.13 K/mm3 (0.00-0.031); Immature Granulocyte Percent A 0.8 % (0-0.5); Lymphocytes Absolute Auto 3.05 K/mm3 (0.9-3.2); Lymphocytes Percent Auto 18.8 % (18.3-44.2); Mean Corpuscular Hemoglobin 29.5 pg (26-34); Mean Corpuscular Volume 92.1 fl (80-100); Mean Platelet Volume 9.4 fl (7.4-10.4); Monocytes Absolute Auto 0.5 K/mm3 (0.1-0.6); Monocytes Percent Auto 3.2 % (2.6-8.5); Neutrophils Absolute Auto 12.3 K/mm3 (1.3-6.7); Neutrophils Percent Auto 76.3 % (45.5-73.1); Platelet Count Result 318 k/mm3 (150-375); Red Blood Count 5.33 M/mm3 (4.6-6.20); Red Cell Distribution Width 13.8 % (11.5-14.5); White Blood Count 16.2 K/mm3 (4.5-10.0)
--- OUTSIDE RECORDS SUMMARY | 2024-09-25 12:02 | XMS_ITS | Referral Summary ---
Author Organization [facility] Address [facility] [place] [address] Care Team Providers Care Radiologist Chief Of Breast Imaging Name Role Phone Trupti Crow PETROLEUM TERMINAL PLANT OPERATOR Unavailable [phone] Jacki Trujillo MD Primary Care Provider Encounters Date Type Department Care Team Description 09/15/2024 4:00 PM CDT Office Visit [facility] ([facility]) - [facility] ENT [address] [facility] 2nd Floor, [address] [place] [address] Ander Winters MD Vocal cord nodule (Primary Dx); Tinnitus, unspecified laterality; Other specified health status 09/15/2024 3:15 PM CDT Procedure visit [facility] Otolaryngology [address] [facility] 2nd Floor [address] [place] [address] Sylwia Jackson Au.D. Tinnitus, unspecified laterality (Primary Dx) from Last 3 Months Allergies Active Allergy Reactions Criticality Noted Date Comments Other Other (See comments) Low 09/03/2023 States is allergic to calcium blockers-numbness in tongue and numbness in throat and inflammation points all over body. States was able to breath Medications valsartan-hydro chlorothiazide [...] 30 tablet 5 4 Active Active Problems Patient Care Coordination No te Formatting of this note migh t be different from the original. 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 Monthly or less 09/15/2024 Q2: How many drinks containi ng alcohol do you have on a typical day when you are drinking? 3 or 4 09/15/2024 Q3: How often do you have si x or more drinks on one occasion? Less than monthly 09/15/2024 Hunger Vital Sign Answer Date Recorded Within [...] Getting School Help Needed Not on file 01/06 Sex and Gender Information Value Date Recorded [...] CDT Inhaled Oxygen Concentration - - Weight 109.8 kg (242 lb) 09/15/2024 3:55 PM CDT Height 179.1 cm (5' 10.5 ) 09/03/2023 9:01 AM CD T Body Mass Index 34.23 09/03/2023 9:01 AM CDT Plan of Treatment Not on file Procedures Procedure Name Priority Date/Time Associated Diagnosis Comments AUDBASE RESULTS 09/15/2024 2:54 PM CDT from Last 3 Months Results * AudBase Results (09/15/2024 2:54 PM CDT) us Provider Scanning AUDIOLOGY SERVICES ORDERABLES Final Result from Last 3 Months Insurance [facility] Care Teams Radiologist Chief Of Breast Imaging Relationship Specialty Start Date End Date Jacki Trujillo MD [address] [facility] [address] [place] [address] PCP - General Family Practice 09/28/22 Trupti Crow NP Nurse Practitioner Orthopedic Surgery 09/28/22
--- OUTSIDE RECORDS SUMMARY | 2024-09-25 12:02 | XMS_ITS | Clinical Summary ---
Author Organization [facility] Address [address] [place] [address] Care Team Providers Care Family Nurse Name Role Phone Trupti Crow NP Unavailable [phone] Jacki Trujillo MD Primary Care Provider Allergies Active Allergy Reactions Criticality Noted Date Comments Other Other (See comments) Low 09/03/2023 States is allergic to calcium blockers-numbness in tongue and numbness in throat and inflammation points all over body. [facility] was able to breath Medications [...] 07/04/2023 Assessment & Plan (07/04/2023 3:22 PM ENVIRONMENTAL MONITORING SPECIALIST): Congenital (NLP with sensory XT since ) Confirmed with outside MRI (06/2023) records Monocular precautions Subjective visual disturbances 07/04/2023 Assessment & Plan (07/04/2023 4:32 PM ENVIRONMENTAL MONITORING SPECIALIST): Truong Castillo is a 48 yo male [...] symptoms; visual snow could be a possibility. Encounters Date Type Department Care Team Description 09/15/2024 4:00 PM CDT Office Visit [facility]) [facility] ENT [address] [facility] 2nd Floor, [address] [place] [address] Ander Winters MD Vocal cord nodule (Primary Dx); Tinnitus, unspecified laterality; Other specified health status 09/15/2024 3:15 PM CDT Procedure visit [facility] Otolaryngology [address] [facility] 2nd Floor [address] [place] [address] Sylwia Jackson Au.D. Tinnitus, unspecified laterality (Primary Dx) from Last 3 Months Surgical History Surgery Date Site/Laterality Comments EYE [...] History of hypertension - (A dded by TW Conv) Dental disease GERD (gastroesophageal reflux disease) High blood pressure Sleep apnea Stroke (HCC) Family History Medical History Relation Name Comments Cancer Mother Family history of malignant neoplasm - (Added by TW Conv) Relation Name Status Comments Mother Social [...] of 2 - PCV) 01/28/1996 Influenza Vaccine (Season Ended) 2025 DTaP/Tdap/Td Vaccine (2 - Td or Tdap) 04/15/2031 Procedures Procedure Name Priority Date/Time Associated Diagnosis Comments AUDBASE RESULTS 09/15/2024 2:54 PM CDT from Last 3 Months Results * AudBase Results (09/15/2024 2:54 PM CDT) Provider Scanning AUDIOLOGY SERVICES ORDERABLES Final Result from Last 3 Months Insurance [facility] Member Subscriber Plan / Payer (Ef fective 2023-Present) Name:Truong Castillo Relation to Subscriber:Self Name:Truong Castillo Payer ID:[id number] (NAIC) Group ID:Not on file Type:MEDICAID RISK OTHER Address: ATTN: CLAIMS DEPT [address] [facility] [place] [phone] Care Teams Family Nurse Relationship Specialty Start Date End Date Jacki Trujillo MD [address] [facility] [address] [place] [address] PCP - General Family Practice 09/28/22 Trupti Crow NP Nurse Practitioner Orthopedic Surgery 09/28/22
--- OUTSIDE RECORDS SUMMARY | 2024-09-25 12:02 | XMS_ITS | Clinical Summary ---
Author Organization [facility] Address [address] [facility] [place] [address] Care Team Providers Care Operations Specialists Name Role Phone Unknown, Provider Primary Care Provider Unavaila ble Source Comments [facility],non-owned Affiliates and Associated Physician Practices is amultiple site organization consisting of ambulatory clinics and hospital sitesin [place], [place], [place] and [place]. This disclosure is being madepursuant to the Care Everywhere program and may not contain all information available regarding this patient. Last updated 18.[facility] Allergies No known active allergies Medications * Be aware that medications may not be up to date on this document. Alwaysverify current medications with the patient. albuterol HFA (Proventil; Ventolin; Proair) 108 (90 Base) MCG/ACT inhaler 1 (one) puff 04/18/20 Active valsartan-hydro CHLOROthiazide (Diovan HCT) 160-25 MG tablet Take by mouth once daily Active nebivolol (Bystolic) 10 MG tablet Take 1 (one) tablet by mouth once daily Active pantoprazole EC (Protonix) 40 MG tablet Take 1 (one) tablet by mouth once daily Active aspirin (Aspirin) 81 MG chew tablet Take 1 (one) tablet by mouth once daily Active Galcanezumab-gn lm (Emgality) 120 MG/ML auto-injector penIndications: Migraine without aura and without status migrainosus, not intractable Inject 1 mL subcutaneously every 30 days 1 mL 5 04/21/20 Active Additional Information Patient not taking.Reported on 08/18/2024 Encounters Date Type Department Care Team Description 08/18/2024 11:30 AM CDT Office Visit [facility] - Neurology [address] [facility], [facility] [place] [phone] Evan Lanier APRN-CNP Migraine without aura and without status migrainosus, not intractable (Primary Dx); LEILA (obstructive sleep apnea) 08/18/2024 Travel 07/08/2024 Telephone [facility] - Neurology [address] [place] [phone] Evan Lanier APRN-CNP Medication Prior Auth Request (Emgality renewal) from Last 3 Months Social History Tobacco Use Types Packs/Day Years Used Date Smoking Tobacco: Every Day Cigarettes Tobacco Cessation:Ready to Q uit: Not Asked; Counseling Given: Not Answered Alcohol Use Standard Drinks/Week Comments Yes 2 (1 standard drink = 0.6 oz pur e alcohol) Sex and Gender Information Value Date Recorded Sex Assigned at Not on file 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 Gender Identity Not on file Sexual Orientation Not on file Last Filed Vital Signs Vital Sign Reading Time Taken Comments Blood Pressure 143/84 08/18/2024 11:25 AM CDT Pulse 61 08/18/2024 11:25 AM CDT Temperature - - Respiratory Rate - - Oxygen Saturation 98% 08/18/2024 11:20 AM CDT Inhaled Oxygen Concentration - - Weight 115.2 kg (254 lb) 08/18/2024 11:20 AM CDT Height - - Body Mass Index - - Plan of Treatment Upcoming Encounters Date Type Department Care Team (Late st Contact Info) Description 02/18/2025 10:30 AM CDT Office Visit [facility] - Neurology [address] [place] [phone] Evan Lanier APRN-CNP [address] [place] [address] [place] [phone] Health Maintenance Due Date Last Done Comments [...] VACCINE (1 - 2023-2 5 season) 2024 DEPRESSION SCREENING 05/28/2024 INFLUENZA VACCINE (Season Ended) 2025 ZOSTER VACCINE (1 of 2) 2027 HIB VACCINE Aged Out No longer eligi ble based on patient's age to complete this topic HPV VACCINE Aged Out No longer eligi ble based on patient's age to complete this topic MENINGOCOCCAL (Group B) VACC INE SHARED DECISION-MAKING Aged Out No longer eligibl e based on patient's age to complete this topic MENINGOCOCCAL GROUPS A/C/Y/W VACCINE Aged Out No longer eligible b ased on patient's age to complete this topic Insurance [facility] SELF PAY NO INSURANCE Member Subscriber Plan / Payer (Ef fective for All Dates) Name:Malathi Desai Member ID:Not on file Relation to Subscriber:Not on file Name:MALATHI DESAI Subscriber ID:Not on file (Home) Address: [address] [place] [address] Payer ID:Not on file Group ID:Not on file Type:Self Pay Address: [place], [place] Care Teams Operations Specialists Relationship Specialty Start Date End Date Unknown, Provider PCP - General 04/21/24
--- OUTSIDE RECORDS SUMMARY | 2024-09-25 12:02 | XMS_ITS | CONTINUITY OF CARE DOCUMENT ---
Author Name bandar portillo Address Unknown Organization [facility] Address [address] [place] [address] Phone [phone] Care Team Providers Care Attendance Clerk Name Role Phone Nathanael Johnson MD Unavailable [phone] SERENA ARTEAGA DO Unavailable SERENA ARTEAGA DO Unavailable [phone] INSURANCE PROVIDERS Payer name Policy type / Coverage type [place] red democrat ID [employer] Medicaid [id number]
--- OUTSIDE RECORDS SUMMARY | 2024-09-25 12:02 | XMS_ITS | Clinical Summary ---
Author Organization [facility] Address [address] [place] [address] Care Team Providers Care Wild Animal Caretaker Name Role Phone Jacki Trujillo MD Primary Care Provider Allergies No known active allergies Medications valsartan-hydroC HLOROthiazide (DIOVAN HCT) 160-25 mg tablet Take 1 Tablet by mouth daily. 08/18/2022 Active rivaroxaban (Xarelto) 20 mg Tablet Take 1 Tablet (20 mg) by mouth daily. 30 Tablet 4 06/04/2023 Active Active Problems No known active problems Encounters Date Type Department Care Team Description 09/09/2024 External Device Data [facility] ABSTRACTION Provider, Abstract 08/13/2024 External Device Data [facility] ABSTRACTION Provider, Abstract 08/05/2024 External Device Data [facility] ABSTRACTION Provider, Abstract 08/04/2024 External Device Data [facility] ABSTRACTION Provider, Abstract 08/02/2024 External Device Data [facility] ABSTRACTION Provider, Abstract 08/01/2024 External Device Data [facility] ABSTRACTION Provider, Abstract 07/30/2024 External Device Data [facility] ABSTRACTION Provider, Abstract 07/29/2024 External Device Data [facility] ABSTRACTION Provider, Abstract [...] Done Comments Pre-Diabetes and Diabetes Screening 1977 DTAP/TDAP/TD VACCINES (1 - Tdap) 01/28/1996 HEPATITIS B VACCINES (1 of 3 - 19+ 3-dose series) 06/1995 COLORECTAL SCREENING 2022 Colorectal Cancer Screening 2022 FIT-DNA Q 3 years 2022 FIT/FOBT Q 1 year 2022 Flex Sig/CT Colonography Q 5 years 2022 INFLUENZA VACCINE (#1) 2023 Insurance [facility] MEDICAID Care Teams Wild Animal Caretaker Relationship Specialty Start Date End Date Jacki Trujillo MD [address] [place] [address] PCP - General Family Practice 12/29/22
--- OUTSIDE RECORDS SUMMARY | 2024-09-25 12:02 | XMS_ITS | Clinical Summary ---
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
--- OUTSIDE RECORDS SUMMARY | 2024-09-25 12:02 | XMS_ITS | Encounter Summary ---
Author Organization [facility] Address [address] [facility] [place] [address] Care Team Providers Care Crowd Controller Name Role Phone Unknown, Provider Primary Care Provider Unavaila ble Reason for Referral * Consultation (Routine) - Closed Specialty Diagnoses / Procedures Referred By Contac t Referred To Contact Neurology Diagnoses Headache Septo-optic dysplasia of brain (HCC) José Pena DO [address] [address] Phone: tel: fax: [facility] - Neurology [address] [place] [address] Phone: tel: fax: Referral ID Status Reason Start Date Expiration Date V isits Requested Visits Authorized [id number] Closed Specialty Services Required 04/03/2024 04/03/2025 1 1 GER STORAGE Encounter Details Date Type Department Care Team (Latest Contact Info) Description 04/03/2024 Transcribe Orders [facility] - Centralized Scheduling [facility] [place] [address] José Pena DO [address] [address] Nonintractable headache, unspecified chronicity pattern, unspecified headache type ; Septo-optic dysplasia of brain Social History Tobacco Use Types Packs/Day Years Used Date Smoking Tobacco: Never Assessed Sex and Gender Information Value Date Recorded Sex Assigned at Not on file 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 [place] [address] Evan Lanier, CUSHION SPRING ASSEMBLER-AIR POLLUTION ANALYST [address] [place] [address] Scheduled Referrals Name Type Priority Associated Diagnoses Orde r Schedule AMB REFERRAL TO NEUROLOGY Outpatient Referral Routine Nonintractable headache, unspecified chronicity pattern, unspecified headache type Septo-optic dysplasia of brain 1 Occurrences starting 04/03/2024 until 04/03/2025 documented as of this encounter Visit Diagnoses Diagnosis Nonintractable headache, unspecified chronicity pattern, unspecified headache type- Primary 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
== END 2024-09-25 11:03 | disposition home or self-care (01) ==
LOC: ANHLAB 11:05
PROVIDERS: PCP Internal Medicine; Visit Provider Nurse Practitioner
DX: K21.9 Gastro-esophageal reflux disease without esophagitis (principal)
CPT/HCPCS: 36415; 85025

== ENCOUNTER 2024-10-13 13:40 | Outpatient (CLI) | payer OTHER, SELFPAY ==
--- NOTE | ~2024-10-13 | XR_ITS ---
CHEST RADIOGRAPH, PA AND LATERAL CLINICAL HISTORY: R06.09 - Other forms of dyspnea . COMPARISON: 06/09/2024 TECHNIQUE: PA and lateral views of the chest. FINDINGS The cardiomediastinal silhouette is unremarkable. The lungs are clear. Visualized osseous structures and soft tissues are unremarkable. IMPRESSION: No focal infiltrate or effusion. Reviewed, dictated and finalized at location A.
--- OUTSIDE RECORDS SUMMARY | 2024-10-13 13:47 | XMS_ITS | Clinical Summary ---
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
--- OUTSIDE RECORDS SUMMARY | 2024-10-13 13:47 | XMS_ITS | Encounter Summary ---
Author Organization [facility] Address [address] [facility] [place] [address] Care Team Providers Care Operations Representative Name Role Phone Unknown, Provider Primary Care Provider Unavaila ble Reason for Referral * Consultation (Routine) - Closed Specialty Diagnoses / Procedures Referred By Contac t Referred To Contact Neurology Diagnoses Headache Septo-optic dysplasia of brain (HCC) José Pena DO [address] [address] Phone: tel: fax: [facility] - Neurology [address] [place] [address] Phone: tel: fax: Referral ID Status Reason Start Date Expiration Date V isits Requested Visits Authorized [id number] Closed Specialty Services Required 04/03/2024 04/03/2025 1 1 RIAL LOADER Encounter Details Date Type Department Care Team (Latest Contact Info) Description 04/03/2024 Transcribe Orders [facility] - Centralized Scheduling [facility] [place] [address] José Pena DO [address] [address] Nonintractable headache, unspecified chronicity pattern, unspecified headache type ; Septo-optic dysplasia of brain Social History Tobacco Use Types Packs/Day Years Used Date Smoking Tobacco: Never Assessed Sex and Gender Information Value Date Recorded Sex Assigned at Not on file 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 Gender Identity Not on file Sexual Orientation Not on file documented as of this encounter Plan of Treatment Upcoming Encounters Date Type Department Care Team (Late st Contact Info) Description 02/18/2025 10:30 AM CDT Office Visit [facility] - Neurology [address] [facility] [place] [address] Evan Lanier, CAMPUS CHAPLAIN-FLASH OVEN OPERATOR [address] [place] [address] Scheduled Referrals Name Type Priority Associated Diagnoses [...] brain documented in this encounter Care Teams Operations Representative Relationship Specialty Start Date End Date Unknown, Provider PCP - General 04/21/24 documented as of this encounter
--- OUTSIDE RECORDS SUMMARY | 2024-10-13 13:47 | XMS_ITS | Clinical Summary ---
Author Organization [facility] Address [address] [place] [address] Care Team Providers Care Human Geography Instructor Name Role Phone Trupti Crow NP Unavailable Jacki Trujillo MD Primary Care Provider Allergies Active Allergy Reactions Criticality Noted Date Comments Other Other (See comments) Low 09/03/2023 States is allergic to calcium blockers-numbness in tongue and numbness in throat and inflammation points all over body. [facility] was able to breath Medications valsartan-hydro [...] 07/04/2023 Assessment & Plan (07/04/2023 3:22 PM FURNACE INSTALLER HELPER): Congenital (NLP with sensory XT since ) Confirmed with outside MRI (06/2023) records Monocular precautions Subjective visual disturbances 07/04/2023 Assessment & Plan (07/04/2023 4:32 PM FURNACE INSTALLER HELPER): Truong Castillo is a 48 yo male [...] Description 09/15/2024 4:00 PM CDT Office Visit [facility]) [facility] ENT [address] [facility] 2nd Floor, [address] [place] [address] Ander Winters MD Vocal cord nodule (Primary Dx); Tinnitus, unspecified laterality; Other specified health status 09/15/2024 3:15 PM CDT Procedure visit [facility] Otolaryngology [address] [facility] 2nd Floor [address] [place] [address] Sylwia Jackson Au.D. Tinnitus, unspecified laterality (Primary [...] Final Result from Last 3 Months Insurance [facility] Member Subscriber Plan / Payer (Ef fective 2023-Present) Name:Truong Castillo Relation to Subscriber:Self Name:Truong Castillo Payer ID:[id number] (NAIC) Group ID:Not on file Type:MEDICAID RISK OTHER Address: ATTN: CLAIMS DEPT [address] [facility] [place] [phone] Care Teams Human Geography Instructor Relationship Specialty Start Date End Date Jacki Trujillo MD [address] [facility] [address] [place] [address] PCP - General Family Practice 09/28/22 Trupti Crow NP Nurse Practitioner Orthopedic Surgery 09/28/22
--- OUTSIDE RECORDS SUMMARY | 2024-10-13 13:47 | XMS_ITS | CONTINUITY OF CARE DOCUMENT ---
Author Name bandar portillo Address Unknown Organization [facility] Address [address] [facility] [address] [place] [address] Phone [phone] Care Team Providers Care Cleaning Associate Name Role Phone Nathanael Johnson MD Unavailable [phone] SERENA ARTEAGA DO Unavailable [phone] SERENA ARTEAGA DO Unavailable [phone] INSURANCE PROVIDERS Payer name Policy type / Coverage type [place] red constitution party ID [employer] Medicaid [id number]
--- OUTSIDE RECORDS SUMMARY | 2024-10-13 13:47 | XMS_ITS | Clinical Summary ---
Author Organization [facility] Address [address] [place] [address] Care Team Providers Care Pin Machine Tender Name Role Phone Jacki Trujillo MD Primary Care Provider Allergies No known active allergies Medications valsartan-hydroC HLOROthiazide (DIOVAN HCT) 160-25 mg tablet Take 1 Tablet by mouth daily. 08/18/2022 Active rivaroxaban (Xarelto) 20 mg Tablet Take 1 Tablet (20 mg) by mouth daily. 30 Tablet 4 06/04/2023 Active Active Problems No known active problems Encounters Date Type Department Care Team Description 09/30/2024 External Device Data [facility] ABSTRACTION Provider, Abstract 09/30/2024 External Device Data [facility] ABSTRACTION Provider, Abstract 09/09/2024 External Device Data [facility] ABSTRACTION Provider, [...] years 2022 INFLUENZA VACCINE (#1) 2023 Insurance [facility] PLAN MEDICAID [facility] MEDICAID Care Teams Pin Machine Tender Relationship Specialty Start Date End Date Jacki Trujillo MD [address] [place] [address] PCP - General Family Practice 12/29/22
--- OUTSIDE RECORDS SUMMARY | 2024-10-13 13:47 | XMS_ITS | Clinical Summary ---
Author Organization [facility] Address [address] [facility] [place] [address] Care Team Providers Care Radiology Therapist Name Role Phone Unknown, Provider Primary Care Provider Unavaila ble Source Comments [facility] [employer],non-owned Affiliates and Associated Physician Practices is amultiple site organization consisting of ambulatory clinics and hospital sitesin [place], [place], [place] and [place]. This disclosure is being madepursuant to the Care Everywhere program and may not contain all information available regarding this patient. 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 Gender Identity Not on file Sexual Orientation [...] Office Visit [facility] - Neurology [address] [place] [address], [facility] [place] [address] Evan Lanier, CHANELLE [address] [place] [address] [place] [address] Health Maintenance Due Date Last Done Comments [...] patient's age to complete this topic Insurance [facility] SELF PAY NO INSURANCE Member Subscriber Plan / Payer (Ef fective for All Dates) Name:Malathi Desai Member ID:Not on file Relation to Subscriber:Not on file Name:MALATHI DESAI Subscriber ID:Not on file (Home) Address: [address] [place] [address] Payer ID:Not on file Group ID:Not on file Type:Self Pay Address: [place], [place] Care Teams Radiology Therapist Relationship Specialty Start Date End Date Unknown, Provider PCP - General 04/21/24
--- OUTSIDE RECORDS SUMMARY | 2024-10-13 13:47 | XMS_ITS | Referral Summary ---
Author Organization [facility] Address [facility] [place] [address] Care Team Providers Care County Agricultural Agent Name Role Phone Trupti Crow MEDICAL OFFICE RECEPTIONIST Unavailable [phone] Jacki Trujillo MD Primary Care Provider Encounters Date Type Department Care Team Description 09/15/2024 4:00 PM CDT Office Visit [facility] ([facility]) - [facility] ENT [address] [facility] 2nd Floor, [address] [place] [address] Ander Winters MD Vocal cord nodule (Primary Dx); Tinnitus, unspecified laterality; Other specified health status 09/15/2024 3:15 PM CDT Procedure visit [facility] Otolaryngology [address] [facility] 2nd Floor [address] [place] [address] Sylwia Jackson Au.D. Tinnitus, unspecified laterality (Primary [...] 07/04/2023 Assessment & Plan (07/04/2023 3:22 PM ESCALATOR INSTALLER): Congenital (NLP with sensory XT since ) Confirmed with outside MRI (06/2023) records Monocular precautions Subjective visual disturbances 07/04/2023 Assessment & Plan (07/04/2023 4:32 PM ESCALATOR INSTALLER): Truong Castillo is a 48 yo male [...] Final Result from Last 3 Months Insurance [facility] Care Teams County Agricultural Agent Relationship Specialty Start Date End Date Jacki Trujillo MD [address] [facility] [address] [place] [address] PCP - General Family Practice 09/28/22 Trupti Crow NP Nurse Practitioner Orthopedic Surgery 09/28/22
[2024-10-13 14:16] LABS: Basophils Percent Auto 0.1 % (0.2-1.2); Hematocrit 48.7 % (42.0-52.0); Hemoglobin 15.4 g/dL (14.0-18.0); Immature Granulocyte Absolute 0.08 K/mm3 (0.00-0.031); Immature Granulocyte Percent A 0.5 % (0-0.5); Lymphocytes Absolute Auto 2.42 K/mm3 (0.9-3.2); Lymphocytes Percent Auto 14.8 % (18.3-44.2); Mean Corpuscular HGB Conc 31.6 g/dl (32-36); Mean Corpuscular Volume 94.9 fl (80-100); Mean Platelet Volume 9.4 fl (7.4-10.4); Monocytes Absolute Auto 0.7 K/mm3 (0.1-0.6); Monocytes Percent Auto 4.2 % (2.6-8.5); Neutrophils Absolute Auto 13.2 K/mm3 (1.3-6.7); Neutrophils Percent Auto 80.4 % (45.5-73.1); Platelet Count Result 337 k/mm3 (150-375); Red Blood Count 5.13 M/mm3 (4.6-6.20); Red Cell Distribution Width 14.4 % (11.5-14.5); White Blood Count 16.4 K/mm3 (4.5-10.0)
== END 2024-10-13 13:41 | disposition home or self-care (01) ==
LOC: ANHIMG 13:42
PROVIDERS: PCP Internal Medicine; Visit Provider Nurse Practitioner
DX: R06.09 Other forms of dyspnea (principal); D72.829 Elevated white blood cell count, unspecified
CPT/HCPCS: 36415; 71046; 85025

== ENCOUNTER 2024-10-15 13:58 | Emergency (ER) | payer OTHER, SELFPAY ==
[2024-10-15 14:00] VITALS: BP 148/84; PULSE 79; RESP 16; TEMP 36.8; O2SAT 100
--- OUTSIDE RECORDS SUMMARY | 2024-10-15 14:13 | XMS_ITS | Clinical Summary ---
Author Organization [facility] Address [address] [place] [address] Care Team Providers Care Piano Teacher Name Role Phone Jacki Trujillo MD Primary [...] years 2022 INFLUENZA VACCINE (#1) 2023 Insurance [facility] PLAN MEDICAID [facility] MEDICAID Care Teams Piano Teacher Relationship Specialty Start Date End Date Jacki Trujillo MD [address] [place] [address] PCP - General Family Practice 12/29/22
--- OUTSIDE RECORDS SUMMARY | 2024-10-15 14:13 | XMS_ITS | Clinical Summary ---
Author Organization [facility] Address [address] [facility] [place] [address] Care Team Providers Care Oceanographer Assistant Name Role Phone Unknown, Provider Primary Care Provider Unavaila ble Source Comments [facility] [employer],non-owned Affiliates and Associated Physician Practices is amultiple site organization consisting of ambulatory clinics and hospital sitesin [place], [place], [place] and [place]. This disclosure is being madepursuant to the Care Everywhere program and may not contain all information available regarding this patient. 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 Gender Identity Not on file Sexual Orientation [...] Office Visit [facility] - Neurology [address] [place] [address], [facility] [place] [address] Evan Lanier, CHANELLE [address] [place] [address] [place] [address] Health Maintenance Due Date Last Done Comments [...] patient's age to complete this topic Insurance [place] SELF PAY NO INSURANCE Member Subscriber Plan / Payer (Ef fective for All Dates) Name:Malathi Desai Member ID:Not on file Relation to Subscriber:Not on file Name:MALATHI DESAI Subscriber ID:Not on file (Home) Address: [address] [place] [id number] Payer ID:Not on file Group ID:Not on file Type:Self Pay Address: [place], [place] Care Teams Oceanographer Assistant Relationship Specialty Start Date End Date Unknown, Provider PCP - General 04/21/24
--- OUTSIDE RECORDS SUMMARY | 2024-10-15 14:13 | XMS_ITS | Referral Summary ---
Author Organization [facility] Address [facility] [place] [address] Care Team Providers Care Manager Care Name Role Phone Trupti Crow SHUTTLE VENEERING SUPERVISOR Unavailable [phone] Jacki Trujillo MD Primary Care Provider Encounters Date Type Department Care Team Description 09/15/2024 4:00 PM CDT Office Visit [facility] ([facility]) [facility] ENT [address] [facility] 2nd Floor, [address] [place] [address] Ander Winters MD Vocal cord nodule (Primary Dx); Tinnitus, unspecified laterality; Other specified health status 09/15/2024 3:15 PM CDT Procedure visit [facility] Otolaryngology [address] [facility] 2nd Floor [address] [place] [address] Sylwia Jackson Au.D. Tinnitus, unspecified laterality (Primary [...] 07/04/2023 Assessment & Plan (07/04/2023 3:22 PM MATERIAL REQUISITIONER): Congenital (NLP with sensory XT since ) Confirmed with outside MRI (06/2023) records Monocular precautions Subjective visual disturbances 07/04/2023 Assessment & Plan (07/04/2023 4:32 PM MATERIAL REQUISITIONER): Truong Castillo is a 48 yo male [...] Final Result from Last 3 Months Insurance [facility] Care Teams Manager Care Relationship Specialty Start Date End Date Jacki Trujillo MD [address] [facility] [address] [place] [address] PCP - General Family Practice 09/28/22 Trupti Crow NP Nurse Practitioner Orthopedic Surgery 09/28/22
--- OUTSIDE RECORDS SUMMARY | 2024-10-15 14:13 | XMS_ITS | CONTINUITY OF CARE DOCUMENT ---
Author Name bandar portillo Address Unknown Organization [facility] Address [address] [facility] [address] [place] [address] Phone [phone] Care Team Providers Care Cherry Dipper Name Role Phone Nathanael Johnson MD Unavailable [phone] SERENA ARTEAGA DO Unavailable SERENA ARTEAGA DO Unavailable [phone] INSURANCE PROVIDERS Payer name Policy type / Coverage type [place] red green party ID [employer] Medicaid [id number]
--- OUTSIDE RECORDS SUMMARY | 2024-10-15 14:13 | XMS_ITS | Clinical Summary ---
Author Organization [facility] Care Team Providers Care Table Machine Operator Name Role Phone Unavailable Primary Care Provider Unavailabl e Social History Tobacco Use Types Packs/Day Years Used Date Smoking Tobacco: Never Assessed Sex and Gender Information Value Date Recorded Sex Assigned at Not on file Legal Sex Male 11:32 AM ACURA SALES CONSULTANT Gender Identity Not on file Sexual Orientation [...]
--- OUTSIDE RECORDS SUMMARY | 2024-10-15 14:13 | XMS_ITS | Encounter Summary ---
Author Organization [facility] Address [address] [facility] [place] [address] Care Team Providers Care Dump Truck Driver Name Role Phone Unknown, Provider Primary Care Provider Unavaila ble Reason for Referral * Consultation (Routine) - Closed Specialty Diagnoses / Procedures Referred By Contac t Referred To Contact Neurology Diagnoses Headache Septo-optic dysplasia of brain (HCC) José Pena DO [address] [address] Phone: tel: fax: [facility] - Neurology [address] [place] [address] Phone: tel: fax: Referral ID Status Reason Start Date Expiration Date V isits Requested Visits Authorized [id number] Closed Specialty Services Required 04/03/2024 04/03/2025 1 1 SPLITTER Encounter Details Date Type Department Care Team (Latest Contact Info) Description 04/03/2024 Transcribe Orders [facility] - Centralized Scheduling [facility] [place] [address] José Pena DO [address] [address] Nonintractable headache, unspecified chronicity pattern, unspecified headache type ; Septo-optic dysplasia of brain Social History Tobacco Use Types Packs/Day Years Used Date Smoking Tobacco: Never Assessed Sex and Gender Information Value Date Recorded Sex Assigned at Not on file Legal Sex Male 6:21 AM LUNG SPLITTER Gender Identity Not on file Sexual Orientation Not on file documented as of this encounter Plan of Treatment Upcoming Encounters Date Type Department Care Team (Late st Contact Info) Description 02/18/2025 10:30 AM CDT Office Visit [facility] - Neurology [address] [facility] [place] [address] Evan Lanier, TRACTOR CRANE ENGINEER-SCREEN PRINTING CLOTH SPREADER [address] [place] [address] Scheduled Referrals Name Type Priority Associated Diagnoses [...] brain documented in this encounter Care Teams Dump Truck Driver Relationship Specialty Start Date End Date Unknown, Provider PCP - General 04/21/24 documented as of this encounter
--- OUTSIDE RECORDS SUMMARY | 2024-10-15 14:13 | XMS_ITS | Clinical Summary ---
Author Organization [facility] Address [address] [place] [address] Care Team Providers Care Supervisor Buffing And Pasting Name Role Phone Trupti Crow NP Unavailable [phone] Jacki Trujillo MD Primary Care Provider Allergies Active Allergy Reactions Criticality Noted Date Comments Other Other (See comments) Low 09/03/2023 States is allergic to calcium blockers-numbness in tongue and numbness in throat and inflammation points all over body. [facility] was able to breath Medications valsartan-hydro [...] 07/04/2023 Assessment & Plan (07/04/2023 3:22 PM GRAPHITE MILL OPERATOR): Congenital (NLP with sensory XT since ) Confirmed with outside MRI (06/2023) records Monocular precautions Subjective visual disturbances 07/04/2023 Assessment & Plan (07/04/2023 4:32 PM GRAPHITE MILL OPERATOR): Truong Castillo is a 48 yo [...] Description 09/15/2024 4:00 PM CDT Office Visit [facility] ENT [address] [facility] 2nd Floor, [address] [place] [address] Ander Winters MD Vocal cord nodule (Primary Dx); Tinnitus, unspecified laterality; Other specified health status 09/15/2024 3:15 PM CDT Procedure visit [facility] Otolaryngology [address] [facility] 2nd Floor [address] [place] [address] Sylwia Jackson Au.D. Tinnitus, unspecified laterality (Primary [...] Final Result from Last 3 Months Insurance [facility] Member Subscriber Plan / Payer (Ef fective 2023-Present) Name:Truong Castillo Relation to Subscriber:Self Name:Truong Castillo Payer ID:[id number] (NAIC) Group ID:Not on file Type:MEDICAID RISK OTHER Address: ATTN: CLAIMS DEPT [address] [facility] [place] [phone] Care Teams Supervisor Buffing And Pasting Relationship Specialty Start Date End Date Jacki Trujillo MD [address] [facility] [address] [place] [address] PCP - General Family Practice 09/28/22 Trupti Crow NP Nurse Practitioner Orthopedic Surgery 09/28/22
--- NOTE | 2024-10-15 15:38 | ED_ITS ---
HPI - URI/Sore Throat General Chief Complaint: Upper Respiratory Infection Stated Complaint: ALTERED SMELL,TASTE CONCERNED ABOUT COVID Time Seen by Provider: 10/15/24 15:37 Source: patient Mode of arrival: ambulatory Limitations: no limitations History of Present Illness HPI Narrative: patient is a 49-year-old male who presents the ED with report of altered taste and smell. Patient is concerned he has COVID-19. He states he developed a altered taste and smell this morning and this is how he felt when he was last diagnosed with COVID in May. He did take Paxilovid at that time and would be interested in receiving this again if he is positive. Denies significant cough, does admit to some chest congestion. Saw his webfocus developer on Sunday and had a negative chest x-ray. Denies fevers, sore throat, known sick contacts. Related Data Home Medications ?Medication ?Instructions ?Recorded ?Confirmed ?Last Taken ?Type aspirin 81 mg tablet,delayed 81 mg PO DAILY 06/28/23 10/13/24 05/04/24 07:30 History release (Adult Low Dose Aspirin) Allergies Allergy/AdvReac Type Severity Reaction Status Date / Time Beta-Blockers AdvReac Intermediate Numbness Verified 10/13/24 12:51 (Beta-Adrenergic Bloc Review of Systems Review of Systems: All systems reviewed & are unremarkable except as noted in HPI. All systems reviewed & are unremarkable except as noted in HPI and below PMFSH Past Medical History Medical History High risk medication use Need for hepatitis B screening test Crohn's disease Hoarseness of voice Loose stools Rectal pain Alternating constipation and diarrhea Intertrigo MATILDA positive Subcutaneous cyst Numbness and tingling of both lower extremities Numbness and tingling in both hands Otitis media History of stroke Left facial numbness Septo-optic dysplasia of brain Elevated antinuclear antibody (MATILDA) level Vision abnormalities Joint pain SOB (shortness of breath) on exertion Rib pain on left side Tinnitus GERD (gastroesophageal reflux disease) Allergic rhinitis Essential (primary) hypertension Amblyopia of eye Ulnar neuropathy at elbow of left upper extremity Nicotine dependence Chest pain, unspecified Closed left arm fracture Kidney stone Hypercholesteremia Hypertension Surgical History Surgical History History of eye surgery Left History of foot surgery Left Family History Family History Father , Who is the patient's great aunt or distant cousin Hypertension Alcoholism Heart disease Mother Hypertension Mother Unknown family medical history Father Unknown family medical history Sibling Healthy adult Social History Social History Social History: The patient lives in an apartment. He has a 65-year-old roommate has had a stroke that he helps provide care for. He has 2 large dogs. 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 He is single and has never been . He does not have any children. He has smoked 2 packs per day since he was 18 years old. He drinks alcohol quite heavily. He was drinking up to a 12 pack of beer per day. He reports that in September of 2022 he cut back to drinking 3-7 beers every couple of days. He denies illicit substance use. Code status: Full code Surrogate decision maker: Deenaerik Hester (sister) Caffeine-coffee Smoking packs per day: 2 Smoking cigarettes per day: 40.0 Years smoked: 29 Smoking pack-years: 58.00 Smoking status: Current every day smoker Tobacco type: cigarettes Second hand tobacco smoke exposure: Yes Alcohol intake: current Drinks per week: 6 Substance use: never Substance use type: does not use Do You Feel Safe in your Home?: Yes Lack of Transportation: No Lack of Food: Never True Current Housing: I Have Housing Concerned About Future Housing: No Difficulty Paying Gas/Electric Bills: No Difficulty Paying for Meds: No Currently Unemployed: No Education: Trade/Vocational Certificate Difficulty w/ Childcare or Family Care: Decline to Answer Living arrangements: alone Occupation/Education: occupation Additional occupation/education comments: [employer]. Gender identity (if verbalized by the patient): Male Spiritual care concerns: No Exam Narrative: GENERAL: Mildly disheveled appearing, obese with BMI of 37.0, non-toxic, in no acute distress. HEAD: Normocephalic, atraumatic. RESPIRATORY: Airway patent, respirations nonlabored. Clear to auscultation bilaterally, no rales, rhonchi, wheezing. No focal lung sounds. CARDIOVASCULAR: Regular rate and rhythm without murmurs, rubs, or gallops. MUSCULOSKELETAL: Moves all extremities. No gross deformities. SKIN: Warm, dry, normal color. NEURO: A&O X3. Speech clear. PSYCHIATRIC: Appropriate mood and affect. Normal interaction. Course Vital Signs Vital signs: Vital Signs Temperature 98.2 F 10/15/24 14:00 Pulse Rate 79 10/15/24 14:00 Respiratory Rate 16 10/15/24 14:00 Blood Pressure 148/84 H 10/15/24 14:00 Pulse Oximetry 100 10/15/24 14:00 Oxygen Delivery Room Air 10/15/24 14:00 Temperature 98.2 F 10/15/24 14:00 Pulse Rate 79 10/15/24 14:00 Respiratory Rate 16 10/15/24 14:00 Blood Pressure 148/84 H 10/15/24 14:00 Pulse Oximetry 100 10/15/24 14:00 Oxygen Delivery Room Air 10/15/24 14:00 MDM - URI/Sore Throat MDM Narrative Medical decision making narrative: COVID/flu/RSV negative. Discussed possibility of viral URI. Discussed management of such. Patient declined chest x-ray here. He did have chest x-ray performed on Sunday, which I reviewed and was normal. Given return precautions. Discharged in stable condition. Medical Records Attestation: I reviewed the patient's medical records. Lab Data Attestation: I reviewed the patient's lab results. Labs: Lab Results 10/15/24 Range/Units 15:36 Influenza A (RT-PCR) Negative (Negative) Influenza B (RT-PCR) Negative (Negative) RSV (RT-PCR) Negative (Negative) SARS-CoV-2 RNA (RT-PCR) Negative (Negative) Discharge Plan Discharge Clinical Impression: Altered taste, Sense of smell altered Patient Disposition: Home Condition: Stable Instructions: Antibiotic Form, Viral Syndrome (ED), Cold Symptoms (ED) Additional Instructions: Your testing for COVID was negative today. You may need to retest yourself in the next few days if symptoms continue. Return for new or worsening concerns. Patient Language: Yoruba Prescriptions: No Action aspirin [Adult Low Dose Aspirin] 81 mg tablet,delayed release (DR/EC) 81 mg PO DAILY Spiriva Respimat 1.25 mcg/actuation mist 2 puff inhalation Q24H Qty: 4 5RF nebivolol 10 mg tablet See Rx Instructions .ROUTE .COMPLEX Qty: 90 2RF Dose Instruction: TAKE 1 TABLET BY MOUTH DAILY Rx Instructions: TAKE 1 TABLET BY MOUTH DAILY albuterol sulfate 90 mcg/actuation HFA aerosol inhaler 2 puff inhalation Q4H PRN (Reason: shortness of breath or wheezing) Qty: 8.5 3RF valsartan-hydrochlorothiazide 160-25 mg tablet See Rx Instructions .ROUTE .COMPLEX Qty: 90 1RF Dose Instruction: TAKE 1 TABLET BY MOUTH DAILY Rx Instructions: TAKE 1 TABLET BY MOUTH DAILY prednisone 5 mg tablet 5 mg PO DIRECTED Qty: 252 0RF Rx Instructions: Take 40mg (8 pills) daily for one week, then 35 mg (7 pills) daily for one week, then 30mg (6 pills) daily for one week, then 25mg (5 pills daily), then 20mg (4 pills) daily for one week, then 15mg (3 pills) daily for one week, then 10mg (2 pills) daily for one week, then 5mg (1 pill) daily for one week. Follow-up/Referrals: José Pena DO [Primary Care Provider] - Time of Disposition: 16:20
[2024-10-15 16:17] LABS: Influenza A QL RT-PCR Negative (Negative); Influenza B QL RT-PCR Negative (Negative); RSV RNA, RT-PCR Negative (Negative); SARS-CoV-2 RNA PCR Negative (Negative)
--- OUTSIDE RECORDS SUMMARY | 2024-10-15 16:26 | XMS_ITS | Clinical Summary ---
Author Organization [facility] Care Team Providers Care Human Relations Professor Name Role Phone Unavailable Primary Care Provider Unavailabl e Social History Tobacco Use Types Packs/Day Years Used Date Smoking Tobacco: Never Assessed Sex and Gender Information Value Date Recorded Sex Assigned at Not on file Legal Sex Male 11:32 AM SR COMMUNITY MANAGER Gender Identity Not on file Sexual Orientation [...]
--- OUTSIDE RECORDS SUMMARY | 2024-10-15 16:26 | XMS_ITS | Referral Summary ---
Author Organization [facility] Address [facility] [place] [address] Care Team Providers Care Finance Vice President Name Role Phone Trupti Crow OPERATION SPECIALIST Unavailable [phone] Jacki Trujillo MD Primary Care Provider Encounters Date Type Department Care Team Description 09/15/2024 4:00 PM CDT Office Visit [facility] ([facility] ENT [address] [facility] 2nd Floor, [address] [place] [address] Ander Winters MD Vocal cord nodule (Primary Dx); Tinnitus, unspecified laterality; Other specified health status 09/15/2024 3:15 PM CDT Procedure visit [facility] Otolaryngology [address] [facility] 2nd Floor [address] [place] [address] Sylwia Jackson Au.D. Tinnitus, unspecified laterality (Primary [...] 07/04/2023 Assessment & Plan (07/04/2023 3:22 PM PASSENGER REPRESENTATIVE): Congenital (NLP with sensory XT since ) Confirmed with outside MRI (06/2023) records Monocular precautions Subjective visual disturbances 07/04/2023 Assessment & Plan (07/04/2023 4:32 PM PASSENGER REPRESENTATIVE): Truong Castillo is a 48 yo male [...] Final Result from Last 3 Months Insurance [facility] Care Teams Finance Vice President Relationship Specialty Start Date End Date Jacki Trujillo MD [address] [facility] [place] [address] [place] [address] PCP - General Family Practice 09/28/22 Trupti Crow NP Nurse Practitioner Orthopedic Surgery 09/28/22
--- OUTSIDE RECORDS SUMMARY | 2024-10-15 16:26 | XMS_ITS | CONTINUITY OF CARE DOCUMENT ---
Author Name bandar portillo Address Unknown Organization [facility] Address [address] [place] [address] Phone [phone] Care Team Providers Care Clinical Training Coordinator Name Role Phone Nathanael Johnson MD Unavailable [phone] SERENA ARTEAGA DO Unavailable [phone] SERENA ARTEAGA DO Unavailable [phone] INSURANCE PROVIDERS Payer name Policy type / Coverage type [place] red libertarian ID [employer] Medicaid [id number]
--- OUTSIDE RECORDS SUMMARY | 2024-10-15 16:26 | XMS_ITS | Clinical Summary ---
Author Organization [facility] Address [address] [place] [address] Care Team Providers Care Property Worker Name Role Phone Unknown, Provider Primary Care Provider Unavaila ble Source Comments [facility] [employer],non-owned Affiliates and Associated Physician Practices is amultiple site organization consisting of ambulatory clinics and hospital sitesin [place], [place], [place] and [place]. This disclosure is being madepursuant to the Care Everywhere program and may not contain all information available regarding this patient. Last updated 18.[facility] [employer] Allergies No known active allergies Medications * [...] Description 08/18/2024 11:30 AM CDT Office Visit [facility] - Neurology [address], [place] [place] [phone] Evan Lanier APRN-CNP Migraine without aura and [...] on file Legal Sex Male 6:21 AM BIOLOGY INTERNSHIP Gender Identity Not on file Sexual Orientation [...] Office Visit [facility] - Neurology [address] [place] [address], [facility] [place] [phone] Evan Lanier, CHANELLE [address] [place] [address] [place] [phone] Health Maintenance Due Date Last Done Comments [...] patient's age to complete this topic Insurance [facility]Y NO INSURANCE Member Subscriber Plan / Payer (Ef fective for All Dates) Name:Malathi Desai Member ID:Not on file Relation to Subscriber:Not on file Name:MALATHI DESAI Subscriber ID:Not on file (Home) Address: [address] [place] [address] Payer ID:Not on file Group ID:Not on file Type:Self Pay Address: [place], [place] Care Teams Property Worker Relationship Specialty Start Date End Date Unknown, Provider PCP - General 04/21/24
--- OUTSIDE RECORDS SUMMARY | 2024-10-15 16:26 | XMS_ITS | Encounter Summary ---
Author Organization [facility] Address [address] [facility] [place] [address] Care Team Providers Care School Aide Name Role Phone Unknown, Provider Primary Care Provider Unavaila ble Reason for Referral * Consultation (Routine) - Closed Specialty Diagnoses / Procedures Referred By Contac t Referred To Contact Neurology Diagnoses Headache Septo-optic dysplasia of brain (HCC) José Pena DO [address] [address] Phone: tel: fax: [facility] - Neurology [address] [place] [address] Phone: tel: fax: Referral ID Status Reason Start Date Expiration Date V isits Requested Visits Authorized [id number] Closed Specialty Services Required 04/03/2024 04/03/2025 1 1 L SOLDERER Encounter Details Date Type Department Care Team (Latest Contact Info) Description 04/03/2024 Transcribe Orders [facility] - Centralized Scheduling [facility] [place] [address] José Pena DO [address] [address] Nonintractable headache, unspecified chronicity pattern, unspecified headache type ; Septo-optic dysplasia of brain Social History Tobacco Use Types Packs/Day Years Used Date Smoking Tobacco: Never Assessed Sex and Gender Information Value Date Recorded Sex Assigned at Not on file Legal Sex Male 6:21 AM METAL SOLDERER Gender Identity Not on file Sexual Orientation Not on file documented as of this encounter Plan of Treatment Upcoming Encounters Date Type Department Care Team (Late st Contact Info) Description 02/18/2025 10:30 AM CDT Office Visit [facility] - Neurology [address] [facility] [place] [address] Evan Lanier, FLAME ANNEALING MACHINE SETTER-COMMERCIAL LITIGATION [place] [address] [place] [phone] Scheduled Referrals Name Type Priority Associated Diagnoses [...] brain documented in this encounter Care Teams School Aide Relationship Specialty Start Date End Date Unknown, Provider PCP - General 04/21/24 documented as of this encounter
--- OUTSIDE RECORDS SUMMARY | 2024-10-15 16:26 | XMS_ITS | Clinical Summary ---
Author Organization [facility] Address [address] [place] [address] Care Team Providers Care Administrative Resources Associate Name Role Phone Trupti Crow NP Unavailable [phone] Jacki Trujillo MD Primary Care Provider Allergies Active Allergy Reactions Criticality Noted Date Comments Other Other (See comments) Low 09/03/2023 States is allergic to calcium blockers-numbness in tongue and numbness in throat and inflammation points all over body. [facility] was able to breath Medications valsartan-hydro [...] 07/04/2023 Assessment & Plan (07/04/2023 3:22 PM ACADEMIC GUIDANCE SPECIALIST): Congenital (NLP with sensory XT since ) Confirmed with outside MRI (06/2023) records Monocular precautions Subjective visual disturbances 07/04/2023 Assessment & Plan (07/04/2023 4:32 PM ACADEMIC GUIDANCE SPECIALIST): Truong Castillo is a 48 yo [...] Description 09/15/2024 4:00 PM CDT Office Visit [facility]) [facility] ENT [address], [address] [place] [address] Ander Winters MD Vocal cord nodule (Primary Dx); Tinnitus, unspecified laterality; Other specified health status 09/15/2024 3:15 PM CDT Procedure visit [facility] Otolaryngology [address] [place] [address] Sylwia Jackson Au.D. Tinnitus, unspecified laterality (Primary [...] Final Result from Last 3 Months Insurance [facility] Member Subscriber Plan / Payer (Ef fective 2023-Present) Name:Truong Castillo Relation to Subscriber:Self Name:Truong Castillo Payer ID:[id number] (NAIC) Group ID:Not on file Type:MEDICAID RISK OTHER Address: ATTN: CLAIMS DEPT [address] [facility] [place] [phone] Care Teams Administrative Resources Associate Relationship Specialty Start Date End Date Jacki Trujillo MD [address] [facility] [facility] [address] [place] [address] PCP - General Family Practice 09/28/22 Trupti Crow NP Nurse Practitioner Orthopedic Surgery 09/28/22
--- OUTSIDE RECORDS SUMMARY | 2024-10-15 16:26 | XMS_ITS | Clinical Summary ---
Author Organization [facility] Address [address] [place] [address] Care Team Providers Care Toe Puller Name Role Phone Jacki Trujillo MD Primary [...] years 2022 INFLUENZA VACCINE (#1) 2023 Insurance [facility] PLAN MEDICAID [facility] MEDICAID Care Teams Toe Puller Relationship Specialty Start Date End Date Jacki Trujillo MD [address] [place] [address] PCP - General Family Practice 12/29/22
== END 2024-10-15 16:30 | disposition home or self-care (01) ==
LOC: ANHED 16:25
PROVIDERS: Emergency Provider Physician Assistant; PCP Internal Medicine
DX: R43.8 Other disturbances of smell and taste (principal); Z20.822 Contact with and (suspected) exposure to COVID-19; I10 Essential (primary) hypertension; E78.00 Pure hypercholesterolemia, unspecified; K21.9 Gastro-esophageal reflux disease without esophagitis; F17.210 Nicotine dependence, cigarettes, uncomplicated; Z86.73 Personal history of transient ischemic attack (TIA), and cerebral infarction without residual deficits; Z86.16 Personal history of COVID-19; Z87.442 Personal history of urinary calculi; Z79.82 Long term (current) use of aspirin; Z79.899 Other long term (current) drug therapy
CPT/HCPCS: 87637; 99283

== ENCOUNTER 2024-12-01 08:05 | Outpatient (CLI) | payer OTHER, SELFPAY ==
--- NOTE | ~2024-12-01 | MR_ITS ---
MRI of the right shoulder Technique: Axial proton-density fat-sat images, coronal proton density fat-sat and T2 fat-sat images, and sagittal T1-weighted and T2 fat-sat images were acquired. Clinical History: Pain Findings: AC joint is intact, minimal degenerative change. Coracoclavicular, coracoacromial, and harriet cohumeral ligaments are intact. Probable 3 mm linear low-grade articular surface partial tear at the distal supraspinatus tendon inse rtion. No high-grade partial or full-thickness tear of the supraspinatus or infraspinatus tendon. The re is mild to moderate tendinosis. Subscapularis tendon is intact, with mild to moderate tendinosis. Tendon of long head of the biceps is intact. Probable focal superior labral tear. Inferior glenohumeral ligament is intact. No degenerative change or effusion of the glenohumeral join t. No significant fluid distention of the subacromial/subdeltoid bursa. No muscle atrophy or edema. Impression: 3 mm linear low-grade articular surface partial tear of the distal supraspinatus tendon insertion. Focal superior labral tear. Reviewed, dictated and finalized at location . Impression: 3 mm linear low-grade articular surface partial tear of the distal supraspinatu s tendon insertion. Focal superior labral tear.
--- OUTSIDE RECORDS SUMMARY | 2024-12-01 08:09 | XMS_ITS | Clinical Summary ---
Author Organization [facility] Address [address] [address] Care Team Providers Care Harness Brusher Name Role Phone Jacki Trujillo MD Primary Care Provider Allergies No known active allergies Medications valsartan-hydroC HLOROthiazide (DIOVAN HCT) 160-25 mg tablet Take 1 Tablet by mouth daily. 08/18/2022 Active rivaroxaban (Xarelto) 20 mg Tablet Take 1 Tablet (20 mg) by mouth daily. 30 Tablet 4 06/04/2023 Active Active Problems No known active problems Encounters Date Type Department Care Team Description 11/18/2024 External Device Data [facility] ABSTRACTION Provider, Abstract 11/18/2024 External Device Data [facility] ABSTRACTION Provider, Abstract 11/18/2024 External Device Data [facility] ABSTRACTION Provider, Abstract 11/12/2024 External Device Data [facility] ABSTRACTION Provider, Abstract 10/21/2024 External Device Data [facility] ABSTRACTION Provider, Abstract 10/15/2024 External Device Data [facility] ABSTRACTION Provider, Abstract 10/14/2024 External Device Data [facility] ABSTRACTION Provider, Abstract [...] 10:17 AM CDT Height 177.8 cm (5' 10) 11/28/2023 10:17 AM CDT Body Mass Index [...] Q 5 years 2022 INFLUENZA VACCINE (#1) 2024 Insurance [facility] PLAN MEDICAID [facility] MEDICAID Care Teams Harness Brusher Relationship Specialty Start Date End Date Jacki Trujillo MD [address] [place] [address] PCP - General Family Practice 12/29/22
--- OUTSIDE RECORDS SUMMARY | 2024-12-01 08:09 | XMS_ITS | Clinical Summary ---
Author Organization [facility] Care Team Providers Care Housing And Residence Life Director Name Role Phone Unavailable Primary Care Provider Unavailabl e Social History Tobacco Use Types Packs/Day Years Used Date Smoking Tobacco: Never Assessed Sex and Gender Information Value Date Recorded Sex Assigned at Not on file Legal Sex Male 11:32 AM INSPECTOR PACKER GLASS CONTAINER Gender Identity Not on file Sexual Orientation [...]
== END 2024-12-01 08:06 | disposition home or self-care (01) ==
PROVIDERS: PCP Internal Medicine; Visit Provider Nurse Practitioner Family
DX: S46.811A Strain of other muscles, fascia and tendons at shoulder and upper arm level, right arm, initial encounter (principal); S43.491A Other sprain of right shoulder joint, initial encounter; X58.XXXA Exposure to other specified factors, initial encounter
CPT/HCPCS: 73221

== ENCOUNTER 2025-01-01 08:59 | Outpatient (CLI) | payer OTHER, SELFPAY ==
--- OUTSIDE RECORDS SUMMARY | 2025-01-01 09:08 | XMS_ITS | Clinical Summary ---
Author Organization [facility] Address [address] [place] [id number] Care Team Providers Care Pocket Creaser Name Role Phone Jacki Trujillo MD Primary [...] = 0.6 oz pur e alcohol) Socially Sex and Gender Information Value Date Recorded [...] Health Maintenance Due Date Last Done Comments DTAP/TDAP/TD VACCINES (1 - Tdap) 01/28/1996 HEPATITIS B VACCINES (1 of 3 - 19+ 3-dose series) 06/1995 COLORECTAL SCREENING 2022 Colorectal Cancer Screening 2022 FIT-DNA Q 3 years 2022 FIT/FOBT Q 1 year 2022 Flex Sig/CT Colonography Q 5 years 2022 INFLUENZA VACCINE (#1) 2024 Insurance [facility] MEDICAID [facility] MEDICAID Care Teams Pocket Creaser Relationship Specialty Start Date End Date Jacki Trujillo MD [address] [place] [phone] PCP - General Family Practice 12/29/22
--- OUTSIDE RECORDS SUMMARY | 2025-01-01 09:08 | XMS_ITS | Clinical Summary ---
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 Gender Identity Not on file Sexual Orientation Not on file Plan of Treatment Health Maintenance Due Date Last Done Comments Hepatitis C Virus (HCV) Screening 1977 Hepatitis B Immunization (1 of 3 - 19+ 3-dose series) 01/28/1996 Cologuard 2022 Colonoscopy 2022 Colorectal Cancer Screening 2022 Immunochemical Fecal Occult Blood 2022 SARS-COV-2 Immunization ( season) 2024 Influenza Immunization (#1) 2025 Respiratory Syncytial Virus (RSV) Immunization (Adult) (1 - 1-dose 75+ series) 01/28/2052 DTaP/Tdap/Td Immunization Discontinued 04/15/2021 TdaP Immunization Completed 04/15/2021 Human Papillomavirus (HPV) Immunization Aged Out No longer eligible b ased on patient's age to complete this topic Meningococcal Immunization (ACWY) Aged Out No longer eligible based on patient's age to complete this topic Pneumococcal Immunization Combined Aged Out No longer eligible based on patient's age to complete this topic Rotavirus Immunization Aged Out No lo nger eligible based on patient's age to complete this topic
[2025-01-01 13:08] LABS: Hematocrit 49.2 % (42.0-52.0); Hemoglobin 16.4 g/dL (14.0-18.0); Immature Granulocyte Percent A 0.5 % (0-0.5); Lymphocytes Absolute Auto 3.14 K/mm3 (0.9-3.2); Mean Corpuscular HGB Conc 33.3 g/dl (32-36); Mean Corpuscular Hemoglobin 31.5 pg (26-34); Mean Corpuscular Volume 94.6 fl (80-100); Nucleated Red Blood Cells Absolute Auto 0.000 K/mm3 (0.0-0.012); Nucleated Red Blood Cells Perc 0.0 % (0.0-0.2); Platelet Count Result 329 k/mm3 (150-375); Red Blood Count 5.20 M/mm3 (4.6-6.20); White Blood Count 13.0 K/mm3 (4.5-10.0)
== END 2025-01-01 09:00 | disposition home or self-care (01) ==
LOC: ANHGOSHLAB 09:02
PROVIDERS: Nurse Practitioner; PCP Internal Medicine; Visit Provider Nurse Practitioner Family
DX: D72.829 Elevated white blood cell count, unspecified (principal); K50.90 Crohn's disease, unspecified, without complications; Z79.899 Other long term (current) drug therapy
CPT/HCPCS: 36415; 84433; 85025

== ENCOUNTER 2025-01-12 15:30 | Outpatient (RCR) | payer OTHER, SELFPAY ==
--- NOTE | 2025-01-01 09:05 | OPREHPOC ---
Outpatient Therapy Plan of Care This is a Multidisciplinary Plan of Care that may contain components documented by all disciplines (PT, OT, and ST.) PT Problem 1 PT Problem #1 Knowledge Deficit PT Goal 1 Goal / Goal Update 1. Patient to demonstrate independence with HEP for improved self-reliance of symptom management. Target Visit 4 PT Problem 2 PT Problem #2 Pain PT Goal 1 Goal / Goal Update 1. Patient to decrease subjective reports of pain to <2/10 for improved ADL tolerance. 2. Patient to report 50% improvement in quantity and quality of sleep with minimal R shoulder pain when sleeping on R side Target Visit 10 PT Problem 3 PT Problem #3 Impaired Range of Motion PT Goal 1 Goal / Goal Update 1. Patient to demonstrate an increase of cervical extension and rotation AROM to improve safety with driving. 2. Pt will demonstrate full R shoulder ROM with no increase in pain above a 2/10. 3. Pt will demonstrate a improved resting posture displaying greater scapular strength and endurance to relive pressure of sub-acromial space. Target Visit 10
--- NOTE | 2025-01-01 09:05 | PTOPEVAL1 ---
Assessment and note entered by Ross Acharya PT Evaluation Information Assessment Status Evaluation Diagnosis R shoulder Supraspinatus and focal labral tear ICD-10 Condition Codes (PT) Cervicalgia M54.2,Pain in right shoulder M25.511 Onset chronic Subjective Information Pt states he had a history of bursitis in the shoulder. Pt notes when he worked at [employer] ex he had shoulder pain due to repeated lifting. Pt reports no direct trauma to R shoulder. Pt states he had MRI showing 2 tears in his shoulder. Pt received a cortisone injection 2 weeks ago and reports it is feeling a little better. Pt states he is most limited with pain in the shoulder affecting all shoulder motions and making it more difficult to sleep on his R side. Reported Pain Level Pain Score 4: Self Report Assessment PT Clinical Summary Patient presents to physical therapy with a primary issue of R shoulder and neck pain with imaging showing partial tear in R supraspinatus and a focal labral tear. Patient demonstrates increased pain, scapular weakness, decreased mobility, abnormal posture, and decreased flexibility that limit their ability to perform activities of daily living and functional movements. Patient will benefit from skilled physical therapy to address the above listed deficits and return to prior level of function. Home exercise program instructed and written handout provided, exercises tolerated well with no adverse effects to note post-session. Patient was educated on importance of adherence to home exercise program. Patient was also educated on anatomy, prognosis, home modalities, and plan of care. Plan of Care Interventions Electrical Stimulation,Hot Pack/Cold Pack,Manual Therapy,Neuro Re-education,Therapeutic Activities, Therapeutic Exercise,Ultrasound,Other PT Services Indicated Yes Treatment Frequency and 2x week 10 visits Duration These treatments will address the objective and functional deficits as defined above. The patient will be advanced safely and appropriately in order for the patient to progress towards his/her prior level of function. Additional exercises will be introduced and as well as a comprehensive home exercise program upon discharge, if needed, ?to ensure carryover of functional gains achieved in the clinic. This treatment plan has been reviewed and agreement upon by the patient.
--- NOTE | 2025-01-06 13:32 | PCPTNOTE ---
Pt no call no showed his appointment today.
--- NOTE | 2025-01-08 13:26 | PCPTNOTE ---
pt no call no showed appt today, attempted to contact pt via phone, pt stated Im working call me back later. PT unable to converse further with pt.
--- NOTE | 2025-01-14 15:50 | PCPTNOTE ---
Pt no called no showed todays treatment session
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
== END 2025-01-23 15:04 | disposition home or self-care (01) ==
LOC: ANHGOSHPT 15:30
PROVIDERS: PCP Internal Medicine; Visit Provider Nurse Practitioner Family
DX: M25.511 Pain in right shoulder (principal)
CPT/HCPCS: 97110; 97112; 97140; 97161

== ENCOUNTER 2025-01-24 08:15 | Outpatient (CLI) | payer OTHER, SELFPAY ==
--- NOTE | ~2025-01-24 | XR_ITS ---
EXAMINATION: XR sacroiliac joints min 3V DATE: 01/24/2025 09:22 INDICATION: Low back pain, unspecified TECHNIQUE: 4 images of the sacroiliac joints were obtained. COMPARISON: None. FINDINGS: [Degenerative change in the sacroiliac joints. [ No radiographic evidence for an acute fracture or dislocation.] [ No radiopaque foreign body.] [ No sclerotic or destructive bone lesions.] IMPRESSION: 1. [ No acute bony abnormality identified.] 2. Mild degenerative change in the sacroiliac joints. If symptoms persist or worsen consider a short-term follow-up study or MRI imaging for further assessment. Reviewed, dictated and finalized at location Q. IMPRESSION: 1. [ No acute bony abnormality identified.] 2. Mild degenerative change in the sacroiliac joints. If symptoms persist or worsen consider a short-term follow-up study or MRI imag ing for further assessment.
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
--- NOTE | ~2025-01-24 | XR_ITS ---
EXAMINATION: XR lumbar spine 6V w bending DATE: 01/24/2025 09:22 INDICATION: Low back pain, unspecified TECHNIQUE: 7 images were obtained COMPARISON: None. FINDINGS: Mild levoconvex curvature of the lumbar spine. Lumbar vertebral body heights are within normal limits. No compression fracture in the lumbar spine. There is straightening of the normal lumbar lordosis. Anterior bridging osteophytes at the L1-L2, L2-L3 and L3-L4 levels. Moderate joint space narrowing at L5-S1 level. Moderate degenerative change in the mid and lower lumbar facet joints. Grade 1 retrolisthesis of L2 on L3 and L3 on L4 which is unchanged with extension or flexion. IMPRESSION: 1. No compression fracture in the lumbar spine. 2. Moderate degenerative change in the mid and lower lumbar spine. 2. Findings as above. If symptoms persist or worsen, consider an MRI of the lumbar spine for further assessment. Reviewed, dictated and finalized at location Q.
--- NOTE | ~2025-01-24 | XR_ITS ---
EXAM/ PROCEDURE: XR hip BI 2V w AP pelvis - 01/24/2025 9:00 CDT HISTORY: 50 years old Male with M54.50 - Low back pain, unspecified COMPARISON: None available TECHNIQUE: 5 view(s) FINDINGS/ IMPRESSION: There are no fractures or dislocations.Joint spaces are within normal limits. Reviewed, dictated and finalized at location N.
== END 2025-01-24 08:16 | disposition home or self-care (01) ==
PROVIDERS: PCP Nurse Practitioner; Visit Provider Anesthesiology Pain Medicine
DX: M25.522 Pain in left elbow (principal); V89.2XXA Person injured in unspecified motor-vehicle accident, traffic, initial encounter; M54.50 Low back pain, unspecified
CPT/HCPCS: 72114; 72202; 73080; 73521

== ENCOUNTER 2025-03-23 09:06 | Outpatient (CLI) | payer OTHER, SELFPAY ==
--- OUTSIDE RECORDS SUMMARY | 2025-03-23 09:49 | XMS_ITS | Clinical Summary ---
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
--- OUTSIDE RECORDS SUMMARY | 2025-03-23 09:49 | XMS_ITS | Clinical Summary ---
Author Organization [facility] Address [address] [place] [address] Care Team Providers Care Contact Lens Blocker Name Role Phone Jacki Trujillo MD Primary Care Provider Allergies No known active allergies Medications valsartan-hydroC HLOROthiazide (DIOVAN HCT) 160-25 mg tablet Take 1 Tablet by mouth daily. 08/18/2022 Active rivaroxaban (Xarelto) 20 mg Tablet Take 1 Tablet (20 mg) by mouth daily. 30 Tablet 4 06/04/2023 Active Active Problems No known active problems Family History Medical History Relation Name Comments [...] years 2022 INFLUENZA VACCINE (#1) 2024 Insurance [facility] MEDICAID Care Teams Contact Lens Blocker Relationship Specialty Start Date End Date Jacki Trujillo MD [address] [place] [address] PCP - General Family Practice 12/29/22
--- OUTSIDE RECORDS SUMMARY | 2025-03-23 09:49 | XMS_ITS | Encounter Summary ---
Author Organization [facility] Address [address] [place] [address] Care Team Providers Care Corporate Relations Director Name Role Phone Unknown, Provider Primary Care Provider Unavaila ble Reason for Referral * Consultation (Routine) - Closed Specialty Diagnoses / Procedures Referred By Contac t Referred To Contact Neurology Diagnoses Headache Septo-optic dysplasia of brain (HCC) José Pena DO [address] [address] Phone: tel: fax: [facility] - Neurology [address] [place] [phone] Phone: tel: fax: Referral ID Status Reason Start Date Expiration Date V isits Requested Visits Authorized [id number] Closed Specialty Services Required 04/03/2024 04/03/2025 1 1 RAISER Encounter Details Date Type Department Care Team (Latest Contact Info) Description 04/03/2024 Transcribe Orders [facility] - Centralized Scheduling [facility] [place] [address] José Pena DO [address] [address] Nonintractable headache, unspecified chronicity pattern, unspecified headache type ; Septo-optic dysplasia of brain Social History Tobacco Use Types Packs/Day Years Used Date Smoking Tobacco: Never Assessed Sex and Gender Information Value Date Recorded Sex Assigned at Not on file Legal Sex Male 6:21 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
--- OUTSIDE RECORDS SUMMARY | 2025-03-23 09:49 | XMS_ITS | Clinical Summary ---
Author Organization [facility] Address [address] [facility] [place] [address] Care Team Providers Care Advanced Practice Registered Nurse Name Role Phone Unknown, Provider Primary Care Provider Unavaila ble Source Comments [facility],non-owned Affiliates and Associated Physician Practices is amultiple site organization consisting of ambulatory clinics and hospital sitesin [place], [place], [place] and [place]. This disclosure is being madepursuant to the Care Everywhere program and may not contain all information available regarding this patient. Last updated 18.[facility] Allergies No known active allergies Medications * Be aware that medications may not be up to date on this document. Alwaysverify current medications with the patient. albuterol HFA (Proventil; Ventolin; Proair) 108 (90 Base) MCG/ACT inhaler 1 (one) puff 04/18/20 24 Active valsartan-hydro CHLOROthiazide (Diovan HCT) 160-25 MG [...] every 30 days 1 mL 5 04/21/20 24 Active Additional Information Patient not taking.Reported on 08/18/2024 Encounters Date Type Department Care Team Description 12/23/2024 Telephone [facility] - Neurology [address] 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 Gender Identity Not on file Sexual Orientation [...] Mass Index - - Plan of Treatment Health Maintenance Due Date [...] VACCINE (1 of 2 - PCV) 01/28/1996 DEPRESSION SCREENING 05/28/2024 COVID-19 VACCINE (4 - 2024-2 6 season) 2025 02/27/2022, 09/20/2021, 08/23/2021 INFLUENZA VACCINE (#1) 2025 ZOSTER VACCINE (1 of 2) 2027 HIB VACCINE Aged Out No longer eligi ble based on patient's age to complete this topic HPV VACCINE Aged Out No longer eligi ble based on patient's age to complete this topic MENINGOCOCCAL (Group B) VACCINE SHARED DECISION-MAKING Aged Out No longer eligible based on patient's age to complete this topic MENINGOCOCCAL GROUPS A/C/Y/W VACCINE Aged Out No longer eligible b ased on patient's age to complete this topic Insurance [facility] SELF PAY NO INSURANCE Member Subscriber Plan / Payer (Ef fective for All Dates) Name:Malathi Desai Member ID:Not on file Relation to Subscriber:Not on file Name:MALATHI DESAI Subscriber ID:Not on file (Home) Address: [address] [place] [address] Payer ID:Not on file Group ID:Not on file Type:Self Pay Address: [place], [place] Care Teams Advanced Practice Registered Nurse Relationship Specialty Start Date End Date Unknown, Provider PCP - General 04/21/24
--- OUTSIDE RECORDS SUMMARY | 2025-03-23 09:49 | XMS_ITS | Clinical Summary ---
Author Organization [facility] Address [address] [place] [address] Care Team Providers Care Edger Feeder Name Role Phone Trupti Crow NP Unavailable [phone] Jacki Trujillo MD Primary Care Provider Allergies [...] mouth nightly 30 tablet 5 4 Active azaTHIOprine (IMURAN) 50 mg tablet Take 1 tablet (50 mg total) by mouth daily 5 Active Active Problems Patient Care Coordination No te Formatting of this note migh t be different from the original. 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 & Plan (07/04/2023 3:22 PM BIT BENDER): Congenital (NLP with sensory XT since ) Confirmed with outside MRI (06/2023) records Monocular precautions Subjective visual disturbances 07/04/2023 Assessment & Plan (07/04/2023 4:32 PM BIT BENDER): Truong Castillo is a 48 yo male [...] Encounters Date Type Department Care Team Description 03/16/2025 Telephone [place] [id number] [place] [address] Carmencita Aguero RN from Last 3 Months Surgical History Surgery Date Site/Laterality Comments EYE SURGERY Eye Surgery - (Added by TW Conv) ORAL SURGERY Oral Surgery - (Added by TW Conv) FOOT SURGERY Foot Surgery - (Added by TW Conv) COLONOSCOPY Medical History Medical History Date Comments Allergy [...] High blood pressure Sleep apnea Stroke (HCC) Crohn's disease (HCC) Family History Medical History Relation Name [...] 3:55 PM CDT Height 179.1 cm (5' 10.5) 09/03/2023 9:01 AM CD T Body Mass Index 34.23 09/03/2023 9:01 AM CDT Plan of Treatment Health Maintenance Due Date Last Done Comments Colon Cancer Screening-Colonoscopy 1977 Depression Screening 1977 Hepatitis C Screening 1977 Hepatitis B Screening 1995 Regular Well Visit/Exam 18-64 1995 Pneumococcal vaccine <65 (1 of 2 - PCV) 01/28/1996 Zoster Vaccine (1 of 2) 01/28/1996 Influenza Vaccine (#1) 2025 DTaP/Tdap/Td Vaccine (2 - Td or Tdap) 04/15/2031 [facility] Care Teams Edger Feeder Relationship Specialty Start Date End Date Jacki Trujillo MD [address] [facility] [place] [address] [place] [address] PCP - General Family Practice 09/28/22 Trupti Crow NP Nurse Practitioner Orthopedic Surgery 09/28/22
[2025-03-23 09:54] LABS: Hematocrit 49.0 % (42.0-52.0); Hemoglobin 16.0 g/dL (14.0-18.0); Mean Corpuscular HGB Conc 32.7 g/dl (32-36); Mean Corpuscular Hemoglobin 30.8 pg (26-34); Mean Corpuscular Volume 94.2 fl (80-100); Platelet Count Result 356 k/mm3 (150-375); Red Blood Count 5.20 M/mm3 (4.6-6.20); White Blood Count 10.4 K/mm3 (4.5-10.0)
[2025-03-23 10:23] LABS: Alanine Aminotransferase 28 U/L (6-50); Albumin Level 4.3 g/dL (3.5-5.1); Alkaline Phosphatase 75 U/L (38-126); Anion Gap 7 mmol/L (4-12); Aspartate Amino Transferase 26 U/L (17-59); Bilirubin,Total 0.5 mg/dL (0.2-1.3); Blood Urea Nitrogen 23 mg/dL (9-20); Calcium 9.7 mg/dL (8.4-10.2); Carbon Dioxide 29 mmol/L (22-30); Chloride 104 mmol/L (98-107); Estimated Glomerular Filt Rate > 60; Glucose 113 mg/dL (65-110); Potassium 3.8 mmol/L (3.4-5.0); Sodium 140 mmol/L (137-145); Total Protein 7.4 g/dL (6.3-8.2)
== END 2025-03-23 09:07 | disposition home or self-care (01) ==
LOC: ANHLAB 09:07
PROVIDERS: PCP Nurse Practitioner; Visit Provider Nurse Practitioner Family
DX: K50.90 Crohn's disease, unspecified, without complications (principal); Z79.899 Other long term (current) drug therapy
CPT/HCPCS: 36415; 80053; 85027

== ENCOUNTER 2025-03-27 17:53 | Emergency (ER) | payer OTHER, SELFPAY ==
[2025-03-27 17:57] VITALS: BP 155/87; PULSE 95; RESP 16; TEMP 36.4; O2SAT 100
--- OUTSIDE RECORDS SUMMARY | 2025-03-27 17:57 | XMS_ITS | Encounter Summary ---
Author Organization [facility] Address [address] [facility] [place] [address] Care Team Providers Care Principal Network Architect Name Role Phone Unknown, Provider Primary Care Provider Unavaila ble Reason for Referral * Consultation (Routine) - Closed Specialty Diagnoses / Procedures Referred By Contac t Referred To Contact Neurology Diagnoses Headache Septo-optic dysplasia of brain (HCC) José Pena DO [address] [address] Phone: tel: fax: [facility] - Neurology [address] [place] [phone] Phone: tel: fax: Referral ID Status Reason Start Date Expiration Date V isits Requested Visits Authorized [id number] Closed Specialty Services Required 04/03/2024 04/03/2025 1 1 PACKER OR APPLIER Encounter Details Date Type Department Care Team (Latest Contact Info) Description 04/03/2024 Transcribe Orders [facility] - Centralized Scheduling [facility] [place] [address] José Pena DO [address] [address] Nonintractable headache, unspecified chronicity pattern, unspecified headache type ; Septo-optic dysplasia of brain Social History Tobacco Use Types Packs/Day Years Used Date Smoking Tobacco: Never Assessed Sex and Gender Information Value Date Recorded Sex Assigned at Not on file Legal Sex Male 6:21 AM LUTE PACKER OR APPLIER Gender Identity Not on file Sexual Orientation [...] brain documented in this encounter Care Teams Principal Network Architect Relationship Specialty Start Date End Date Unknown, Provider PCP - General 04/21/24 documented as of this encounter
--- OUTSIDE RECORDS SUMMARY | 2025-03-27 17:57 | XMS_ITS | Clinical Summary ---
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
--- OUTSIDE RECORDS SUMMARY | 2025-03-27 17:57 | XMS_ITS | Clinical Summary ---
Author Organization [facility] Address [address] [place] [address] Care Team Providers Care Security Police Name Role Phone Trupti Crow NP Unavailable [phone] Jacki Trujillo MD Primary Care Provider Allergies Active Allergy Reactions Criticality Noted Date Comments Other Other (See comments) Low 09/03/2023 States is allergic to calcium blockers-numbness in tongue and numbness in throat and inflammation points all over body. 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): Congenital (NLP with sensory XT since ) Confirmed with outside MRI (06/2023) records Monocular precautions Subjective visual disturbances 07/04/2023 Assessment & Plan (07/04/2023 4:32 PM BEEF CATTLE FARM WORKER): Truong Castillo is a 48 yo male [...] Type Department Care Team Description 03/16/2025 Telephone [place] [address] [place] [address] Carmencita Aguero RN from Last [...] (2 - Td or Tdap) 04/15/2031 [facility] Care Teams Security Police Relationship Specialty Start Date End Date Jacki Trujillo MD [address] [facility] [place] [address] [place] [address] PCP - General Family Practice 09/28/22 Trupti Crow NP Nurse Practitioner Orthopedic Surgery 09/28/22
--- OUTSIDE RECORDS SUMMARY | 2025-03-27 17:57 | XMS_ITS | Clinical Summary ---
Author Organization [facility] Address [address] [facility] [place] [address] Care Team Providers Care Edge Grinder Machine Name Role Phone Unknown, Provider Primary Care Provider Unavaila ble Source Comments [facility],non-owned Affiliates and Associated Physician Practices is amultiple site organization consisting of ambulatory clinics and hospital sitesin [place], [place], [place] and [place]. This disclosure is being madepursuant to the Care Everywhere program and may not contain all information available regarding this patient. 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 AIDE Gender Identity Not on file Sexual Orientation [...] patient's age to complete this topic Insurance [facility] SELF PAY NO INSURANCE Member Subscriber Plan / Payer (Ef fective for All Dates) Name:Malathi Castillo Member ID:Not on file Relation to Subscriber:Not on file Name:MANDATRINHMALATHI CARPENTER Subscriber ID:Not on file (Home) Address: [address] [place] [address] Payer ID:Not on file Group ID:Not on file Type:Self Pay Address: [place], [place] Care Teams Edge Grinder Machine Relationship Specialty Start Date End Date Unknown, Provider PCP - General 04/21/24
[2025-03-27 18:48] LABS: Influenza A QL RT-PCR Negative (Negative); Influenza B QL RT-PCR Negative (Negative); RSV RNA, RT-PCR Negative (Negative); SARS-CoV-2 RNA PCR Negative (Negative)
--- NOTE | 2025-03-27 19:54 | ED_ITS ---
HPI - URI/Sore Throat General Chief Complaint: Upper Respiratory Infection Stated Complaint: medicaton question and possible COVID Time Seen by Provider: 03/27/25 19:49 History of Present Illness HPI Narrative: 50-year-old male with history of Crohn's disease presenting to the emergency department with upper respiratory infection symptoms. Patient endorses a cough and congestion. Was not sure what medications he can take as he is on azathioprine and he tried calling his doctor's office and they were close. Denies any shortness a breath. Takes an albuterol inhaler and Spiriva for COPD. Was otherwise in his normal state of health. Concerned about COVID and wants to be tested for it. No other symptoms such as chest pain, nausea vomiting, vision changes, shortness a breath or wheezing, loss of consciousness or syncope. Related Data Home Medications ?Medication ?Instructions ?Recorded ?Confirmed ?Last Taken ?Type aspirin 81 mg tablet,delayed 81 mg PO DAILY 06/28/23 1 05/04/24 07:30 History release (Adult Low Dose Aspirin) Allergies Allergy/AdvReac Type Severity Reaction Status Date / Time Beta-Blockers AdvReac Intermediate Numbness Verified 03/27/25 18:01 (Beta-Adrenergic Bloc Review of Systems Review of Systems: As reviewed above in HPI [facility] Past Medical History Medical History Abdominal bloating Abnormal CT scan, gastrointestinal tract Single subsegmental pulmonary embolism without acute cor pulmonale Neck stiffness Numbness of right anterior thigh COVID Cervicogenic headache Arthralgia of hip or thigh Elevated WBC count Suspected exposure to mold Shoulder pain, right High risk medication use Need for hepatitis B screening test Crohn's disease Hoarseness of voice Loose stools Rectal pain Alternating constipation and diarrhea Intertrigo MATILDA positive Subcutaneous cyst Numbness and tingling of both lower extremities Numbness and tingling in both hands Otitis media History of stroke Left facial numbness Septo-optic dysplasia of brain Elevated antinuclear antibody (MATILDA) level Vision abnormalities Joint pain SOB (shortness of breath) on exertion Rib pain on left side Tinnitus GERD (gastroesophageal reflux disease) Allergic rhinitis Essential (primary) hypertension Amblyopia of eye Ulnar neuropathy at elbow of left upper extremity Nicotine dependence Chest pain, unspecified Closed left arm fracture Kidney stone Hypercholesteremia Surgical History Surgical History History of eye surgery Left History of foot surgery Left Family History Family History Father , Who is the patient's great aunt or distant cousin Hypertension Alcoholism Heart disease Mother Hypertension Mother Unknown family medical history Father Unknown family medical history Sibling Healthy adult Social History Social History Social History: The patient lives in an apartment. He has a 65-year-old roommate has had a stroke that he helps provide care for. He has 2 large dogs. 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 He is single and has never been . He does not have any children. He has smoked 2 packs per day since he was 18 years old. He drinks alcohol quite heavily. He was drinking up to a 12 pack of beer per day. He reports that in September of 2022 he cut back to drinking 3-7 beers every couple of days. He denies illicit substance use. Code status: Full code Surrogate decision maker: Deena Hester (sister) Caffeine-coffee Smoking packs per day: 2 Smoking cigarettes per day: 40.0 Years smoked: 29 Smoking pack-years: 58.00 Smoking status: Current every day smoker Tobacco type: cigarettes Second hand tobacco smoke exposure: Yes Alcohol intake: current Drinks per week: 6 Substance use: never Substance use type: does not use Do You Feel Safe in your Home?: Yes Lack of Transportation: No Lack of Food: Never True Current Housing: I Have Housing Concerned About Future Housing: No Difficulty Paying Gas/Electric Bills: No Difficulty Paying for Meds: No Currently Unemployed: No Education: Trade/Vocational Certificate Difficulty w/ Childcare or Family Care: Decline to Answer Living arrangements: alone Occupation/Education: occupation Additional occupation/education comments: [employer]. Gender identity (if verbalized by the patient): Male Spiritual care concerns: No Exam Narrative: GENERAL: Sounds congested in the upper airways but no wheezing. Otherwise well-appearing and talking in full sentences. No difficulty swallowing. HEAD: [Normocephalic, atraumatic.] EYES: [PERRLA and EOMI.] ENT: Nares clear, no rhinorrhea or epistaxis. Mucous membranes moist. NECK: Supple. CHEST: [Clear to auscultation. No respiratory distress.] HEART: [Regular rate and rhythm]. No murmur heard. [Normal peripheral pulses.] ABDOMEN: [Soft, nondistended], [nontender], [No rigidity or guarding] EXTREMITIES: Normal range of motion. [No edema.] SKIN: Warm, dry, no rash. NEURO: [No focal deficits]. Alert and oriented [x3.] PSYCH: [Normal mood and affect.] Course Vital Signs Vital signs: Vital Signs Temperature 36.4 C 03/27/25 17:57 Pulse Rate 95 03/27/25 17:57 Respiratory Rate 16 03/27/25 17:57 Blood Pressure 155/87 H 03/27/25 17:57 Pulse Oximetry 100 03/27/25 17:57 Oxygen Delivery Room Air 03/27/25 17:57 Temperature 36.4 C 03/27/25 17:57 Pulse Rate 95 03/27/25 17:57 Respiratory Rate 16 03/27/25 17:57 Blood Pressure 155/87 H 03/27/25 17:57 Pulse Oximetry 100 03/27/25 20:54 Oxygen Delivery Room Air 03/27/25 20:54 MDM - URI/Sore Throat MDM Narrative Medical decision making narrative: 50-year-old male with history of Crohn's disease presenting to the emergency department with upper respiratory infection symptoms. Patient endorses a cough and congestion. Was not sure what medications he can take as he is on azathioprine and he tried calling his doctor's office and they were close. Denies any shortness a breath. Takes an albuterol inhaler and Spiriva for COPD. Was otherwise in his normal state of health. Concerned about COVID and wants to be tested for it. No other symptoms such as chest pain, nausea vomiting, vision changes, shortness a breath or wheezing, loss of consciousness or syncope. Patient is hemodynamically stable with no tachycardia, tachypnea, hypoxemia or fever. Does sound congested and likely having upper respiratory infection symptoms. No wheezing or productive cough. Clear to auscultation bilaterally with no respiratory distress. We did review patient's medications and interactions with any likely [id number] medications for cold and flu symptoms and there were no suspicious interactions and he was made aware of this. Patient given a dose of Claritin D and pseudoephedrine for his congestion and his COVID flu RSV testing was negative. Safe for discharge with PCP follow- up. Medical Records Attestation: I reviewed the patient's medical records. Lab Data Attestation: I reviewed the patient's lab results. Labs: Lab Results 03/27/25 Range/Units 18:03 Influenza A (RT-PCR) Negative (Negative) Influenza B (RT-PCR) Negative (Negative) RSV (RT-PCR) Negative (Negative) SARS-CoV-2 RNA (RT-PCR) Negative (Negative) Discharge Plan Discharge Clinical Impression: URI (upper respiratory infection) Patient Disposition: Home Condition: Stable Instructions: Antibiotic Form, Cold Symptoms (ED) Additional Instructions: You tested negative for COVID flu and RSV so you likely have other common cold ovarian such as rhino virus/enterovirus. Lungs sound clear. You are able to take most lcrz-[id number] cold and flu medications with azathioprine without any interactions. Recommendations are to take something like Mucinex, Claritin, pseudoephedrine, Flonase. You also take Tylenol cold and flu. If you have any further questions on interactions please see [facility] Patient Language: Zimbabwean Prescriptions: No Action aspirin [Adult Low Dose Aspirin] 81 mg tablet,delayed release (DR/EC) 81 mg PO DAILY Spiriva Respimat 1.25 mcg/actuation mist 2 puff inhalation Q24H Qty: 4 5RF azathioprine [Imuran] 50 mg tablet 50 mg PO DAILY 30 Days Qty: 30 5RF albuterol sulfate 90 mcg/actuation HFA aerosol inhaler 2 puff inhalation Q4H PRN (Reason: shortness of breath or wheezing) Qty: 8.5 3RF valsartan-hydrochlorothiazide 160-25 mg tablet See Rx Instructions .ROUTE .COMPLEX Qty: 90 1RF Dose Instruction: TAKE 1 TABLET BY MOUTH DAILY Rx Instructions: TAKE 1 TABLET BY MOUTH DAILY nebivolol 10 mg tablet See Rx Instructions .ROUTE .COMPLEX Qty: 90 2RF Dose Instruction: TAKE 1 TABLET BY MOUTH DAILY Rx Instructions: TAKE 1 TABLET BY MOUTH DAILY Follow-up/Referrals: Abe Meehan APRN [Primary Care Provider, Internal Medicine] Time of Disposition: 20:00
[2025-03-27] MEDS: LORATADINE/PSEUDOEPHEDRINE (*CRX) 10/240 MG TABLET ER 24 HR 1 TAB PO (20:07)
--- OUTSIDE RECORDS SUMMARY | 2025-03-27 20:25 | XMS_ITS | Encounter Summary ---
Author Organization [facility] Address [address] [facility] [place] [address] Care Team Providers Care Bankman Name Role Phone Unknown, Provider Primary Care Provider Unavaila ble Reason for Referral * Consultation (Routine) - Closed Specialty Diagnoses / Procedures Referred By Contac t Referred To Contact Neurology Diagnoses Headache Septo-optic dysplasia of brain (HCC) José Pena DO [address] [address] Phone: tel: fax: [facility] - Neurology [address] [place] [phone] Phone: tel: fax: Referral ID Status Reason Start Date Expiration Date V isits Requested Visits Authorized [id number] Closed Specialty Services Required 04/03/2024 04/03/2025 1 1 AGE CHECKER Encounter Details Date Type Department Care Team (Latest Contact Info) Description 04/03/2024 Transcribe Orders [facility] - Centralized Scheduling [facility] [place] [address] José Pena DO [address] [address] Nonintractable headache, unspecified chronicity pattern, unspecified headache type ; Septo-optic dysplasia of brain Social History Tobacco Use Types Packs/Day Years Used Date Smoking Tobacco: Never Assessed Sex and Gender Information Value Date Recorded Sex Assigned at Not on file 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
--- OUTSIDE RECORDS SUMMARY | 2025-03-27 20:25 | XMS_ITS | Clinical Summary ---
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
--- OUTSIDE RECORDS SUMMARY | 2025-03-27 20:25 | XMS_ITS | Clinical Summary ---
Author Organization [facility] Address [address] [place] [address] Care Team Providers Care It Application Architect Name Role Phone Unknown, Provider Primary Care Provider Unavaila ble Source Comments [facility] [place],non-owned Affiliates and Associated Physician Practices is amultiple site organization consisting of ambulatory clinics and hospital sitesin [place], [place], [place] and [place]. This disclosure is being madepursuant to the Care Everywhere program and may not contain all information available regarding this patient. 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
--- OUTSIDE RECORDS SUMMARY | 2025-03-27 20:25 | XMS_ITS | Clinical Summary ---
Author Organization [facility] Address [address] [place] [address] Care Team Providers Care Aluminum Molder Name Role Phone Trupti Crow NP Unavailable [phone] Jacki Trujillo MD Primary Care Provider [...] 07/04/2023 Assessment & Plan (07/04/2023 3:22 PM LOCOMOTIVE OILER): Congenital (NLP with sensory XT since ) Confirmed with outside MRI (06/2023) records Monocular precautions Subjective visual disturbances 07/04/2023 Assessment & Plan (07/04/2023 4:32 PM LOCOMOTIVE OILER): Truong Castillo is a 48 yo male [...] Type Department Care Team Description 03/16/[address] [place] [address] [place] [address] Carmencita Aguero RN from Last [...] (2 - Td or Tdap) 04/15/2031 [facility] Care Teams Aluminum Molder Relationship Specialty Start Date End Date Jacki Trujillo MD [address] [facility] [address] [place] [address] PCP - General Family Practice 09/28/22 Trupti Crow NP Nurse Practitioner Orthopedic Surgery 09/28/22
[2025-03-27 20:54] VITALS: O2SAT 100
== END 2025-03-27 20:55 | disposition home or self-care (01) ==
LOC: ANHED 20:23
PROVIDERS: Student in an Organized Health Care Education/Training Program; Emergency Provider Student in an Organized Health Care Education/Training Program; PCP Nurse Practitioner
DX: J06.9 Acute upper respiratory infection, unspecified (principal); Z20.822 Contact with and (suspected) exposure to COVID-19; I10 Essential (primary) hypertension; E78.00 Pure hypercholesterolemia, unspecified; K50.90 Crohn's disease, unspecified, without complications; K21.9 Gastro-esophageal reflux disease without esophagitis; F17.210 Nicotine dependence, cigarettes, uncomplicated; Z87.442 Personal history of urinary calculi; Z86.16 Personal history of COVID-19; Z86.73 Personal history of transient ischemic attack (TIA), and cerebral infarction without residual deficits
CPT/HCPCS: 87637; 99283; A9270

== ENCOUNTER 2025-03-30 14:58 | Outpatient (CLI) | payer OTHER, SELFPAY ==
--- OUTSIDE RECORDS SUMMARY | 2025-03-30 15:21 | XMS_ITS | Clinical Summary ---
Author Organization [facility] Address [address] [place] [address] Care Team Providers Care Interline Clerk Name Role Phone Unknown, Provider Primary Care Provider Unavaila ble Source Comments [facility] [employer],non-owned Affiliates and Associated Physician Practices is amultiple site organization consisting of ambulatory clinics and hospital sitesin [place], [place] and [place]. This disclosure is being madepursuant to the Care Everywhere program and may not contain all information available regarding this patient. 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 Gender Identity Not on file Sexual Orientation [...] patient's age to complete this topic Insurance [facility] SELF PAY NO INSURANCE Member Subscriber Plan / Payer (Ef fective for All Dates) Name:Malathi Castillo Member ID:Not on file Relation to Subscriber:Not on file Name:MANDATRINHMALATHI CARPENTER Subscriber ID:Not on file (Home) Address: [address] [place] [address] Payer ID:Not on file Group ID:Not on file Type:Self Pay Address: [place], [place] Care Teams Interline Clerk Relationship Specialty Start Date End Date Unknown, Provider PCP - General 04/21/24
--- OUTSIDE RECORDS SUMMARY | 2025-03-30 15:21 | XMS_ITS | Clinical Summary ---
Author Organization [facility] Address [address] [place] [address] Care Team Providers Care Retort Loader Name Role Phone Jacki Trujillo MD Primary [...] years 2022 INFLUENZA VACCINE (#1) 2024 Insurance [id number] [employer], [id number] MEDICAID [facility] MEDICAID Care Teams Retort Loader Relationship Specialty Start Date End Date Jacki Trujillo MD [address] [place] [address] PCP - General Family Practice 12/29/22
--- OUTSIDE RECORDS SUMMARY | 2025-03-30 15:21 | XMS_ITS | Clinical Summary ---
Author Organization [facility] Address [address] [place] [address] Care Team Providers Care Service Car Operator Name Role Phone Trupti Crow NP Unavailable [phone] Jacki Trujillo MD Primary Care Provider Allergies Active Allergy Reactions Criticality Noted Date Comments Other Other (See comments) Low 09/03/2023 States is allergic to calcium blockers-numbness in tongue and numbness in throat and inflammation points all over body. [facility] was able to breath Medications valsartan-hydro [...] 07/04/2023 Assessment & Plan (07/04/2023 3:22 PM RN GERIATRIC): Congenital (NLP with sensory XT since ) Confirmed with outside MRI (06/2023) records Monocular precautions Subjective visual disturbances 07/04/2023 Assessment & Plan (07/04/2023 4:32 PM RN GERIATRIC): Truong Castillo is a 48 yo male [...] Type Department Care Team Description 03/16/2025 Telephone [place] [address] [place] [address] Carmencita Aguero RN from Last [...] (2 - Td or Tdap) 04/15/2031 Insurance [facility] [employer] [facility] Member Subscriber Plan / Payer (Ef fective 2023-Present) Name:Truong Castillo Relation to Subscriber:Self Name:Truong Castillo Payer ID:[id number] (NAIC) Group ID:Not on file Type:MEDICAID RISK OTHER Address: ATTN: CLAIMS DEPT [address] [facility] [place] [id number] Care Teams Service Car Operator Relationship Specialty Start Date End Date Jacki Trujillo MD [address] [facility] [address] [place] [address] PCP - General Family Practice 09/28/22 Trupti Crow NP Nurse Practitioner Orthopedic Surgery 09/28/22
--- OUTSIDE RECORDS SUMMARY | 2025-03-30 15:21 | XMS_ITS | Encounter Summary ---
Author Organization [facility] Address [address] [place] [address] Care Team Providers Care Service Order Taker Name Role Phone Unknown, Provider Primary Care Provider Unavaila ble Reason for Referral * Consultation (Routine) - Closed Specialty Diagnoses / Procedures Referred By Contac t Referred To Contact Neurology Diagnoses Headache Septo-optic dysplasia of brain (HCC) José Pena DO [address] [address] Phone: tel: fax: [facility] - Neurology [address] [place] [phone] Phone: tel: fax: Referral ID Status Reason Start Date Expiration Date V isits Requested Visits Authorized [id number] Closed Specialty Services Required 04/03/2024 04/03/2025 1 1 FILLER Encounter Details Date Type Department Care Team (Latest Contact Info) Description 04/03/2024 Transcribe Orders [facility] - Centralized Scheduling [address] [place] [phone] José Pena DO [address] [address] Nonintractable headache, unspecified chronicity pattern, unspecified headache type ; Septo-optic dysplasia of brain Social History Tobacco Use Types Packs/Day Years Used Date Smoking Tobacco: Never Assessed Sex and Gender Information Value Date Recorded Sex Assigned at Not on file 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
--- OUTSIDE RECORDS SUMMARY | 2025-03-30 15:21 | XMS_ITS | Clinical Summary ---
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
[2025-03-30 15:56] LABS: Hematocrit 48.1 % (42.0-52.0); Hemoglobin 15.6 g/dL (14.0-18.0); Mean Corpuscular HGB Conc 32.4 g/dl (32-36); Mean Corpuscular Hemoglobin 30.5 pg (26-34); Mean Corpuscular Volume 93.9 fl (80-100); Platelet Count Result 394 k/mm3 (150-375); Red Blood Count 5.12 M/mm3 (4.6-6.20); White Blood Count 11.5 K/mm3 (4.5-10.0)
[2025-03-30 16:16] LABS: Alanine Aminotransferase 36 U/L (6-50); Albumin Level 4.2 g/dL (3.5-5.1); Alkaline Phosphatase 70 U/L (38-126); Anion Gap 7 mmol/L (4-12); Aspartate Amino Transferase 34 U/L (17-59); Bilirubin,Total 0.3 mg/dL (0.2-1.3); Blood Urea Nitrogen 20 mg/dL (9-20); Calcium 9.8 mg/dL (8.4-10.2); Carbon Dioxide 29 mmol/L (22-30); Chloride 104 mmol/L (98-107); Estimated Glomerular Filt Rate > 60; Glucose 91 mg/dL (65-110); Potassium 3.8 mmol/L (3.4-5.0); Sodium 140 mmol/L (137-145); Total Protein 7.4 g/dL (6.3-8.2)
== END 2025-03-30 14:59 | disposition home or self-care (01) ==
LOC: ANHLAB 15:00
PROVIDERS: PCP Nurse Practitioner; Visit Provider Nurse Practitioner Family
DX: K50.90 Crohn's disease, unspecified, without complications (principal); Z79.899 Other long term (current) drug therapy
CPT/HCPCS: 36415; 80053; 85027

== ENCOUNTER 2025-04-11 22:27 | Emergency (ER) | payer OTHER, SELFPAY ==
--- NOTE | ~2025-04-11 | CT_ITS ---
EXAMINATION: CT abdomen pelvis wo con DATE: 04/12/2025 01:40 INDICATION: Flank pain. TECHNIQUE: Computed tomography (CT) of the abdomen and pelvis was performed without intravenous contrast. Automated exposure control and iterative reconstruction technique were employed. The dose-length product was 890.28 mGy-cm. COMPARISON: CT abdomen and pelvis 10/23/2021 FINDINGS: The visualized portions of the lung bases demonstrate mild atelectasis. There is a 4 mm nodule in right lower lobe, likely benign. No pleural effusion. The heart size is normal. No pericardial effusion. The liver, gallbladder, spleen, pancreas, and adrenal glands are normal. There is cortical thinning of right kidney. There is a 1.4 cm mass in left kidney. There is no urolithiasis. The prostate is mildly enlarged. The appendix is normal. There are no dilated loops of bowel. There are no pathologically enlarged lymph nodes. There is no free intraperitoneal fluid. There is moderate thoracic spondylosis and mild lumbar spondylosis. IMPRESSION: 1. 1.4 cm mass in left kidney, which may be a hemorrhagic cyst or renal cell carcinoma. Abdomen CT or MRI without and with contrast is recommended. 2. No urolithiasis. Reviewed, dictated and finalized at location E. D LABORATORY OPERATOR IMPRESSION: 1. 1.4 cm mass in left kidney, which may be a hemorrhagic cyst or renal cell ca rcinoma. Abdomen CT or MRI without and with contrast is recommended. 2. No urolithiasis.
--- OUTSIDE RECORDS SUMMARY | 2025-04-11 22:31 | XMS_ITS | Encounter Summary ---
Author Organization [facility] Address [address] [place] [address] Care Team Providers Care Cook Helper Name Role Phone Unknown, Provider Primary Care Provider Unavaila ble Reason for Referral * Consultation (Routine) - Closed Specialty Diagnoses / Procedures Referred By Contac t Referred To Contact Neurology Diagnoses Headache Septo-optic dysplasia of brain (HCC) José Pena DO [address] [address] Phone: tel: fax: [facility] - Neurology [address] [place] [phone] Phone: tel: fax: Referral ID Status Reason Start Date Expiration Date V isits Requested Visits Authorized [id number] Closed Specialty Services Required 04/03/2024 04/03/2025 1 1 TEACHER Encounter Details Date Type Department Care Team (Latest Contact Info) Description 04/03/2024 Transcribe Orders [facility] - Centralized Scheduling [facility] [place] [address] José Pena DO [address] [address] Nonintractable headache, unspecified chronicity pattern, unspecified headache type ; Septo-optic dysplasia of brain Social History Tobacco Use Types Packs/Day Years Used Date Smoking Tobacco: Never Assessed Sex and Gender Information Value Date Recorded Sex Assigned at Not on file 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
--- OUTSIDE RECORDS SUMMARY | 2025-04-11 22:31 | XMS_ITS | Clinical Summary ---
Author Organization [facility] Address [address] [place] [address] Care Team Providers Care Tour Narrator Name Role Phone Trupti Crow NP Unavailable [phone] Jacki Trujillo MD Primary Care Provider Allergies Active Allergy Reactions Criticality Noted Date Comments Other Other (See comments) Low 09/03/2023 States is allergic to calcium blockers-numbness in tongue and numbness in throat and inflammation points all over body. [facility] was able to breath Medications valsartan-hydro [...] 07/04/2023 Assessment & Plan (07/04/2023 3:22 PM USER SUPPORT SPECIALIST): Congenital (NLP with sensory XT since ) Confirmed with outside MRI (06/2023) records Monocular precautions Subjective visual disturbances 07/04/2023 Assessment & Plan (07/04/2023 4:32 PM USER SUPPORT SPECIALIST): Truong Castillo is a 48 yo [...] Encounters Date Type Department Care Team Description 04/06/[address] [phone] Jak Jacobson RN 04/01/2025 Telephone [facility] [address] [place] [address] Camelia Cortez RN 03/16/2025 Telephone [facility] [place] [address] Carmencita Aguero, AWAIS from Last 3 Months Surgical History Surgery [...] History of hypertension - (A dded by Conv) Dental disease GERD (gastroesophageal reflux disease) [...] of 2) 01/28/1996 Influenza Vaccine (#1) 2025 05/15/2024 DTaP/Tdap/Td Vaccine (2 - Td or Tdap) 04/15/2031 Insurance [facility] Care Teams Tour Narrator Relationship Specialty Start Date End Date Jacki Trujillo MD [address] [facility] [address] [place] [address] PCP - General Family Practice 09/28/22 Trupti Crow NP Nurse Practitioner Orthopedic Surgery 09/28/22
--- OUTSIDE RECORDS SUMMARY | 2025-04-11 22:31 | XMS_ITS | Clinical Summary ---
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
--- OUTSIDE RECORDS SUMMARY | 2025-04-11 22:32 | XMS_ITS | Clinical Summary ---
Author Organization [facility] Address [address] [place] [address] Care Team Providers Care Attraction Attendant Name Role Phone Unknown, Provider Primary Care Provider Unavaila ble Source Comments [facility] [place],non-owned Affiliates and Associated Physician Practices is amultiple site organization consisting of ambulatory clinics and hospital sitesin [place], [place], [place] and [place]. This disclosure is being madepursuant to the Care Everywhere program and may not contain all information available regarding this patient. 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 Gender Identity Not on file Sexual Orientation [...] patient's age to complete this topic Insurance [facility] SELF PAY NO INSURANCE Member Subscriber Plan / Payer (Ef fective for All Dates) Name:Malathi Castillo Member ID:Not on file Relation to Subscriber:Not on file Name:MANDATRINHMALATHI CARPENTER Subscriber ID:Not on file (Home) Address: [address] [place] [address] Payer ID:Not on file Group ID:Not on file Type:Self Pay Address: [place], [place] Care Teams Attraction Attendant Relationship Specialty Start Date End Date Unknown, Provider PCP - General 04/21/24
[2025-04-11 22:35] VITALS: BP 119/67; PULSE 89; RESP 16; TEMP 36.8; O2SAT 96
[2025-04-11 23:01] LABS: Hematocrit 46.0 % (42.0-52.0); Hemoglobin 15.3 g/dL (14.0-18.0); Immature Granulocyte Percent A 0.6 % (0-0.5); Lymphocytes Absolute Auto 3.24 K/mm3 (0.9-3.2); Mean Corpuscular HGB Conc 33.3 g/dl (32-36); Mean Corpuscular Hemoglobin 30.5 pg (26-34); Mean Corpuscular Volume 91.6 fl (80-100); Nucleated Red Blood Cells Absolute Auto 0.000 K/mm3 (0.0-0.012); Nucleated Red Blood Cells Perc 0.0 % (0.0-0.2); Platelet Count Result 329 k/mm3 (150-375); Red Blood Count 5.02 M/mm3 (4.6-6.20); White Blood Count 12.9 K/mm3 (4.5-10.0)
[2025-04-11 23:14] LABS: Alanine Aminotransferase 27 U/L (6-50); Albumin Level 4.1 g/dL (3.5-5.1); Alkaline Phosphatase 66 U/L (38-126); Anion Gap 7 mmol/L (4-12); Aspartate Amino Transferase 23 U/L (17-59); Bilirubin,Total 0.3 mg/dL (0.2-1.3); Blood Urea Nitrogen 25 mg/dL (9-20); Calcium 9.2 mg/dL (8.4-10.2); Carbon Dioxide 26 mmol/L (22-30); Chloride 101 mmol/L (98-107); Estimated CRCL calculation 82 ml/min; Estimated Glomerular Filt Rate 60; Glucose 133 mg/dL (65-110); Potassium 3.7 mmol/L (3.4-5.0); Sodium 134 mmol/L (137-145); Total Protein 7.2 g/dL (6.3-8.2)
[2025-04-11 23:32] LABS: Add Urine Microscopic? YES; Appearance Urine Clear (Clear); Glucose Urine UA Negative (Negative); Leukocyte Esterase Ur Negative LEU/UL (Negative); Nitrate Urine Negative (Negative); Non Pathogenic Casts 0-2; Specific Grav Ur 1.025 (1.001-1.035)
[2025-04-12 00:30] VITALS: BP 124/68; PULSE 90; RESP 18; TEMP 36.8; O2SAT 98
[2025-04-12] MEDS: HYDROmorphone HCL INJ (*CRX) 1 MG/ML SYR 0.5 MG IV PUSH (01:23)
--- NOTE | 2025-04-12 05:35 | ED_ITS ---
HPI - General Adult General Chief complaint: Urogenital-Male Stated complaint: possible kidney stone, R flank pain Time Seen by Provider: 04/11/25 23:20 History of Present Illness HPI narrative: This is a 50-year-old male history of kidney stones presenting with right flank pain. Flank pain started earlier today. Patient says it feels like things had his kidney stone. He denies fevers chills nausea vomiting diarrhea. No urinary symptoms. Related Data Home Medications ?Medication ?Instructions ?Recorded ?Confirmed ?Last Taken ?Type aspirin 81 mg tablet,delayed 81 mg PO DAILY 06/28/23 1 05/04/24 07:30 History release (Adult Low Dose Aspirin) Allergies Allergy/AdvReac Type Severity Reaction Status Date / Time Beta-Blockers AdvReac Intermediate Numbness Verified 03/30/25 13:53 (Beta-Adrenergic Bloc PMFSH Past Medical History Medical History (Updated 04/12/25 @ 05:41 by Jethro Rosado MD) Lateral epicondylitis of elbow Abdominal bloating Abnormal CT scan, gastrointestinal tract Single subsegmental pulmonary embolism without acute cor pulmonale Neck stiffness Numbness of right anterior thigh COVID Cervicogenic headache Arthralgia of hip or thigh Elevated WBC count Suspected exposure to mold Shoulder pain, right High risk medication use Need for hepatitis B screening test Crohn's disease Hoarseness of voice Loose stools Rectal pain Alternating constipation and diarrhea Intertrigo MATILDA positive Subcutaneous cyst Numbness and tingling of both lower extremities Numbness and tingling in both hands Otitis media History of stroke Left facial numbness Septo-optic dysplasia of brain Elevated antinuclear antibody (MATILDA) level Vision abnormalities Joint pain SOB (shortness of breath) on exertion Rib pain on left side Tinnitus GERD (gastroesophageal reflux disease) Allergic rhinitis Essential (primary) hypertension Amblyopia of eye Ulnar neuropathy at elbow of left upper extremity Nicotine dependence Chest pain, unspecified Closed left arm fracture Kidney stone Hypercholesteremia Surgical History Surgical History History of eye surgery Left History of foot surgery Left Family History Family History Father , Who is the patient's great aunt or distant cousin Hypertension Alcoholism Heart disease Mother Hypertension Mother Unknown family medical history Father Unknown family medical history Sibling Healthy adult Social History Social History Social History: The patient lives in an apartment. He has a 65-year-old roommate has had a stroke that he helps provide care for. He has 2 large dogs. 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 He is single and has never been . He does not have any children. He has smoked 2 packs per day since he was 18 years old. He drinks alcohol quite heavily. He was drinking up to a 12 pack of beer per day. He reports that in September of 2022 he cut back to drinking 3-7 beers every couple of days. He denies illicit substance use. Code status: Full code Surrogate decision maker: Deena Hester (sister) Caffeine-coffee Smoking packs per day: 2 Smoking cigarettes per day: 40.0 Years smoked: 29 Smoking pack-years: 58.00 Smoking status: Current every day smoker Tobacco type: cigarettes Second hand tobacco smoke exposure: Yes Alcohol intake: current Drinks per week: 6 Substance use: never Substance use type: does not use Do You Feel Safe in your Home?: Yes Lack of Transportation: No Lack of Food: Never True Current Housing: I Have Housing Concerned About Future Housing: No Difficulty Paying Gas/Electric Bills: No Difficulty Paying for Meds: No Currently Unemployed: No Education: Trade/Vocational Certificate Difficulty w/ Childcare or Family Care: Decline to Answer Living arrangements: alone Occupation/Education: occupation Additional occupation/education comments: [employer]. Gender identity (if verbalized by the patient): Male Spiritual care concerns: No Exam 2 Narrative: APPEARANCE: No apparent distress. Head: atraumatic. EYES: EOMI, NOSE: Atraumatic NECK: Trachea midline RESPIRATORY: No increased rate of breathing clear to auscultation CARDIOVASCULAR: RRR, ABDOMINAL: Non-distended Soft nontender no guarding rebound, no CVA tenderness MUSCULOSKELETAl: No obvious deformities NEURO: Alert. Moving 4/4 extremities SKIN:: Warm, dry. Normal color PSYCHIATRIC: Normal affect Course Vital Signs Vital signs: Vital Signs Temperature 98.3 F 04/11/25 22:35 Pulse Rate 89 04/11/25 22:35 Respiratory Rate 16 04/11/25 22:35 Blood Pressure 119/67 04/11/25 22:35 Pulse Oximetry 96 04/11/25 22:35 Oxygen Delivery Room Air 04/11/25 22:35 Temperature 98.3 F 04/11/25 22:35 Pulse Rate 89 04/11/25 22:35 Respiratory Rate 16 04/11/25 22:35 Blood Pressure 119/67 04/11/25 22:35 Pulse Oximetry 96 04/11/25 22:35 Oxygen Delivery Room Air 04/11/25 22:35 Medical Decision Making [facility] Narrative Medical decision making narrative: -Course: 50-year-old male presenting with right flank pain. Patient has pain feels similar to his kidney stones in past. When I went to interview the patient he rest by me said he felt that he was going to pass stone in when urinated. After that his pain seemed to improve. Urine had some 6-[address] did not reveal any kidney stones although he may have just passed 1. He does have a mass in left kidney that he is aware of and has been evaluated by his primary care physician they are watching. Patient is reassessed is now sleeping in bed. He will be discharged home with Motrin Tylenol. Given return precautions. -DDX includes but is not limited to: Muscle strain,, kidney stone, UTI/pyelo Vital Signs Vital Signs: Vital Signs Temperature 98.3 F 04/11/25 22:35 Pulse Rate 89 04/11/25 22:35 Respiratory Rate 16 04/11/25 22:35 Blood Pressure 119/67 04/11/25 22:35 Pulse Oximetry 96 04/11/25 22:35 Oxygen Delivery Room Air 04/11/25 22:35 Temperature 98.3 F 04/11/25 22:35 Pulse Rate 89 04/11/25 22:35 Respiratory Rate 16 04/11/25 22:35 Blood Pressure 119/67 04/11/25 22:35 Pulse Oximetry 96 04/11/25 22:35 Oxygen Delivery Room Air 04/11/25 22:35 Lab Data 04/11/25 22:55 04/11/25 22:55 Labs: Lab Results 04/11/25 04/11/25 Range/Units 22:55 23:21 WBC 12.9 H (4.5-10.0) K/mm3 RBC 5.02 (4.6-6.20) M/mm3 Hgb 15.3 (14.0-18.0) g/dL Hct 46.0 (42.0-52.0) % MCV 91.6 (80-100) fl MCH 30.5 (26-34) pg MCHC 33.3 (32-36) g/dl RDW 12.3 (11.5-14.5) % Plt Count 329 (150-375) k/mm3 MPV 9.3 (7.4-10.4) fl Immature Gran % (Auto) 0.6 H (0-0.5) % Neut % (Auto) 62.6 (45.5-73.1) % Lymph % (Auto) 25.1 (18.3-44.2) % [place] % (Auto) 9.4 H (2.6-8.5) % Eos % (Auto) 2.1 (0-4.4) % Baso % (Auto) 0.2 (0.2-1.2) % Lymph # (Auto) 3.24 H (0.9-3.2) K/mm3 [place] # (Auto) 1.2 H (0.1-0.6) K/mm3 Eos # (Auto) 0.3 (0-0.3) K/mm3 Baso # (Auto) 0.0 (0.0-0.1) K/mm3 Abs Immat Gran (auto) 0.08 H (0.00-0.031) K/mm3 Absolute Neuts (auto) 8.1 H (1.3-6.7) K/mm3 Absolute Nucleated RBC 0.000 (0.0-0.012) K/mm3 Nucleated RBC % 0.0 (0.0-0.2) % Sodium 134 L (137-145) mmol/L Potassium 3.7 (3.4-5.0) mmol/L Chloride 101 (98-107) mmol/L Carbon Dioxide 26 (22-30) mmol/L Anion Gap 7 (4-12) mmol/L BUN 25 H (9-20) mg/dL Creatinine 1.28 (0.7-1.3) mg/dL Estim Creat Clear Calc 82 ml/min Estimated GFR 60 (59 - ) Glucose 133 H (65-110) mg/dL Calcium 9.2 (8.4-10.2) mg/dL Total Bilirubin 0.3 (0.2-1.3) mg/dL AST 23 (17-59) U/L ALT 27 (6-50) U/L Alkaline Phosphatase 66 (38-126) U/L Total Protein 7.2 (6.3-8.2) g/dL Albumin 4.1 (3.5-5.1) g/dL Urine Color Yellow (Yellow) Urine Appearance Clear (Clear) Urine pH 5.0 (5.0-9.0) Ur Specific [place] 1.025 (1.001-1.035) Urine Protein Trace (Negative) mg/dL Urine Glucose (UA) Negative (Negative) mg/dL Urine Ketones Trace H (Negative) mg/dL Ur Blood (Man) 2+ H (Negative) Urine Nitrate Negative (Negative) Urine Bilirubin Negative (Negative) Urine Urobilinogen 0.2 (<2.0) mg/dL Leukocyte Esterase Rfl Negative (Negative) ROCKY/UL Urine RBC 6-10 H (0-2) /hpf Urine WBC 0-5 (0-3) /hpf Ur Squamous Epith Cells None seen (Few) /hpf Urine Bacteria None seen /hpf Urine Casts 0-2 Discharge Plan Discharge Clinical Impression: Flank pain Patient Disposition: Home Condition: Stable Instructions: Antibiotic Form, Flank Pain (ED) Additional Instructions: You were seen in the emergency department for flank pain. Your CT scan did not show any kidney stones. Please use Motrin and Tylenol as needed for pain. If you develop we develop severe pain or any new symptoms return to ED for re- evaluation. Patient Language: Moldovan Prescriptions: No Action aspirin [Adult Low Dose Aspirin] 81 mg tablet,delayed release (DR/EC) 81 mg PO DAILY Spiriva Respimat 1.25 mcg/actuation mist 2 puff inhalation Q24H Qty: 4 5RF azathioprine [Imuran] 50 mg tablet 50 mg PO DAILY 30 Days Qty: 30 5RF albuterol sulfate 90 mcg/actuation HFA aerosol inhaler 2 puff inhalation Q4H PRN (Reason: shortness of breath or wheezing) Qty: 8.5 3RF valsartan-hydrochlorothiazide 160-25 mg tablet See Rx Instructions .ROUTE .COMPLEX Qty: 90 1RF Dose Instruction: TAKE 1 TABLET BY MOUTH DAILY Rx Instructions: TAKE 1 TABLET BY MOUTH DAILY nebivolol 10 mg tablet See Rx Instructions .ROUTE .COMPLEX Qty: 90 2RF Dose Instruction: TAKE 1 TABLET BY MOUTH DAILY Rx Instructions: TAKE 1 TABLET BY MOUTH DAILY Follow-up/Referrals: Abe Meehan APRN [Primary Care Provider, Internal Medicine]
[2025-04-12 05:55] VITALS: BP 123/64; PULSE 88; RESP 18; TEMP 36.8; O2SAT 100
== END 2025-04-12 05:57 | disposition home or self-care (01) ==
PROVIDERS: Emergency Provider Emergency Medicine; PCP Nurse Practitioner
DX: R10.A1 Flank pain, right side (principal); I10 Essential (primary) hypertension; E78.00 Pure hypercholesterolemia, unspecified; K50.90 Crohn's disease, unspecified, without complications; K21.9 Gastro-esophageal reflux disease without esophagitis; F17.210 Nicotine dependence, cigarettes, uncomplicated; Z87.442 Personal history of urinary calculi; Z86.73 Personal history of transient ischemic attack (TIA), and cerebral infarction without residual deficits; Z86.16 Personal history of COVID-19; Z86.711 Personal history of pulmonary embolism; N28.89 Other specified disorders of kidney and ureter
CPT/HCPCS: 36415; 74176; 80053; 81001; 85025; 96374; 99284; J1171

== ENCOUNTER 2025-04-13 10:22 | Outpatient (CLI) | payer OTHER, SELFPAY ==
[2025-04-13 10:43] LABS: Hematocrit 48.7 % (42.0-52.0); Hemoglobin 16.4 g/dL (14.0-18.0); Mean Corpuscular HGB Conc 33.7 g/dl (32-36); Mean Corpuscular Hemoglobin 30.7 pg (26-34); Mean Corpuscular Volume 91.0 fl (80-100); Platelet Count Result 374 k/mm3 (150-375); Red Blood Count 5.35 M/mm3 (4.6-6.20); White Blood Count 11.7 K/mm3 (4.5-10.0)
[2025-04-13 11:07] LABS: Alanine Aminotransferase 31 U/L (6-50); Albumin Level 4.6 g/dL (3.5-5.1); Alkaline Phosphatase 75 U/L (38-126); Anion Gap 9 mmol/L (4-12); Aspartate Amino Transferase 27 U/L (17-59); Bilirubin,Total 0.7 mg/dL (0.2-1.3); Blood Urea Nitrogen 21 mg/dL (9-20); CRP 1.5 mg/dL (<1.0); Calcium 9.9 mg/dL (8.4-10.2); Carbon Dioxide 25 mmol/L (22-30); Chloride 102 mmol/L (98-107); Estimated Glomerular Filt Rate > 60; Glucose 112 mg/dL (65-110); Potassium 4.0 mmol/L (3.4-5.0); Sodium 136 mmol/L (137-145); Total Protein 8.1 g/dL (6.3-8.2)
--- OUTSIDE RECORDS SUMMARY | 2025-04-13 19:25 | XMS_ITS | Clinical Summary ---
Author Organization [facility] Address [address] [place] [address] Care Team Providers Care Construction Superintendent Name Role Phone Jacki Trujillo MD Primary [...] years 2022 INFLUENZA VACCINE (#1) 2024 Insurance [facility] MEDICAID Care Teams Construction Superintendent Relationship Specialty Start Date End Date Jacki Trujillo MD [address] [place] [address] PCP - General Family Practice 12/29/22
--- OUTSIDE RECORDS SUMMARY | 2025-04-13 19:26 | XMS_ITS | Clinical Summary ---
Author Organization [facility] Care Team Providers Care Highway Safety Engineer Name Role Phone Unavailable Primary Care Provider Unavailabl e Social History Tobacco Use Types Packs/Day Years Used Date Smoking Tobacco: Never Assessed Sex and Gender Information Value Date Recorded Sex Assigned at Not on file Legal Sex Male 11:32 AM NIGHT MONITOR Gender Identity Not on file Sexual Orientation [...]
--- OUTSIDE RECORDS SUMMARY | 2025-04-13 19:26 | XMS_ITS | Clinical Summary ---
Author Organization [facility] Address [address] [place] [address] Care Team Providers Care Hairspring Inspector Name Role Phone Trupti Crow NP Unavailable [phone] Jacki Trujillo MD Primary Care Provider [...] 07/04/2023 Assessment & Plan (07/04/2023 3:22 PM GAME AUTHOR): Congenital (NLP with sensory XT since ) Confirmed with outside MRI (06/2023) records Monocular precautions Subjective visual disturbances 07/04/2023 Assessment & Plan (07/04/2023 4:32 PM GAME AUTHOR): Truong Castillo is a 48 yo male [...] Type Department Care Team Description 04/06/[address] [phone] Jak Jacobson RN 04/01/2025 Telephone [facility] [address] [place] [address] Camelia Cortez RN 03/16/2025 Telephone [facility] [place] [address] Carmencita Aguero, AWAIS from Last [...] (2 - Td or Tdap) 04/15/2031 Insurance [facility] Care Teams Hairspring Inspector Relationship Specialty Start Date End Date Jacki Trujillo MD [address] [facility] [address] [place] [address] PCP - General Family Practice 09/28/22 Trupti Crow NP Nurse Practitioner Orthopedic Surgery 09/28/22
--- OUTSIDE RECORDS SUMMARY | 2025-04-13 19:26 | XMS_ITS | Encounter Summary ---
Author Organization [facility] Address [address] [facility] [place] [address] Care Team Providers Care Gas Meter Reader Name Role Phone Unknown, Provider Primary Care Provider Unavaila ble Reason for Referral * Consultation (Routine) - Closed Specialty Diagnoses / Procedures Referred By Contac t Referred To Contact Neurology Diagnoses Headache Septo-optic dysplasia of brain (HCC) José Pena DO [address] [address] Phone: tel: fax: [facility] - Neurology [address] [place] [phone] Phone: tel: fax: Referral ID Status Reason Start Date Expiration Date V isits Requested Visits Authorized [id number] Closed Specialty Services Required 04/03/2024 04/03/2025 1 1 BED PRESS OPERATOR Encounter Details Date Type Department Care Team (Latest Contact Info) Description 04/03/2024 Transcribe Orders [facility] - Centralized Scheduling [facility] [place] [address] José Pena DO [address] [address] Nonintractable headache, unspecified chronicity pattern, unspecified headache type ; Septo-optic dysplasia of brain Social History Tobacco Use Types Packs/Day Years Used Date Smoking Tobacco: Never Assessed Sex and Gender Information Value Date Recorded Sex Assigned at Not on file Legal Sex Male 6:21 AM FLATBED PRESS OPERATOR Gender Identity Not on file Sexual [...] brain documented in this encounter Care Teams Gas Meter Reader Relationship Specialty Start Date End Date Unknown, Provider PCP - General 04/21/24 documented as of this encounter
--- OUTSIDE RECORDS SUMMARY | 2025-04-13 19:27 | XMS_ITS | Clinical Summary ---
Author Organization [facility] Address [address] [place] [address] Care Team Providers Care Social Media Senior Associate Name Role Phone Unknown, Provider Primary Care Provider Unavaila ble Source Comments [facility]works,non-owned Affiliates and Associated Physician Practices is amultiple site organization consisting of ambulatory clinics and hospital sitesin [place], [place], [place] and [place]. This disclosure is being madepursuant to the Care Everywhere program and may not contain all information available regarding this patient. Last updated 18.[facility] Allergies No known active allergies Medications * [...] on file Legal Sex Male 6:21 AM REHAB CARE ASSISTANT Gender Identity Not on file Sexual Orientation [...] patient's age to complete this topic Insurance [facility] SELF PAY NO INSURANCE Member Subscriber Plan / Payer (Ef fective for All Dates) Name:Malathi Castillo Member ID:Not on file Relation to Subscriber:Not on file Name:MANDATRINHMALATHI CARPENTER Subscriber ID:Not on file (Home) Address: [address] [place] [address] Payer ID:Not on file Group ID:Not on file Type:Self Pay Address: [place], [place] Care Teams Social Media Senior Associate Relationship Specialty Start Date End Date Unknown, Provider PCP - General 04/21/24
== END 2025-04-13 10:23 | disposition home or self-care (01) ==
PROVIDERS: PCP Nurse Practitioner; Visit Provider Nurse Practitioner Family
DX: K50.90 Crohn's disease, unspecified, without complications (principal)
CPT/HCPCS: 36415; 80053; 85027; 85652; 86140

== ENCOUNTER 2025-05-13 10:22 | Outpatient (CLI) | payer OTHER, SELFPAY ==
--- OUTSIDE RECORDS SUMMARY | 2025-05-13 12:08 | XMS_ITS | Clinical Summary ---
Author Organization [facility] Address [address] [place] [address] Care Team Providers Care Tire Retreader Name Role Phone Trupti Crow NP Unavailable [phone] Jacki Trujillo MD Primary Care Provider Allergies Active Allergy Reactions Criticality Noted Date Comments Other Other (See comments) Low 09/03/2023 States is allergic to calcium blockers-numbness in tongue and numbness in throat and inflammation points all over body. [facility] was able to breath [...] 07/04/2023 Assessment & Plan (07/04/2023 3:22 PM CIGAR BANDER HAND): Congenital (NLP with sensory XT since ) Confirmed with outside MRI (06/2023) records Monocular precautions Subjective visual disturbances 07/04/2023 Assessment & Plan (07/04/2023 4:32 PM CIGAR BANDER HAND): Truong Castillo is a 48 yo male [...] Type Department Care Team Description 04/06/[address] [phone] Jak Jacobson RN 04/01/2025 Telephone [facility] [address] [place] [address] Camelia Cortez RN 03/16/2025 Telephone [facility] [place] [address] Carmencita Aguero, AWAIS from Last [...] (2 - Td or Tdap) 04/15/2031 Insurance [facility] Care Teams Tire Retreader Relationship Specialty Start Date End Date Jacki Trujillo MD [address] [facility] MD [address] [place] [address] PCP - General Family Practice 09/28/22 Trupti Crow NP Nurse Practitioner Orthopedic Surgery 09/28/22
--- OUTSIDE RECORDS SUMMARY | 2025-05-13 12:08 | XMS_ITS | Clinical Summary ---
Author Organization [facility] Care Team Providers Care Economic Development Coordinator Name Role Phone Unavailable Primary Care Provider Unavailabl e Social History Tobacco Use Types Packs/Day Years Used Date Smoking Tobacco: Never Assessed Sex and Gender Information Value Date Recorded Sex Assigned at Not on file Legal Sex Male 11:32 AM P[address]ING LOT SUPERVISOR Gender Identity Not on file Sexual Orientation [...]
--- OUTSIDE RECORDS SUMMARY | 2025-05-13 12:08 | XMS_ITS | Clinical Summary ---
Author Organization [facility] Address [address] [address] Care Team Providers Care Padding Gluer Name Role Phone Unknown, Provider Primary Care Provider Unavaila ble Source Comments [facility] [employer],non-owned Affiliates and Associated Physician Practices is amultiple site organization consisting of ambulatory clinics and hospital sitesin [place], [place], [place] and [place]. This disclosure is being madepursuant to the Care Everywhere program and may not contain all information available regarding this patient. 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
--- OUTSIDE RECORDS SUMMARY | 2025-05-13 12:08 | XMS_ITS | Clinical Summary ---
Author Organization [facility] Address [address] [place] [address] Care Team Providers Care Customer Development Representative Name Role Phone Jacki Trujillo MD Primary [...] years 2022 INFLUENZA VACCINE (#1) 2024 Insurance [facility] MEDICAID Care Teams Customer Development Representative Relationship Specialty Start Date End Date Jacki Trujillo MD [address] [place] [address] PCP - General Family Practice 12/29/22
--- OUTSIDE RECORDS SUMMARY | 2025-05-13 12:08 | XMS_ITS | Encounter Summary ---
Author Organization [facility] Address [address] [facility] [place] [address] Care Team Providers Care Catering Coordinator Name Role Phone Unknown, Provider Primary Care Provider Unavaila ble Reason for Referral * Consultation (Routine) - Closed Specialty Diagnoses / Procedures Referred By Contac t Referred To Contact Neurology Diagnoses Headache Septo-optic dysplasia of brain (HCC) Joés Pnea DO [address] [address] Phone: tel: fax: [facility] Neurology [address] [place] [phone] Phone: tel: fax: Referral ID Status Reason Start Date Expiration Date V isits Requested Visits Authorized [id number] Closed Specialty Services Required 04/03/2024 04/03/2025 1 1 E HAND Encounter Details Date Type Department Care Team (Latest Contact Info) Description 04/03/2024 Transcribe Orders [facility] - Centralized Scheduling [facility] [place] [address] José Pena DO [address] [address] Nonintractable headache, unspecified chronicity pattern, unspecified headache type ; Septo-optic dysplasia of brain Social History Tobacco Use Types Packs/Day Years Used Date Smoking Tobacco: Never Assessed Sex and Gender Information Value Date Recorded Sex Assigned at Not on file Legal Sex Male 6:21 AM REDYE HAND Gender Identity Not on file Sexual Orientation [...] brain documented in this encounter Care Teams Catering Coordinator Relationship Specialty Start Date End Date Unknown, Provider PCP - General 04/21/24 documented as of this encounter
[2025-05-13 19:42] LABS: Add Urine Microscopic? YES; Appearance Urine Turbid (Clear); Glucose Urine UA 1+ mg/dL (Negative); Leukocyte Esterase Ur Negative LEU/UL (Negative); Nitrate Urine Negative (Negative); Non Pathogenic Casts 0-2; Specific Grav Ur 1.024 (1.001-1.035)
== END 2025-05-13 10:23 | disposition home or self-care (01) ==
LOC: ANHGOSHLAB 10:23
PROVIDERS: PCP Nurse Practitioner; Visit Provider Nurse Practitioner
DX: R31.9 Hematuria, unspecified (principal)
CPT/HCPCS: 81001